=== PATIENT | female | born 1945 | race Caucasian/White ===

== ENCOUNTER → 2016-12-24 | Outpatient (CLI) | payer OTHER ==
[~2016-12-24] MED LIST: CALC600T9; CHOL100010 PO; DIPH25CA37; HYDR0.5T PO; IBUP-1050 PO; PRLSR20 PO; TAMO20TA5 PO
[2016-12-24 13:31] VITALS: BP 128/92; PULSE 83; TEMP 36.8; O2SAT 97
--- NOTE | 2016-12-24 15:46 | Radiation Oncology Follow-Up ---
Radiation Oncology Follow-Up Date of Visit Dec 24, 2016. Reason For Visit Annual follow-up Radiation Completion Date 05/23/13 Hypo Diagnosis (1) Ductal carcinoma in situ (DCIS) of right breast Status: Resolved Onset Date: 09/29/2012 Stage: 0 Permanent Comment: Abnormal right breast mammogram Status post right breast core needle biopsy 09/26/2012 revealing DCIS high-grade Status post lumpectomy and sentinel lymph node biopsy 10/10/2012 stage [id number] with positive margin reexcision 11/03/2012 no additional carcinoma Status post completion of radiation therapy 05/23/2013 utilizing hypo- fractionated received 5006 cGy Last Edited By: Loly Jenkins on Jan 02, 2015 16:46 (2) Malignant neoplasm of corpus uteri, except isthmus Status: Resolved Onset Date: 08/20/2012 Stage: 0 Permanent Comment: Postmenopausal vaginal bleeding Endometrial biopsy 08/03/2012 revealing 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 She noted no changes to her breast. She has noticed no masses or tenderness and no change of the axilla. She's had no swelling of her arm. She is up to date on mammography. She had a mammogram 09/28/2016. Right breast is status post lumpectomy. Benign, no evidence of malignancy. Normal interval follow-up is recommended in 12 months. The left breast is negative, no evidence of malignancy. Normal interval follow-up in 12 months. BI-RADS Category 2. She continues on tamoxifen and denies side effects. She continues regular follow-up with Dr. Wall as well as Dr. Dickinson in medical oncology. She had a recheck CT of the chest abdomen and pelvis 03/13/2016. There was no evidence of metastatic disease or recurrence. Allergies Coded Allergies: Codeine (Verified Allergy, Intermediate, Hives, 10/31/12) Acetaminophen (Unverified Allergy, RASH, 08/16/09) Tetracyclines (Unverified Allergy, TONGUE SWELLS, 08/16/09) Home Medications Scheduled Calcium Carbonate-Vitamin D (Calcium + D), 1,200 MG DAILY Cholecalciferol (Vitamin D), 1,000 INTER.UNIT PO DAILY Hydroxychloroquine Sulfate (Plaquenil), 200 MG PO DAILY Ibuprofen (Advil), 200 MG PO prn Omeprazole (Prilosec), 20 MG PO DAILY Tamoxifen Citrate (Nolvadex), 20 MG PO DAILY Review of Systems Gastrointestinal: Symptoms: WNL Oral: Symptoms: No Problems Respiratory: Symptoms: WNL, Moist Cough, SOB With Exertion Other Respiratory: Moist cough of thick clear sputum, FIORE Urinary: Symptoms: WNL Skin: Symptoms: No Problems Breast: Right Upper Arm Measurement: 29.0 Right Mid Arm Measurement: 23.9 Right Wrist Measurement: 15.8 Left Upper Arm Measurement: 30.0 Left Mid Arm Measurement: 23.1 Left Wrist Measurement: 15.9 Arm Dominence: Right Physical Exam Vital Signs Date Time Temp Pulse Resp B/P (MAP) Pulse Ox O2 Delivery O2 Flow Rate FiO2 12/24/16 13:31 36.8 83 16 128/92 97 Fatigue: None General Appearance: no apparent distress Eyes: normal inspection, EOMI ENT: normal ENT inspection, hearing grossly normal Neck: no adenopathy, thyroid normal Respiratory/Chest: lungs clear, no respiratory distress, no accessory muscle use Breast: Breast examination reveals well-healed incision of the right breast. There is a palpable deficit in the area of her lumpectomy. There is mild fibrous tissue in the lower edge of the previous surgical site. There are no distinct masses. There is no telangiectasia. There is no tenderness or axillary adenopathy. Using the Williamson score cosmesis she has a a fair outcome. The left breast showed no masses or tenderness and no axillary adenopathy. Cardiovascular: regular rate, rhythm, no gallop, no murmur Abdomen: non tender, soft Neurologic/Psychiatric: no motor/sensory deficits, alert, normal mood/affect Skin: warm/dry Lymphatic: no adenopathy Additional Studies Mammography and recheck CT scanning as above. Assessment & Plan Plan: Continue regular follow-up with medical oncology, gynecologic oncology, and her primary care physician. She continues on tamoxifen. Today we discussed smoke cessation. She is down to one half pack per day. She'll continue to try to wean off of cigarettes. We discussed taking away 1 cigarette every 2 weeks. She does not tolerate nicotinic patches. These caused vivid dreams. Continue with scheduled mammography. We asked her to return to our office in 1 year. She may call if she has any questions or concerns in the interim. Total Time In Follow-Up I spent 20 minutes speaking to the patient and performing examination. I spent 15 minutes reviewing information in completing this note. Copy To Andrews Wall M.D.; Romain Dickinson M.D.; Yuval Richards M.D.(LINDA
== END | disposition home or self-care (01) ==
LOC: C.ONC 13:00
PROVIDERS: ATTEND Physician Assistant Medical
DX: Z08 Encounter for follow-up examination after completed treatment for malignant neoplasm (principal); Z92.3 Personal history of irradiation; Z85.3 Personal history of malignant neoplasm of breast

== ENCOUNTER 2018-12-15 13:43 | Inpatient (IN) ==
--- OUTSIDE RECORDS SUMMARY | 2018-12-15 13:47 | External Medical Summary | Continuity of Care Document ---
:1945 Author Name Theodore Huntley, Provider Address Unavailable Unavailable , Care Team Providers Name Role Phone Yasemin Delgadillo [email or web address] Yasemin Allen [email or web address] Yuval Richards Unavailable Unavailable Unavailable Unavailable Unavailable Problems Rheumatoid arthritis (714.0) (M06.9) GERD (gastroesophageal reflux disease) (530.81) (K21.9) Ductal carcinoma in situ of breast (233.0) (D05.10) Sinusitis (473.9) (J32.9) Vasomotor rhinitis (477.9) (J30.0) Facial pressure (780.99) (R68.89) Nasal septal deviation (470) (J34.2) Hypertrophy of both inferior nasal turbinates (478.0) (J34.3 ) Preoperative testing (V72.84) (Z01.818) Peripheral edema (782.3) (R60.9) Chronic sinusitis (473.9) (J32.9) Current smoker (305.1) (F17.200) Apnea, sleep (780.57) (G47.30) Recurrent respiratory infection (519.8) (J98.8) Chronic obstructive pulmonary disease (496) (J44.9) Cough (786.2) (R05) Allergies and Adverse Reactions Acetaminophen TABS (Allergy) Codeine Derivatives (Allergy) Tetracyclines (Allergy) Medications Symbicort 160-4.5 MCG/ACT Inhalation Aer osol; INHALE 2 PUFFS TWICE DAILY. RINSE MOUTH AFTER USE. ELIZABETH Allen Start: 17-Dec-2017 Quantity: 1 10.2 GM Inhaler Refills: 6 Incruse Ellipta 62.5 MCG/INH Inhalation Aerosol Powder Breath Activated; USE 1 INHALATION ONCE DAILY. ELIZABETH Allen Start: 17-Dec-2017 Quantity: 1 30 Inhaler Pack Refills: 6 Ipratropium [place] 0.02 % Inhalation So lution; INHALE THE CONTENTS OF 1 VIAL VIA NEBULIZER MIXED WITH 1/2 DOSE OF ALBUTEROL EVERY 4 HOURS NEEDED FOR SHORTNESS OF BREATH ELIZABETH Allen Start: 17-Dec-2017 Quantity: 62.5 25 x 2.5 ML Plas Con t Refills: 3 Levalbuterol HCl - 1.25 MG/0.5ML Inhalat ion Nebulization Solution; TAKE 1 VIAL IN NEBULIZER mixed with ipratropium every 4 hours as needed ELIZABETH Allen Start: 12-Dec-2018 Quantity: 3 30 Milliliter Plas C ont Refills: 3 Ventolin HFA 108 (90 Base) MCG/ACT Inhal ation Aerosol Solution; INHALE 2 PUFFS BY MOUTH EVERY 4 HOURS NEEDED FOR WHEEZING. ELIZABETH Allen Start: 19-Sep-2018 Quantity: 1 18 GM Inhaler Refills: 5 Calcium + D + K 750-500-40 MG-UNT-MCG Or al Tablet; TAKE DIRECTED PER PACKAGE INSTRUCTIONS. Start: 17-Dec-2017 Refills: 0 Vitamin D3 1000 UNIT Oral Capsule; TAKE 1 CAPSULE Daily Start: 17-Dec-2017 Quantity: 90 Refills: 0 Plaquenil 200 MG Oral Tablet; Take 1 tablet daily Start: 17-Dec-2017 Quantity: 30 Refills: 5 Ibuprofen 200 MG Oral Tablet; TAKE 1 TABLET 3 TIMES DAILY NEEDED. Start: 17-Dec-2017 Refills: 0 Omeprazole 20 MG Oral Capsule Delayed Release; TAKE 1 CAPSUL E BY MOUTH DAILY Start: 17-Dec-2017 Quantity: 30 Refills: 5 PreserVision AREDS 2 Oral Capsule; TAKE DIRECTED. Start: 17-Dec-2017 Refills: 0 Oxygen Refills: 0 dilTIAZem HCl - 120 MG Oral Tablet; TAKE 1 PO DAILY IN [facility]. Start: 19-Apr-2018 Refills: 0 Singulair 10 MG Oral Tablet; TAKE 1 TABLET AT BEDTIME. Start: 19-Apr-2018 Refills: 0 Ipratropium [place] 0.02 % Inhalation So lution; INHALE 1 UNIT DOSE Every 4 hours as needed ELIZABETH Allen Start: 31-May-2018 Quantity: 1 25 x 2.5 ML Plas Con t Refills: 5 Compound Medication; [id number] CAPS Mix 1 CAP & Saline PKT w/6ozdistilled water in bottle Irrigate each nasal passage w/3oz, twice daily ELIZABETH Delgadillo Start: 17-Aug-2018 Quantity: 20 Refills: 3 predniSONE 10 MG Oral Tablet; Take 4 tab s daily x 4 days then 3 tabs daily x 3 days then 2 tabs daily x 2 days then 1 tab on last day then stop ELIZABETH Allen Start: 08-Dec-2018 Quantity: 30 Refills: 0 Azithromycin 250 MG Oral Tablet; TAKE 2 TABLETS ON DAY 1 THEN TAKE 1 TABLET A DAY FOR 4 DAYS. ELIZABETH Allen Start: 08-Dec-2018 Quantity: 1 6 Tablet Box Refills: 0 Procedures History of Tonsillectomy Status: Complet ed History of Breast Surgery Lumpectomy Sta tus: Completed History of Cataract Surgery Status: Comp leted History of rhinologic surgery Status: Co mpleted History of Septoplasty Status: Completed History of Sinus Surgery Status: Complet ed Immunizations Immunizations not documented Family History Father Family history of myocardial infarction (V17.3) (Z82.49) Sta tus: Active Family history of leukemia (V16.6) (Z80.6) Status: Active Sister Family history of malignant neoplasm of breast (V16.3) (Z80. 3) Status: Active Social History - Smoking Status Smoker. current status unknown Plan of Treatment Planned Encounters Appointment; Yasemin Allen PA-C Start: 25-Jan-2019 8:00 Re quest Planned Observations Planned Goals not documented Results No Known Results Results not documented Encounters Appointment; Yasemin Allen PA-C 26-Oct-2018 8:15 Encounter Diagnosis: Problem not documented Appointment; Fuad Lopez M.D. 25-Oct-2018 9:10 Encounter Diagnosis: Problem not documented Appointment; Yasemin Allen PA-C 13-Sep-2018 9:45 Encounter Diagnosis: Problem not documented Appointment; Yasemin Allen PA-C 06-Sep-2018 13:30 Encounter Diagnosis: Problem not documented Appointment; Fuad Lopez M.D. 17-Aug-2018 9:50 Encounter Diagnosis: Problem not documented Appointment; Yasemin Allen PA-C 01-Aug-2018 13:30 Encounter Diagnosis: Problem not documented Appointment; Fuad Lopez M.D. 29-Jul-2018 10:50 Encounter Diagnosis: Problem not documented Appointment; Fuad Lopez M.D. 13-Jul-2018 11:00 Encounter Diagnosis: Problem not documented Appointment; Fuad Lopez M.D. 29-Jun-2018 7:30 Encounter Diagnosis: Problem not documented Appointment; Yasemin Allen PA-C 31-May-2018 7:45 Encounter Diagnosis: Problem not documented Appointment; Fuad Lopez M.D. 18-May-2018 8:15 Encounter Diagnosis: Problem not documented Appointment; ENT, [facility] 13-May-2018 8:40 Encounter Diagnosis: Problem not documented Appointment; Pulmonary, Funct Testing 04-May-2018 11:30 Encounter Diagnosis: Problem not documented Appointment; Fuad Lopez M.D. 28-Apr-2018 8:10 Encounter Diagnosis: Problem not documented Appointment; Yasemin Delgadillo PA-C 22-Apr-2018 9:20 Encounter Diagnosis: Problem not documented Appointment; Yasemin Allen PA-C 19-Apr-2018 10:30 Encounter Diagnosis: Problem not documented Appointment; Desirae Ga CRNP 01-Apr-2018 11:00 Encounter Diagnosis: Problem not documented Appointment; Yasemin Allen PA-C 01-Feb-2018 7:45 Encounter Diagnosis: Problem not documented Appointment; Yasemin Allen PA-C 22-Dec-2017 7:30 Encounter Diagnosis: Problem not documented Appointment; Yasemin Allen PA-C 25-Jan-2019 8:00 Encounter Diagnosis: Problem not documented
[2018-12-15] MEDS ORDERED: methylPREDNISolone 125 MG/2 ML VIAL IV STA (13:52)
[2018-12-15] MEDS ORDERED: ALBUT/IPRATROP 3MG/0.5MG NEB 3 ML VIAL INH STA (13:52)
[2018-12-15 14:11] LABS: Basophils # (auto) 0.01 K/uL (0-0.2); Basophils % (auto) 0.1 %; Eosinophils # (auto) 0.43 K/uL (0-0.5); Eosinophils % (auto) 4.6 %; Hematocrit (blood only) 46.2 % (37-47); Hemoglobin 15.3 g/dL (12.0-16.0); Immature Granulocytes # (auto) 0.02 K/uL (0.00-0.02); Immature Granulocytes % (auto) 0.2 %; Lymphocytes # (auto) 1.01 K/uL (1.2-3.4); Lymphocytes % (auto) 10.8 %; Mean Corpuscular Hgb Conc 33.1 g/dL (32-36); Mean Corpuscular Volume 89.7 fL (80-100); Mean Platelet Volume 9.2 fL (7.4-10.4); Monocytes # (auto) 0.63 K/uL (0.11-0.59); Monocytes % (auto) 6.8 %; Neutrophils # (auto) 7.21 K/uL (1.4-6.5); Neutrophils % (auto) 77.5 %; Platelet Count 270 K/uL (130-400); RDW Coefficient of Variation 14.5 % (11.5-14.5); RDW Standard Deviation 47.3 fL (36.4-46.3); Red Blood Count 5.15 M/uL (4.2-5.4); White Blood Count 9.31 K/uL (4.8-10.8)
[2018-12-15] MEDS: MAGNESIUM SULFATE / D5W 1 GM/100 ML BAG IV SCH ×2 (14:14→15:21)
[2018-12-15 14:25] LABS: Partial Thromboplastin Ratio 0.9; Partial Thromboplastin Time 23.1 Seconds (21.0-31.0); Prothrombin Time 9.8 Seconds (9.0-12.0)
[2018-12-15 14:30] LABS: Alanine Aminotransferase 38 U/L (12-78); Albumin Level 4.1 gm/dl (3.4-5.0); Aspartate Aminotransferase 18 U/L (15-37); BUN Creatinine Ratio 12.7 (10-20); Blood Urea Nitrogen 10 mg/dl (7-18); Calcium 9.4 mg/dl (8.5-10.1); Carbon Dioxide 32 mmol/L (21-32); Chloride 105 mmol/L (98-107); Est GFR (African American) 86.6; Est GFR (Non-African American) 74.7; Glucose 103 mg/dl (70-99); Potassium 4.1 mmol/L (3.5-5.1); Sodium 139 mmol/L (136-145)
--- NOTE | 2018-12-15 14:32 | XRay Report ---
XR chest 1V portable CLINICAL HISTORY: Dyspnea. COMPARISON STUDY: Chest radiograph and chest CT August 31, 2018. FINDINGS: Lung volumes are normal. There is no pneumothorax or pleural effusion. There is no consolid ation or evidence for pulmonary edema. The appearance of the chest is unchanged. Cardiac size is norm al. Mediastinal contours are normal. IMPRESSION: No acute cardiopulmonary findings. Electronically signed by: Baldo Díaz M.D. 12/15/2018 2:30 PM
[2018-12-15 14:35] LABS: Albumin Globulin Ratio 1.1 (0.9-2); Alkaline Phosphatase 100 U/L (45-117); Bilirubin,Total 0.6 mg/dl (0.2-1); Globulin 3.9 gm/dl (2.5-4.0); Troponin I < 0.015 ng/ml (0-0.045)
[2018-12-15 15:17] LABS: Base Excess VBG -0.6 mEq/L; Oxygen Saturation VBG 84.6 %; pH VBG 7.29 (7.36-7.41)
--- NOTE | 2018-12-15 16:29 | History & Physical Report ---
Date of Service December 15, 2018 Assessment & Plan (1) COPD exacerbation: (2) Respiratory failure: Patient presented with increased shortness of breath past 2-3 days. 4 days prior had completed 5-day course of steroids and Zithromax for SOB In ER patient afebrile, peak: 110, RR: 32, BP 175/93, 95% on 2 L NC No leukocytosis, VBG: pH: 7.29, pCO2: 58, p O2: 54, HCO3: 27 CXR: no acute infiltrate Patient was placed on BiPAP with decreased tachypnea and 100% saturations on BiPAP. Was given our long albuterol neb, magnesium sulfate 1 g IV, Solu-Medrol and 25 mg IV -Pending blood cultures -Continue BiPAP -Duo nebs -Supplemental oxygen as needed -Solumedrol 40mg IV Q8H -Rocephin, Zithromax -Continue home inhalers, Singulair -Pulmonology consult (3) PAT (paroxysmal atrial tachycardia): Current sinus tachycardia rate 112 Patient did not have diltiazem today -Continue diltiazem (4) Rheumatoid arthritis: -Continue Plaquenil (5) GERD (gastroesophageal reflux disease): -Continue PPI (6) JOAN (obstructive sleep apnea): Uses CPAP and to L oxygen at bedtime -Currently on BiPAP (7) Tobacco use disorder: -Smoking cessation encouraged DVT Prophylaxis -Lovenox SQ Full Code as per discussion with pt Follows with Dr Richards for routine care Pt was seen with Dr Finnegan. See addendum History of Present Illness Chief Complaint: SOB Primary Care Provider: Yuval Richards MD Pt is 72 y/o F with PMH COPD, JOAN on CPAP, chronic oxygen use at night at 2L, tobacco use, RA, paroxysmal atrial tachycardia, R breast cancer s/p surgery & radiation, uterine CA s/p surgery presented to ER with c/o increased SOB x 2-3 days. Patient states she is having some nasal congestion and increased work of breath last week and was started on steroids and Zithromax x5 days which completed 4 days ago. Patient reports with increased shortness of breath for the past 2 to 3 days and increased wheezing. Reports chronic productive cough of yellow sputum in the mornings, denies increased cough or increased sputum production. Denies fevers or chills. Patient was using her albuterol inhaler 3 times a day without relief. Today was using oxygen continuously at 2 L (usually uses at bedtime ). Denies ill contacts or recent travel. Denies diaphoresis, N/V/D/C, TRINIDAD, dizziness, syncope, vision changes, neck pain, CP, orthopnea, palpitations, hemoptysis, sore throat, choking, otalgia, abdominal pain, paresthesias, weakness, extremity weakness, extremity edema, rashes, urinary symptoms. Allergies Allergy/AdvReac Type Severity Reaction Status Date / Time codeine Allergy Intermediate Hives Verified 12/15/18 14:22 acetaminophen Allergy Unknown RASH Verified 12/15/18 14:22 Tetracyclines Allergy Unknown TONGUE Verified 12/15/18 14:22 SWELLS Home Medications Home Medications Medication Instructions Recorded Confirmed Type Incruse Ellipta 1 inh INHALATION QAM 04/02/18 12/15/18 History PreserVision AREDS-2 1 tab PO BID 04/02/18 12/15/18 History albuterol sulfate 2 puff INHALATION Q4 PRN 04/02/18 12/15/18 History calcium carbonate-vit D3-min 1 tab PO DAILY 04/02/18 12/15/18 History cholecalciferol (vitamin D3) 1,000 unit PO QAM 04/02/18 12/15/18 History [Vitamin D3] hydroxychloroquine [Plaquenil] 200 mg PO QAM 04/02/18 12/15/18 History montelukast 10 mg PO PM 04/02/18 12/15/18 History omeprazole 20 mg PO QAM 04/02/18 12/15/18 History Symbicort 2 puff INHALATION BID 06/29/18 12/15/18 History diltiazem HCl 120 mg PO DAILY 08/31/18 12/15/18 History Past Med/Surg History Family History Other Breast cancer Cancer Coronary heart disease Social History Preferred Language: Persian Communication Ability: Effective Visual Impairment: No Limitations Beliefs That Will Affect Care: None marital status: Single Current Living Situation: Spouse Other Information That Helps Us Care for You: No Feels Safe at Home: Yes Safety Concerns: Feels Safe At This Time Smoking Status: Current every day smoker Tobacco Type: cigarettes Cigarettes Per Day: 3 Second Hand Exposure: No Hx Alcohol Use: No Hx Substance Use: No Review of Systems Review of Systems: All systems reviewed & are unremarkable except as noted in HPI & below Physical Exam Physical Exam: General: Current on bipap with non-labored respirations, WDWN Head: normocephalic, atraumatic Eyes: PERRL, EOM's intact, conjunctiva non-injected, anicteric ENT: normal inspection external ears, nose, mucous membranes mildly dry Neck: supple, trachea midline Lungs: On bipap with non-labored respirations, RR: 22, diminished breath sounds with scattered wheezing throughout CV: regular rhythm, rate 116, no murmur, no JVD, no pretibial edema Abd: normal BS, soft, non-tender Ext: no cyanosis, no calf tenderness Neuro: A&O x 3, no focal deficits noted, normal affect Skin: warm, dry; tip of nose with bandage (had skin biopsy today) Results & Data Vital Signs (Past 12 Hours) Vital Signs Temp Pulse Pulse Resp BP Pulse Ox 12/15/18 15:31 106 H 20 149/90 H 100 12/15/18 15:00 103 H 20 150/112 H 100 12/15/18 14:37 107 H 21 169/113 H 100 12/15/18 14:36 111 H 26 H 100 12/15/18 14:32 110 H 26 H 100 12/15/18 14:07 111 H 25 H 100 12/15/18 14:05 99 12/15/18 13:47 36.6 C 110 H 32 H 175/93 H 95 Laboratory Results Short CBC 12/15/18 Range/Units 13:55 WBC 9.31 (4.8-10.8) K/uL Hgb 15.3 (12.0-16.0) g/dL Hct 46.2 (37-47) % Plt Count 270 (130-400) K/uL BMP 12/15/18 13:55 Sodium 139 Potassium 4.1 Chloride 105 Carbon Dioxide 32 BUN 10 Creatinine 0.80 Glucose 103 H Calcium 9.4 Cardiac Enzymes 12/15/18 12/15/18 Range/Units 13:55 13:55 Troponin I Cancelled < 0.015 Liver Function 12/15/18 Range/Units 13:55 Total Bilirubin 0.6 (0.2-1) mg/dl AST 18 (15-37) U/L ALT 38 (12-78) U/L Alkaline Phosphatase 100 (45-117) U/L Albumin 4.1 (3.4-5.0) gm/dl Diagnostic Findings CXR: IMPRESSION: No acute cardiopulmonary findings. Supervising Physician Co-Signing Physician Notes Patient is a 72-year-old female with history of COPD, obstructive sleep apnea on CPAP, nocturnal hypoxia-chronic oxygen dependency, ongoing tobacco use and other problems presents with history of worsening shortness of breath since 2 to 3 days duration. She reports associated nasal congestion, chest congestion. She recently completed a course of Z-Silvestre, prednisone 4 days ago. Chest x-ray showed no acute findings. VBG showed elevated CO2 at 58. EKG shows sinus tachycardia with QTC 476. Patient was placed on BiPAP while in ED after receiving multiple breathing treatments. Currently feels much improved with BiPAP use. On exam patient is moderately built and nourished, On Bipap, no apparent distress, normocephalic atraumatic, lungs--decreased breath sounds, no obvious wheezing noted, S1, S2, +sinus Tachycardia, abdomen soft nontender, no focal neurological deficits, no pedal edema. Patient is admitted for management of acute on chronic COPD exacerbation. Acute on chronic hypoxic, hypercapnic respiratory failure. Continue BiPAP as needed. Plan to start on IV Solu- Medrol, bronchodilators, azithromycin. Pulmonology consulted. Repeat EKG in the morning to monitor QTC. Consider discontinuing azithromycin if QTC is prolonged. Advised to quit smoking. I personally reviewed the record. Patient is interviewed and examined at bedside. Patient's care is coordinated with Jerilyn Reeder PA-C. Please refer to the documentation above for details of patient's presentation and for discussion of other issues. (1) Respiratory failure Chronicity: unspecified Respiratory failure complication: unspecified whether with hypoxia or hypercapnia Qualified Code(s): J96.90 - Respiratory failure, unspecified, unspecified whether with hypoxia or hypercapnia
--- NOTE | 2018-12-15 17:50 | Emergency Department Note ---
Entered by Shelley Damon acting as a scribe for History of Present Illness General Chief complaint: Shortness of Breath/Dyspnea Stated complaint: SOB Time Seen by Provider: 12/15/18 13:52 Source: patient Mode of arrival: ambulatory Limitations: no limitations History of Present Illness Onset (ago): day(s) (last night) Location: chest Pain Consistency: + other (worsening) Maximum Pain Intensity: 0 Quality: + other (shortness of breath) Associated symptoms: + shortness of breath; no chest pain, no cough and no fever/chills (The patient denies fever. ) Treatments prior to arrival: other (She states that she used an inhaler at 0930. ) The patient is a 72 white female w/ PMHx COPD, pulmonary nodule, and hypoxia who presents to the ED w/ CC of worsening shortness of breath beginning 2 days ago. She states that she used an inhaler at 0930. The patient denies chest pain, cough, and fevers. She notes that she finished a regimen of Prednisone last Wednesday for difficulty breathing. She states that she wears 3 liters of oxygen at night. The patient reports that she is a current smoker. She denies a history of heart failure. The patient denies weight gain. Home Medications Home Medications Medication Instructions Recorded Confirmed Type Incruse Ellipta 1 inh INHALATION QAM 04/02/18 12/15/18 History PreserVision AREDS-2 1 tab PO BID 04/02/18 12/15/18 History albuterol sulfate 2 puff INHALATION Q4 PRN 04/02/18 12/15/18 History calcium carbonate-vit D3-min 1 tab PO DAILY 04/02/18 12/15/18 History cholecalciferol (vitamin D3) 1,000 unit PO QAM 04/02/18 12/15/18 History [Vitamin D3] hydroxychloroquine [Plaquenil] 200 mg PO QAM 04/02/18 12/15/18 History montelukast 10 mg PO PM 04/02/18 12/15/18 History omeprazole 20 mg PO QAM 04/02/18 12/15/18 History Symbicort 2 puff INHALATION BID 06/29/18 12/15/18 History diltiazem HCl 120 mg PO DAILY 08/31/18 12/15/18 History Allergies Allergy/AdvReac Type Severity Reaction Status Date / Time codeine Allergy Intermediate Hives Verified 12/15/18 14:22 acetaminophen Allergy Unknown RASH Verified 12/15/18 14:22 Tetracyclines Allergy Unknown TONGUE Verified 12/15/18 14:22 SWELLS Past Med/Surg History Medical History JOAN (obstructive sleep apnea) (Chronic) Basal cell carcinoma (BCC) (Chronic) Skin cancer of face (Chronic) Hiatal hernia (Chronic) History of uterine cancer (Chronic) S/P GREGORIO BSO + CHEMO History of breast cancer (Chronic) RT - S/P LUMPECTOMY + RADIATION THERAPY Nocturnal oxygen desaturation (Chronic) WEARS O2 AT 2 LPM AT NIGHT Tobacco use disorder (Chronic) Pulmonary nodule (Chronic) PAT (paroxysmal atrial tachycardia) (Chronic) FOLLOWS W/ DR. 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) "Abnormal right breast mammogram Status post right breast core needle biopsy 09/26/2012 revealing DCIS high- grade Status post lumpectomy and sentinel lymph node biopsy 10/10/2012 stage [id number] with positive margin reexcision 11/03/2012 no additional carcinoma Status post completion of radiation therapy 05/23/2013 utilizing hypo- fractionated received 5006 cGy " Rheumatoid arthritis (Chronic) GERD (gastroesophageal reflux disease) (Chronic) Surgical History History of colonoscopy (Chronic) History of total abdominal hysterectomy and bilateral salpingo-oophorectomy (Chronic) History of breast biopsy (Chronic) History of Moh's micrographic surgery for skin cancer (Chronic) History of tonsillectomy (Chronic) History of cataract surgery (Chronic) Status post right breast lumpectomy (Chronic) Family History Other Breast cancer Cancer Coronary heart disease Social History Preferred Language: Qatari Communication Ability: Effective Visual Impairment: No Limitations Beliefs That Will Affect Care: None marital status: Single Current Living Situation: Spouse Feels Safe at Home: Yes Smoking Status: Current every day smoker Tobacco Type: cigarettes Cigarettes Per Day: 3 Second Hand Exposure: No Hx Alcohol Use: No Hx Substance Use: No Review of Systems See HPI for pertinent positives & negatives. and A total of 10 systems reviewed and were otherwise negative Physical Exam Vital Signs Vital Signs - 24 hr 12/15/18 13:47 12/15/18 14:05 12/15/18 14:07 Temperature 36.6 C Temperature Source Oral Sepsis Recent Fever Within 48 Hours No Sepsis New/Unexplained Change in Mental Status No Sepsis Action Taken by Nursing No Action Required Pulse Rate 110 H 111 H Pulse Rate [Right Finger] Pulse Rate from SpO2 Sensor Pulse Rhythm Respiratory Rate 32 H 25 H Respiratory Effort / Characteristics Labored Retracting Short of Breath Tripoding Short of Breath Respiratory Depth Shallow Respiratory Pattern Rapid/Shallow Tachypnea Blood Pressure 175/93 H Blood Pressure Mean 120 Pulse Oximetry 95 99 100 Oxygen Delivery Method Nasal Cannula Nasal Cannula Oxygen Flow Rate 2 2 Fraction of Inspired Oxygen 35 SaO2/FiO2 Ratio 12/15/18 14:32 12/15/18 14:36 12/15/18 14:37 Temperature Temperature Source Sepsis Recent Fever Within 48 Hours Sepsis New/Unexplained Change in Mental Status Sepsis Action Taken by Nursing Pulse Rate 111 H 107 H Pulse Rate [Right Finger] 110 H Pulse Rate from SpO2 Sensor 107 H Pulse Rhythm Regular Respiratory Rate 26 H 26 H 21 Respiratory Effort / Characteristics Spontaneous Short of Breath Respiratory Depth Respiratory Pattern Blood Pressure 169/113 H Blood Pressure Mean 131 Pulse Oximetry 100 100 100 Oxygen Delivery Method BiPAP BiPAP BiPAP Oxygen Flow Rate 2 Fraction of Inspired Oxygen 35 35 SaO2/FiO2 Ratio 285 12/15/18 15:00 12/15/18 15:31 12/15/18 16:00 Temperature Temperature Source Sepsis Recent Fever Within 48 Hours Sepsis New/Unexplained Change in Mental Status Sepsis Action Taken by Nursing Pulse Rate 103 H 106 H 104 H Pulse Rate [Right Finger] Pulse Rate from SpO2 Sensor 101 H 105 H 110 H Pulse Rhythm Respiratory Rate 20 20 22 Respiratory Effort / Characteristics Respiratory Depth Respiratory Pattern Blood Pressure 150/112 H 149/90 H 125/84 Blood Pressure Mean 124 109 97 Pulse Oximetry 100 100 100 Oxygen Delivery Method BiPAP BiPAP BiPAP Oxygen Flow Rate Fraction of Inspired Oxygen 35 35 SaO2/FiO2 Ratio 12/15/18 16:16 12/15/18 16:31 12/15/18 17:00 Temperature Temperature Source Sepsis Recent Fever Within 48 Hours Sepsis New/Unexplained Change in Mental Status Sepsis Action Taken by Nursing Pulse Rate 110 H 115 H 119 H Pulse Rate [Right Finger] Pulse Rate from SpO2 Sensor 115 H 117 H Pulse Rhythm Respiratory Rate 24 21 23 Respiratory Effort / Characteristics Non-Labored Spontaneous Respiratory Depth Normal Respiratory Pattern Tachypnea Blood Pressure 151/89 H 143/99 H Blood Pressure Mean 109 113 Pulse Oximetry 100 97 99 Oxygen Delivery Method BiPAP BiPAP Oxygen Flow Rate 2 Fraction of Inspired Oxygen 35 35 SaO2/FiO2 Ratio 12/15/18 17:30 Temperature Temperature Source Sepsis Recent Fever Within 48 Hours Sepsis New/Unexplained Change in Mental Status Sepsis Action Taken by Nursing Pulse Rate 105 H Pulse Rate [Right Finger] Pulse Rate from SpO2 Sensor 114 H Pulse Rhythm Respiratory Rate 18 Respiratory Effort / Characteristics Respiratory Depth Respiratory Pattern Blood Pressure 125/87 Blood Pressure Mean 99 Pulse Oximetry 100 Oxygen Delivery Method BiPAP Oxygen Flow Rate Fraction of Inspired Oxygen SaO2/FiO2 Ratio GENERAL: In moderate distress, well nourished, NAD, non-toxic. Tachypneic, accessory muscle use noted. Diffuse wheezing throughout, shallow breaths, nasal cannula in place. EYE EXAM: Normal conjunctiva. PERRL, no anisocoria and EOM's grossly intact w/o pain. OROPHARYNX: Moist mucus membranes. Grossly normal dentition. NECK: Supple, no nuchal rigidity, no adenopathy, non-tender. no signs of meningismus. LUNGS: Tachypneic, accessory muscle use noted. Diffuse wheezing throughout, shallow breaths, nasal cannula in place. HEART: NSR, no MRG. ABDOMEN: Abdomen soft, non-tender, normo-active bowel sounds, no masses, no rebound or guarding. BACK: No CVA TTP. SKIN: No rashes and no bruising. UPPER EXTREMITIES: Upper extremities are grossly normal. LOWER EXTREMITIES: Trace pretibial edema. No calf pain. No asymmetric swelling. NEURO EXAM: A&O x3, cranial nerves II-XII grossly intact, normal speech, moves all 4 extremities on command w/o issue. Course 1355: Past medical records reviewed. The patient was evaluated in room B03B. A complete history and physical examination was performed. 1553: I reviewed the patient's case with Jerilyn Yu. She will evaluate the patient for further management. Consultations Consultation #1: [id number]: I reviewed the patient's case with Jerilyn Yu. She will evaluate the patient for further management. Time: 15:53 Administered Medications Discontinued Medications Albuterol (Duoneb) 12 ml INH ONE STA Stop: 12/15/18 13:53 Last Admin: 12/15/18 14:31 Dose: 12 ml Documented by: [id number] Magnesium Sulfate/Dextrose (Magnesium Sulfate / D5w) 1 gm in 100 mls @ 100 mls/hr IV Q1H ELVER Stop: 12/15/18 15:59 Last Infusion: 12/15/18 16:33 Dose: 0 mls/hr Documented by: [id number] Admin: 12/15/18 15:21 Dose: 100 mls/hr Documented by: [id number] Infusion: 12/15/18 15:19 Dose: 0 mls/hr Documented by: [id number] Admin: 12/15/18 14:14 Dose: 100 mls/hr Documented by: [id number] Methylprednisolone (Solumedrol) 125 mg IV NOW STA Stop: 12/15/18 13:53 Last Admin: 12/15/18 14:14 Dose: 125 mg Documented by: [id number] Azithromycin 500 mg PO x 1 Medical Decision Making Differential Diagnosis Differential diagnoses Pneumonia, bronchitis, COPD/Asthma exacerbation, pneumothorax, pulmonary embolism, congestive heart failure, acute coronary syndrome as well as other etiologies were entertained. Medical Records Attestation: I reviewed the patient's medical records. Home Medications Current Medication List: was personally reviewed by me Laboratory Data Attestation: I reviewed the patient's lab results. Result diagrams: 12/15/18 13:55 12/15/18 13:55 Lab Results 12/15/18 12/15/18 12/15/18 Range/Units 13:55 13:55 13:55 WBC 9.31 (4.8-10.8) K/uL RBC 5.15 (4.2-5.4) M/uL Hgb 15.3 (12.0-16.0) g/dL Hct 46.2 (37-47) % MCV 89.7 (80-100) fL MCH 29.7 (25-34) pg MCHC 33.1 (32-36) g/dL RDW Std Deviation 47.3 H (36.4-46.3) fL RDW Coeff of Arleen 14.5 (11.5-14.5) % Plt Count 270 (130-400) K/uL MPV 9.2 (7.4-10.4) fL Immature Gran % (Auto) 0.2 % Neut % (Auto) 77.5 % Lymph % (Auto) 10.8 % Colbert % (Auto) 6.8 % Eos % (Auto) 4.6 % Baso % (Auto) 0.1 % Immature Gran # (Auto) 0.02 (0.00-0.02) K/uL Neut # (Auto) 7.21 H (1.4-6.5) K/uL Lymph # (Auto) 1.01 L (1.2-3.4) K/uL Colbert # (Auto) 0.63 H (0.11-0.59) K/uL Eos # (Auto) 0.43 (0-0.5) K/uL Baso # (Auto) 0.01 (0-0.2) K/uL PT 9.8 (9.0-12.0) Seconds INR 1.0 (0.9-1.1) APTT 23.1 (21.0-31.0) Seconds PTT Ratio 0.9 VBG pH VBG pCO2 VBG pO2 VBG HCO3 VBG O2 Saturation VBG Base Excess Barometric Pressure Sodium (136-145) mmol/L Potassium (3.5-5.1) mmol/L Chloride (98-107) mmol/L Carbon Dioxide (21-32) mmol/L Anion Gap (3-11) BUN (7-18) mg/dl Creatinine (0.6-1.2) mg/dl Est Cr Clr Drug Dosing Est GFR ( Amer) Est GFR (Non-Af Amer) BUN/Creatinine Ratio (10-20) Glucose (70-99) mg/dl Calcium (8.5-10.1) mg/dl Total Bilirubin (0.2-1) mg/dl AST (15-37) U/L ALT (12-78) U/L Alkaline Phosphatase (45-117) U/L Troponin I Cancelled Total Protein (6.4-8.2) gm/dl Albumin (3.4-5.0) gm/dl Globulin (2.5-4.0) gm/dl Albumin/Globulin Ratio (0.9-2) 12/15/18 12/15/18 12/15/18 Range/Units 13:55 14:21 15:04 WBC (4.8-10.8) K/uL RBC (4.2-5.4) M/uL Hgb (12.0-16.0) g/dL Hct (37-47) % MCV (80-100) fL MCH (25-34) pg MCHC (32-36) g/dL RDW Std Deviation (36.4-46.3) fL RDW Coeff of Arleen (11.5-14.5) % Plt Count (130-400) K/uL MPV (7.4-10.4) fL Immature Gran % (Auto) % Neut % (Auto) % Lymph % (Auto) % Colbert % (Auto) % Eos % (Auto) % Baso % (Auto) % Immature Gran # (Auto) (0.00-0.02) K/uL Neut # (Auto) (1.4-6.5) K/uL Lymph # (Auto) (1.2-3.4) K/uL Colbert # (Auto) (0.11-0.59) K/uL Eos # (Auto) (0-0.5) K/uL Baso # (Auto) (0-0.2) K/uL PT (9.0-12.0) Seconds INR (0.9-1.1) APTT (21.0-31.0) Seconds PTT Ratio VBG pH Cancelled 7.29 L VBG pCO2 Cancelled 58 H VBG pO2 Cancelled 54 VBG HCO3 Cancelled 27 VBG O2 Saturation Cancelled 84.6 VBG Base Excess Cancelled -0.6 Barometric Pressure Cancelled 727.1 Sodium 139 (136-145) mmol/L Potassium 4.1 (3.5-5.1) mmol/L Chloride 105 (98-107) mmol/L Carbon Dioxide 32 (21-32) mmol/L Anion Gap 2.0 L (3-11) BUN 10 (7-18) mg/dl Creatinine 0.80 (0.6-1.2) mg/dl Est Cr Clr Drug Dosing Not Reportable Est GFR ( Amer) 86.6 Est GFR (Non-Af Amer) 74.7 BUN/Creatinine Ratio 12.7 (10-20) Glucose 103 H (70-99) mg/dl Calcium 9.4 (8.5-10.1) mg/dl Total Bilirubin 0.6 (0.2-1) mg/dl AST 18 (15-37) U/L ALT 38 (12-78) U/L Alkaline Phosphatase 100 (45-117) U/L Troponin I < 0.015 Total Protein 8.0 (6.4-8.2) gm/dl Albumin 4.1 (3.4-5.0) gm/dl Globulin 3.9 (2.5-4.0) gm/dl Albumin/Globulin Ratio 1.1 (0.9-2) Imaging Data Radiologist's Impression: Radiology results as stated below per my review and the radiologist's interpretation: XR chest 1V portable CLINICAL HISTORY: Dyspnea. COMPARISON STUDY: Chest radiograph and chest CT August 31, 2018. FINDINGS: Lung volumes are normal. There is no pneumothorax or pleural effusion. There is no consolidation or evidence for pulmonary edema. The appearance of the chest is unchanged. Cardiac size is normal. Mediastinal contours are normal. IMPRESSION: No acute cardiopulmonary findings. Electronically signed by: Baldo Díaz M.D. 12/15/2018 2:30 PM Dictated: 12/15/18 1429 Transcribed: 12/15/18 1429 ECG Data Attestation: I personally reviewed and interpreted this ECG as follows: Indication: SOB/dyspnea Rate (beats per minute): 111 Rhythm: sinus tachycardia Findings: + other (Normal intervals, left axis deviation, Q waves anteriorly. ) Comparison ECG Date: from (08/31/2018) Change: the following changes noted (ST depression anteriorly is no longer present ) Blood Pressure Blood Pressure Findings: Elevated blood pressure Blood Pressure Disposition: further management by hospitalist CARLYLE Narrative The patient is a 72 white female w/ PMHx COPD, pulmonary nodule, and hypoxia who presents to the ED w/ CC of worsening shortness of breath beginning 2 days ago. Patient was seen in about the bedside. Patient was relating some worsening shortness of breath beginning 2 days prior. The patient has dyspnea on exertion. Patient denies lower extremity swelling orthopnea. The patient does have some wheezing throughout his tachypneic has conversational dyspnea. The patient does use 2 L of oxygen at nighttime. The patient does continue to use cigarettes. The patient was placed on BiPAP did have blood work completed along with an hour-long DuoNeb Solu-Medrol mag and did have blood work and EKG. Patient's EKG sinus tach. The patient did receive IV fluids. Patient has a normal white count and H&H. The patient does have some hypercarbia which is likely acute. The patient is never been hypoxic but likely is having some shelia tilation issues. The patient's kidney function is unremarkable. The patient has an undetectable troponin. Patient denies any prior history of PE. I believe this most consistent with COPD. I did speak with the on-call hospitalist who agreed to further evaluate treat the patient. Patient was adm itted to medicine service. Impression & Plan Hypercapnic respiratory failure, COPD (chronic obstructive pulmonary disease), Encounter for smoking cessation counseling Critical Care Time I have personally spent 52 minutes of critical care time in the direct management of this patient. This includes bedside care, interpretation of diagnostic studies, and testing, discussion with consultants, patient, and family members, and other required patient management activities. This 52 minutes is in excess of all separately billable procedures. Critical Care Time: Yes (52) Total Critical Care Time: 52 Discharge Plan Visit Data Chief Complaint: Shortness of Breath/Dyspnea Stated Complaint: SOB ED Provider: Jagdeep Arredondo Discharge Problem: Hypercapnic respiratory failure, COPD (chronic obstructive pulmonary disease), Encounter for smoking cessation counseling Patient Disposition: Being Evaluated by Hospitalist Forms Stand Alone Forms: [facility] Prescriptions Prescriptions: No Action omeprazole 20 mg Capsule,Delayed Release(Dr/Ec) 20 mg PO QAM RF: 0 montelukast 10 mg Tablet 10 mg PO PM RF: 0 hydroxychloroquine [Plaquenil] 200 mg Tablet 200 mg PO QAM RF: 0 cholecalciferol (vitamin D3) [Vitamin D3] 1,000 unit Capsule 1,000 unit PO QAM RF: 0 PreserVision AREDS-2 [id number] Capsule 1 tab PO BID RF: 0 Incruse Ellipta 62.5 mcg/actuation Blister With Device 1 inh INHALATION QAM RF: 0 calcium carbonate-vit D3-min 600 mg calcium- 400 unit Tablet 1 tab PO DAILY RF: 0 albuterol sulfate 90 mcg/actuation HFA aerosol inhaler 2 puff Inhalation Q4 PRN (Reason: Shortness Of Breath Or Wheezing) RF: 0 Symbicort 160-4.5 mcg/actuation Hfa Aerosol Inhaler 2 puff INHALATION BID RF: 0 diltiazem HCl 120 mg Capsule,Extended Release 24 Hr 120 mg PO DAILY RF: 0 Referrals Referrals: Yuval Richards MD [Primary Care Provider] - Discharge Problem: Hypercapnic respiratory failure Qualifiers: Chronicity: acute on chronic Qualified Code(s): J96.22 - Acute and chronic respiratory failure with hypercapnia COPD (chronic obstructive pulmonary disease) Qualifiers: COPD type: unspecified COPD Qualified Code(s): J44.9 - Chronic obstructive pulmonary disease, unspecified The scribe's documentation has been prepared under my direction and personally reviewed by me in its entirety. I confirm that the note above accurately reflects all work, treatment, procedures, and medical decision making performed by me.
[2018-12-15] MEDS ORDERED: AZITHROMYCIN 250 MG TAB PO ONE (17:51)
[2018-12-15] MEDS ORDERED: SODIUM CHLORIDE 0.9% 1000ML 1,000 ML IV SCH (18:11)
[2018-12-15] MEDS: cefTRIAXone SODIUM 1,000 MG in DEXTROSE 5% 50 ML IV SCH (19:24)
[2018-12-15] MEDS: AZITHROMYCIN 500 MG in DEXTROSE 5% 250 ML IV SCH (19:24)
[2018-12-15] MEDS: dilTIAZem ER 120 MG CAPCR PO SCH (19:24)
[2018-12-15] MEDS: ALBUT/IPRATROP 3MG/0.5MG NEB 3 ML VIAL NEB SCH (20:18)
[2018-12-15] MEDS: MONTELUKAST SODIUM 10 MG TABLET PO SCH (20:25)
[2018-12-15] MEDS: ENOXAPARIN INJ 40 MG/0.4 ML SYR SQ SCH (20:30)
[2018-12-15] MEDS: BUDESONIDE/FORMOTEROL FUMARATE 160/4.5 60 PUFFS/INHALER INH SCH (20:31)
[2018-12-15] MEDS: methylPREDNISolone 40 MG in SYRINGE 0 ML IV SCH (21:32)
[2018-12-15] MEDS: CEROVITE ADV FORMULA TAB PO SCH (21:32)
[2018-12-15] MEDS: INCRUSE ELLIPTA: ORDER AWAITING ACTION SCH (23:48)
[2018-12-16] MEDS: methylPREDNISolone 40 MG in SYRINGE 0 ML IV SCH (05:57)
[2018-12-16] MEDS: ALBUT/IPRATROP 3MG/0.5MG NEB 3 ML VIAL NEB SCH ×4 (07:04→18:46)
[2018-12-16 07:06] LABS: Hematocrit (blood only) 40.6 % (37-47); Hemoglobin 13.4 g/dL (12.0-16.0); Mean Corpuscular Volume 89.4 fL (80-100); Mean Platelet Volume 9.9 fL (7.4-10.4); Platelet Count 260 K/uL (130-400); RDW Coefficient of Variation 14.4 % (11.5-14.5); RDW Standard Deviation 47.3 fL (36.4-46.3); Red Blood Count 4.54 M/uL (4.2-5.4); White Blood Count 13.81 K/uL (4.8-10.8)
[2018-12-16] MEDS: INCRUSE ELLIPTA: ORDER AWAITING ACTION SCH ×3 (07:31→23:25)
[2018-12-16] MEDS: CALCIUM 600MG + VIT D 400 IU TAB PO SCH (07:32)
[2018-12-16] MEDS: BUDESONIDE/FORMOTEROL FUMARATE 160/4.5 60 PUFFS/INHALER INH SCH ×2 (07:32→21:41)
[2018-12-16] MEDS: PANTOprazole 40 MG TAB PO SCH (07:32)
[2018-12-16] MEDS: CEROVITE ADV FORMULA TAB PO SCH ×2 (07:32→21:44)
[2018-12-16] MEDS: HYDROXYCHLOROQUINE SULFATE 200 MG TAB PO SCH (07:32)
[2018-12-16] MEDS: CHOLECALCIFEROL 1,000 UNITS TAB PO SCH (07:32)
[2018-12-16] MEDS: dilTIAZem ER 120 MG CAPCR PO SCH (07:32)
[2018-12-16 07:35] LABS: BUN Creatinine Ratio 15.9 (10-20); Creatinine Clr Calc Pharmacy 62.7 ml/min; Est GFR (African American) 75.1; Est GFR (Non-African American) 64.8; Potassium 4.5 mmol/L (3.5-5.1)
--- NOTE | 2018-12-16 09:43 | Consultation Report ---
DATE OF CONSULTATION: 12/16/2018 PULMONARY CONSULTATION TIME: 9:30 a.m. REPORT OF CONSULTATION: The patient was seen in room 278, bed 2. She is a 72-year-old female with a history of COPD. She did not have breathing problems until approximately 2 years ago. She has been diagnosed with COPD and indeed pulmonary function testing done in April 2018 shows a severe obstructive pattern. The actual FEV1 is only 40% of predicted. There was mild improvement following bronchodilators. Diffusion capacity was only 51%. These findings would be compatible with emphysema. The patient has now Had DICTATION ENDS HERE
--- NOTE | 2018-12-16 10:32 | Consultation Report ---
DATE OF CONSULTATION: 12/16/2018 TIME: 9:30 a.m. REPORT OF CONSULTATION: The patient was seen in room 278, bed 2. She is a 72-year-old female who developed breathing problems approximately 2 to 3 years ago. She carries a history of COPD. Indeed pulmonary function testing done in April 2018 showed a severe obstructive pattern. Her FEV1 was only 40% of predicted. There was mild improvement following bronchodilators. Diffusion was 51%. These findings would be compatible with emphysema. She is now on her fifth hospital stay in the past 13 months. These have all been for exacerbations. She recently had a course of prednisone and antibiotics because of worsening symptoms, which started approximately 12/06/2018 and she finished a rescue course on 12/11/2018. Yesterday, she was feeling short of breath once again. She had called the pulmonary office and left this message. She does see Yasemin Allen PA-C, in the pulmonary office. They told her to reinitiate another rescue. The patient got worse, and she ultimately came to the Emergency Room. She was complaining of severe shortness of breath. This would have been in the early afternoon. She has had no chest pains. She has had no chills, fevers or sweats. She has not had much cough. There has been no significant sputum. She is feeling much better. In the Emergency Room Department, she was treated with neb treatments, methylprednisolone 125 mg, and magnesium 1 gram. She had a good night overnight. In the ER, they did use BiPAP for her because she was quite short of breath. Her blood pressure was elevated in the ER to as high as 169/113. I did not see evidence of hypoxia, but she was always maintained on oxygen. The patient feels good this morning, but she has not been walking around to any substantial degree. Unfortunately, the patient still smokes. She has smoked for a total of about 45 years. She estimates her average smoking during those times was between 1/2 and 3/4 pack per day. She has cut back substantially, but still admits to smoking about 3 cigarettes per day. She feels she smokes somewhat for a stress reliever. She describes having a lot of stress going on from various factors. The patient does have obstructive sleep apnea diagnosed within the past 6 months. The sleep apnea was mild. She is on nasal CPAP at 7 cm, but with 3 liters of oxygen instilled. The patient states she does have portable oxygen at home, but she does not like carrying the tanks and she does not use it very much. Her usual breathing medicines at home include Symbicort 2 puffs b.i.d., Incruse Ellipta once daily, and she has a nebulizer with what is presumably albuterol that she uses p.r.n. She has a rescue inhaler, but she does not seem to use it that much. The patient has a history of a ground-glass nodule. This was located in the right apex. This appears to have been discovered on a CAT scan done in August of this year. The patient has no history of pulmonary embolism. She does not do much for exercise. She states to have an elliptical in their home, which she could only do for a very short time. She will walk from her home to her office, which is approximately 0.2 miles. PAST SURGICAL HISTORY: 1. Lumpectomy for breast cancer. 2. Hysterectomy for uterine cancer. 3. Tonsillectomy. 4. Cataract surgery. 5. Sinus surgery. PAST MEDICAL HISTORY: 1. COPD. 2. Lung nodule. 3. Obstructive sleep apnea. 4. Skin cancer. 5. PAT. 6. Rheumatoid arthritis. 7. Reflux. SOCIAL HISTORY: Tobacco 1/2-3/4 pack per day for 45 years, but currently only 3 cigarettes per day. ETOH - 1 or 2 alcoholic beverages per day. ALLERGIES: 1. TETRACYCLINE. 2. CODEINE. 3. POSSIBLE TYLENOL. FAMILY HISTORY: Mother age 74 of brain tumor Father age 64. Leukemia. Sister of breast cancer. 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 REVIEW OF SYSTEMS: She describes her energy level as good. She was having headaches, but these have improved dramatically with nasal CPAP. She has some degree of chronic nasal congestion and she sees Dr. Lopez. Denies heartburn recently. Denies nausea, vomiting, diarrhea or constipation. Denies palpitations. Denies urinary symptoms. Denies myalgias or arthralgias. She does wear her CPAP nightly with good success. Remainder of review of systems is negative. Ten systems reviewed. PHYSICAL EXAMINATION: VITAL SIGNS: The patient is a 72-year-old female who was cooperative, alert and oriented. She was in no distress. Weight is 78.4 kilograms. BMI 27. HEENT: Pupils were reactive. Nares mildly congested. Mouth unremarkable. No lymph nodes palpable. HEART: Cardiac rate is 105 per minute. Rhythm regular. Blood pressure 113/75. CHEST: Shows a mild kyphosis. Respiratory rate 18. Breath sounds, mildly diminished. No active wheezes, rales or rhonchi heard. Saturation 96% on 4 liters. Temperature is 36.7. She has had no fevers since admission. ABDOMEN: Soft. Multiple scars were noted from prior surgeries. Bowel sounds present. No tenderness to palpation, masses or organomegaly. EXTREMITIES: Showed no cyanosis, clubbing or edema. LABORATORY DATA: Chest x-ray done yesterday showed no active disease, COPD suggested. White count is 13.81. Hemoglobin 13.4. Platelets 260,000. Coags are normal. A venous blood gas done yesterday showed pH 7.29, pCO2 58, pO2 54. We do not know if she has arterial hypercarbia. She did have arterial blood gases done in November 2017, February 2018, and March 2018 and her pCO2 levels were normal at that time. Electrolytes show sodium 139, potassium 4.5, chloride 107, bicarbonate 26. BUN 14 with creatinine 0.9. Blood sugar this morning 142. Blood cultures were drawn and were negative thus far. It is too early; however. EKG done this morning shows normal sinus rhythm with mild sinus arrhythmia. Nonspecific ST and T-wave changes noted in V4, V5, and V6. IMPRESSION: 1. Chronic obstructive pulmonary disease with exacerbation. 2. Obstructive sleep apnea -- compliant with CPAP. 3. Lung nodule, right apex. 4. Personal history of nicotine addiction. COMMENTS AND RECOMMENDATIONS: The patient seems much improved. Her sugars are elevated. I would try to decrease the methylprednisolone down to 20 mg IV q. 8. She is on ceftriaxone and azithromycin. She is on DuoNeb q.i.d. She seems to be making quite rapid improvement. The major problem seems to be frequency of exacerbations. As noted, this is her fifth hospital stay in 13 months. As an outpatient, consideration could be given to a trial of Daliresp. Also, I believe the patient would benefit from pulmonary rehab. The patient discussed that she is trying to get a portable oxygen concentrator. I suggested that after discharge, she should see Yasemin Allen in 1 week and she may be able to help her get another provider who could get her the type of portable oxygen concentrator she is looking for. If she continues to improve, she may be able to be discharged in 24 hours. She has made very good success thus far. The patient did relate that many of her other exacerbations seemed to involve the environment. At one time she had been working with [employer]. Another time, she was working with [employer]. She obviously should avoid these types of scenarios. Obviously complete smoking cessation is strongly advised.
[2018-12-16] MEDS: methylPREDNISolone 20 MG in SYRINGE 0 ML IV SCH ×2 (13:24→21:45)
--- NOTE | 2018-12-16 17:23 | Hospitalist Progress Note ---
Date of Service December 16, 2018 Assessment & Plan (1) COPD exacerbation: (2) Respiratory failure: Present on admission with worsening SOB VBGon admission pH: 7.29, pCO2: 58, p O2: 54, HCO3: 27 CXR showed no acute cardiopulmonary findings. Improved on Bipap On IV solumedrol 40mg q8h Pulmonology on board recommended to decrease solumedrol to 20mg q8h Continue Neb treatment with Duoneb Continue Rocephin and zithromax Saturated well on RA Daliresp plan to start as an outpatient Consider pulm rehab on discharge Clinically improves (3) PAT (paroxysmal atrial tachycardia): Rate controlled Continue diltiazem Stable (4) Rheumatoid arthritis: Continue Plaquenil (5) GERD (gastroesophageal reflux disease): Continue PPI (6) JOAN (obstructive sleep apnea): On CPAP aand oxygen at bedtime Stable (7) Tobacco use disorder: Counseling on smoking cessation DVT Prophylaxis Lovenox SQ CODE STATUS FULL CODE Subjective Pt was seen and examined Lying in bed with no distress Pt said that her breathing feels much better Currently denies any chest pain, palpitation, dizziness and SOB Physical Exam Physical Exam: General- No acute distress Head- atraumatic Eyes- PERRL, EOMI, ENT- oropharynx clear Neck- supple, no JVD Lungs- No wheezing Heart- regular rhythm; no murmur Abdomen- normal bowel sounds, soft, nontender Extremities- no calf tenderness Neuro- alert, oriented x 3; PERRL, EOMI; no facial palsy; no dysarthria Skin- warm & dry Results & Data Vital Signs (Past 12 Hours) Vital Signs Temp Pulse Pulse Resp BP Pulse Ox 12/16/18 16:53 36.6 C 95 H 20 123/73 95 12/16/18 16:46 36.6 C 95 H 20 123/73 95 12/16/18 15:09 36.8 C 85 20 99/67 L 96 12/16/18 14:26 91 H 18 96 12/16/18 11:26 36.8 C 97 H 20 109/64 98 12/16/18 11:15 87 18 94 12/16/18 08:00 81 12/16/18 07:30 36.7 C 75 18 113/75 96 12/16/18 07:07 74 18 96 (1) Respiratory failure Chronicity: unspecified Respiratory failure complication: unspecified whether with hypoxia or hypercapnia Qualified Code(s): J96.90 - Respiratory failure, unspecified, unspecified whether with hypoxia or hypercapnia
[2018-12-16] MEDS: cefTRIAXone SODIUM 1,000 MG in DEXTROSE 5% 50 ML IV SCH (19:34)
[2018-12-16] MEDS: AZITHROMYCIN 500 MG in DEXTROSE 5% 250 ML IV SCH (20:06)
[2018-12-16] MEDS: MONTELUKAST SODIUM 10 MG TABLET PO SCH (21:44)
[2018-12-16] MEDS: ENOXAPARIN INJ 40 MG/0.4 ML SYR SQ SCH (21:48)
[2018-12-17] MEDS: methylPREDNISolone 20 MG in SYRINGE 0 ML IV SCH (05:48)
[2018-12-17] MEDS: PANTOprazole 40 MG TAB PO SCH (05:52)
[2018-12-17] MEDS: ALBUT/IPRATROP 3MG/0.5MG NEB 3 ML VIAL NEB SCH (07:23)
[2018-12-17] MEDS: INCRUSE ELLIPTA: ORDER AWAITING ACTION SCH ×3 (07:26→23:56)
[2018-12-17] MEDS: HYDROXYCHLOROQUINE SULFATE 200 MG TAB PO SCH (07:28)
[2018-12-17] MEDS: CEROVITE ADV FORMULA TAB PO SCH ×2 (07:28→21:32)
[2018-12-17] MEDS: dilTIAZem ER 120 MG CAPCR PO SCH (07:28)
[2018-12-17] MEDS: CHOLECALCIFEROL 1,000 UNITS TAB PO SCH (07:28)
[2018-12-17] MEDS: CALCIUM 600MG + VIT D 400 IU TAB PO SCH (07:28)
[2018-12-17] MEDS: BUDESONIDE/FORMOTEROL FUMARATE 160/4.5 60 PUFFS/INHALER INH SCH ×2 (07:28→21:27)
--- NOTE | 2018-12-17 10:28 | Progress Note ---
DATE: 12/17/2018 TIME: 9:50 a.m. SUBJECTIVE: The patient states she feels much better. She is significantly less short of breath. She is coughing and bringing up some yellow sputum. She has coughed up some phlegm 4 or 5 times today thus far. She has no chest pains. The patient can feel palpitations occasionally. OBJECTIVE: GENERAL: The patient appears comfortable and in no distress. VITAL SIGNS: Temperature is 36.9. There has been no fevers. ENT: Unremarkable. CARDIAC: Rate is 105 per minute. It was irregular. On the rhythm strip, the patient is having periods of bursts of tachycardia. I have seen heart rates up to 150. She does have frequent supraventricular premature contractions, but she will have some burst that appeared to be regular. She does have a history of arrhythmia in the past. She was not exerting herself as she was having these arrhythmias. LUNGS: Lung brennan revealed decreased breath sounds. No active wheeze or rales heard. Respiratory rate 18. Saturation 94% on room air. EXTREMITIES: Showed no cyanosis, clubbing or edema. No lab work was done on this date. IMPRESSION: 1. Chronic obstructive pulmonary disease exacerbation ? improved. 2. Obstructive sleep apnea ? stable on CPAP 7 cm. 3. Personal history of nicotine abuse. 4. Ground-glass lung nodule right apex. 5. Cardiac arrhythmia ? bursts of tachycardia ? supraventricular. COMMENTS AND RECOMMENDATIONS: The patient seems to be doing well from a pulmonary perspective. I believe the methylprednisolone can be changed to prednisone. Her neb treatments are DuoNebs with albuterol and ipratropium. Would advise changing to levalbuterol plus ipratropium because of the arrhythmia. In light of the arrhythmia, would not discharge today.
[2018-12-17] MEDS: IPRATROPIUM BROMIDE NEB SOLN 0.02% 2.5 ML VIAL INH SCH ×2 (13:39→21:07)
[2018-12-17] MEDS: LEVALBUTEROL 1.25MG/0.5ML NEB INH SCH ×2 (13:39→21:07)
[2018-12-17] MEDS ORDERED: XOPENEX/ATROVENT 1.25mg/0.5MG NEB COMBO NEB SCH (14:00)
--- NOTE | 2018-12-17 16:46 | Hospitalist Progress Note ---
Date of Service December 17, 2018 Assessment & Plan (1) COPD exacerbation: (2) Respiratory failure: Present on admission with worsening SOB VBG on admission pH: 7.29, pCO2: 58, p O2: 54, HCO3: 27 CXR showed no acute cardiopulmonary findings. Improved on Bipap Pulmonology on board Solumedrol was changed to prednisone 40mg daily Albuterol inhaler was changed to Levalbuterol due to tachycardia Continue Rocephin and zithromax Saturated well on RA Daliresp plan to start as an outpatient Consider pulm rehab on discharge Clinically improves Possible discharge tomorrow (3) PAT (paroxysmal atrial tachycardia): Heart rate increased this morning in the 130's Possible related to albuterol inhaler and steroid Albuterol inhaler changed to levalbuterol Continue diltiazem Monitor in tele (4) Rheumatoid arthritis: Continue Plaquenil (5) GERD (gastroesophageal reflux disease): Continue PPI (6) JOAN (obstructive sleep apnea): On CPAP aand oxygen at bedtime Stable (7) Tobacco use disorder: Counseling on smoking cessation DVT Prophylaxis Lovenox SQ CODE STATUS FULL CODE Disposition Possible discharge in am Subjective Pt was seen and examined Lying in bed with no distress Pt said that she feels much better today She said that she has been walking around heart rate was elevated on telemonitor this morning Pt said that she has been coughing and bringing up some yellowish sputum Albuterol was changed to levalbuterol Currently denies any chest pain, palpitation, dizziness and SOB Physical Exam Physical Exam: General- No acute distress Head- atraumatic Eyes- PERRL, EOMI, ENT- oropharynx clear Neck- supple, no JVD Lungs- No wheezing Heart- regular rhythm; no murmur Abdomen- normal bowel sounds, soft, nontender Extremities- no calf tenderness Neuro- alert, oriented x 3; PERRL, EOMI; no facial palsy; no dysarthria Skin- warm & dry Results & Data Vital Signs (Past 12 Hours) Vital Signs Temp Pulse Pulse Resp BP Pulse Ox 12/17/18 15:32 37.1 C 93 H 18 115/72 93 12/17/18 15:22 90 12/17/18 13:43 92 H 18 93 12/17/18 11:29 37.1 C 99 H 18 113/75 93 12/17/18 07:25 55 L 18 94 12/17/18 07:00 36.9 C 91 H 18 118/79 93 (1) Respiratory failure Chronicity: unspecified Respiratory failure complication: unspecified whether with hypoxia or hypercapnia Qualified Code(s): J96.90 - Respiratory failure, unspecified, unspecified whether with hypoxia or hypercapnia
[2018-12-17] MEDS: cefTRIAXone SODIUM 1,000 MG in DEXTROSE 5% 50 ML IV SCH (18:28)
[2018-12-17] MEDS: AZITHROMYCIN 500 MG in DEXTROSE 5% 250 ML IV SCH (19:10)
[2018-12-17] MEDS ORDERED: predniSONE 20 MG TAB PO SCH (20:00)
[2018-12-17] MEDS ORDERED: COUGH DROP (SUGAR FREE) LOZ 24 LOZ/1 BOX BUCCAL ONE (21:16)
[2018-12-17] MEDS: MONTELUKAST SODIUM 10 MG TABLET PO SCH (21:32)
[2018-12-17] MEDS: ENOXAPARIN INJ 40 MG/0.4 ML SYR SQ SCH (21:33)
--- NOTE | 2018-12-17 21:34 | Hospitalist Progress Note ---
Date of Service December 17, 2018 Subjective Patient inquiring about possibly transitioning IV to oral antibiotics. Continue IV Ceftriaxone for now until patient seen by AM provider. Okay to DC IV Azithromycin 500 mg after 3 doses. (sufficient tx duration for bronchitis as per pharmacy) Results & Data Vital Signs (Past 12 Hours) Vital Signs Temp Pulse Pulse Resp BP Pulse Ox 12/17/18 21:09 90 16 94 12/17/18 19:38 36.9 C 101 H 20 149/74 H 92 12/17/18 15:32 37.1 C 93 H 18 115/72 93 12/17/18 15:22 90 12/17/18 13:43 92 H 18 93 12/17/18 11:29 37.1 C 99 H 18 113/75 93
[2018-12-18] MEDS: LEVALBUTEROL 1.25MG/0.5ML NEB INH SCH ×2 (02:05→07:51)
[2018-12-18] MEDS: IPRATROPIUM BROMIDE NEB SOLN 0.02% 2.5 ML VIAL INH SCH ×3 (02:05→14:01)
[2018-12-18 02:17] LABS: Basophils # (auto) 0.01 K/uL (0-0.2); Basophils % (auto) 0.1 %; Eosinophils # (auto) 0.01 K/uL (0-0.5); Eosinophils % (auto) 0.1 %; Hematocrit (blood only) 37.8 % (37-47); Hemoglobin 12.2 g/dL (12.0-16.0); Immature Granulocytes # (auto) 0.04 K/uL (0.00-0.02); Immature Granulocytes % (auto) 0.3 %; Lymphocytes # (auto) 0.71 K/uL (1.2-3.4); Lymphocytes % (auto) 4.9 %; Mean Corpuscular Hgb Conc 32.3 g/dL (32-36); Mean Corpuscular Volume 89.6 fL (80-100); Mean Platelet Volume 9.2 fL (7.4-10.4); Monocytes % (auto) 2.1 %; Neutrophils # (auto) 13.43 K/uL (1.4-6.5); Neutrophils % (auto) 92.5 %; Platelet Count 222 K/uL (130-400); RDW Coefficient of Variation 14.8 % (11.5-14.5); RDW Standard Deviation 48.8 fL (36.4-46.3); Red Blood Count 4.22 M/uL (4.2-5.4)
[2018-12-18 02:29] LABS: Partial Thromboplastin Ratio 0.9; Partial Thromboplastin Time 23.3 Seconds (21.0-31.0)
[2018-12-18 02:38] LABS: Calcium 8.8 mg/dl (8.5-10.1); Est GFR (African American) 74.6; Est GFR (Non-African American) 64.3; Magnesium 2.3 mg/dl (1.8-2.4); Potassium 4.5 mmol/L (3.5-5.1)
[2018-12-18] MEDS: INCRUSE ELLIPTA: ORDER AWAITING ACTION SCH (07:33)
[2018-12-18] MEDS: BUDESONIDE/FORMOTEROL FUMARATE 160/4.5 60 PUFFS/INHALER INH SCH (07:35)
[2018-12-18] MEDS: PANTOprazole 40 MG TAB PO SCH (07:35)
[2018-12-18] MEDS: HYDROXYCHLOROQUINE SULFATE 200 MG TAB PO SCH (07:36)
[2018-12-18] MEDS: CALCIUM 600MG + VIT D 400 IU TAB PO SCH (07:36)
[2018-12-18] MEDS: CEROVITE ADV FORMULA TAB PO SCH (07:36)
[2018-12-18] MEDS: dilTIAZem ER 120 MG CAPCR PO SCH (07:36)
[2018-12-18] MEDS: CHOLECALCIFEROL 1,000 UNITS TAB PO SCH (07:36)
[2018-12-18] MEDS ORDERED: predniSONE 20 MG TAB PO SCH (09:00)
--- NOTE | 2018-12-18 10:41 | Hospitalist Progress Note ---
Date of Service December 18, 2018 Assessment & Plan (1) COPD exacerbation: (2) Respiratory failure: Present on admission with worsening SOB VBG on admission pH: 7.29, pCO2: 58, p O2: 54, HCO3: 27 CXR showed no acute cardiopulmonary findings. Improved on Bipap Pulmonology on board Solumedrol was changed to prednisone 40mg daily Albuterol inhaler was changed to Levalbuterol due to tachycardia Has been on Rocephin and zithromax Saturated well on RA Daliresp plan to start as an outpatient Consider pulm rehab on discharge Will changed abx to Augmentin Will d/c levalbuterol since pt continues to have atrial tachycardia/palpitation Will discharge with a short course of low dose prednisone taper Clinically improves (3) PAT (paroxysmal atrial tachycardia): Heart rate has been fluctuated in the 80's to 130's Possible related to albuterol inhaler and steroid Albuterol inhaler changed to levalbuterol, but continue to have palpitation Will d/c levalbuterol Continue diltiazem oral Follows with Dr. Zhou for paroxysmal atrial tachycardia Cardiology on board Ok from cardiology standpoint to discharge home Ds (4) Rheumatoid arthritis: Continue Plaquenil (5) GERD (gastroesophageal reflux disease): Continue PPI (6) JOAN (obstructive sleep apnea): On CPAP aand oxygen at bedtime Stable (7) Tobacco use disorder: Counseling on smoking cessation DVT Prophylaxis Lovenox SQ CODE STATUS FULL CODE Disposition Discharge home today Subjective Pt was seen and examined Lying in bed with no distress Pt said that her breathing slightly improves She said that she has been having recurrent palpitation She said that she can feel the palpitation when it occurred She said that she follows with Dr. Zhou Pt is very anxious to go home today Denies any chest pain, palpitation, dizziness and SOB Physical Exam Physical Exam: General- No acute distress Head- atraumatic Eyes- PERRL, EOMI, ENT- oropharynx clear Neck- supple, no JVD Lungs- No wheezing Heart- +tachycardia, no murmur Abdomen- normal bowel sounds, soft, nontender Extremities- no calf tenderness Neuro- alert, oriented x 3; PERRL, EOMI; no facial palsy; no dysarthria Skin- warm & dry Results & Data Vital Signs (Past 12 Hours) Vital Signs Temp Pulse Pulse Pulse Resp BP Pulse Ox 12/18/18 07:52 115 H 16 97 12/18/18 07:20 36.8 C 87 18 133/89 94 12/18/18 04:00 36.7 C 96 H 18 111/72 93 12/18/18 03:05 36.6 C 98 H 17 142/73 H 93 12/18/18 02:05 81 18 97 12/17/18 23:37 85 12/17/18 23:15 36.4 C L 58 L 17 141/65 H 93 (1) Respiratory failure Chronicity: unspecified Respiratory failure complication: unspecified whether with hypoxia or hypercapnia Qualified Code(s): J96.90 - Respiratory failure, unspecified, unspecified whether with hypoxia or hypercapnia
--- NOTE | 2018-12-18 11:46 | Cardiology Consultation ---
Date of Consultation December 18, 2018 Assessment & Plan (1) PAT (paroxysmal atrial tachycardia): Patient with ongoing findings of short a symptom medic burst of paroxysmal atrial tachycardia. Compared to her monitor that she had performed in March 2018, it looks like things have improved. She does not feel these episodes. I think it is reasonable to proceed with her same dose of diltiazem CD 120 mg daily. She is tolerating this well with well- controlled blood pressure, and no side effects of edema. Diltiazem has been chosen in attempt to avoid urinary related side effects with metoprolol. She likely has these episodes at baseline, and they are provoked by exacerbation of her lung disease, as well as corticosteroids and inhaled bronchodilators. The patient's echocardiogram revealed normal biventricular function in 2018, and I do not feel this needs to be repeated as she feels well from a cardiac perspective. She already has cardiology follow-up with our office in February 2019 and I believe she can just keep this appointment. Future considerations include up titrating her diltiazem to 180 mg daily. History of Present Illness Attending Physician: Bob Virk MD History of Present Illness Madelyn Connor is a 73 year old female seen in cardiology consultation per the request of Dr Virk for the evaluation of paroxysmal atrial tachycardia. The patient was admitted on 12/16/2018 with chief complaint of shortness of breath and has been treated for an acute exacerbation of COPD. She has a long-standing history of underlying COPD, ongoing cigarette smoking, and also rheumatoid arthritis. Her prior to hospital dose of Plaquenil was continued during his hospital stay, and she received therapy including antibiotics, corticosteroids, and inhaled bronchodilators. Currently, she is comfortable, and a friend is visiting her at the bedside. Patient states that her breathing has improved and she is eager for discharge. The patient's primary wrapping machine operator is Dr. Velazquez of our practice. She had most recently been seen by Dick James PA-C of our practice in August 2018. Per review of her history, she had been hospitalized for a COPD exacerbation in March 2018 at which time she was observed to have frequent episodes of asymptomatic paroxysmal atrial tachycardia on telemetry. An echocardiogram performed during her hospital stay dated 03/10/2018 revealed normal left ventricular myocardial thickness and systolic function with ejection fraction in the range of 60 to 65%. Grade 1 diastolic dysfunction as described in the report. The right ventricular chamber size and systolic function were normal and there is no significant valvular disease noted. As an outpatient she underwent an outpatient ZIO desk monitor of 2 weeks duration from 03/15/2018 until 03/29/2018. The predominant rhythm was sinus rhythm with average rate of 92 bpm. She was found to have numerous (118) episodes of asymptomatic paroxysmal supraventricular tachycardia. After the results of the monitor, the patient received treatment with short acting diltiazem and this was subsequently transitioned to diltiazem CD 120 mg daily which she has tolerated well for the last few months. During her hospital stay, she has been noted to have frequent brief episodes of atrial tachycardia in the range of 138 bpm, otherwise sinus rhythm in the range of 89 to the mid 90 bpm range as noted. Allergies Allergy/AdvReac Type Severity Reaction Status Date / Time codeine Allergy Intermediate Hives Verified 12/15/18 14:22 acetaminophen Allergy Unknown RASH Verified 12/15/18 14:22 Tetracyclines Allergy Unknown TONGUE Verified 12/15/18 14:22 SWELLS Home Medications Home Medications Medication Instructions Recorded Confirmed Type Incruse Ellipta 1 inh INHALATION QAM 04/02/18 12/15/18 History PreserVision AREDS-2 1 tab PO BID 04/02/18 12/15/18 History albuterol sulfate 2 puff INHALATION Q4 PRN 04/02/18 12/15/18 History calcium carbonate-vit D3-min 1 tab PO DAILY 04/02/18 12/15/18 History cholecalciferol (vitamin D3) 1,000 unit PO QAM 04/02/18 12/15/18 History [Vitamin D3] hydroxychloroquine [Plaquenil] 200 mg PO QAM 04/02/18 12/15/18 History montelukast 10 mg PO PM 04/02/18 12/15/18 History omeprazole 20 mg PO QAM 04/02/18 12/15/18 History Symbicort 2 puff INHALATION BID 06/29/18 12/15/18 History diltiazem HCl 120 mg PO DAILY 08/31/18 12/15/18 History Patient History Family History Other Breast cancer Cancer Coronary heart disease Social History Preferred Language: German Communication Ability: Effective Visual Impairment: No Limitations Beliefs That Will Affect Care: None marital status: Current Living Situation: Spouse Other Information That Helps Us Care for You: No Feels Safe at Home: Yes Safety Concerns: Feels Safe At This Time Smoking Status: Current every day smoker Tobacco Type: cigarettes Cigarettes Per Day: 3 Second Hand Exposure: No Hx Alcohol Use: No Hx Substance Use: No Review of Systems Review of Systems: All systems reviewed & are unremarkable except as noted in HPI & below She notes a chronic degree of stable exertional shortness of breath at baseline with activity such as gardening. No chest discomfort to suggest angina. Physical Exam Physical Exam: General: no acute distress and stated age Eyes: conjunctiva are pink and non-injected, sclera clear Neck: normal jugular venous pulse, no hepatojugular reflux Chest: normal shape and normal respiratory effort Lungs: clear to auscultation and percussion Cardiac Exam: - regular heart sounds, no murmurs, rubs, or gallops, no jugular venous distention Abdomen: abdomen soft, non-tender, no abnormal masses and no hepatosplenomegaly Extremities: no edema and no cyanosis Neuro:awake, coversant, follows commands, no focal motor deficits Psych: appropriate affect and insight. Results & Data Vital Signs (Past 12 Hours) Vital Signs Temp Pulse Pulse Pulse Resp BP Pulse Ox 12/18/18 07:52 115 H 16 97 12/18/18 07:20 36.8 C 87 18 133/89 94 12/18/18 04:00 36.7 C 96 H 18 111/72 93 12/18/18 03:05 36.6 C 98 H 17 142/73 H 93 12/18/18 02:05 81 18 97 12/17/18 23:37 85 Laboratory Results Coagulation 12/18/18 Range/Units 02:06 APTT 23.3 (21.0-31.0) Seconds CBC 12/18/18 Range/Units 02:06 WBC 14.50 H (4.8-10.8) K/uL RBC 4.22 (4.2-5.4) M/uL Hgb 12.2 (12.0-16.0) g/dL Hct 37.8 (37-47) % Plt Count 222 (130-400) K/uL Neut # (Auto) 13.43 H (1.4-6.5) K/uL Lymph # (Auto) 0.71 L (1.2-3.4) K/uL [place] # (Auto) 0.30 (0.11-0.59) K/uL Eos # (Auto) 0.01 (0-0.5) K/uL Baso # (Auto) 0.01 (0-0.2) K/uL Comprehensive Metabolic Panel 12/18/18 Range/Units 02:06 Sodium 139 (136-145) mmol/L Potassium 4.5 (3.5-5.1) mmol/L Chloride 106 (98-107) mmol/L Carbon Dioxide 27 (21-32) mmol/L BUN 25 H D (7-18) mg/dl Creatinine 0.90 (0.6-1.2) mg/dl Glucose 109 H (70-99) mg/dl Calcium 8.8 (8.5-10.1) mg/dl Intake and Output 12/17/18 12/18/18 12/18/18 22:59 06:59 14:59 Intake Total 585 / 1110 250 / 1110 Balance 585 / 1110 250 / 1110 Intake: IV 305 / 305 Zithromax 500 mg In D5w 250 ml 255 / 255 @ 125 mls/hr IV Q24H [facility] Rx#: [id number] Rocephin 1,000 mg In D5w 50 ml 50 / 50 @ 100 mls/hr IV Q24H [facility] Rx#: [id number] Oral 280 / 805 250 / 805 Other: Weight 80.5 kg Diagnostic Findings EKG performed 12/15/2018 at 1405 and reviewed independently: Sinus tachycardia 111 bpm, baseline artifact, incomplete right bundle branch block pattern. EKG performed 12/16/2018 at 7:16 AM revealed normal sinus rhythm at 70 bpm with sinus arrhythmia and incomplete right bundle branch block. Interpretation on the initial EKG raises concerns of lateral repolarization of normalities, but there is also a lot of artifact in the lateral leads limiting the tracing. Repeat EKG was performed today per my request on 12/18/2018 at 11:21 AM and reviewed independently revealing sinus tachycardia with offset to normal sinus rhythm at 101 to 70 bpm, the lateral repolarization changes noted on 12/16 have resolved. Telemetry, brief asymptomatic episodes of SVT up to 130 bpm with onset to sinus rhythm.
[2018-12-18] MEDS ORDERED: AMOXICILLIN/CLAVULANATE 875 MG TAB PO SCH (17:00)
--- NOTE | 2018-12-19 09:18 | Discharge Summary ---
Date of Service December 18, 2018 Admission HPI Per Admitting Provider Pt is 72 y/o F with PMH COPD, JOAN on CPAP, chronic oxygen use at night at 2L, tobacco use, RA, paroxysmal atrial tachycardia, R breast cancer s/p surgery & radiation, uterine CA s/p surgery presented to ER with c/o increased SOB x 2-3 days. Patient states she is having some nasal congestion and increased work of breath last week and was started on steroids and Zithromax x5 days which completed 4 days ago. Patient reports with increased shortness of breath for the past 2 to 3 days and increased wheezing. Reports chronic productive cough of yellow sputum in the mornings, denies increased cough or increased sputum production. Denies fevers or chills. Patient was using her albuterol inhaler 3 times a day without relief. Today was using oxygen continuously at 2 L (usually uses at bedtime ). Denies ill contacts or recent travel. Denies diaphoresis, N/V/D/C, [place], dizziness, syncope, vision changes, neck pain, CP, orthopnea, palpitations, hemoptysis, sore throat, choking, otalgia, abdominal pain, paresthesias, weakness, extremity weakness, extremity edema, rashes, urinary symptoms. Admission Exam Per Admitting Provider General: Current on bipap with non-labored respirations, WDWN Head: normocephalic, atraumatic Eyes: PERRL, EOM's intact, conjunctiva non-injected, anicteric ENT: normal inspection external ears, nose, mucous membranes mildly dry Neck: supple, trachea midline Lungs: On bipap with non-labored respirations, RR: 22, diminished breath sounds with scattered wheezing throughout CV: regular rhythm, rate 116, no murmur, no JVD, no pretibial edema Abd: normal BS, soft, non-tender Ext: no cyanosis, no calf tenderness Neuro: A&O x 3, no focal deficits noted, normal affect Skin: warm, dry; tip of nose with bandage (had skin biopsy today) Principal Diagnosis COPD exacerbation Respiratory failure Paroxysmal Atrial tachycardia JOAN (obstructive sleep apnea) GERD Tobacco abuse Discharge Exam General- No acute distress Head- atraumatic Eyes- PERRL, EOMI, ENT- oropharynx clear Neck- supple, no JVD Lungs- No wheezing Heart- +tachycardia, no murmur Abdomen- normal bowel sounds, soft, nontender Extremities- no calf tenderness Neuro- alert, oriented x 3; PERRL, EOMI; no facial palsy; no dysarthria Skin- warm & dry Discharge Data Allergies Allergy/AdvReac Type Severity Reaction Status Date / Time codeine Allergy Intermediate Hives Verified 12/15/18 14:22 acetaminophen Allergy Unknown RASH Verified 12/15/18 14:22 Tetracyclines Allergy Unknown TONGUE Verified 12/15/18 14:22 SWELLS Consultations 12/15/18 16:00 ED Decision to Admit Stat 12/15/18 18:11 Consult Pulmonology Routine 12/18/18 10:32 Consult Cardiology Routine Ordered Studies XR chest 1V portable CLINICAL HISTORY: Dyspnea. COMPARISON STUDY: Chest radiograph and chest CT August 31, 2018. FINDINGS: Lung volumes are normal. There is no pneumothorax or pleural effusion. There is no consolidation or evidence for pulmonary edema. The appearance of the chest is unchanged. Cardiac size is normal. Mediastinal contours are normal. IMPRESSION: No acute cardiopulmonary findings. Electronically signed by: Baldo Díaz M.D. 12/15/2018 2:30 PM Dictated: 12/15/18 1429 Transcribed: 12/15/18 1429 Hospital Course (1) COPD exacerbation: (2) Respiratory failure: Present on admission with worsening SOB VBG on admission pH: 7.29, pCO2: 58, p O2: 54, HCO3: 27 CXR showed no acute cardiopulmonary findings. Improved on Bipap Pulmonology on board Solumedrol was changed to prednisone 40mg daily Albuterol inhaler was changed to Levalbuterol due to tachycardia Has been on Rocephin and zithromax Saturated well on RA Daliresp plan to start as an outpatient Consider pulm rehab on discharge Will changed abx to Augmentin Will d/c levalbuterol since pt continues to have atrial tachycardia/palpitation Will discharge with a short course of low dose prednisone taper Clinically improves (3) PAT (paroxysmal atrial tachycardia): Heart rate has been fluctuated in the 80's to 130's Possible related to albuterol inhaler and steroid Albuterol inhaler changed to levalbuterol, but continue to have palpitation Will d/c levalbuterol Continue diltiazem oral Follows with Dr. Zhou for paroxysmal atrial tachycardia Cardiology on board Ok from cardiology standpoint to discharge home Ds (4) Rheumatoid arthritis: Continue Plaquenil (5) GERD (gastroesophageal reflux disease): Continue PPI (6) JOAN (obstructive sleep apnea): On CPAP aand oxygen at bedtime Stable (7) Tobacco use disorder: Counseling on smoking cessation DVT Prophylaxis Lovenox SQ CODE STATUS FULL CODE Disposition Discharge home today Total Time Total Time Spent Total Time Spent (In Minutes): 35 minutes Total Time Includes: Examination of the Patient, Discharge Planning, Medication Reconciliation, Communication With Other Providers and Other Discharge Plan Discharge Items Patient Disposition: Home - Self-Care Reason For Visit: COPD EXACERBATION Discharge Diagnosis: COPD exacerbation Respiratory failure Paroxysmal Atrial tachycardia JOAN (obstructive sleep apnea) GERD Tobacco abuse Discharge Goals: Decrease discomfort, Improve disease control, Improve function and Increase independence Activity: Resume your previous activity Non-emergency contact: Primary Care Provider Call non-emergency contact if: you have any medication questions Follow-up/Referrals: Yuval Richards MD [Primary Care Provider] - Diet: Heart Healthy Addtl Provider Instructions: Follow up with your primary care provider Dr. Richards on 12/26 @ 11:AM Follow up with pulmonology clinic with Yasemin in 1 week Continue with prednisone short taper course Complete course of antibiotic Prescriptions: New amoxicillin-pot clavulanate 875-125 mg Tablet 1 tab PO BIDM 3 Days Qty: 6 RF: 0 prednisone 10 mg tablet 10 mg PO UD Qty: 20 RF: 0 Continued omeprazole 20 mg Capsule,Delayed Release(Dr/Ec) 20 mg PO QAM RF: 0 montelukast 10 mg Tablet 10 mg PO PM RF: 0 hydroxychloroquine [Plaquenil] 200 mg Tablet 200 mg PO QAM RF: 0 cholecalciferol (vitamin D3) [Vitamin D3] 1,000 unit Capsule 1,000 unit PO QAM RF: 0 PreserVision AREDS-2 [id number]-mg Capsule 1 tab PO BID RF: 0 Incruse Ellipta 62.5 mcg/actuation Blister With Device 1 inh INHALATION QAM RF: 0 calcium carbonate-vit D3-min 600 mg calcium- 400 unit Tablet 1 tab PO DAILY RF: 0 albuterol sulfate 90 mcg/actuation HFA aerosol inhaler 2 puff Inhalation Q4 PRN (Reason: Shortness Of Breath Or Wheezing) RF: 0 Symbicort 160-4.5 mcg/actuation Hfa Aerosol Inhaler 2 puff INHALATION BID RF: 0 diltiazem HCl 120 mg Capsule,Extended Release 24 Hr 120 mg PO DAILY RF: 0 Stand-Alone Forms: [facility] Discharge Orders: Discharge Order (Routine); Ordered 12/18/18 Ordered By: Bob Virk Admission Data Admit Date/Time: 12/15/18 17:02 Attending Provider: Bob Virk Admit Provider: Camacho Finnegan Primary Care Provider: Yuval Richards Other Providers: Nelson Middleton ; Camacho Finnegan ; Abraham Negron Service: Telemetry Medical Other Interventions: Discharge Summary Assessment (RN) Last Done: 12/18/18 12:27 DC Date/Time DO NOT enter until pt leaves facility: 12/18/18 14:55
== END 2018-12-18 14:55 | disposition home or self-care (01) | DRG 189 ==
LOC: ED 13:43 → 2N 17:02

== ENCOUNTER 2019-12-05 17:06 | Inpatient (IN) ==
[2019-12-05] MEDS ORDERED: KETOROLAC TROMETHAMINE 15 MG/ML VIAL IV STA (17:35)
--- NOTE | 2019-12-05 17:41 | Emergency Department Note ---
Impression & Plan Right sided abdominal pain, Right-sided chest pain, Acute cholecystitis, Elevated liver enzymes ED Provider Note NAME: JORDAN RUDOLPH AGE: 73 SEX: F : 1945 ARRIVES VIA: Walk-In INFORMANT: [Patient] ED PROVIDER(S): [Jordan Henson MD] CHIEF COMPLAINT: Right chest and flank pain HISTORY OF PRESENT ILLNESS: The patient is a 73-year-old female who presents to the ER with around 9 hours of right chest and epigastric pain. The pain occasionally radiates to her back on the right. The pain is sharp and a 5 or 6 out of 10. The pain is constant. Taking a deep breath makes it worse. She does not feel short of breath. Patient states that she tried some Tums without any relief. Eating does not change her pain The patient admits that she was doing some work outside over the last 2 days but she cannot recall any injury. The pain started this morning after she returned from the grocery store. There have been no known coronavirus exposures. The patient has not had cough or fever. No vomiting or diarrhea, no urinary complaints. The patient states that she has never experienced pain like this before. REVIEW OF SYSTEMS: See HPI for pertinent positives and negatives. A total of ten systems were reviewed and were otherwise negative. PMHx/PSHx: See Below SOCIAL HISTORY: See Below. PHYSICAL EXAM: GENERAL: Patient is in no acute distress. HEENT: No acute trauma, normocephalic atraumatic, mucous membranes moist, no nasal congestion, no scleral icterus. NECK: No stridor, no adenopathy, no meningismus, trachea is midline. LUNGS: Clear to auscultation bilaterally but diminished bilaterally, no wheeze, no rhonchi, breath sounds equal. Taking a deep breath does cause her some pain to the right lateral chest. HEART: Without murmurs gallops or rubs, regular rate and rhythm. Chest: Tender to compress the right lateral chest wall, there is no rash. ABDOMEN: Soft, moderately tender in the epigastrium and right upper quadrant,, bowel sounds positive, no hernias, no peritonitis. EXTREMITIES: No cyanosis or edema, full range of motion of all the joints without pain or difficulty, no signs for acute trauma. NEUROLOGIC: Oriented x 3, no acute motor or sensory deficits, no focal weakness. SKIN: No rash, no jaundice, no diaphoresis. DIFFERENTIAL DIAGNOSIS: Cardiac ischemia, aortic dissection, pulmonary embolism, UTI, pneumothorax, pneumonia, pericarditis, myocarditis, esophageal rupture, GERD, cholecystitis, pancreatitis, musculoskeletal, as well as other pathologies. EMERGENCY DEPARTMENT COURSE/PROCEDURES: ECG: Indication was chest pain. The EKG shows a normal sinus rhythm with a rate of 79. The QTc is 463. There is an incomplete right bundle branch block. No ST elevation, no PVCs. Continuous Cardiac Monitoring: An order was placed for continuous cardiac monitoring. The monitor shows a rate of 83 with normal sinus rhythm. MEDICAL DECISION MAKING: There is no leukocytosis or concerning anemia. No coagulopathy. D-dimer was somewhat elevated. Electrolyte panel showed a somewhat low potassium at 3. No kidney failure. There were liver enzyme elevations. Lipase was mildly elevated. EKG shows a sinus rhythm, no acute ischemia. Cardiac enzyme testing x1 is not consistent with acute cardiac injury. Urinalysis shows some contamination, no obvious infection. Chest film did not show pneumonia or free air. There was no mediastinal widening. Right upper quadrant ultrasound showed evidence for acute cholecystitis. Gallstones were seen. The patient received IV saline for hydration. She received IV Toradol for pain. She received IV cefepime as antibiotic coverage. She was given a DuoNeb. The patient seems more comfortable. I do think her discomfort is from the acute cholecystitis. I spoke to the patient, I talked with case management. The hospitalist was consulted. Hospitalization is certainly warranted. Patient is likely going to require a GI and surgical consult. Past Med/Surg History Medical History Asthma-COPD overlap syndrome Basal cell carcinoma (BCC) (Chronic) Diastolic heart failure Ductal carcinoma in situ (DCIS) of right breast (Resolved 09/29/12) "Abnormal right breast mammogram Status post right breast core needle biopsy 09/26/2012 revealing DCIS high- grade Status post lumpectomy and sentinel lymph node biopsy 10/10/2012 stage [id number] with positive margin reexcision 11/03/2012 no additional carcinoma Status post completion of radiation therapy 05/23/2013 utilizing hypo- fractionated received 5006 cGy " GERD (gastroesophageal reflux disease) (Chronic) Hiatal hernia (Chronic) History of breast cancer (Chronic) RT - S/P LUMPECTOMY + RADIATION THERAPY History of uterine cancer (Chronic) S/P GREGORIO BSO + CHEMO Lung nodule Malignant neoplasm of corpus uteri, except isthmus (Resolved 08/20/12) "Postmenopausal vaginal bleeding Endometrial biopsy 08/03/2012 revealing 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 RANDHAWA - REPORTS PAT NOTED DURING RECENT HOSPITALIZATION AT [facility] Pulmonary nodule (Chronic) Rheumatoid arthritis (Chronic) Skin cancer of face (Chronic) Tobacco abuse Tobacco use disorder (Chronic) Surgical History History of breast biopsy (Chronic) History of cataract surgery (Chronic) History of colonoscopy (Chronic) History of Moh's micrographic surgery for skin cancer (Chronic) nose History of sinus surgery 06/29/18-with turbinates-Dr. 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 Other Information That Helps Us Care for You: No Feels Safe at Home: Yes Safety Concerns: Feels Safe At This Time Smoking Status: Current every day smoker Tobacco Type: cigarettes ; Cigarettes Per Day: 3 ; Do You Dip or Chew Tobacco: No ; Second Hand Exposure: No ; Tobacco Cessation Education Requested by Patient: No Hx Alcohol Use: Yes Alcohol type: beer Alcohol Intake Frequency: Daily Alcohol Intake Frequency Comment: 1 beer/day Hx Substance Use: No Allergies Allergies Allergy/AdvReac Type Severity Reaction Status Date / Time codeine Allergy Intermediate Hives Verified 12/05/19 19:21 amoxicillin Allergy Mild Unknown Verified 12/05/19 19:21 acetaminophen Allergy Unknown RASH Verified 12/05/19 19:21 Tetracyclines Allergy Unknown TONGUE Verified 12/05/19 19:21 SWELLS Home Meds Home Medications Medication Instructions Recorded Confirmed calcium carbonate-vit D3-min 1 tab PO BID 04/02/18 12/05/19 cholecalciferol (vitamin D3) 1,000 unit PO QAM 04/02/18 12/05/19 [Vitamin D3] hydroxychloroquine [Plaquenil] 200 mg PO QAM 04/02/18 12/05/19 omeprazole 20 mg PO QAM 04/02/18 12/05/19 diltiazem HCl 120 mg PO QAM 08/31/18 12/05/19 Oxygen Home ea 05/01/19 11/22/19 nivolumab 240 mg/24 mL intravenous 480 mg IV MONTHLY ml 05/01/19 12/05/19 solution alendronate 70 mg PO WK 09/12/19 12/05/19 ipratropium-albuterol 3 ml INHALATION Q4 PRN 09/12/19 12/05/19 levalbuterol HCl 2.5 mg INH Q4 PRN 09/12/19 12/05/19 prednisone 5 - 20 mg PO DAILY PRN MDD .. 09/12/19 12/05/19 roflumilast [Daliresp] 500 mcg PO QAM 09/12/19 12/05/19 Previous Rx's Medication Instructions Recorded umeclidinium 62.5 mcg/actuation 1 inh INHALATION QAM #30 ea 04/05/19 blister powder for inhalation azelastine 137 mcg (0.1 %) nasal 2 spray INTNAS DAILY #30 ml 07/31/19 spray aerosol miscellaneous medical supply #1 ea 08/11/19 budesonide-formoterol HFA 160 2 puff INHALATION BID #10.2 gm 08/14/19 mcg-4.5 mcg/actuation aerosol inhaler albuterol sulfate 90 mcg/actuation 2 puff INHALATION Q4 PRN #18 gm 10/27/19 aerosol inhaler Results & Data (ED) Vital Signs Vital Signs - 24 hr 12/05/19 17:08 12/05/19 18:01 12/05/19 19:00 Temperature 37 C Temperature Source Oral Pulse Rate 85 85 Pulse Rate [Apical] Pulse Rate from SpO2 Sensor 85 Respiratory Rate 20 30 H Respiratory Effort / Characteristics Non-Labored Spontaneous Respiratory Depth Normal Blood Pressure 154/81 H 147/82 H Blood Pressure [Left Arm] Blood Pressure Mean 105 103 Blood Pressure Mean [Left Arm] Blood Pressure Position Sitting Blood Pressure Position [Left Arm] Pulse Oximetry 96 97 97 Oxygen Delivery Method Room Air Room Air Sepsis Recent Fever Within 48 Hours No Sepsis Action Taken by Nursing No Action Required 12/05/19 19:04 12/05/19 19:38 12/05/19 20:28 Temperature Temperature Source Pulse Rate Pulse Rate [Apical] 79 83 112 H Pulse Rate from SpO2 Sensor Respiratory Rate 19 20 20 Respiratory Effort / Characteristics Non-Labored Spontaneous Respiratory Depth Blood Pressure Blood Pressure [Left Arm] 147/82 H 140/90 Blood Pressure Mean Blood Pressure Mean [Left Arm] 103 106 Blood Pressure Position Blood Pressure Position [Left Arm] Sitting Sitting Pulse Oximetry 97 96 97 Oxygen Delivery Method Room Air Room Air Room Air Sepsis Recent Fever Within 48 Hours Sepsis Action Taken by Nursing 12/05/19 20:29 Temperature Temperature Source Pulse Rate Pulse Rate [Apical] Pulse Rate from SpO2 Sensor 79 Respiratory Rate Respiratory Effort / Characteristics Respiratory Depth Blood Pressure 140/90 Blood Pressure [Left Arm] Blood Pressure Mean 107 Blood Pressure Mean [Left Arm] Blood Pressure Position Blood Pressure Position [Left Arm] Pulse Oximetry 97 Oxygen Delivery Method Sepsis Recent Fever Within 48 Hours Sepsis Action Taken by [facility] Medications Current Medication List: was personally reviewed by me Laboratory Data Attestation: I reviewed the patient's lab results. Result diagrams: 12/05/19 17:55 12/05/19 17:55 Lab Results 12/05/19 12/05/19 12/05/19 Range/Units 17:55 17:55 17:55 WBC 9.26 (4.8-10.8) K/uL RBC 4.36 (4.2-5.4) M/uL Hgb 13.0 (12.0-16.0) g/dL Hct 39.2 (37-47) % MCV 89.9 (80-100) fL MCH 29.8 (25-34) pg MCHC 33.2 (32-36) g/dL RDW Std Deviation 47.2 H (36.4-46.3) fL RDW Coeff of Arleen 14.2 (11.5-14.5) % Plt Count 242 (130-400) K/uL MPV 9.4 (7.4-10.4) fL Immature Gran % (Auto) 0.3 % Neut % (Auto) 78.9 % Lymph % (Auto) 10.3 % Fergus % (Auto) 8.5 % Eos % (Auto) 1.9 % Baso % (Auto) 0.1 % Immature Gran # (Auto) 0.03 H (0.00-0.02) K/uL Neut # (Auto) 7.30 H (1.4-6.5) K/uL Lymph # (Auto) 0.95 L (1.2-3.4) K/uL Fergus # (Auto) 0.79 H (0.11-0.59) K/uL Eos # (Auto) 0.18 (0-0.5) K/uL Baso # (Auto) 0.01 (0-0.2) K/uL PT 10.3 (9.0-12.0) Seconds INR 1.0 (0.9-1.1) APTT 22.8 (21.0-31.0) Seconds PTT Ratio 0.8 D-Dimer 990 H* (0-500) ug/L FEU Sodium 137 (136-145) mmol/L Potassium 3.0 L (3.5-5.1) mmol/L Chloride 105 (98-107) mmol/L Carbon Dioxide 25 (21-32) mmol/L Anion Gap 7.0 (3-11) BUN 10 (7-18) mg/dl Creatinine 0.87 (0.6-1.2) mg/dl Est Cr Clr Drug Dosing 64.0 ml/min Est GFR ( Amer) 77.7 Est GFR (Non-Af Amer) 67.0 BUN/Creatinine Ratio 11.0 (10-20) Glucose 113 H (70-99) mg/dl Calcium 8.8 (8.5-10.1) mg/dl Magnesium (1.8-2.4) mg/dl Total Bilirubin 2.0 H (0.2-1) mg/dl AST 270 H (15-37) U/L ALT 209 H (12-78) U/L Alkaline Phosphatase 128 H (45-117) U/L Troponin I < 0.015 (0-0.045) ng/ml Total Protein 6.7 (6.4-8.2) gm/dl Albumin 3.4 (3.4-5.0) gm/dl Globulin 3.3 (2.5-4.0) gm/dl Albumin/Globulin Ratio 1.0 (0.9-2) Lipase 477 H (73-393) U/L Urine Color Urine Appearance (Clear) Urine pH (4.5-7.5) Ur Specific [place] (1.000-1.030) Urine Protein (Negative) Urine Glucose (UA) (Negative) Urine Ketones (Negative) Urine Blood (Negative) Urine Nitrite (Negative) Urine Bilirubin (Negative) Urine Urobilinogen (Negative) Ur Leukocyte Esterase (Negative) Urine WBC (Auto) (0-5) /hpf Urine RBC (Auto) (0-4) /hpf U Hyaline Cast (Auto) (0-5) /lpf U Epithel Cells (Auto) (0-5) /lpf Urine Bacteria (Auto) (Negative) 12/05/19 12/05/19 Range/Units 17:55 19:00 WBC (4.8-10.8) K/uL RBC (4.2-5.4) M/uL Hgb (12.0-16.0) g/dL Hct (37-47) % MCV (80-100) fL MCH (25-34) pg MCHC (32-36) g/dL RDW Std Deviation (36.4-46.3) fL RDW Coeff of Arleen (11.5-14.5) % Plt Count (130-400) K/uL MPV (7.4-10.4) fL Immature Gran % (Auto) % Neut % (Auto) % Lymph % (Auto) % Fergus % (Auto) % Eos % (Auto) % Baso % (Auto) % Immature Gran # (Auto) (0.00-0.02) K/uL Neut # (Auto) (1.4-6.5) K/uL Lymph # (Auto) (1.2-3.4) K/uL Fergus # (Auto) (0.11-0.59) K/uL Eos # (Auto) (0-0.5) K/uL Baso # (Auto) (0-0.2) K/uL PT (9.0-12.0) Seconds INR (0.9-1.1) APTT (21.0-31.0) Seconds PTT Ratio D-Dimer (0-500) ug/L FEU Sodium (136-145) mmol/L Potassium (3.5-5.1) mmol/L Chloride (98-107) mmol/L Carbon Dioxide (21-32) mmol/L Anion Gap (3-11) BUN (7-18) mg/dl Creatinine (0.6-1.2) mg/dl Est Cr Clr Drug Dosing ml/min Est GFR ( Amer) Est GFR (Non-Af Amer) BUN/Creatinine Ratio (10-20) Glucose (70-99) mg/dl Calcium (8.5-10.1) mg/dl Magnesium 2.0 (1.8-2.4) mg/dl Total Bilirubin (0.2-1) mg/dl AST (15-37) U/L ALT (12-78) U/L Alkaline Phosphatase (45-117) U/L Troponin I (0-0.045) ng/ml Total Protein (6.4-8.2) gm/dl Albumin (3.4-5.0) gm/dl Globulin (2.5-4.0) gm/dl Albumin/Globulin Ratio (0.9-2) Lipase (73-393) U/L Urine Color Dark Yellow Urine Appearance Cloudy A (Clear) Urine pH 5.0 (4.5-7.5) Ur Specific [place] 1.016 (1.000-1.030) Urine Protein Negative (Negative) Urine Glucose (UA) Negative (Negative) Urine Ketones Negative (Negative) Urine Blood Negative (Negative) Urine Nitrite Negative (Negative) Urine Bilirubin 1+ H (Negative) Urine Urobilinogen Negative (Negative) Ur Leukocyte Esterase 2+ H (Negative) Urine WBC (Auto) 10-30 H (0-5) /hpf Urine RBC (Auto) 0-4 (0-4) /hpf U Hyaline Cast (Auto) 5-10 H (0-5) /lpf U Epithel Cells (Auto) >30 H (0-5) /lpf Urine Bacteria (Auto) Negative (Negative) Administered Medications Lactated Ringer's (Lr) 1,000 mls @ 200 mls/hr IV .Q5H ONE Stop: 12/06/19 01:44 Last Admin: 12/05/19 22:25 Dose: 200 mls/hr Documented by: [id number] Miscellaneous (Order Awaiting Action) 1 ea N/A QS [facility] Stop: 01/05/20 00:00 Last Admin: 12/05/19 23:10 Dose: Not Given Documented by: [id number] Discontinued Medications Albuterol (Duoneb) 3 ml NEB NOW STA Stop: 12/05/19 19:25 Last Admin: 12/05/19 19:36 Dose: 3 ml Documented by: [id number] Sodium Chloride (Nss) 500 mls @ 999 mls/hr IV .Q31M [facility] Stop: 12/05/19 18:15 Last Infusion: 12/05/19 18:34 Dose: 0 mls/hr Documented by: [id number] Admin: 12/05/19 18:02 Dose: 999 mls/hr Documented by: [id number] Cefepime HCl (Maxipime) 2,000 mg in 20 mls @ 5 mls/min IV NOW STA; Protocol Stop: 12/05/19 19:16 Last Admin: 12/05/19 20:21 Dose: 5 mls/min Documented by: [id number] Ketorolac Tromethamine (Toradol) 15 mg IV NOW STA Stop: 12/05/19 17:36 Last Admin: 12/05/19 18:02 Dose: 15 mg Documented by: [id number] Potassium Chloride (Klor-Con M10) 50 meq PO NOW STA Stop: 12/05/19 19:56 Last Admin: 12/05/19 20:16 Dose: 50 meq Documented by: [id number] Imaging Data Radiologist's Impression: ABDOMINAL ULTRASOUND, RIGHT UPPER QUADRANT HISTORY: Right upper quadrant pain.. COMPARISON: Outside hospital PET/CT 09/06/2019. FINDINGS: Pancreas: The pancreatic tail is obscured by overlying bowel gas. The remaining portions of the pancreas are within normal limits. Pancreatic duct is slightly distended at 4 mm. Liver: The liver is echogenic consistent with fatty change. Gallbladder: Distended gallbladder. No gallbladder wall thickening. A few small stones and sludge within the gallbladder. Negative sonographic Stratton sign. There may be trace pericholecystic fluid adjacent hepatic surface. CBD: Dilated measuring 1.2 cm in diameter. Right kidney: No hydronephrosis. IMPRESSION: 1. Distended gallbladder containing small stones and sludge. No gallbladder wall thickening. There may be trace pericholecystic fluid adjacent to the hepatic surface. 2. There is also dilated common bile duct and main pancreatic duct. This raises the possibility of a distal obstructing stone/lesion. 3. Hepatic steatosis. XR chest 1V portable HISTORY: Atypical Chest Pain COMPARISON: Chest 09/12/2019. FINDINGS: Left upper Port-A-Cath terminates at the distal SVC. This remains unchanged. The heart is normal in size. Stable linear density at the left lung base suggestive of subsegmental atelectasis are scarring. The lungs are otherwise clear. No pleural effusions. No pneumothorax. IMPRESSION: No significant change compared to the prior study. No acute process. Blood Pressure Blood Pressure Findings: Elevated blood pressure Blood Pressure Disposition: further management by hospitalist Discharge Plan Visit Data *Final* Discharge Date/Time: 12/05/19 21:23 Chief Complaint: Chest Pain Stated Complaint: PAIN IN CHEST AND ON RIGHT SIDE ED Provider: Jordan Henson Discharge Problem: Right sided abdominal pain, Right-sided chest pain, Acute cholecystitis, Elevated liver enzymes Patient Disposition: Admitted As Inpatient Condition: Fair Discharge Instructions Interventions: ED Discharge Assessment Last Done: 12/05/19 21:23
[2019-12-05] MEDS ORDERED: SODIUM CHLORIDE 0.9% 500 ML IV SCH (17:45)
[2019-12-05 18:07] LABS: Basophils # (auto) 0.01 K/uL (0-0.2); Basophils % (auto) 0.1 %; Eosinophils # (auto) 0.18 K/uL (0-0.5); Eosinophils % (auto) 1.9 %; Hematocrit (blood only) 39.2 % (37-47); Immature Granulocytes # (auto) 0.03 K/uL (0.00-0.02); Immature Granulocytes % (auto) 0.3 %; Lymphocytes # (auto) 0.95 K/uL (1.2-3.4); Lymphocytes % (auto) 10.3 %; Mean Corpuscular Hemoglobin 29.8 pg (25-34); Mean Corpuscular Hgb Conc 33.2 g/dL (32-36); Mean Corpuscular Volume 89.9 fL (80-100); Mean Platelet Volume 9.4 fL (7.4-10.4); Monocytes # (auto) 0.79 K/uL (0.11-0.59); Monocytes % (auto) 8.5 %; Neutrophils % (auto) 78.9 %; Platelet Count 242 K/uL (130-400); RDW Coefficient of Variation 14.2 % (11.5-14.5); RDW Standard Deviation 47.2 fL (36.4-46.3); Red Blood Count 4.36 M/uL (4.2-5.4); White Blood Count 9.26 K/uL (4.8-10.8)
[2019-12-05 18:17] LABS: Partial Thromboplastin Ratio 0.8; Partial Thromboplastin Time 22.8 Seconds (21.0-31.0); Prothrombin Time 10.3 Seconds (9.0-12.0)
[2019-12-05 18:22] LABS: D Dimer 990 ug/L FEU (0-500)
[2019-12-05 18:26] LABS: Alanine Aminotransferase 209 U/L (12-78); Albumin Level 3.4 gm/dl (3.4-5.0); Aspartate Aminotransferase 270 U/L (15-37); Blood Urea Nitrogen 10 mg/dl (7-18); Calcium 8.8 mg/dl (8.5-10.1); Carbon Dioxide 25 mmol/L (21-32); Chloride 105 mmol/L (98-107); Est GFR (African American) 77.7; Glucose 113 mg/dl (70-99); Lipase 477 U/L (73-393); Sodium 137 mmol/L (136-145)
[2019-12-05 18:31] LABS: Alkaline Phosphatase 128 U/L (45-117); Globulin 3.3 gm/dl (2.5-4.0); Total Protein 6.7 gm/dl (6.4-8.2); Troponin I < 0.015 ng/ml (0-0.045)
--- NOTE | 2019-12-05 19:01 | Ultrasound Report ---
ABDOMINAL ULTRASOUND, RIGHT UPPER QUADRANT HISTORY: Right upper quadrant pain.. COMPARISON: Outside hospital PET/CT 09/06/2019. FINDINGS: Pancreas: The pancreatic tail is obscured by overlying bowel gas. The remaining portions of the pancr eas are within normal limits. Pancreatic duct is slightly distended at 4 mm. Liver: The liver is echogenic consistent with fatty change. Gallbladder: Distended gallbladder. No gallbladder wall thickening. A few small stones and sludge wit hin the gallbladder. Negative sonographic Stratton sign. There may be trace pericholecystic fluid adjac ent hepatic surface. CBD: Dilated measuring 1.2 cm in diameter. Right kidney: No hydronephrosis. IMPRESSION: 1. Distended gallbladder containing small stones and sludge. No gallbladder wall thickening. There ma y be trace pericholecystic fluid adjacent to the hepatic surface. 2. There is also dilated common bile duct and main pancreatic duct. This raises the possibility of a distal obstructing stone/lesion. 3. Hepatic steatosis. ACT 112: Negative or not required by law. Electronically signed by: Dom Garcia M.D. 12/05/2019 6:59 PM
--- NOTE | 2019-12-05 19:02 | XRay Report ---
XR chest 1V portable HISTORY: Atypical Chest Pain COMPARISON: Chest 09/12/2019. FINDINGS: Left upper Port-A-Cath terminates at the distal SVC. This remains unchanged. The heart is n ormal in size. Stable linear density at the left lung base suggestive of subsegmental atelectasis are scarring. The lungs are otherwise clear. No pleural effusions. No pneumothorax. IMPRESSION: No significant change compared to the prior study. No acute process. ACT 112: Negative or not required by law. Electronically signed by: Dom Garcia M.D. 12/05/2019 7:01 PM
[2019-12-05] MEDS ORDERED: CEFEPIME 2,000 MG/20 ML VIAL IV STA (19:13)
[2019-12-05 19:14] LABS: Appearance Urine Cloudy (Clear); Bacteria Urine Automated Negative (Negative); Blood Urine Negative (Negative); Color Urine Dark Yellow; Epithelial Cell Urine Auto >30 /lpf (0-5); Glucose Urine UA Negative (Negative); Ketones Urine Negative (Negative); Leukocyte Esterase Urine 2+ (Negative); Nitrite Urine Negative (Negative); Protein Urine Negative (Negative); RBC Urine Automated 0-4 /hpf (0-4); Specific Gravity Urine 1.016 (1.000-1.030); Urobilinogen Urine Negative (Negative)
[2019-12-05 19:22] LABS: Bilirubin Urine 1+ (Negative); Ictotest Urine Positive (Negative)
[2019-12-05] MEDS ORDERED: ALBUT/IPRATROP 3MG/0.5MG NEB 3 ML VIAL NEB STA (19:24)
[2019-12-05] MEDS ORDERED: POTASSIUM CHLORIDE 10 MEQ TABCR PO STA (19:55)
--- NOTE | 2019-12-05 20:40 | History & Physical Report ---
Date of Service December 05, 2019 Assessment & Plan Admission and Anticipated Discharge Date Admission Date: Pancreatitis Biliary etiology, possible choledocholithiasis, no sepsis for now Situational hypertension COPD, JOAN on CPAP, lung status at baseline rheumatoid arthritis, at baseline breast cancer status post surgery uterine cancer status post surgery Hyperglycemia, possible prediabetes, hemoglobin A1c of 5.18 August 2018 ongoing tobacco abuse Medical telemetry given hypertension, tachycardia Hold off on antibiotics for now Bowel rest MRCP GI consult RE abdominal pain, abnormal LFTs Surgery consult RE abdominal pain, abnormal ultrasound Nicotine patch PRN DVT prophylaxis. SCDs RE possible procedure (Recommend pharmacologic anticoagulation once bleeding risk is deemed to be minimal and negligible pending Surgery evaluation.) History of Present Illness Chief Complaint: Abdominal pain Primary Care Provider: Yuval Richards MD History obtained from patient and records. Medical history significant for COPD, JOAN on CPAP, PSVT as per records, rheumatoid arthritis, breast cancer status post surgery radiation, uterine cancer status post surgery, skin cancer as per records, ongoing tobacco abuse. Last confinement February 2018 for COPD exacerbation. Patient noted achy right upper quadrant pain going to the epigastrium today after a breakfast of bagel. No nausea, no emesis, no fever, no chills. Usual loose stools from some home medication. No prior episodes. Persistent discomfort throughout the day. No chest pain, no S OB. Gallbladder ultrasound results done at the ER as follows: 1. Distended gallbladder containing small stones and sludge. No gallbladder wall thickening. There may be trace pericholecystic fluid adjacent to the hepatic surface. 2. There is also dilated common bile duct and main pancreatic duct. This raises the possibility of a distal obstructing stone/lesion. 3. Hepatic steatosis. Patient received Cefepime at the ER. 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 Allergies Allergy/AdvReac Type Severity Reaction Status Date / Time codeine Allergy Intermediate Hives Verified 12/05/19 19:21 amoxicillin Allergy Mild Unknown Verified 12/05/19 19:21 acetaminophen Allergy Unknown RASH Verified 12/05/19 19:21 Tetracyclines Allergy Unknown TONGUE Verified 12/05/19 19:21 SWELLS Home Medications Home Medications Medication Instructions Recorded Confirmed Type calcium carbonate-vit D3-min 1 tab PO BID 04/02/18 12/05/19 History cholecalciferol (vitamin D3) 1,000 unit PO QAM 04/02/18 12/05/19 History [Vitamin D3] hydroxychloroquine [Plaquenil] 200 mg PO QAM 04/02/18 12/05/19 History omeprazole 20 mg PO QAM 04/02/18 12/05/19 History diltiazem HCl 120 mg PO QAM 08/31/18 12/05/19 History umeclidinium 62.5 mcg/actuation 1 inh INHALATION QAM #30 ea 04/05/19 12/05/19 Rx blister powder for inhalation Oxygen Home ea 05/01/19 11/22/19 History nivolumab 240 mg/24 mL intravenous 480 mg IV MONTHLY ml 05/01/19 12/05/19 History solution azelastine 137 mcg (0.1 %) nasal 2 spray INTNAS DAILY #30 ml 07/31/19 12/05/19 Rx spray aerosol miscellaneous medical supply #1 ea 08/11/19 11/22/19 Rx budesonide-formoterol HFA 160 2 puff INHALATION BID #10.2 gm 08/14/19 12/05/19 Rx mcg-4.5 mcg/actuation aerosol inhaler alendronate 70 mg PO WK 09/12/19 12/05/19 History ipratropium-albuterol 3 ml INHALATION Q4 PRN 09/12/19 12/05/19 History levalbuterol HCl 2.5 mg INH Q4 PRN 09/12/19 12/05/19 History prednisone 5 - 20 mg PO DAILY PRN MDD .. 09/12/19 12/05/19 History roflumilast [Daliresp] 500 mcg PO QAM 09/12/19 12/05/19 History albuterol sulfate 90 mcg/actuation 2 puff INHALATION Q4 PRN #18 gm 10/27/19 12/05/19 Rx aerosol inhaler Past Med/Surg History Medical History Asthma-COPD overlap syndrome Basal cell carcinoma (BCC) (Chronic) Diastolic heart failure Ductal carcinoma in situ (DCIS) of right breast (Resolved 09/29/12) "Abnormal right breast mammogram Status post right breast core needle biopsy 09/26/2012 revealing DCIS high- grade Status post lumpectomy and sentinel lymph node biopsy 10/10/2012 stage [id number] with positive margin reexcision 11/03/2012 no additional carcinoma Status post completion of radiation therapy 05/23/2013 utilizing hypo- fractionated received 5006 cGy " GERD (gastroesophageal reflux disease) (Chronic) Hiatal hernia (Chronic) History of breast cancer (Chronic) RT - S/P LUMPECTOMY + RADIATION THERAPY History of uterine cancer (Chronic) S/P GREGORIO BSO + CHEMO Lung nodule Malignant neoplasm of corpus uteri, except isthmus (Resolved 08/20/12) "Postmenopausal vaginal bleeding Endometrial biopsy 08/03/2012 revealing 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 RANDHAWA - REPORTS PAT NOTED DURING RECENT HOSPITALIZATION AT [facility] [place] Pulmonary nodule (Chronic) Rheumatoid arthritis (Chronic) Skin cancer of face (Chronic) Tobacco abuse Tobacco use disorder (Chronic) Surgical History History of breast biopsy (Chronic) History of cataract surgery (Chronic) History of colonoscopy (Chronic) History of Moh's micrographic surgery for skin cancer (Chronic) nose History of sinus surgery 06/29/18-with turbinates-Dr. 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 Other Information That Helps Us Care for You: No Feels Safe at Home: Yes Safety Concerns: Feels Safe At This Time Smoking Status: Current every day smoker Tobacco Type: cigarettes ; Cigarettes Per Day: 3 ; Do You Dip or Chew Tobacco: No ; Second Hand Exposure: No ; Tobacco Cessation Education Requested by Patient: No Hx Alcohol Use: Yes Alcohol type: beer Alcohol Intake Frequency: Daily Alcohol Intake Frequency Comment: 1 beer/day Hx Substance Use: No Review of Systems Review of Systems: As per HPI, all 10 systems reviewed, all other ROS negative Physical Exam Physical Exam: GENERAL: Comfortable, pleasant, no respiratory distress SKIN: Normal color, warm HEENT: Bespectacled, [place] palpebral conjunctivae, no ptosis, dry buccal mucosa NECK : Supple, no tenderness CHEST : Decreased breath sounds, no tenderness HEART : RRR, no obvious murmurs ABDOMEN: Some distention, right upper quadrant tenderness EXTREMITIES : No LE swelling/tenderness, no other conspicuous deformities noted NEUROLOGIC : Coherent, no facial asymmetry, no other gross focality except for tremors post neb treatment at the ER Results & Data [facility] Vital Signs (Past 12 Hours) Vital Signs Temp Pulse Pulse Resp BP BP Pulse Ox 12/05/19 20:28 112 H 20 140/90 97 12/05/19 19:38 83 20 96 12/05/19 19:04 79 19 147/82 H 97 12/05/19 18:01 97 12/05/19 17:08 37 C 85 20 154/81 H 96 Laboratory Results Laboratory Results WBC 9.26 K/uL (4.8-10.8) 12/05/19 17:55 RBC 4.36 M/uL (4.2-5.4) 12/05/19 17:55 Hgb 13.0 g/dL (12.0-16.0) 12/05/19 17:55 Hct 39.2 % (37-47) 12/05/19 17:55 MCV 89.9 fL (80-100) 12/05/19 17:55 MCH 29.8 pg (25-34) 12/05/19 17:55 MCHC 33.2 g/dL (32-36) 12/05/19 17:55 RDW Std Deviation 47.2 fL (36.4-46.3) H 12/05/19 17:55 RDW Coeff of Arleen 14.2 % (11.5-14.5) 12/05/19 17:55 Plt Count 242 K/uL (130-400) 12/05/19 17:55 MPV 9.4 fL (7.4-10.4) 12/05/19 17:55 Immature Gran % (Auto) 0.3 % 12/05/19 17:55 Neut % (Auto) 78.9 % 12/05/19 17:55 Lymph % (Auto) 10.3 % 12/05/19 17:55 [place] % (Auto) 8.5 % 12/05/19 17:55 Eos % (Auto) 1.9 % 12/05/19 17:55 Baso % (Auto) 0.1 % 12/05/19 17:55 Immature Gran # (Auto) 0.03 K/uL (0.00-0.02) H 12/05/19 17:55 Neut # (Auto) 7.30 K/uL (1.4-6.5) H 12/05/19 17:55 Lymph # (Auto) 0.95 K/uL (1.2-3.4) L 12/05/19 17:55 [place] # (Auto) 0.79 K/uL (0.11-0.59) H 12/05/19 17:55 Eos # (Auto) 0.18 K/uL (0-0.5) 12/05/19 17:55 Baso # (Auto) 0.01 K/uL (0-0.2) 12/05/19 17:55 PT 10.3 Seconds (9.0-12.0) 12/05/19 17:55 INR 1.0 (0.9-1.1) 12/05/19 17:55 APTT 22.8 Seconds (21.0-31.0) 12/05/19 17:55 PTT Ratio 0.8 12/05/19 17:55 D-Dimer 990 ug/L FEU (0-500) H* 12/05/19 17:55 Sodium 137 mmol/L (136-145) 12/05/19 17:55 Potassium 3.0 mmol/L (3.5-5.1) L 12/05/19 17:55 Chloride 105 mmol/L (98-107) 12/05/19 17:55 Carbon Dioxide 25 mmol/L (21-32) 12/05/19 17:55 Anion Gap 7.0 (3-11) 12/05/19 17:55 BUN 10 mg/dl (7-18) 12/05/19 17:55 Creatinine 0.87 mg/dl (0.6-1.2) 12/05/19 17:55 Est Cr Clr Drug Dosing 64.0 ml/min 12/05/19 17:55 Est GFR ( Amer) 77.7 12/05/19 17:55 Est GFR (Non-Af Amer) 67.0 12/05/19 17:55 BUN/Creatinine Ratio 11.0 (10-20) 12/05/19 17:55 Glucose 113 mg/dl (70-99) H 12/05/19 17:55 Calcium 8.8 mg/dl (8.5-10.1) 12/05/19 17:55 Magnesium 2.0 mg/dl (1.8-2.4) 12/05/19 17:55 Total Bilirubin 2.0 mg/dl (0.2-1) H 12/05/19 17:55 AST 270 U/L (15-37) H 12/05/19 17:55 ALT 209 U/L (12-78) H 12/05/19 17:55 Alkaline Phosphatase 128 U/L (45-117) H 12/05/19 17:55 Troponin I < 0.015 ng/ml (0-0.045) 12/05/19 17:55 Total Protein 6.7 gm/dl (6.4-8.2) 12/05/19 17:55 Albumin 3.4 gm/dl (3.4-5.0) 12/05/19 17:55 Globulin 3.3 gm/dl (2.5-4.0) 12/05/19 17:55 Albumin/Globulin Ratio 1.0 (0.9-2) 12/05/19 17:55 Lipase 477 U/L (73-393) H 12/05/19 17:55 Urine Color Dark Yellow 12/05/19 19:00 Urine Appearance Cloudy (Clear) A 12/05/19 19:00 Urine pH 5.0 (4.5-7.5) 12/05/19 19:00 Ur Specific [place] 1.016 (1.000-1.030) 12/05/19 19:00 Urine Protein Negative (Negative) 12/05/19 19:00 Urine Glucose (UA) Negative (Negative) 12/05/19 19:00 Urine Ketones Negative (Negative) 12/05/19 19: Urine Blood Negative (Negative) 12/05/19 19: Urine Nitrite Negative (Negative) 12/05/19:00 Urine Bilirubin 1+ (Negative) H 12/05/19 19: Urine Urobilinogen Negative (Negative) 12/05/19 19:00 Ur Leukocyte Esterase 2+ (Negative) H 12/05/19 19:00 Urine WBC (Auto) 10-30 /hpf (0-5) H 12/05/19 19:00 Urine RBC (Auto) 0-4 /hpf (0-4) 12/05/19 19:00 U Hyaline Cast (Auto) 5-10 /lpf (0-5) H 12/05/19 19:00 U Epithel Cells (Auto) >30 /lpf (0-5) H 12/05/19 19:00 Urine Bacteria (Auto) Negative (Negative) 12/05/19 19:00 Diagnostic Findings Gallbladder ultrasound: 1. Distended gallbladder containing small stones and sludge. No gallbladder wall thickening. There may be trace pericholecystic fluid adjacent to the hepatic surface. 2. There is also dilated common bile duct and main pancreatic duct. This raises the possibility of a distal obstructing stone/lesion. 3. Hepatic steatosis. Chest x-ray : No significant change compared to the prior study. No acute process. EKG as per my interpretation : Rate 80, NSR, LAD, LAFB, incomplete RBBB, no ischemia
[2019-12-05] MEDS ORDERED: LACTATED RINGER'S 1,000 ML IV ONE (20:45)
[2019-12-05] MEDS ORDERED: ACETAMINOPHEN 325 MG TAB PO PRN (21:42)
[2019-12-05] MEDS ORDERED: KETOROLAC TROMETHAMINE 15 MG/ML VIAL IV PRN (21:42)
[2019-12-05] MEDS ORDERED: XOPENEX/ATROVENT 1.25mg/0.5MG NEB COMBO NEB PRN (21:42)
[2019-12-05] MEDS ORDERED: PROMETHAZINE HCL 12.5 MG in SODIUM CHLORIDE 0.9% 50 ML IV PRN (21:42)
[2019-12-05] MEDS: AZELASTINE~ORDER AWAITING ACTION SCH (23:10)
[2019-12-06] MEDS: IPRATROPIUM BROMIDE NEB SOLN 0.02% 2.5 ML VIAL INH PRN ×4 (01:44→19:25)
[2019-12-06] MEDS: LEVALBUTEROL 1.25MG/0.5ML NEB INH PRN ×4 (01:44→19:25)
[2019-12-06] MEDS: LACTATED RINGER'S 1,000 ML IV SCH ×3 (03:27→23:27)
--- NOTE | 2019-12-06 07:15 | Magnetic Resonance Report ---
Study: MRCP HISTORY: Pain. Nausea. FINDINGS: The liver spleen and pancreas appear uniform. Gallstones are present within the gallbladder lumen. There is mild pericholecystic edematous change. Moderate prominence of the biliary ductal sys tem. Moderate motion artifact creates internal signal heterogeneity of the common bile duct. Choledoc holithiasis is felt to be less likely although cannot be completely excluded. Kidneys negative for hydronephrosis. Several small sub-5 mm renal cortical cysts bilaterally. Nonobst ructive bowel pattern. No significant upper abdominal adenopathy. IMPRESSION: 1. Bands of acute cholecystitis. 2. Gallstones within the gallbladder lumen are present as well as moderate pericholecystic edematous change.. 3. Mild biliary ductal prominence although well-defined component of choledocholithiasis is not appre ciated. 4. Motion artifact creates internal artifact within the biliary ductal system making exclusion of min imal choledocholithiasis difficult. Electronically signed by: Dick Archibald M.D. 12/06/2019 7:13 AM
[2019-12-06] MEDS: AZELASTINE~ORDER AWAITING ACTION SCH ×3 (07:46→23:23)
[2019-12-06] MEDS: UMECLIDINIUM BROMIDE 62.5MCG/BLISTER 7 PUFFS/INHALER INH SCH (07:51)
[2019-12-06] MEDS: FLUTICASONE/VILANTEROL 200/25MCG 14 PUFFS/INHALER INH SCH (07:51)
[2019-12-06] MEDS: ROFLUMILAST 500 MCG TAB PO SCH (07:52)
[2019-12-06] MEDS: PANTOprazole 40 MG TAB PO SCH (07:52)
[2019-12-06] MEDS: dilTIAZem ER 120 MG CAPCR PO SCH (07:52)
[2019-12-06 08:17] LABS: Basophils # (auto) 0.02 K/uL (0-0.2); Basophils % (auto) 0.3 %; Eosinophils # (auto) 0.35 K/uL (0-0.5); Eosinophils % (auto) 4.9 %; Hematocrit (blood only) 41.8 % (37-47); Hemoglobin 13.6 g/dL (12.0-16.0); Immature Granulocytes # (auto) 0.03 K/uL (0.00-0.02); Immature Granulocytes % (auto) 0.4 %; Lymphocytes # (auto) 0.95 K/uL (1.2-3.4); Lymphocytes % (auto) 13.3 %; Mean Corpuscular Hemoglobin 29.3 pg (25-34); Mean Corpuscular Hgb Conc 32.5 g/dL (32-36); Mean Corpuscular Volume 90.1 fL (80-100); Mean Platelet Volume 9.9 fL (7.4-10.4); Monocytes # (auto) 0.76 K/uL (0.11-0.59); Monocytes % (auto) 10.6 %; Neutrophils # (auto) 5.03 K/uL (1.4-6.5); Neutrophils % (auto) 70.5 %; Platelet Count 269 K/uL (130-400); RDW Coefficient of Variation 14.4 % (11.5-14.5); RDW Standard Deviation 47.4 fL (36.4-46.3); Red Blood Count 4.64 M/uL (4.2-5.4); White Blood Count 7.14 K/uL (4.8-10.8)
[2019-12-06] MEDS: HYDROXYCHLOROQUINE SULFATE 200 MG TAB PO SCH (08:48)
[2019-12-06] MEDS ORDERED: INDOMETHACIN 50 MG SUPP PR ONE ×2 (09:03→15:46)
[2019-12-06 09:05] LABS: Albumin Globulin Ratio 0.9 (0.9-2); Albumin Level 3.2 gm/dl (3.4-5.0); BUN Creatinine Ratio 9.7 (10-20); Bilirubin,Total 1.3 mg/dl (0.2-1); Calcium 9.6 mg/dl (8.5-10.1); Creatinine Clr Calc Pharmacy 76.8 ml/min; Est GFR (African American) 97.7; Est GFR (Non-African American) 84.3; Globulin 3.4 gm/dl (2.5-4.0); Potassium 3.7 mmol/L (3.5-5.1); Total Protein 6.6 gm/dl (6.4-8.2)
--- NOTE | 2019-12-06 10:39 | XRay Report ---
XR chest 2V PA/lateral HISTORY: shortness of breath COMPARISON: Chest 12/05/2019. FINDINGS: Left jugular Port-A-Cath terminates at the distal SVC. This remains unchanged. The heart is normal in size. No pleural effusions. No pneumothorax. The lungs are clear. No evidence for pulmonar y edema. IMPRESSION: No acute process. ACT 112: Negative or not required by law. Electronically signed by: Dom Garcia M.D. 12/06/2019 10:38 AM
--- NOTE | 2019-12-06 11:04 | Gastrointestinal Consultation ---
Date of Consultation December 06, 2019 Assessment & Plan (1) Elevated liver enzymes: (2) Cholelithiasis: (3) Dilation of biliary tract: Pt is a 73 y/o female w RUQ/epigastric abd pain, on eval noted to have elevated LFTs, lipase. Imaging studies (U/S gallbladder, MRCP) showed signs of gallstones/sludge, w CBD dilation, choledocholithiasis cannot be entirely excluded but MRCP quality reduced due to motion artifact. - Keep NPO - Plan for ERCP in OR w Dr. Gonzalez today - IVF w LR - Trend LFTs - Surgery already consulted - Continue O2 support, nebulizer breathing treatment prn SOB. Supervising Physician Co-Signing Physician Notes I performed a history and physical examination of the patient today, including specifically on physical exam - soft abdomen. I have discussed the patient's management with the advanced practitioner. Please refer to the nurse practitioner's note for the documented findings and plan of care. 73 yrs old female patient with abn LFTs and biliary pain, dilated CBD. High probability for choledocholithiasis ERCP today. History of Present Illness Reason for Consultation: Abnormal LFTs Requesting Physician: Dr. Artem Murrell Attending Physician: Dr. Ameya Gonzalez History of Present Illness Pt is a 73 y/o female w PMHx of COPD, asthma, JOAN on CPAP, PSVT, rheumatoid arthritis, breast cancer status post surgery radiation, uterine cancer status post surgery, skin cancer, ongoing tobacco abuse who presented yesterday w achy RUQ abd pain radiating to epigastric level after eating bagels. Was able to tolerate banana for lunch. She denies associated fever, chills, CP. Today does c/o increased SOB which she attributed to strong perfume scent worn by staff. On her admission evaluation, it's noted that she had elevated LFTs: Tbili 2, AST/ALT in 200s each, Alk phos 150. Lipase 400s. Gallbladder u/s and MRCP showed signs of distended gallbladder w gallstones, sludge, and CBD dilation w/o clearly defined choledocholithiasis though study quality may be reduced due to motion artifact. Allergies Allergy/AdvReac Type Severity Reaction Status Date / Time codeine Allergy Intermediate Hives Verified 12/05/19 19:21 amoxicillin Allergy Mild Unknown Verified 12/05/19 19:21 acetaminophen Allergy Unknown RASH Verified 12/05/19 19:21 Tetracyclines Allergy Unknown TONGUE Verified 12/05/19 19:21 SWELLS Home Medications Home Medications Medication Instructions Recorded Confirmed Type calcium carbonate-vit D3-min 1 tab PO BID 04/02/18 12/05/19 History cholecalciferol (vitamin D3) 1,000 unit PO QAM 04/02/18 12/05/19 History [Vitamin D3] hydroxychloroquine [Plaquenil] 200 mg PO QAM 04/02/18 12/05/19 History omeprazole 20 mg PO QAM 04/02/18 12/05/19 History diltiazem HCl 120 mg PO QAM 08/31/18 12/05/19 History umeclidinium 62.5 mcg/actuation 1 inh INHALATION QAM #30 ea 04/05/19 12/05/19 Rx blister powder for inhalation Oxygen Home ea 05/01/19 11/22/19 History nivolumab 240 mg/24 mL intravenous 480 mg IV MONTHLY ml 05/01/19 12/05/19 History solution azelastine 137 mcg (0.1 %) nasal 2 spray INTNAS DAILY #30 ml 07/31/19 12/05/19 Rx spray aerosol miscellaneous medical supply #1 ea 08/11/19 11/22/19 Rx budesonide-formoterol HFA 160 2 puff INHALATION BID #10.2 gm 08/14/19 12/05/19 Rx mcg-4.5 mcg/actuation aerosol inhaler alendronate 70 mg PO WK 09/12/19 12/05/19 History ipratropium-albuterol 3 ml INHALATION Q4 PRN 09/12/19 12/05/19 History levalbuterol HCl 2.5 mg INH Q4 PRN 09/12/19 12/05/19 History prednisone 5 - 20 mg PO DAILY PRN MDD .. 09/12/19 12/05/19 History albuterol sulfate 90 mcg/actuation 2 puff INHALATION Q4 PRN #18 gm 10/27/19 12/05/19 Rx aerosol inhaler roflumilast 500 mcg tablet 500 mcg PO QAM #90 tab 12/06/19 Rx Patient History Medical History (Updated 12/06/19 @ 12:39 by Cory Esparza MD) Anxiety Asthma-COPD overlap syndrome Basal cell carcinoma (BCC) (Chronic) Diastolic heart failure Ductal carcinoma in situ (DCIS) of right breast (Resolved 09/29/12) "Abnormal right breast mammogram Status post right breast core needle biopsy 09/26/2012 revealing DCIS high- grade Status post lumpectomy and sentinel lymph node biopsy 10/10/2012 stage [id number] with positive margin reexcision 11/03/2012 no additional carcinoma Status post completion of radiation therapy 05/23/2013 utilizing hypo- fractionated received 5006 cGy " GERD (gastroesophageal reflux disease) (Chronic) Hiatal hernia (Chronic) History of breast cancer (Chronic) RT - S/P LUMPECTOMY + RADIATION THERAPY History of uterine cancer (Chronic) S/P GREGORIO BSO + CHEMO Lung nodule Malignant neoplasm of corpus uteri, except isthmus (Resolved 08/20/12) "Postmenopausal vaginal bleeding Endometrial biopsy 08/03/2012 revealing 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 RANDHAWA - REPORTS PAT NOTED DURING RECENT HOSPITALIZATION AT [facility] ([place]) Pulmonary nodule (Chronic) Rheumatoid arthritis (Chronic) Skin cancer of face (Chronic) Tobacco abuse Tobacco use disorder (Chronic) Surgical History History of breast biopsy (Chronic) History of cataract surgery (Chronic) History of colonoscopy (Chronic) History of Moh's micrographic surgery for skin cancer (Chronic) nose History of sinus surgery 06/29/18-with turbinates-Dr. Lopez History of tonsillectomy (Chronic) History of total abdominal hysterectomy and bilateral salpingo-oophorectomy (Chronic) Status post right breast lumpectomy (Chronic) Family History Father Leukemia Myocardial infarction Sister Breast cancer Other Cancer Coronary heart disease No family history of bleeding disorder Social History Preferred Language: Central African Communication Ability: Effective Visual Impairment: No Limitations Window Covering Sales Consultant Required: No Beliefs That Will Affect Care: None marital status: Current Living Situation: Spouse current occupational status: employed 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 Other Information That Helps Us Care for You: No Feels Safe at Home: Yes Safety Concerns: Feels Safe At This Time Smoking Status: Current every day smoker Tobacco Type: cigarettes ; Cigarettes Per Day: 3 ; Do You Dip or Chew Tobacco: No ; Second Hand Exposure: No ; Tobacco Cessation Education Requested by Patient: No Hx Alcohol Use: Yes Alcohol type: beer Alcohol Intake Frequency: Daily Alcohol Intake Frequency Comment: 1 beer/day Hx Substance Use: No Review of Systems Review of Systems: All systems reviewed & are unremarkable except as noted in HPI & below Physical Exam Constitutional: WD/WN, vitals as above well groomed, cooperative and comfortable Eyes: + scleral abnormality (icteric), PERRL and EOM intact bilaterally ENMT: external ear and nose normal, oropharynx normal Respiratory: + uses accessory muscles Auscultation: + diminished lung sounds Cardiovascular: RRR, no murmur, no edema Gastrointestinal (Abdomen): normal bowel sounds, soft, nontender, no hepatosplenomegaly Skin: no rashes, warm and dry no jaundice Psychiatric: A+Ox3, euthymic affect Lymphatic: no lymphedema Results & Data ([facility]) Vital Signs (Past 12 Hours) Vital Signs Temp Pulse Pulse Resp BP BP Pulse Ox 12/06/19 09:55 81 16 96 12/06/19 07:40 36.8 C 92 H 22 149/72 H 94 12/06/19 05:21 36.9 C 79 20 120/82 94 12/06/19 03:37 88 20 96 12/06/19 01:48 79 16 94 12/05/19 23:46 36.7 C 82 20 126/75 93 12/05/19 23:37 82 12/05/19 23:25 83 24 96 12/05/19 23:05 83
--- NOTE | 2019-12-06 11:44 | Hospitalist Progress Note ---
Date of Service December 06, 2019 Assessment & Plan (1) Dilation of biliary tract: (2) Cholelithiasis: (3) Right sided abdominal pain: (4) Right-sided chest pain: (5) Acute cholecystitis: (6) Elevated liver enzymes: (7) Lung nodule: (8) Obstructive sleep apnea: (9) Obesity (BMI 30.0-34.9): (10) Diastolic heart failure: (11) Tobacco abuse: (12) Asthma-COPD overlap syndrome: (13) JOAN (obstructive sleep apnea): (14) Basal cell carcinoma (BCC): (15) Skin cancer of face: (16) Hiatal hernia: (17) History of uterine cancer: (18) History of breast cancer: (19) Nocturnal oxygen desaturation: (20) COPD (chronic obstructive pulmonary disease): (21) Chronic sinusitis: (22) GERD (gastroesophageal reflux disease): (23) Rheumatoid arthritis: (24) Ductal carcinoma in situ (DCIS) of right breast: (25) Malignant neoplasm of corpus uteri, except isthmus: GI and Surgery on case, Requesting pulm to see her, Bowel Rest MRCP Labs checked ROS-No Headache, No Visual Changes, No Nausea, No Vomiting, No Fever, No Chills, No Neck Pain or Stiffness, No Chest Pain, No Palpitations, + SOB, No FIORE, No Cough, No Sputum, No Wheezing, + Abdominal Pain, No Diarrhea, No Hematemesis, No Hemoptysis, No Unexpected Weight Loss, No Flank pain, No Melena, No Hematoche sharla, No Frequency, No Urgency, No Burning, No Hematuria, No Rashes, No Diaphoresis. Appetite is Normal Physical Exam Gen-AAO x 3, NAD, Afebrile, Obese, Upset Head-NCAT, EOMI, PERRLA, Anicteric Sclera, No Posterior Pharyngeal Erythema Neck-Supple, No JVD, No Thyromegaly, No Masses, No LAD, No Bruits Lungs-Clear to Auscultation Bilaterally, No Rales, No Rhonchi, No Wheezing, No Crepitus Chest-No S4, +S1, +S2, No S3, No Murmurs, No Rubs, No Gallops, No Ectopy Abdomen-Soft, Bowel Sounds Present, Tender, Non Distended, No Hepatomegaly, No Splenomegaly, No Palpable Masses, No Rebound, No Rigidity, No Guarding Musculoskeletal-Full Range of Motion Bilaterally, No CVAT Extremities-No Cyanosis, No Clubbing, No Edema Nuero-Cranial Nerves II-XII grossly intact, Motor WNL, DTRs WNL, Strength WNL, Non Focal Psych-Normal Mood Admission and Anticipated Discharge Date Admission Date: December 05, 2019 Anticipated date of discharge: 12/09/19 Results & Data Results & Data ([facility]) Vital Signs (Past 12 Hours) Vital Signs Temp Pulse Pulse Resp BP BP Pulse Ox 12/06/19 09:55 81 16 96 12/06/19 07:40 36.8 C 92 H 22 149/72 H 94 12/06/19 05:21 36.9 C 79 20 120/82 94 12/06/19 03:37 88 20 96 12/06/19 01:48 79 16 94 12/05/19 23:46 36.7 C 82 20 126/75 93 12/05/19 23:37 82 (1) COPD (chronic obstructive pulmonary disease) COPD type: unspecified COPD Qualified Code(s): J44.9 - Chronic obstructive pulmonary disease, unspecified
--- NOTE | 2019-12-06 12:14 | Pulmonary Consultation ---
Date of Consultation December 06, 2019 Assessment & Plan (1) Asthma-COPD overlap syndrome: Patient appears stable from a respiratory standpoint. I do not think that she is in a asthma or COPD exacerbation. I would not change her medications aside for adding montelukast upon discharge for possible allergic rhinitis. I reiterated to her that the albuterol and nebulizer treatments are to be used as a form of rescue when she is short of breath, wheezing or having a significant cough. I think that anxiety plays a significant role in her symptoms. I do think that she would benefit greatly from weight loss as well. With regards to her upcoming surgical procedures, would recommend minimizing sedation as much as possible and extubating her to CPAP to prevent respiratory failure. She is at a mild to moderate risk for respiratory complications related to her underlying asthma and COPD. Pulmonary will sign off of the case. Please call us with questions. Thank you for the consult. I did adolescent counselor the patient regarding her diagnosis and treatment plan and she expressed understanding. Greater than 50% of the time was spent [id number] with the patient counseling them on their diagnosis and treatment plan. This note was dictated using voice recognition software and may include grammatical errors, extra words, word substitutions and other inaccuracies due to errors in the voice recognition software and differences in speech patterns. (2) JOAN (obstructive sleep apnea): (3) Anxiety: (4) Acute cholecystitis: History of Present Illness Reason for Consultation: COPD Requesting Physician: Artem Murrell DO Attending Physician: Artem Murrell DO History of Present Illness 73-year-old female with a known past medical history of endometrial cancer in 2012, DCIS in 2013, melanoma currently on Opdivo, obstructive sleep apnea on CPAP and nocturnal oxygen, and asthma-COPD overlap syndrome who presented for abdominal pain for the last 2 days. She was found to have choledocholithiasis on MRCP and right upper quadrant ultrasound imaging. Pulmonary is consulted due to shortness of breath. She is well-known to me on an outpatient basis and she has a history of asthma and COPD overlap. She takes low-dose prednisone intermittently. She notes she last took prednisone about 5 days ago at a dose of 5 mg. She is on Symbicort and a Anoro Ellipta at home. She also uses Roflumilast at home. She notes lately she has been using her nebulizer and rescue albuterol inhaler up to 3 times a day. She describes that since being hospitalized she has been short of breath on several occasions when nurses have been coming into the room with perfumes. She also is upset staff refused to give her a nebulizer treatment when she requested it. She was told that her vital signs are stable and that she did not need the inhaler regimen. I did speak with the bedside nurse who indicated that he did give her nebulizer treatment when requested I did did not seem to me that there were any strong scents in the room. I reiterated to her that generally this is a scent free hospital and that she seems very stable from a respiratory standpoint. Her chest x-ray on admission was clear, vital signs are stable and she has no wheezing on exam. She denies any significant cough presently. She continues to smoke 1 to 2 cigarettes daily. She notes that she has no significant craving to smoke while she has been in the hospital. She has not been requesting a nicotine patch. She denies any significant chest pain. No fevers or chills. The plan is for her to undergo an ERCP today and she is a bit anxious about this. Allergies Allergy/AdvReac Type Severity Reaction Status Date / Time codeine Allergy Intermediate Hives Verified 12/05/19 19:21 amoxicillin Allergy Mild Unknown Verified 12/05/19 19:21 acetaminophen Allergy Unknown RASH Verified 12/05/19 19:21 Tetracyclines Allergy Unknown TONGUE Verified 12/05/19 19:21 SWELLS Home Medications Home Medications Medication Instructions Recorded Confirmed Type calcium carbonate-vit D3-min 1 tab PO BID 04/02/18 12/05/19 History cholecalciferol (vitamin D3) 1,000 unit PO QAM 04/02/18 12/05/19 History [Vitamin D3] hydroxychloroquine [Plaquenil] 200 mg PO QAM 04/02/18 12/05/19 History omeprazole 20 mg PO QAM 04/02/18 12/05/19 History diltiazem HCl 120 mg PO QAM 08/31/18 12/05/19 History umeclidinium 62.5 mcg/actuation 1 inh INHALATION QAM #30 ea 04/05/19 12/05/19 Rx blister powder for inhalation Oxygen Home ea 05/01/19 11/22/19 History nivolumab 240 mg/24 mL intravenous 480 mg IV MONTHLY ml 05/01/19 12/05/19 History solution azelastine 137 mcg (0.1 %) nasal 2 spray INTNAS DAILY #30 ml 07/31/19 12/05/19 Rx spray aerosol miscellaneous medical supply #1 ea 08/11/19 11/22/19 Rx budesonide-formoterol HFA 160 2 puff INHALATION BID #10.2 gm 08/14/19 12/05/19 Rx mcg-4.5 mcg/actuation aerosol inhaler alendronate 70 mg PO WK 09/12/19 12/05/19 History ipratropium-albuterol 3 ml INHALATION Q4 PRN 09/12/19 12/05/19 History levalbuterol HCl 2.5 mg INH Q4 PRN 09/12/19 12/05/19 History prednisone 5 - 20 mg PO DAILY PRN MDD .. 09/12/19 12/05/19 History roflumilast [Daliresp] 500 mcg PO QAM 09/12/19 12/05/19 History albuterol sulfate 90 mcg/actuation 2 puff INHALATION Q4 PRN #18 gm 10/27/19 12/05/19 Rx aerosol inhaler Patient History Medical History Asthma-COPD overlap syndrome Basal cell carcinoma (BCC) (Chronic) Diastolic heart failure Ductal carcinoma in situ (DCIS) of right breast (Resolved 09/29/12) "Abnormal right breast mammogram Status post right breast core needle biopsy 09/26/2012 revealing DCIS high- grade Status post lumpectomy and sentinel lymph node biopsy 10/10/2012 stage [id number] with positive margin reexcision 11/03/2012 no additional carcinoma Status post completion of radiation therapy 05/23/2013 utilizing hypo- fractionated received 5006 cGy " GERD (gastroesophageal reflux disease) (Chronic) Hiatal hernia (Chronic) History of breast cancer (Chronic) RT - S/P LUMPECTOMY + RADIATION THERAPY History of uterine cancer (Chronic) S/P GREGORIO BSO + CHEMO Lung nodule Malignant neoplasm of corpus uteri, except isthmus (Resolved 08/20/12) "Postmenopausal vaginal bleeding Endometrial biopsy 08/03/2012 revealing 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 RANDHAWA - REPORTS PAT NOTED DURING RECENT HOSPITALIZATION AT [facility] Pulmonary nodule (Chronic) Rheumatoid arthritis (Chronic) Skin cancer of face (Chronic) Tobacco abuse Tobacco use disorder (Chronic) Surgical History History of breast biopsy (Chronic) History of cataract surgery (Chronic) History of colonoscopy (Chronic) History of Moh's micrographic surgery for skin cancer (Chronic) nose History of sinus surgery 06/29/18-with turbinates-Dr. 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 Intern Required: No Beliefs That Will Affect Care: None marital status: Current Living Situation: Spouse current occupational status: employed 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 Other Information That Helps Us Care for You: No Feels Safe at Home: Yes Safety Concerns: Feels Safe At This Time Smoking Status: Current every day smoker Tobacco Type: cigarettes ; Cigarettes Per Day: 3 ; Do You Dip or Chew Tobacco: No ; Second Hand Exposure: No ; Tobacco Cessation Education Requested by Patient: No Hx Alcohol Use: Yes Alcohol type: beer Alcohol Intake Frequency: Daily Alcohol Intake Frequency Comment: 1 beer/day Hx Substance Use: No Review of Systems Review of Systems: All systems reviewed & are unremarkable except as noted in HPI & below Physical Exam Constitutional: WD/WN, vitals as above Obese appearing. Nasal cannula in place. No apparent distress. Eyes: PERRL, conjunctivae normal, anicteric sclerae ENMT: Mallampati Class: II Skin graft noted on her nose. Neck: normal visual inspection Respiratory: normal respiratory effort, lungs clear to auscultation Cardiovascular: RRR, no murmur, no edema Gastrointestinal (Abdomen): Tenderness to palpation in the right upper quadrant. Normal bowel sounds. Musculoskeletal: no cyanosis or clubbing, extremities motor strength 5/5 Skin: no rashes, warm and dry Neurologic: PERRL, EOMI, accommodation nl, no face palsy, no dysarthria Psychiatric: A+Ox3, euthymic affect Results & Data Results & Data ([facility]) Vital Signs (Past 12 Hours) Vital Signs Temp Pulse Pulse Resp BP BP Pulse Ox 12/06/19 09:55 81 16 96 12/06/19 07:40 98.2 F 92 H 22 149/72 H 94 12/06/19 05:21 98.4 F 79 20 120/82 94 12/06/19 03:37 88 20 96 12/06/19 01:48 79 16 94 I personally reviewed her previous chest imaging, laboratory work and notes PG Care Time/CCT Total # of Minutes Spent Total Time Spent with Patient: Total time spent is greater than 50% in coordination of care (as documented) at patient's floor/unit and/or counseling patient: Coding Level of Care Code 05647 Initial Inpt Care Lvl 3 Diagnoses Asthma-COPD overlap syndrome J44.9 JOAN (obstructive sleep apnea) G47.33 Anxiety F41.9 Acute cholecystitis K81.0
--- NOTE | 2019-12-06 13:19 | Electrocardiogram Report ---
Test Reason : Blood Pressure : / mmHG Vent. Rate : 079 BPM Atrial Rate : 079 BPM P-R Int : 136 ms QRS Dur : 100 ms QT Int : 404 ms P-R-T Axes : 071 -30 059 degrees QTc Int : 463 ms Normal sinus rhythm Left axis deviation Incomplete right bundle branch block Abnormal ECG When compared with ECG of 12-SEP-2019 08:29, No significant change was found Confirmed by Emerson Richardson ([id number]) on 12/06/2019 1:18:47 PM Referred By: REFERRED SELF Confirmed By:Emerson Richardson
--- NOTE | 2019-12-06 14:18 | Surgery Consultation ---
Date of Consultation December 06, 2019 Assessment & Plan (1) Dilation of biliary tract: 73 year old female who presented to ED last evening with RUQ abdominal pain after eating bagel with butter for breakfast. US showing gallstones with dilated CBD. MRCP showing bands of acute cholecystitis with gallstones and pericholecystic edematous change with no true signs of choledocholithiasis however motion artifact present and unable to completely rule out. Labs upon admission showed elevated t. bili and lfts along with mild elevation in lipase. Plan: GI planning for ERCP later today, keep npo continue pain management and IV fluids Start IV Cipro for presumed acute cholecystitis Pulmonary consulted given COPD/Asthma Given patients COPD/asthma and concern of her respiratory status prior to procedures, would recommend work-up with ERCP first by GI. Would not want to prolong general anesthesia with ERCP and cholecystectomy at same time. Will await results of ERCP and determine timing of cholecystectomy. IF ERCP able to be done today, plan for laparoscopic cholecystectomy tomorrow. NPO after midnight tonight if diet advanced after ERCP continue medical management (2) Cholelithiasis: (3) Acute cholecystitis: (4) Elevated liver enzymes: Dr. Cuevas has discussed his recommendations (as above) with patient and was present during my examination of patient. History of Present Illness Reason for Consultation: abnormal abdominal US Requesting Physician: Nelson Rose MD Attending Physician: Artem Murrell DO History of Present Illness Madelyn is a 73 year-old female with medical history of COPD, JOAN on 2L of Oxygen via nasal cannula at night, obesity, anxiety, Uterine cancer s/p total abdominal hysterectomy and bilateral salpingoophorectomy, breast cancer, skin cancer, rheumatoid arthritis who presented to emergency department last evening with complaint of epigastric abdominal pain that began yesterday around 9 am after eating breakfast of bagel and butter. States she was able to eat a banana for lunch but that was it. Denies of any fever, chills, nausea, vomiting, chest pain, diarrhea, blood in stools, black/tarry stools, acholic stools, difficulty urinating. She has chronic breathing issues where she takes steroid tapers and albuterol inhalers. Us in the ED showed distended gallbladder containing small stones and sludge. No gallbladder wall thickening. dilated common bile duct and main pancreatic duct. This raises the possibility of a distal obstructing stone/lesion. Labs showed no leukocytosis. T. bili elevated at 2.0. LFTS elevated with AST 270, ALT , 209, ALK PHOS 128, and lipase elevated at 477. MRCP showed bands of acute cholecystitis, Gallstones within the gallbladder lumen, Mild biliary ductal prominence although well-defined component of choledocholithiasis is not appreciated and motion artifact creates internal artifact within the biliary ductal system making exclusion of minimal choledocholithiasis difficult. Madelyn states that she is supposed to go for ERCP procedure today if they get her breathing better controlled. States she is unsure of when that is supposed to happen. Currently feeling comfortable, abdominal pain is mild currently. Allergies Allergy/AdvReac Type Severity Reaction Status Date / Time codeine Allergy Intermediate Hives Verified 12/05/19 19:21 amoxicillin Allergy Mild Unknown Verified 12/05/19 19:21 acetaminophen Allergy Unknown RASH Verified 12/05/19 19:21 Tetracyclines Allergy Unknown TONGUE Verified 12/05/19 19:21 SWELLS Home Medications Home Medications Medication Instructions Recorded Confirmed Type calcium carbonate-vit D3-min 1 tab PO BID 04/02/18 12/05/19 History cholecalciferol (vitamin D3) 1,000 unit PO QAM 04/02/18 12/05/19 History [Vitamin D3] hydroxychloroquine [Plaquenil] 200 mg PO QAM 04/02/18 12/05/19 History omeprazole 20 mg PO QAM 04/02/18 12/05/19 History diltiazem HCl 120 mg PO QAM 08/31/18 12/05/19 History umeclidinium 62.5 mcg/actuation 1 inh INHALATION QAM #30 ea 04/05/19 12/05/19 Rx blister powder for inhalation Oxygen Home ea 05/01/19 11/22/19 History nivolumab 240 mg/24 mL intravenous 480 mg IV MONTHLY ml 05/01/19 12/05/19 History solution azelastine 137 mcg (0.1 %) nasal 2 spray INTNAS DAILY #30 ml 07/31/19 12/05/19 Rx spray aerosol miscellaneous medical supply #1 ea 08/11/19 11/22/19 Rx budesonide-formoterol HFA 160 2 puff INHALATION BID #10.2 gm 08/14/19 12/05/19 Rx mcg-4.5 mcg/actuation aerosol inhaler alendronate 70 mg PO WK 09/12/19 12/05/19 History ipratropium-albuterol 3 ml INHALATION Q4 PRN 09/12/19 12/05/19 History levalbuterol HCl 2.5 mg INH Q4 PRN 09/12/19 12/05/19 History prednisone 5 - 20 mg PO DAILY PRN MDD .. 09/12/19 12/05/19 History albuterol sulfate 90 mcg/actuation 2 puff INHALATION Q4 PRN #18 gm 10/27/19 12/05/19 Rx aerosol inhaler roflumilast 500 mcg tablet 500 mcg PO QAM #90 tab 12/06/19 Rx Patient History Medical History (Updated 12/06/19 @ 12:39 by Cory Esparza MD) Anxiety Asthma-COPD overlap syndrome Basal cell carcinoma (BCC) (Chronic) Diastolic heart failure Ductal carcinoma in situ (DCIS) of right breast (Resolved 09/29/12) "Abnormal right breast mammogram Status post right breast core needle biopsy 09/26/2012 revealing DCIS high- grade Status post lumpectomy and sentinel lymph node biopsy 10/10/2012 stage [id number] with positive margin reexcision 11/03/2012 no additional carcinoma Status post completion of radiation therapy 05/23/2013 utilizing hypo- fractionated received 5006 cGy " GERD (gastroesophageal reflux disease) (Chronic) Hiatal hernia (Chronic) History of breast cancer (Chronic) RT - S/P LUMPECTOMY + RADIATION THERAPY History of uterine cancer (Chronic) S/P GREGORIO BSO + CHEMO Lung nodule Malignant neoplasm of corpus uteri, except isthmus (Resolved 08/20/12) "Postmenopausal vaginal bleeding Endometrial biopsy 08/03/2012 revealing 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 RANDHAWA - REPORTS PAT NOTED DURING RECENT HOSPITALIZATION AT [facility] Pulmonary nodule (Chronic) Rheumatoid arthritis (Chronic) Skin cancer of face (Chronic) Tobacco abuse Tobacco use disorder (Chronic) Surgical History History of breast biopsy (Chronic) History of cataract surgery (Chronic) History of colonoscopy (Chronic) History of Moh's micrographic surgery for skin cancer (Chronic) nose History of sinus surgery 06/29/18-with turbinates-Dr. 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 Other Information That Helps Us Care for You: No Feels Safe at Home: Yes Safety Concerns: Feels Safe At This Time Smoking Status: Current every day smoker Tobacco Type: cigarettes ; Cigarettes Per Day: 3 ; Do You Dip or Chew Tobacco: No ; Second Hand Exposure: No ; Tobacco Cessation Education Requested by Patient: No Hx Alcohol Use: Yes Alcohol type: beer Alcohol Intake Frequency: Daily Alcohol Intake Frequency Comment: 1 beer/day Hx Substance Use: No Physical Exam Constitutional: WD/WN, vitals as above no acute distress Respiratory: normal respiratory effort, lungs clear to auscultation Cardiovascular: RRR, no murmur, no edema Gastrointestinal (Abdomen): Inspection/Auscultation: abdomen normal to inspection and + abdominal surgical scar (robotic incisions present); abdomen not distended Percussion/Palpation: + abdomen tender (RUQ on deep palpation) and abdomen soft; no guarding and abdomen not rigid Skin: no rashes, warm and dry no jaundice Psychiatric: Orientation: alert and oriented x 3 Mood: + irritable mood Results & Data Vital Signs (Past 12 Hours) Vital Signs Temp Pulse Pulse Resp BP BP Pulse Ox 12/06/19 13:26 93 12/06/19 09:55 81 16 96 12/06/19 07:40 36.8 C 92 H 22 149/72 H 94 12/06/19 05:21 36.9 C 79 20 120/82 94 12/06/19 03:37 88 20 96 Laboratory Results 12/06/19 12/06/19 12/05/19 Range/Units 07:37 07:37 19:00 WBC 7.14 (4.8-10.8) K/uL RBC 4.64 (4.2-5.4) M/uL Hgb 13.6 (12.0-16.0) g/dL Hct 41.8 (37-47) % MCV 90.1 (80-100) fL MCH 29.3 (25-34) pg MCHC 32.5 (32-36) g/dL RDW Std Deviation 47.4 H (36.4-46.3) fL RDW Coeff of Arleen 14.4 (11.5-14.5) % Plt Count 269 (130-400) K/uL MPV 9.9 (7.4-10.4) fL Immature Gran % (Auto) 0.4 % Neut % (Auto) 70.5 % Lymph % (Auto) 13.3 % [place] % (Auto) 10.6 % Eos % (Auto) 4.9 % Baso % (Auto) 0.3 % Immature Gran # (Auto) 0.03 H (0.00-0.02) K/uL Neut # (Auto) 5.03 (1.4-6.5) K/uL Lymph # (Auto) 0.95 L (1.2-3.4) K/uL [place] # (Auto) 0.76 H (0.11-0.59) K/uL Eos # (Auto) 0.35 (0-0.5) K/uL Baso # (Auto) 0.02 (0-0.2) K/uL PT (9.0-12.0) Seconds INR (0.9-1.1) APTT (21.0-31.0) Seconds PTT Ratio D-Dimer (0-500) ug/L FEU Sodium 143 (136-145) mmol/L Potassium 3.7 D (3.5-5.1) mmol/L Chloride 111 H (98-107) mmol/L Carbon Dioxide 24 (21-32) mmol/L Anion Gap 7.0 (3-11) BUN 7 (7-18) mg/dl Creatinine 0.72 (0.6-1.2) mg/dl Est Cr Clr Drug Dosing 76.8 ml/min Est GFR ( Amer) 97.7 Est GFR (Non-Af Amer) 84.3 BUN/Creatinine Ratio 9.7 L (10-20) Glucose 83 (70-99) mg/dl Calcium 9.6 (8.5-10.1) mg/dl Magnesium (1.8-2.4) mg/dl Total Bilirubin 1.3 H (0.2-1) mg/dl AST 237 H (15-37) U/L ALT 357 H (12-78) U/L Alkaline Phosphatase 169 H (45-117) U/L Troponin I (0-0.045) ng/ml Total Protein 6.6 (6.4-8.2) gm/dl Albumin 3.2 L (3.4-5.0) gm/dl Globulin 3.4 (2.5-4.0) gm/dl Albumin/Globulin Ratio 0.9 (0.9-2) Lipase (73-393) U/L Urine Color Dark Yellow Urine Appearance Cloudy A (Clear) Urine pH 5.0 (4.5-7.5) Ur Specific [place] 1.016 (1.000-1.030) Urine Protein Negative (Negative) Urine Glucose (UA) Negative (Negative) Urine Ketones Negative (Negative) Urine Blood Negative (Negative) Urine Nitrite Negative (Negative) Urine Bilirubin 1+ H (Negative) Urine Urobilinogen Negative (Negative) Ur Leukocyte Esterase 2+ H (Negative) Urine WBC (Auto) 10-30 H (0-5) /hpf Urine RBC (Auto) 0-4 (0-4) /hpf U Hyaline Cast (Auto) 5-10 H (0-5) /lpf U Epithel Cells (Auto) >30 H (0-5) /lpf Urine Bacteria (Auto) Negative (Negative) 12/05/19 12/05/19 12/05/19 Range/Units 17:55 17:55 17:55 WBC (4.8-10.8) K/uL RBC (4.2-5.4) M/uL Hgb (12.0-16.0) g/dL Hct (37-47) % MCV (80-100) fL MCH (25-34) pg MCHC (32-36) g/dL RDW Std Deviation (36.4-46.3) fL RDW Coeff of Arleen (11.5-14.5) % Plt Count (130-400) K/uL MPV (7.4-10.4) fL Immature Gran % (Auto) % Neut % (Auto) % Lymph % (Auto) % [place] % (Auto) % Eos % (Auto) % Baso % (Auto) % Immature Gran # (Auto) (0.00-0.02) K/uL Neut # (Auto) (1.4-6.5) K/uL Lymph # (Auto) (1.2-3.4) K/uL [place] # (Auto) (0.11-0.59) K/uL Eos # (Auto) (0-0.5) K/uL Baso # (Auto) (0-0.2) K/uL PT 10.3 (9.0-12.0) Seconds INR 1.0 (0.9-1.1) APTT 22.8 (21.0-31.0) Seconds PTT Ratio 0.8 D-Dimer 990 H* (0-500) ug/L FEU Sodium 137 (136-145) mmol/L Potassium 3.0 L (3.5-5.1) mmol/L Chloride 105 (98-107) mmol/L Carbon Dioxide 25 (21-32) mmol/L Anion Gap 7.0 (3-11) BUN 10 (7-18) mg/dl Creatinine 0.87 (0.6-1.2) mg/dl Est Cr Clr Drug Dosing 64.0 ml/min Est GFR ( Amer) 77.7 Est GFR (Non-Af Amer) 67.0 BUN/Creatinine Ratio 11.0 (10-20) Glucose 113 H (70-99) mg/dl Calcium 8.8 (8.5-10.1) mg/dl Magnesium 2.0 (1.8-2.4) mg/dl Total Bilirubin 2.0 H (0.2-1) mg/dl AST 270 H (15-37) U/L ALT 209 H (12-78) U/L Alkaline Phosphatase 128 H (45-117) U/L Troponin I < 0.015 (0-0.045) ng/ml Total Protein 6.7 (6.4-8.2) gm/dl Albumin 3.4 (3.4-5.0) gm/dl Globulin 3.3 (2.5-4.0) gm/dl Albumin/Globulin Ratio 1.0 (0.9-2) Lipase 477 H (73-393) U/L Urine Color Urine Appearance (Clear) Urine pH (4.5-7.5) Ur Specific [place] (1.000-1.030) Urine Protein (Negative) Urine Glucose (UA) (Negative) Urine Ketones (Negative) Urine Blood (Negative) Urine Nitrite (Negative) Urine Bilirubin (Negative) Urine Urobilinogen (Negative) Ur Leukocyte Esterase (Negative) Urine WBC (Auto) (0-5) /hpf Urine RBC (Auto) (0-4) /hpf U Hyaline Cast (Auto) (0-5) /lpf U Epithel Cells (Auto) (0-5) /lpf Urine Bacteria (Auto) (Negative) 12/05/19 Range/Units 17:55 WBC 9.26 (4.8-10.8) K/uL RBC 4.36 (4.2-5.4) M/uL Hgb 13.0 (12.0-16.0) g/dL Hct 39.2 (37-47) % MCV 89.9 (80-100) fL MCH 29.8 (25-34) pg MCHC 33.2 (32-36) g/dL RDW Std Deviation 47.2 H (36.4-46.3) fL RDW Coeff of Arleen 14.2 (11.5-14.5) % Plt Count 242 (130-400) K/uL MPV 9.4 (7.4-10.4) fL Immature Gran % (Auto) 0.3 % Neut % (Auto) 78.9 % Lymph % (Auto) 10.3 % [place] % (Auto) 8.5 % Eos % (Auto) 1.9 % Baso % (Auto) 0.1 % Immature Gran # (Auto) 0.03 H (0.00-0.02) K/uL Neut # (Auto) 7.30 H (1.4-6.5) K/uL Lymph # (Auto) 0.95 L (1.2-3.4) K/uL [place] # (Auto) 0.79 H (0.11-0.59) K/uL Eos # (Auto) 0.18 (0-0.5) K/uL Baso # (Auto) 0.01 (0-0.2) K/uL PT (9.0-12.0) Seconds INR (0.9-1.1) APTT (21.0-31.0) Seconds PTT Ratio D-Dimer (0-500) ug/L FEU Sodium (136-145) mmol/L Potassium (3.5-5.1) mmol/L Chloride (98-107) mmol/L Carbon Dioxide (21-32) mmol/L Anion Gap (3-11) BUN (7-18) mg/dl Creatinine (0.6-1.2) mg/dl Est Cr Clr Drug Dosing ml/min Est GFR ( Amer) Est GFR (Non-Af Amer) BUN/Creatinine Ratio (10-20) Glucose (70-99) mg/dl Calcium (8.5-10.1) mg/dl Magnesium (1.8-2.4) mg/dl Total Bilirubin (0.2-1) mg/dl AST (15-37) U/L ALT (12-78) U/L Alkaline Phosphatase (45-117) U/L Troponin I (0-0.045) ng/ml Total Protein (6.4-8.2) gm/dl Albumin (3.4-5.0) gm/dl Globulin (2.5-4.0) gm/dl Albumin/Globulin Ratio (0.9-2) Lipase (73-393) U/L Urine Color Urine Appearance (Clear) Urine pH (4.5-7.5) Ur Specific [place] (1.000-1.030) Urine Protein (Negative) Urine Glucose (UA) (Negative) Urine Ketones (Negative) Urine Blood (Negative) Urine Nitrite (Negative) Urine Bilirubin (Negative) Urine Urobilinogen (Negative) Ur Leukocyte Esterase (Negative) Urine WBC (Auto) (0-5) /hpf Urine RBC (Auto) (0-4) /hpf U Hyaline Cast (Auto) (0-5) /lpf U Epithel Cells (Auto) (0-5) /lpf Urine Bacteria (Auto) (Negative) Diagnostic Findings ABDOMINAL ULTRASOUND, RIGHT UPPER QUADRANT HISTORY: Right upper quadrant pain.. COMPARISON: Outside hospital PET/CT 09/06/2019. FINDINGS: Pancreas: The pancreatic tail is obscured by overlying bowel gas. The remaining portions of the pancreas are within normal limits. Pancreatic duct is slightly distended at 4 mm. Liver: The liver is echogenic consistent with fatty change. Gallbladder: Distended gallbladder. No gallbladder wall thickening. A few small stones and sludge within the gallbladder. Negative sonographic Stratton sign. There may be trace pericholecystic fluid adjacent hepatic surface. CBD: Dilated measuring 1.2 cm in diameter. Right kidney: No hydronephrosis. IMPRESSION: 1. Distended gallbladder containing small stones and sludge. No gallbladder wall thickening. There may be trace pericholecystic fluid adjacent to the hepatic surface. 2. There is also dilated common bile duct and main pancreatic duct. This raises the possibility of a distal obstructing stone/lesion. 3. Hepatic steatosis. Study: MRCP HISTORY: Pain. Nausea. FINDINGS: The liver spleen and pancreas appear uniform. Gallstones are present within the gallbladder lumen. There is mild pericholecystic edematous change. Moderate prominence of the biliary ductal system. Moderate motion artifact creates internal signal heterogeneity of the common bile duct. Choledocholithiasis is felt to be less likely although cannot be completely ex cluded. Kidneys negative for hydronephrosis. Several small sub-5 mm renal cortical cysts bilaterally. Nonobstructive bowel pattern. No significant upper abdominal adenopathy. IMPRESSION: 1. Bands of acute cholecystitis. 2. Gallstones within the gallbladder lumen are present as well as moderate pericholecystic edematous change.. 3. Mild biliary ductal prominence although well-defined component of choledocholithiasis is not appreciated. 4. Motion artifact creates internal artifact within the biliary ductal system making exclusion of minimal choledocholithiasis difficult.
--- NOTE | 2019-12-06 15:21 | History & Physical Bridge Note ---
Date of Service December 06, 2019 History & Physical Bridge Note I have examined the patient, reviewed the History & Physical and in the interval since the performance of the History & Physical I have noted the following changes of clinical significance: no changes noted
[2019-12-06] MEDS ORDERED: PROPOFOL IV EMULSION 10 MG/ML 20 ML VIAL IV ONE (15:32)
[2019-12-06] MEDS ORDERED: LIDOCAINE HCL 2% 2 ML VIAL/AMP(20MG/ML) INFIL ONE (15:32)
[2019-12-06] MEDS ORDERED: fentaNYL citrate 100 MCG/2 ML VIAL ONE (15:32)
[2019-12-06] MEDS ORDERED: MIDAZOLAM HCL 1 MG/ML 2ML VIAL ONE (15:32)
--- NOTE | 2019-12-06 15:47 | Anesthesiology Consultation ---
Date of Service December 06, 2019 Assessment & Plan Chart Review Chart Review: Acceptable Risk for Surgery Consults Requested none History Surgery Operation Date: 12/06/19 08:40 Proposed Procedures p Endoscopic Retrograde Cholangiopancreatogram - Ameya Gonzalez MD Operation Date: 12/07/19 11:30 Proposed Procedures p Laparoscopic Cholecystectomy - Patricia Cuevas MD Height/Weight Height: 5 ft 7 in Weight: 77.3 kg Allergies Allergy/AdvReac Type Severity Reaction Status Date / Time codeine Allergy Intermediate Hives Verified 12/05/19 19:21 amoxicillin Allergy Mild Unknown Verified 12/05/19 19:21 acetaminophen Allergy Unknown RASH Verified 12/05/19 19:21 Tetracyclines Allergy Unknown TONGUE Verified 12/05/19 19:21 SWELLS Medications Home Medications Medication Instructions Recorded Confirmed Last Taken calcium carbonate-vit D3-min 1 tab PO BID 04/02/18 12/05/19 09/12/19 cholecalciferol (vitamin D3) 1,000 unit PO QAM 04/02/18 12/05/19 09/12/19 [Vitamin D3] hydroxychloroquine [Plaquenil] 200 mg PO QAM 04/02/18 12/05/19 09/12/19 omeprazole 20 mg PO QAM 04/02/18 12/05/19 09/12/19 diltiazem HCl 120 mg PO QAM 08/31/18 12/05/19 09/12/19 umeclidinium 62.5 mcg/actuation 1 inh INHALATION QAM #30 ea 04/05/19 12/05/19 09/12/19 blister powder for inhalation Oxygen Home ea 05/01/19 11/22/19 Unknown nivolumab 240 mg/24 mL intravenous 480 mg IV MONTHLY ml 05/01/19 12/05/19 Unknown solution azelastine 137 mcg (0.1 %) nasal 2 spray INTNAS DAILY #30 ml 07/31/19 12/05/19 09/12/19 spray aerosol miscellaneous medical supply #1 ea 08/11/19 11/22/19 Unknown budesonide-formoterol HFA 160 2 puff INHALATION BID #10.2 gm 08/14/19 12/05/19 09/12/19 mcg-4.5 mcg/actuation aerosol inhaler alendronate 70 mg PO WK 09/12/19 12/05/19 09/10/19 ipratropium-albuterol 3 ml INHALATION Q4 PRN 09/12/19 12/05/19 09/12/19 levalbuterol HCl 2.5 mg INH Q4 PRN 09/12/19 12/05/19 09/12/19 prednisone 5 - 20 mg PO DAILY PRN MDD .. 09/12/19 12/05/19 Unknown albuterol sulfate 90 mcg/actuation 2 puff INHALATION Q4 PRN #18 gm 10/27/19 12/05/19 Unknown aerosol inhaler roflumilast 500 mcg tablet 500 mcg PO QAM #90 tab 12/06/19 Unknown Active Medications Generic Name Dose Route Start Last Admin Trade Name Freq PRN Reason Stop Dose Admin Diltiazem HCl 120 mg 12/06/19 09:00 12/06/19 07:52 Tiazac PO 01/05/20 08:59 120 mg QAM ELVER Administration Fluticasone/Vilanterol 1 puffs 12/06/19 09:00 12/06/19 07:51 Breo Ellipta 200/25 Mcg Inh INH 01/05/20 08:59 1 puffs DAILY ELVER Administration Hydroxychloroquine Sulfate 200 mg 12/06/19 09:00 12/06/19 08:48 Plaquenil PO 01/05/20 08:59 200 mg QAM ELVER Administration Lactated Ringer's 1,000 mls @ 100 mls/hr 12/06/19 04:00 12/06/19 13:27 Lr IV 01/05/20 03:59 Infused .Q10H ELVER Infusion Ipratropium [place] 0.5 mg 12/05/19 21:42 12/06/19 14:50 Atrovent 0.02% 0.5mg/2.5ml INH 01/04/20 21:41 0.5 mg Q4H PRN Administration Shortness Of Breath Or Wheezing Levalbuterol HCl 1.25 mg 12/05/19 21:42 12/06/19 14:51 Xopenex 1.25mg/0.5ml Neb INH 01/04/20 21:41 1.25 mg Q4H PRN Administration Shortness Of Breath Or Wheezing Miscellaneous 1 ea 12/06/19 00:00 12/06/19 07:46 Order Awaiting Action N/A 01/05/20 00:00 Not Given QS ELVER Pantoprazole Sodium 40 mg 12/06/19 09:00 12/06/19 07:52 Protonix PO 01/05/20 08:59 40 mg QAM ELVER Administration Roflumilast 500 mcg 12/06/19 09:00 12/06/19 07:52 Daliresp PO 01/05/20 08:59 500 mcg QAM ELVER Administration Umeclidinium [place] 1 puffs 12/06/19 09:00 12/06/19 07:51 Incruse Ellipta INH 01/05/20 08:59 1 puffs QAM ELVER Administration NPO Date Last Intake of Fluids: 12/05/19 Time Last Intake of Fluids: 17:30 Date Last Intake of Solids: 12/05/19 Time Last Intake of Solids: 12:00 Past Medical History Medical History Anxiety Asthma-COPD overlap syndrome Basal cell carcinoma (BCC) (Chronic) Diastolic heart failure Ductal carcinoma in situ (DCIS) of right breast (Resolved 09/29/12) "Abnormal right breast mammogram Status post right breast core needle biopsy 09/26/2012 revealing DCIS high- grade Status post lumpectomy and sentinel lymph node biopsy 10/10/2012 stage [id number] with positive margin reexcision 11/03/2012 no additional carcinoma Status post completion of radiation therapy 05/23/2013 utilizing hypo- fractionated received 5006 cGy " GERD (gastroesophageal reflux disease) (Chronic) Hiatal hernia (Chronic) History of breast cancer (Chronic) RT - S/P LUMPECTOMY + RADIATION THERAPY History of uterine cancer (Chronic) S/P GREGORIO BSO + CHEMO Lung nodule Malignant neoplasm of corpus uteri, except isthmus (Resolved 08/20/12) "Postmenopausal vaginal bleeding Endometrial biopsy 08/03/2012 revealing 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 RANDHAWA - REPORTS PAT NOTED DURING RECENT HOSPITALIZATION AT [facility] [place] Pulmonary nodule (Chronic) Rheumatoid arthritis (Chronic) Skin cancer of face (Chronic) Tobacco abuse Tobacco use disorder (Chronic) Past Family History Family History Father Leukemia Myocardial infarction Sister Breast cancer Other Cancer Coronary heart disease No family history of bleeding disorder Past Surgical History Surgical History History of breast biopsy (Chronic) History of cataract surgery (Chronic) History of colonoscopy (Chronic) History of Moh's micrographic surgery for skin cancer (Chronic) nose History of sinus surgery 06/29/18-with turbinates-Dr. Lopez History of tonsillectomy (Chronic) History of total abdominal hysterectomy and bilateral salpingo-oophorectomy (Chronic) Status post right breast lumpectomy (Chronic) Social History Smoking Status: Current every day smoker tobacco type: cigarettes Smoking cigarettes per day: 3 Do You Dip or Chew Tobacco: No Hx Alcohol Use: Yes Alcohol type: beer alcohol intake frequency: 0-2 drinks per day Hx Substance Use: No substance use type: does not use Physical Exam Vital Signs Last Vital Signs Temp 37.1 C 12/06/19 15:00 Pulse 98 H 12/06/19 15:00 Resp 24 12/06/19 15:00 BP 124/91 12/06/19 15:00 Pulse Ox 96 12/06/19 15:00 Testing Laboratory Results 12/06/19 07:37 12/06/19 07:37 PT 10.3 Seconds (9.0-12.0) 12/05/19 17:55 INR 1.0 (0.9-1.1) 12/05/19 17:55 APTT 22.8 Seconds (21.0-31.0) 12/05/19 17:55 Urine Color Dark Yellow 12/05/19 19:00 Urine Appearance Cloudy (Clear) A 12/05/19 19:00 Urine pH 5.0 (4.5-7.5) 12/05/19 19:00 Ur Specific [place] 1.016 (1.000-1.030) 12/05/19 19:00 Urine Protein Negative (Negative) 12/05/19 19:00 Urine Glucose (UA) Negative (Negative) 12/05/19 19:00 Urine Ketones Negative (Negative) 12/05/19 19:00 Urine Nitrite Negative (Negative) 12/05/19 19:00 Ur Leukocyte Esterase 2+ (Negative) H 12/05/19 19:00 Urine WBC (Auto) 10-30 /hpf (0-5) H 12/05/19 19:00 Urine RBC (Auto) 0-4 /hpf (0-4) 12/05/19 19:00 U Hyaline Cast (Auto) 5-10 /lpf (0-5) H 12/05/19 19:00 U Epithel Cells (Auto) >30 /lpf (0-5) H 12/05/19 19:00 Urine Bacteria (Auto) Negative (Negative) 12/05/19 19:00 12/05/19 19:00 Urine Culture - Preliminary Urine,Clean Catch Group B Beta Strep
[2019-12-06] MEDS ORDERED: fentaNYL citrate 100 MCG/2 ML VIAL IV PRN (15:53)
[2019-12-06] MEDS ORDERED: ATROPINE SULFATE 0.1 MG/ML 10ML SYR IV PRN (15:53)
[2019-12-06] MEDS ORDERED: ePHEDrine sulfate 50 MG/ML AMP IV PRN (15:53)
[2019-12-06] MEDS ORDERED: PHENYLEPHRINE 100MCG/ML 5ML SYR ONE (16:21)
[2019-12-06] MEDS ORDERED: ESMOLOL HCL INJ 10 MG/ML 10ML VIAL IV ONE (16:21)
[2019-12-06] MEDS ORDERED: SUCCINYLCHOLINE CHLORIDE 20 MG/ML 10 ML VIAL IV ONE (16:21)
--- NOTE | 2019-12-06 16:41 | Anesthesiology Consultation ---
Date of Service December 06, 2019 Assessment & Plan (1) Encounter for pre-operative examination: Chart Review Chart Review: Acceptable Risk for Surgery and Patient NOT seen in Pre Admission Testing Consults Requested none History Surgery Operation Date: 12/06/19 08:40 Proposed Procedures p Endoscopic Retrograde Cholangiopancreatogram - Ameya Gonzalez MD Operation Date: 12/07/19 11:30 Proposed Procedures p Laparoscopic Cholecystectomy - Patricia Cuevas MD Height/Weight Height: 5 ft 7 in Weight: 77.3 kg Allergies Allergy/AdvReac Type Severity Reaction Status Date / Time codeine Allergy Intermediate Hives Verified 12/05/19 19:21 amoxicillin Allergy Mild Unknown Verified 12/05/19 19:21 acetaminophen Allergy Unknown RASH Verified 12/05/19 19:21 Tetracyclines Allergy Unknown TONGUE Verified 12/05/19 19:21 SWELLS Medications Home Medications Medication Instructions Recorded Confirmed Last Taken calcium carbonate-vit D3-min 1 tab PO BID 04/02/18 12/05/19 09/12/19 cholecalciferol (vitamin D3) 1,000 unit PO QAM 04/02/18 12/05/19 09/12/19 [Vitamin D3] hydroxychloroquine [Plaquenil] 200 mg PO QAM 04/02/18 12/05/19 09/12/19 omeprazole 20 mg PO QAM 04/02/18 12/05/19 09/12/19 diltiazem HCl 120 mg PO QAM 08/31/18 12/05/19 09/12/19 umeclidinium 62.5 mcg/actuation 1 inh INHALATION QAM #30 ea 04/05/19 12/05/19 09/12/19 blister powder for inhalation Oxygen Home ea 05/01/19 11/22/19 Unknown nivolumab 240 mg/24 mL intravenous 480 mg IV MONTHLY ml 05/01/19 12/05/19 Unknown solution azelastine 137 mcg (0.1 %) nasal 2 spray INTNAS DAILY #30 ml 07/31/19 12/05/19 09/12/19 spray aerosol miscellaneous medical supply #1 ea 08/11/19 11/22/19 Unknown budesonide-formoterol HFA 160 2 puff INHALATION BID #10.2 gm 08/14/19 12/05/19 09/12/19 mcg-4.5 mcg/actuation aerosol inhaler alendronate 70 mg PO WK 09/12/19 12/05/19 09/10/19 ipratropium-albuterol 3 ml INHALATION Q4 PRN 09/12/19 12/05/19 09/12/19 levalbuterol HCl 2.5 mg INH Q4 PRN 09/12/19 12/05/19 09/12/19 prednisone 5 - 20 mg PO DAILY PRN MDD .. 09/12/19 12/05/19 Unknown albuterol sulfate 90 mcg/actuation 2 puff INHALATION Q4 PRN #18 gm 10/27/19 12/05/19 Unknown aerosol inhaler roflumilast 500 mcg tablet 500 mcg PO QAM #90 tab 12/06/19 Unknown Active Medications Generic Name Dose Route Start Last Admin Trade Name Freq PRN Reason Stop Dose Admin Diltiazem HCl 120 mg 12/06/19 09:00 12/06/19 07:52 Tiazac PO 01/05/20 08:59 120 mg QAM ELVER Administration Fluticasone/Vilanterol 1 puffs 12/06/19 09:00 12/06/19 07:51 Breo Ellipta 200/25 Mcg Inh INH 01/05/20 08:59 1 puffs DAILY ELVER Administration Hydroxychloroquine Sulfate 200 mg 12/06/19 09:00 12/06/19 08:48 Plaquenil PO 01/05/20 08:59 200 mg QAM ELVER Administration Lactated Ringer's 1,000 mls @ 100 mls/hr 12/06/19 04:00 12/06/19 13:27 Lr IV 01/05/20 03:59 Infused .Q10H ELVER Infusion Ipratropium [place] 0.5 mg 12/05/19 21:42 12/06/19 14:50 Atrovent 0.02% 0.5mg/2.5ml INH 01/04/20 21:41 0.5 mg Q4H PRN Administration Shortness Of Breath Or Wheezing Levalbuterol HCl 1.25 mg 12/05/19 21:42 12/06/19 14:51 Xopenex 1.25mg/0.5ml Neb INH 01/04/20 21:41 1.25 mg Q4H PRN Administration Shortness Of Breath Or Wheezing Miscellaneous 1 ea 12/06/19 00:00 12/06/19 07:46 Order Awaiting Action N/A 01/05/20 00:00 Not Given QS ELVER Pantoprazole Sodium 40 mg 12/06/19 09:00 12/06/19 07:52 Protonix PO 01/05/20 08:59 40 mg QAM ELVER Administration Roflumilast 500 mcg 12/06/19 09:00 12/06/19 07:52 Daliresp PO 01/05/20 08:59 500 mcg QAM ELVER Administration Umeclidinium [place] 1 puffs 12/06/19 09:00 12/06/19 07:51 Incruse Ellipta INH 01/05/20 08:59 1 puffs QAM ELVER Administration NPO Date Last Intake of Fluids: 12/05/19 Time Last Intake of Fluids: 17:30 Date Last Intake of Solids: 12/05/19 Time Last Intake of Solids: 12:00 Past Medical History Medical History (Updated 12/06/19 @ 16:47 by Merrick Coppola MD) Anxiety Asthma-COPD overlap syndrome Basal cell carcinoma (BCC) (Chronic) Diastolic heart failure Ductal carcinoma in situ (DCIS) of right breast (Resolved 09/29/12) "Abnormal right breast mammogram Status post right breast core needle biopsy 09/26/2012 revealing DCIS high- grade Status post lumpectomy and sentinel lymph node biopsy 10/10/2012 stage [id number] with positive margin reexcision 11/03/2012 no additional carcinoma Status post completion of radiation therapy 05/23/2013 utilizing hypo- fractionated received 5006 cGy " GERD (gastroesophageal reflux disease) (Chronic) Hiatal hernia (Chronic) History of breast cancer (Chronic) RT - S/P LUMPECTOMY + RADIATION THERAPY History of uterine cancer (Chronic) S/P GREGORIO BSO + CHEMO Lung nodule Malignant neoplasm of corpus uteri, except isthmus (Resolved 08/20/12) "Postmenopausal vaginal bleeding Endometrial biopsy 08/03/2012 revealing 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 RANDHAWA - REPORTS PAT NOTED DURING RECENT HOSPITALIZATION AT [facility] [place] Pulmonary nodule (Chronic) Rheumatoid arthritis (Chronic) Skin cancer of face (Chronic) Tobacco abuse Tobacco use disorder (Chronic) Past Family History Family History Father Leukemia Myocardial infarction Sister Breast cancer Other Cancer Coronary heart disease No family history of bleeding disorder Past Surgical History Surgical History (Updated 12/06/19 @ 16:41 by Merrick Coppola MD) History of breast biopsy (Chronic) History of cataract surgery (Chronic) History of colonoscopy (Chronic) History of Moh's micrographic surgery for skin cancer (Chronic) nose History of sinus surgery 06/29/18-with turbinates-Dr. Lopez. MAC 3. 7.5 ETT. grade 2 view no issues. History of tonsillectomy (Chronic) History of total abdominal hysterectomy and bilateral salpingo-oophorectomy (Chronic) Status post right breast lumpectomy (Chronic) Social History Smoking Status: Current every day smoker tobacco type: cigarettes Smoking cigarettes per day: 3 Do You Dip or Chew Tobacco: No Hx Alcohol Use: Yes Alcohol type: beer alcohol intake frequency: 0-2 drinks per day Hx Substance Use: No substance use type: does not use Physical Exam Vital Signs Last Vital Signs Temp 37.1 C 12/06/19 15:00 Pulse 98 H 12/06/19 15:00 Resp 24 12/06/19 15:00 BP 124/91 12/06/19 15:00 Pulse Ox 96 12/06/19 15:00 Testing Laboratory Results 12/06/19 07:37 12/06/19 07:37 PT 10.3 Seconds (9.0-12.0) 12/05/19 17:55 INR 1.0 (0.9-1.1) 12/05/19 17:55 APTT 22.8 Seconds (21.0-31.0) 12/05/19 17:55 Urine Color Dark Yellow 12/05/19 19:00 Urine Appearance Cloudy (Clear) A 12/05/19 19:00 Urine pH 5.0 (4.5-7.5) 12/05/19 19:00 Ur Specific [place] 1.016 (1.000-1.030) 12/05/19 19:00 Urine Protein Negative (Negative) 12/05/19 19:00 Urine Glucose (UA) Negative (Negative) 12/05/19 19:00 Urine Ketones Negative (Negative) 12/05/19 19:00 Urine Nitrite Negative (Negative) 12/05/19 19:00 Ur Leukocyte Esterase 2+ (Negative) H 12/05/19 19:00 Urine WBC (Auto) 10-30 /hpf (0-5) H 12/05/19 19:00 Urine RBC (Auto) 0-4 /hpf (0-4) 12/05/19 19:00 U Hyaline Cast (Auto) 5-10 /lpf (0-5) H 12/05/19 19:00 U Epithel Cells (Auto) >30 /lpf (0-5) H 12/05/19 19:00 Urine Bacteria (Auto) Negative (Negative) 12/05/19 19:00 12/05/19 19:00 Urine Culture - Preliminary Urine,Clean Catch Group B Beta Strep Electrocardiogram Date: 12/05/19 Findings: + NSR @ (79) Normal sinus rhythm Left axis deviation Incomplete right bundle branch block Abnormal ECG When compared with ECG of 12-SEP-2019 08:29, No significant change was found Confirmed by Emerson Richardson ([id number]) on 12/06/2019 1:18:47 PM Chest X-Ray Date: 12/05/19 XR chest 2V PA/lateral HISTORY: shortness of breath COMPARISON: Chest 12/05/2019. FINDINGS: Left jugular Port-A-Cath terminates at the distal SVC. This remains unchanged. The heart is normal in size. No pleural effusions. No pneumothorax. The lungs are clear. No evidence for pulmonary edema. IMPRESSION: No acute process. Echocardiogram EF: 60-65% LV Function: normal 02/2018: Grade 1 DD. No valvular disease.
--- NOTE | 2019-12-06 16:51 | Operative Report ---
Post Operative Report Pre & Post Diagnosis Operation Date: 12/06/19 08:40 Pre-Op Diagnosis: Choledocholithiasis. Post-Op Diagnosis: Choledocholithiasis. Operation Date: 12/07/19 11:30 <No data on this case meets the specified criteria> I identified the patient and participated in the time-out.: Yes Procedure Operation Date: 12/06/19 08:40 Actual Procedures p Endoscopic Retrograde Cholangiopancreatogram - Ameya Gonzalez MD Operation Date: 12/07/19 11:30 <No data on this case meets the specified criteria> Surgeon Ameya Gonzalez MD Call Center Specialist None Estimated Blood Loss 0 Findings See Below (CBD stone removed, CBD stent placed) Specimens None Description of Procedure ERCP I attest to the content of the Intraoperative Record and any orders documented therein. Any exceptions are noted below.
--- NOTE | 2019-12-06 16:59 | GI REPORT ---
Patient Name: Madelyn Connor Procedure Date: 12/06/2019 3:50 PM Date of : 1945 Admit Type: Inpatient Age: 73 Gender: Female Attending MD: Ameya Gonzalez MD Procedure: ERCP Providers: Ameya Gonzalez MD Referring MD: Artem Murrell Do, Marilee Galdamez DO Indications: Abdominal pain of suspected biliary origin, Abnormal MRCP, Evaluation and possible treatment of bile duct stone(s), Elevated liver enzymes Medicines: General Anesthesia Complications: No immediate complications. Estimated Blood Loss: Estimated blood loss: none. Procedure: Pre-Anesthesia Assessment: - Prior to the procedure, a History and Physical was performed, and patient medications, allergies and sensitivities were reviewed. The patient's tolerance of previous anesthesia was reviewed. - The risks and benefits of the procedure and the sedation options and risks were discussed with the patient. All questions were answered and informed consent was obtained. - Patient identification and proposed procedure were verified prior to the procedure by the physician and the nurse. The procedure was verified in the procedure room. - Pre-procedure physical examination revealed no contraindications to sedation. After obtaining informed consent, the scope was passed under direct vision. Throughout the procedure, the patient's blood pressure, pulse, and oxygen saturations were monitored continuously.The ERCP was accomplished without difficulty. The patient tolerated the procedure well. The Scope was introduced through the mouth, and advanced to the duodenum and used to inject contrast into the bile duct. Findings: The project manager interior design film was normal. The esophagus was successfully intubated under direct vision. The scope was advanced to a normal major papilla in the descending duodenum without detailed examination of the pharynx, larynx and associated structures, and upper GI tract. The upper GI tract was grossly normal. The ventral pancreatic duct was inadvertently cannulated with a guidewire which was kept in place to assist in biliary cannulation using double wire technique. A 0.035 inch angled standard wire was passed into the biliary tree. The Fusion sphincterotome was passed over the guidewire and the bile duct was then deeply cannulated. Contrast was injected. I personally interpreted the bile duct images. Ductal flow of contrast was adequate. Image quality was adequate. Contrast extended to the main bile duct. The main bile duct was dilated. The largest diameter was 10 mm. The biliary orifice was stenotic. This appeared benign. There was opacification of the gallbladder which contained multiple stones. Biliary sphincterotomy was made with a monofilament traction (standard) sphincterotome using ERBE electrocautery. There was no post-sphincterotomy bleeding. The biliary tree was swept with an 11.5 mm balloon and 15 mm balloon starting at the bifurcation. Sludge was swept from the duct. One stone was removed. No stones remained. One 5 Fr by 9 cm plastic biliary stent with a single external pigtail and no internal flaps was placed into the ventral pancreatic duct. Clear fluid flowed through the stent. The stent was in good position. One 10 Fr by 7 cm plastic biliary stent with a single external flap and a single internal flap was placed into the common bile duct. Bile flowed through the stent. The stent was in good position. Indomethacin 100 mg was given via suppository to decrease the risk of post-ERCP pancreatitis (PEP). Impression: - Benign biliary papillary stenosis. - Choledocholithiasis was found. Complete removal was accomplished by biliary sphincterotomy and balloon extraction. - One plastic biliary stent was placed into the ventral pancreatic duct and Indomethacin given to decrease risk of post-ERCP pancreatitis. - One plastic biliary stent was placed into the common bile duct due to excessive sludge in the duct. Recommendation: - Return patient to hospital [facility]ender for ongoing care. - Avoid aspirin and nonsteroidal anti-inflammatory medicines for 5 days. - Repeat ERCP in 6 weeks to remove stent. - Proceed with Lap rupali tomorrow. Ameya Gonzalez MD 12/06/2019 4:59:06 PM This report has been signed electronically. Note Initiated On: 12/06/2019 3:50 PM Number of Addenda: 0 I attest to the content of the Intraoperative Record and orders documented therein, exceptions below {[id number]}
--- NOTE | 2019-12-06 17:11 | Fluoroscopy Report ---
[place] ERCP biliary ductal HISTORY: 73 years-old Female for ercp COMPARISON: MRCP 12/06/2019 TECHNIQUE: 13 spot fluoroscopic images of the abdomen were obtained utilizing 106.7 seconds fluorosco py time FINDINGS: Endoscope is noted within the duodenum. Cannulation of the common bile duct which is dilated. Contras t injection into the biliary tree. The cystic duct is opacified. There is delayed filling of the ston e filled and distended gallbladder. Filling defects within the left hepatic lobe biliary tree may ref lect air bubbles. Balloon sweep of the common bile duct. No definite choledocholithiasis. Contrast fl ows into the duodenum excluding obstruction. The last image shows placement of a common bile duct michael nt. IMPRESSION: Fluoroscopic assistance as above. Please see procedural report for further details. ACT 112: Negative or not required by law. The above report was generated using voice recognition software. It may contain grammatical, syntax o r spelling errors. Electronically signed by: Chas Durham M.D. 12/06/2019 5:10 PM
[2019-12-06] MEDS ORDERED: KETOROLAC 30 MG/ML VIAL ONE (17:33)
--- NOTE | 2019-12-06 17:53 | Anesthesiology Progress Note ---
Date of Service December 06, 2019 Anesthesia Post Procedure Vital Signs Vital Signs: Temp Pulse Pulse Pulse Pulse Resp BP 12/06/19 17:40 36.2 C L 85 24 12/06/19 17:30 81 24 12/06/19 17:20 89 21 12/06/19 17:10 96 H 22 12/06/19 17:02 36.6 C 105 H 26 H 12/06/19 15:00 37.1 C 98 H 24 12/06/19 14:51 93 H 14 12/06/19 14:20 111 H 12/06/19 13:26 12/06/19 09:55 81 16 12/06/19 07:40 36.8 C 92 H 22 12/06/19 05:21 36.9 C 79 20 12/06/19 03:37 88 20 12/06/19 01:48 79 16 12/05/19 23:46 36.7 C 82 20 12/05/19 23:37 82 12/05/19 23:25 83 24 12/05/19 23:05 83 12/05/19 21:47 36.8 C 85 17 12/05/19 21:29 89 18 12/05/19 20:29 140/90 12/05/19 20:28 112 H 20 12/05/19 19:38 83 20 12/05/19 19:04 79 19 12/05/19 19:00 85 30 H 147/82 H 12/05/19 18:01 BP BP Pulse Ox 12/06/19 17:40 134/84 94 12/06/19 17:30 141/91 H 96 12/06/19 17:20 144/100 H 96 12/06/19 17:10 145/92 H 100 12/06/19 17:02 140/88 100 12/06/19 15:00 124/91 96 12/06/19 14:51 98 12/06/19 14:20 12/06/19 13:26 93 12/06/19 09:55 96 12/06/19 07:40 149/72 H 94 12/06/19 05:21 120/82 94 12/06/19 03:37 96 12/06/19 01:48 94 12/05/19 23:46 126/75 93 12/05/19 23:37 05/26/20 23:25 96 12/05/19 23:05 12/05/19 21:47 142/82 H 96 12/05/19 21:29 109/70 97 12/05/19 20:29 97 12/05/19 20:28 140/90 97 12/05/19 19:38 96 12/05/19 19:04 147/82 H 97 12/05/19 19:00 97 12/05/19 18:01 97 Pain Intensity Chest: Pain Intensity: 7 Abdomen: Pain Intensity: 4 Transfer of Care Handoff Completed per policy Notes Mental Status: alert / awake / arousable and participated in evaluation Patient Amnestic to Procedure: Yes Nausea / Vomiting: adequately controlled Pain: adequately controlled Airway Patency, RR, SpO2: stable & adequate BP & HR: stable & adequate Hydration State: stable & adequate Anesthetic Complications: no major complications apparent
[2019-12-06] MEDS: CIPROFLOXACIN / D5W 400 MG/200 ML BAG IV SCH (18:23)
[2019-12-06] MEDS: KETOROLAC TROMETHAMINE 15 MG/ML VIAL IV ONE ×2 (18:27→22:56)
[2019-12-06] MEDS: TRAMADOL HCL 50 MG TABLET PO PRN (21:41)
[2019-12-06] MEDS: MoRPHine SULFATE 4 MG/ML 1 ML CARP\\VIAL IV PRN (23:50)
[2019-12-07] MEDS: CIPROFLOXACIN / D5W 400 MG/200 ML BAG IV SCH ×2 (03:21→15:47)
[2019-12-07] MEDS: MoRPHine SULFATE 4 MG/ML 1 ML CARP\\VIAL IV PRN ×2 (05:01→18:25)
[2019-12-07 05:04] LABS: Hematocrit (blood only) 40.6 % (37-47); Hemoglobin 12.9 g/dL (12.0-16.0); Mean Corpuscular Hemoglobin 29.4 pg (25-34); Mean Corpuscular Hgb Conc 31.8 g/dL (32-36); Mean Corpuscular Volume 92.5 fL (80-100); Mean Platelet Volume 9.5 fL (7.4-10.4); Platelet Count 220 K/uL (130-400); RDW Coefficient of Variation 14.5 % (11.5-14.5); RDW Standard Deviation 49.3 fL (36.4-46.3); Red Blood Count 4.39 M/uL (4.2-5.4)
[2019-12-07 05:26] LABS: Albumin Level 2.8 gm/dl (3.4-5.0); BUN Creatinine Ratio 8.9 (10-20); Bilirubin Direct 0.2 mg/dl (0-0.2); Calcium 8.2 mg/dl (8.5-10.1); Creatinine Clr Calc Pharmacy 72.8 ml/min; Est GFR (African American) 91.5; Est GFR (Non-African American) 78.9; Potassium 3.9 mmol/L (3.5-5.1)
[2019-12-07 05:29] LABS: Bilirubin,Total 0.9 mg/dl (0.2-1); Total Protein 5.9 gm/dl (6.4-8.2)
[2019-12-07] MEDS: LEVALBUTEROL 1.25MG/0.5ML NEB INH PRN ×3 (07:14→19:31)
[2019-12-07] MEDS: IPRATROPIUM BROMIDE NEB SOLN 0.02% 2.5 ML VIAL INH PRN ×3 (07:14→19:31)
[2019-12-07] MEDS: AZELASTINE~ORDER AWAITING ACTION SCH ×3 (07:39→23:23)
[2019-12-07] MEDS: HYDROXYCHLOROQUINE SULFATE 200 MG TAB PO SCH (08:07)
[2019-12-07] MEDS: PANTOprazole 40 MG TAB PO SCH ×2 (08:07→10:28)
[2019-12-07] MEDS: ROFLUMILAST 500 MCG TAB PO SCH (08:07)
[2019-12-07] MEDS: dilTIAZem ER 120 MG CAPCR PO SCH (08:07)
[2019-12-07] MEDS: UMECLIDINIUM BROMIDE 62.5MCG/BLISTER 7 PUFFS/INHALER INH SCH (08:15)
[2019-12-07] MEDS: FLUTICASONE/VILANTEROL 200/25MCG 14 PUFFS/INHALER INH SCH (08:15)
--- NOTE | 2019-12-07 08:54 | Gastroenterology Progress Note ---
Date of Service December 07, 2019 Assessment & Plan (1) Elevated liver enzymes: (2) Cholelithiasis: (3) Dilation of biliary tract: Pt is a 73 y/o female w RUQ/epigastric abd pain, on eval noted to have elevated LFTs, lipase. Imaging studies (U/S gallbladder, MRCP) showed signs of gallstones/sludge, w CBD dilation, choledocholithiasis cannot be entirely excluded but MRCP quality reduced due to motion artifact. She underwent ERCP on 12/05: choledocholithiasis found, removed; biliary sphincte rectomy and placements of biliary, pancreatic duct stents performed. LFTs trending down today - Continue IVF and IV antibx support - Avoid ASA, NSAIDs 5 days after sphincterectomy - Repeat ERCP in 6 weeks to remove stents - Surgery plan for lap cholecystectomy today - Trend LFTs - GI will sign off; pls recall prn Admission and Anticipated Discharge Date Admission Date: December 05, 2019 Anticipated date of discharge: 12/09/19 Supervising Physician Co-Signing Physician Notes I performed a history and physical examination of the patient today, including specifically on physical exam - soft abdomen. I have discussed the patient's management with the advanced practitioner. Please refer to the nurse practitioner's note for the documented findings and plan of care. 73 yrs old female patient with abn LFTs and biliary pain, dilated CBD. ERCP with extraction. lap rupali today. Will need repeat ERCP in 6-8 weeks for stent removal. Our office will arrange this. Please call with questions. Subjective Pt reports having some epigastric discomfort, nausea but no vomiting. Feels breathing is improved today, still on O2 2L per NC, O2 sat 97% She is currently NPO. She is scheduled for lap cholecystectomy by Dr. Cuevas this morning LFTs are trending down. Review of Systems Review of Systems: All systems reviewed & are unremarkable except as noted in HPI & below Physical Exam Constitutional: WD/WN, vitals as above well groomed, cooperative and comfortable Eyes: PERRL, conjunctivae normal, anicteric sclerae ENMT: external ear and nose normal, oropharynx normal Respiratory: normal respiratory effort, lungs clear to auscultation no respiratory distress and does not use accessory muscles Cardiovascular: RRR, no murmur, no edema Gastrointestinal (Abdomen): Inspection/Auscultation: + abdomen distended (mild) and + hypoactive bowel sounds Percussion/Palpation: + abdomen tender (epigastric) Skin: no rashes, warm and dry no jaundice Psychiatric: A+Ox3, euthymic affect Lymphatic: no lymphedema Results & Data ([facility]) Vital Signs (Past 12 Hours) Vital Signs Temp Pulse Pulse Resp BP Pulse Ox 12/07/19 07:38 36.8 C 96 H 20 106/70 97 12/07/19 07:29 92 H 12/07/19 07:15 93 H 16 98 12/07/19 04:02 36.9 C 97 H 19 114/74 96 12/06/19 23:11 37.5 C 96 H 20 109/65 95 12/06/19 23:00 93 H 12/06/19 21:41 101 H 20 93
--- NOTE | 2019-12-07 10:12 | Surgery Progress Note ---
Date of Service December 07, 2019 Assessment & Plan (1) Dilation of biliary tract: 73 year old female who presented to ED with RUQ abdominal pain after eating bagel with butter for breakfast. US showing gallstones with dilated CBD. MRCP showing bands of acute cholecystitis with gallstones and pericholecystic edematous change with no true signs of choledocholithiasis however motion artifact present and unable to completely rule out. Labs upon admission showed elevated t. bili and lfts along with mild elevation in lipase. 12/06/19- ERCP showed biliary stenosis and + choledocholithiasis. + pancreatic and biliary stents placed. 12/07/19- T. bili wnl LFTS improving Increase in epigastric/ruq pain with radiation to mid back s/p ERCP , ? post ERCP pancreatitis, lipase not ordered in am labs. Plan: Will hold off on cholecystectomy today given increased pain Continue IV Cipro, pain management may have clears NPO at midnight repeat am labs including cbc, cmp, lipase Continue medical management (2) Cholelithiasis: (3) Acute cholecystitis: (4) Elevated liver enzymes: Dr. Cuevas has seen and examined patient, developed assessment and plan. Subjective having epigastric/ ruq pain this morning with radiation to her mid back no nausea or vomiting breathing better today Physical Exam Constitutional: WD/WN, vitals as above no acute distress Gastrointestinal (Abdomen): Inspection/Auscultation: abdomen normal to inspection; abdomen not distended Percussion/Palpation: + abdomen tender (epigastrium and RUQ) and abdomen soft; no guarding and abdomen not rigid Skin: no rashes, warm and dry Psychiatric: Orientation: alert and oriented x 3 Results & Data Vital Signs (Past 12 Hours) Vital Signs Temp Pulse Pulse Resp BP Pulse Ox 12/07/19 07:38 36.8 C 96 H 20 106/70 97 12/07/19 07:29 92 H 12/07/19 07:15 93 H 16 98 12/07/19 04:02 36.9 C 97 H 19 114/74 96 12/06/19 23:11 37.5 C 96 H 20 109/65 95 12/06/19 23:00 93 H Laboratory Results 12/07/19 12/07/19 Range/Units 04:58 04:58 WBC 12.90 H (4.8-10.8) K/uL RBC 4.39 (4.2-5.4) M/uL Hgb 12.9 (12.0-16.0) g/dL Hct 40.6 (37-47) % MCV 92.5 (80-100) fL MCH 29.4 (25-34) pg MCHC 31.8 L (32-36) g/dL RDW Std Deviation 49.3 H (36.4-46.3) fL RDW Coeff of Arleen 14.5 (11.5-14.5) % Plt Count 220 (130-400) K/uL MPV 9.5 (7.4-10.4) fL Sodium 140 (136-145) mmol/L Potassium 3.9 (3.5-5.1) mmol/L Chloride 108 H (98-107) mmol/L Carbon Dioxide 27 (21-32) mmol/L Anion Gap 5.0 (3-11) BUN 7 (7-18) mg/dl Creatinine 0.76 (0.6-1.2) mg/dl Est Cr Clr Drug Dosing 72.8 ml/min Est GFR ( Amer) 91.5 Est GFR (Non-Af Amer) 78.9 BUN/Creatinine Ratio 8.9 L (10-20) Glucose 99 (70-99) mg/dl Calcium 8.2 L (8.5-10.1) mg/dl Total Bilirubin 0.9 (0.2-1) mg/dl Direct Bilirubin 0.2 (0-0.2) mg/dl AST 67 H (15-37) U/L ALT 223 H (12-78) U/L Alkaline Phosphatase 135 H (45-117) U/L Total Protein 5.9 L (6.4-8.2) gm/dl Albumin 2.8 L (3.4-5.0) gm/dl
[2019-12-07] MEDS: TRAMADOL HCL 50 MG TABLET PO PRN ×2 (10:28→16:11)
[2019-12-07] MEDS: LACTATED RINGER'S 1,000 ML IV SCH ×2 (10:28→20:03)
--- NOTE | 2019-12-07 10:50 | Hospitalist Progress Note ---
Date of Service December 07, 2019 Assessment & Plan (1) Dilation of biliary tract: (2) Cholelithiasis: (3) Right sided abdominal pain: (4) Right-sided chest pain: (5) Acute cholecystitis: (6) Elevated liver enzymes: (7) Lung nodule: (8) Obstructive sleep apnea: (9) Obesity (BMI 30.0-34.9): (10) Diastolic heart failure: (11) Tobacco abuse: (12) Asthma-COPD overlap syndrome: (13) Basal cell carcinoma (BCC): (14) Skin cancer of face: (15) Hiatal hernia: (16) History of uterine cancer: (17) History of breast cancer: (18) Nocturnal oxygen desaturation: (19) COPD (chronic obstructive pulmonary disease): (20) Chronic sinusitis: (21) GERD (gastroesophageal reflux disease): (22) Rheumatoid arthritis: (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: (24) Malignant neoplasm of corpus uteri, except isthmus: GI and Surgery on case, s/p ERCP c CBD stone extraction and Stent, Pulm saw her, Possible Lap Justine soon, LFTs are trending down, WBCs are up, on Cipro Labs checked ROS-No Headache, No Visual Changes, No Nausea, No Vomiting, No Fever, No Chills, No Neck Pain or Stiffness, No Chest Pain, No Palpitations, + SOB, No FIORE, No Cough, No Sputum, No Wheezing, + Abdominal Pain, No Diarrhea, No Hematemesis, No Hemoptysis, No Unexpected Weight Loss, No Flank pain, No Melena, No Hematochezia, No Frequency, No Urgency, No Burning, No Hematuria, No Rashes, No Diaphoresis. Appetite is Normal Physical Exam Gen-AAO x 3, NAD, Afebrile, Obese Head-NCAT, EOMI, PERRLA, Anicteric Sclera, No Posterior Pharyngeal Erythema Neck-Supple, No JVD, No Thyromegaly, No Masses, No LAD, No Bruits Lungs-Clear to Auscultation Bilaterally, No Rales, No Rhonchi, No Wheezing, No Crepitus Chest-No S4, +S1, +S2, No S3, No Murmurs, No Rubs, No Gallops, No Ectopy Abdomen-Soft, Bowel Sounds Present, Tender, Non Distended, No Hepatomegaly, No Splenomegaly, No Palpable Masses, No Rebound, No Rigidity, No Guarding Musculoskeletal-Full Range of Motion Bilaterally, No CVAT Extremities-No Cyanosis, No Clubbing, No Edema Nuero-Cranial Nerves II-XII grossly intact, Motor WNL, DTRs WNL, Strength WNL, Non Focal Psych-Normal Mood Admission and Anticipated Discharge Date Admission Date: December 05, 2019 Anticipated date of discharge: 12/09/19 Results & Data Results & Data ([facility]) Vital Signs (Past 12 Hours) Vital Signs Temp Pulse Pulse Resp BP Pulse Ox 12/07/19 07:38 36.8 C 96 H 20 106/70 97 12/07/19 07:29 92 H 12/07/19 07:15 93 H 16 98 12/07/19 04:02 36.9 C 97 H 19 114/74 96 12/06/19 23:11 37.5 C 96 H 20 109/65 95 12/06/19 23:00 93 H (1) COPD (chronic obstructive pulmonary disease) COPD type: unspecified COPD Qualified Code(s): J44.9 - Chronic obstructive pulmonary disease, unspecified
[2019-12-07] MEDS: metroNIDAZOLE 500 MG/100 ML BAG IV SCH ×2 (14:04→21:08)
[2019-12-08] MEDS: MoRPHine SULFATE 4 MG/ML 1 ML CARP\\VIAL IV PRN ×3 (00:38→15:01)
[2019-12-08] MEDS: CIPROFLOXACIN / D5W 400 MG/200 ML BAG IV SCH ×2 (05:03→17:35)
[2019-12-08] MEDS: LEVALBUTEROL 1.25MG/0.5ML NEB INH PRN ×3 (05:21→18:57)
[2019-12-08] MEDS: IPRATROPIUM BROMIDE NEB SOLN 0.02% 2.5 ML VIAL INH PRN ×3 (05:21→18:57)
[2019-12-08] MEDS: metroNIDAZOLE 500 MG/100 ML BAG IV SCH ×3 (05:39→21:51)
[2019-12-08] MEDS: LACTATED RINGER'S 1,000 ML IV SCH ×2 (05:39→16:06)
[2019-12-08 06:07] LABS: Basophils # (auto) 0.01 K/uL (0-0.2); Basophils % (auto) 0.1 %; Eosinophils # (auto) 0.48 K/uL (0-0.5); Eosinophils % (auto) 5.7 %; Hematocrit (blood only) 38.3 % (37-47); Hemoglobin 12.3 g/dL (12.0-16.0); Immature Granulocytes # (auto) 0.04 K/uL (0.00-0.02); Immature Granulocytes % (auto) 0.5 %; Lymphocytes # (auto) 0.99 K/uL (1.2-3.4); Lymphocytes % (auto) 11.8 %; Mean Corpuscular Hemoglobin 29.6 pg (25-34); Mean Corpuscular Hgb Conc 32.1 g/dL (32-36); Mean Corpuscular Volume 92.1 fL (80-100); Mean Platelet Volume 9.4 fL (7.4-10.4); Monocytes # (auto) 0.79 K/uL (0.11-0.59); Monocytes % (auto) 9.4 %; Neutrophils # (auto) 6.07 K/uL (1.4-6.5); Neutrophils % (auto) 72.5 %; Platelet Count 197 K/uL (130-400); RDW Coefficient of Variation 14.5 % (11.5-14.5); RDW Standard Deviation 49.2 fL (36.4-46.3); Red Blood Count 4.16 M/uL (4.2-5.4); White Blood Count 8.38 K/uL (4.8-10.8)
[2019-12-08 06:39] LABS: Albumin Level 2.7 gm/dl (3.4-5.0); BUN Creatinine Ratio 6.6 (10-20); Creatinine Clr Calc Pharmacy 74.3 ml/min; Est GFR (African American) 92.9; Est GFR (Non-African American) 80.2; Potassium 3.5 mmol/L (3.5-5.1)
[2019-12-08 06:42] LABS: Albumin Globulin Ratio 0.8 (0.9-2); Bilirubin,Total 0.7 mg/dl (0.2-1); Globulin 3.2 gm/dl (2.5-4.0); Total Protein 5.9 gm/dl (6.4-8.2)
--- NOTE | 2019-12-08 07:23 | Hospitalist Progress Note ---
Date of Service December 08, 2019 Assessment & Plan (1) Dilation of biliary tract: (2) Cholelithiasis: (3) Right sided abdominal pain: (4) Right-sided chest pain: (5) Acute cholecystitis: (6) Elevated liver enzymes: (7) Lung nodule: (8) Obstructive sleep apnea: (9) Obesity (BMI 30.0-34.9): (10) Diastolic heart failure: (11) Tobacco abuse: (12) Asthma-COPD overlap syndrome: (13) Basal cell carcinoma (BCC): (14) Skin cancer of face: (15) Hiatal hernia: (16) History of uterine cancer: (17) History of breast cancer: (18) Nocturnal oxygen desaturation: (19) COPD (chronic obstructive pulmonary disease): (20) Chronic sinusitis: (21) GERD (gastroesophageal reflux disease): (22) Rheumatoid arthritis: (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: (24) Malignant neoplasm of corpus uteri, except isthmus: GI and Surgery on case, s/p ERCP c CBD stone extraction and Stent, Pulm saw her, Possible Lap Justine soon, LFTs are still trending down, WBCs are now normal, on Cipro and Flagyl, lipase normal today Labs checked ROS-No Headache, No Visual Changes, No Nausea, No Vomiting, No Fever, No Chills, No Neck Pain or Stiffness, No Chest Pain, No Palpitations, + SOB, No FIORE, No Cough, No Sputum, No Wheezing, + Abdominal Pain rad to back, No Diarrhea, No Hematemesis, No Hemoptysis, No Unexpected Weight Loss, No Flank pain, No Melena, No Hematochezia, No Frequency, No Urgency, No Burning, No Hematuria, No Rashes, No Diaphoresis. Appetite is Normal Physical Exam Gen-AAO x 3, NAD, Afebrile, Obese Head-NCAT, EOMI, PERRLA, Anicteric Sclera, No Posterior Pharyngeal Erythema Neck-Supple, No JVD, No Thyromegaly, No Masses, No LAD, No Bruits Lungs-Clear to Auscultation Bilaterally, No Rales, No Rhonchi, No Wheezing, No Crepitus Chest-No S4, +S1, +S2, No S3, No Murmurs, No Rubs, No Gallops, No Ectopy Abdomen-Soft, Bowel Sounds Present, Tender, Non Distended, No Hepatomegaly, No Splenomegaly, No Palpable Masses, No Rebound, No Rigidity, No Guarding Musculoskeletal-Full Range of Motion Bilaterally, No CVAT Extremities-No Cyanosis, No Clubbing, No Edema Nuero-Cranial Nerves II-XII grossly intact, Motor WNL, DTRs WNL, Strength WNL, Non Focal Psych-Normal Mood Admission and Anticipated Discharge Date Admission Date: December 05, 2019 Anticipated date of discharge: 12/09/19 Results & Data Results & Data ([facility]) Vital Signs (Past 12 Hours) Vital Signs Temp Pulse Pulse Resp BP Pulse Ox 12/08/19 07:10 36.9 C 134 H 20 122/83 90 12/08/19 05:27 103 H 20 91 12/08/19 04:15 36.6 C 104 H 18 122/74 93 12/08/19 03:09 128 H 18 93 12/08/19 01:00 127 H 12/07/19 23:11 36.5 C 116 H 18 119/79 92 12/07/19 21:44 93 H 18 93 12/07/19 19:33 126 H 18 96 (1) COPD (chronic obstructive pulmonary disease) COPD type: unspecified COPD Qualified Code(s): J44.9 - Chronic obstructive pulmonary disease, unspecified
[2019-12-08] MEDS: AZELASTINE~ORDER AWAITING ACTION SCH ×3 (07:33→22:54)
[2019-12-08] MEDS: UMECLIDINIUM BROMIDE 62.5MCG/BLISTER 7 PUFFS/INHALER INH SCH (07:33)
[2019-12-08] MEDS: FLUTICASONE/VILANTEROL 200/25MCG 14 PUFFS/INHALER INH SCH (07:33)
--- NOTE | 2019-12-08 11:32 | Ultrasound Report ---
ABDOMINAL ULTRASOUND, RIGHT UPPER QUADRANT HISTORY: RUQ pain, eval gallbladder, s/p ERCP with stent. COMPARISON: MRCP 12/06/2019. FINDINGS: Pancreas: The pancreatic tail is obscured by overlying bowel gas. The remaining portions of the pancr eas are within normal limits. The pancreatic duct is normal in caliber measuring 2 mm. Liver: The liver is echogenic consistent with fatty change. Gallbladder: The gallbladder is now contracted. Multiple gallstones are present. Mild gallbladder wal l thickening at 4 mm. Trace pericholecystic fluid is noted. CBD: 5 mm. Right kidney: No hydronephrosis. IMPRESSION: 1. Interval decompression of the common bile duct and main pancreatic duct which are now normal in ca liber. 2. Cholelithiasis. Mild gallbladder wall thickening may be due to the contracted state. There is also trace pericholecystic fluid, unchanged. Clinical correlation recommended to assess for the possibili ty of acute cholecystitis. ACT 112: Negative or not required by law. Electronically signed by: Dom Garcia M.D. 12/08/2019 11:31 AM
--- NOTE | 2019-12-08 14:21 | Surgery Progress Note ---
Date of Service pt is doing better, no significant abdominal pain, no nausea, no vomiting, pt had one time T 37.6 yesterday, now pt has normal T, December 08, 2019 Assessment & Plan (1) Dilation of biliary tract: 73 year old female who presented to ED with RUQ abdominal pain after eating bagel with butter for breakfast. US showing gallstones with dilated CBD. MRCP showing bands of acute cholecystitis with gallstones and pericholecystic edematous change with no true signs of choledocholithiasis however motion artifact present and unable to completely rule out. Labs upon admission showed elevated t. bili and lfts along with mild elevation in lipase. 12/06/19- ERCP showed biliary stenosis and + choledocholithiasis. + pancreatic and biliary stents placed. 12/07/19- T. bili wnl LFTS improving Increase in epigastric/ruq pain with radiation to mid back s/p ERCP , ? post ERCP pancreatitis, lipase not ordered in am labs. Plan: Will hold off on cholecystectomy today given increased pain Continue IV Cipro, pain management may have clears NPO at midnight repeat am labs including cbc, cmp, lipase Continue medical management 12/08/2019 2:23PM. pt had U/S study today, IMPRESSION: 1. Interval decompression of the common bile duct and main pancreatic duct which are now normal in caliber. 2. Cholelithiasis. Mild gallbladder wall thickening may be due to the contracted state. There is also trace pericholecystic fluid, unchanged. Clinical correlation recommended to assess for the possibility of acute cholecystitis. I inform pt about U/S report, I recommend - regular diet today, discharge home tomorrow, I will do laparoscopic cholecystectomy on next Wednesday, D/W benefits, risks and alternatives of the surgery, pt understood, she agrees with the plan, I answered all questions, (2) Cholelithiasis: (3) Acute cholecystitis: (4) Elevated liver enzymes: Dr. Cuevas has seen and examined patient, developed assessment and plan. Supervising Physician Co-Signing Physician Notes I performed a history and physical examination of the patient today, including specifically on physical exam - soft abdomen. I have discussed the patient's management with the advanced practitioner. Please refer to the nurse practitioner's note for the documented findings and plan of care. 73 yrs old female patient with abn LFTs and biliary pain, dilated CBD. ERCP with extraction. lap rupali today. Will need repeat ERCP in 6-8 weeks for stent removal. Our office will arrange this. Please call with questions. Subjective Pt reports having some epigastric discomfort, nausea but no vomiting. Feels breathing is improved today, still on O2 2L per NC, O2 sat 97% She is currently NPO. She is scheduled for lap cholecystectomy by Dr. Cuevas this morning LFTs are trending down. Physical Exam Constitutional: WD/WN, vitals as above well developed and well nourished Eyes: PERRL, conjunctivae normal, anicteric sclerae ENMT: external ear and nose normal, oropharynx normal Neck: trachea midline, no thyromegaly Gastrointestinal (Abdomen): Percussion/Palpation: abdomen soft NT, ND, BS + Neurologic: awake Psychiatric: Orientation: alert and oriented x 3 Results & Data Vital Signs (Past 12 Hours) Vital Signs Temp Pulse Pulse Resp BP Pulse Ox 12/08/19 13:05 126 H 18 96 12/08/19 07:10 36.9 C 134 H 20 122/83 90 12/08/19 05:27 103 H 20 91 12/08/19 04:15 36.6 C 104 H 18 122/74 93 12/08/19 03:09 128 H 18 93
--- NOTE | 2019-12-08 14:24 | Surgery Progress Note ---
Date of Service December 08, 2019 Assessment & Plan (1) Dilation of biliary tract: 73 year old female who presented to ED with RUQ abdominal pain after eating bagel with butter for breakfast. US showing gallstones with dilated CBD. MRCP showing bands of acute cholecystitis with gallstones and pericholecystic edematous change with no true signs of choledocholithiasis however motion artifact present and unable to completely rule out. Labs upon admission showed elevated t. bili and lfts along with mild elevation in lipase. 12/06/19- ERCP showed biliary stenosis and + choledocholithiasis. + pancreatic and biliary stents placed. 12/07/19- T. bili wnl LFTS improving Increase in epigastric/ruq pain with radiation to mid back s/p ERCP , ? post ERCP pancreatitis, lipase not ordered in am labs. 12/08/2019- t. bili and lfts normalized, leukocytosis resolved epigastric pain resolved no n/v Plan: Will repeat abdominal US to evaluate gallbladder once again. Dr. Cuevas discussed with patient option of cholecystectomy today, tomorrow or early next week. If US showing sheryl cholecystitis will need to consider cholecystectomy. If US not showing true signs of cholecystitis may be able to be discharged home tomorrow with outpatient cholecystectomy early next week with oral abx for 5 days. Keep npo until Ultrasound Will follow-up after ultrasound report continue medical management (2) Cholelithiasis: (3) Acute cholecystitis: (4) Elevated liver enzymes: Dr. Cuevas has seen and examined patient, developed the assessment and plan above. Subjective patient seen at [address] Martinez prior to Ultrasound feeling better today, the mid upper abdominal pain is resolved having some pain on sides and back when changing positions or moving no n/v Physical Exam Constitutional: WD/WN, vitals as above no acute distress Respiratory: normal respiratory effort Gastrointestinal (Abdomen): Inspection/Auscultation: abdomen normal to inspection; abdomen not distended Percussion/Palpation: abdomen soft; abdomen nontender, no guarding and abdomen not rigid Skin: no rashes, warm and dry Psychiatric: Orientation: alert and oriented x 3 Results & Data Vital Signs (Past 12 Hours) Vital Signs Temp Pulse Pulse Resp BP Pulse Ox 12/08/19 13:05 126 H 18 96 12/08/19 07:10 36.9 C 134 H 20 122/83 90 12/08/19 05:27 103 H 20 91 12/08/19 04:15 36.6 C 104 H 18 122/74 93 12/08/19 03:09 128 H 18 93 Laboratory Results 12/08/19 12/08/19 Range/Units 06:00 06:00 WBC 8.38 (4.8-10.8) K/uL RBC 4.16 L (4.2-5.4) M/uL Hgb 12.3 (12.0-16.0) g/dL Hct 38.3 (37-47) % MCV 92.1 (80-100) fL MCH 29.6 (25-34) pg MCHC 32.1 (32-36) g/dL RDW Std Deviation 49.2 H (36.4-46.3) fL RDW Coeff of Arleen 14.5 (11.5-14.5) % Plt Count 197 (130-400) K/uL MPV 9.4 (7.4-10.4) fL Immature Gran % (Auto) 0.5 % Neut % (Auto) 72.5 % Lymph % (Auto) 11.8 % [place] % (Auto) 9.4 % Eos % (Auto) 5.7 % Baso % (Auto) 0.1 % Immature Gran # (Auto) 0.04 H (0.00-0.02) K/uL Neut # (Auto) 6.07 (1.4-6.5) K/uL Lymph # (Auto) 0.99 L (1.2-3.4) K/uL [place] # (Auto) 0.79 H (0.11-0.59) K/uL Eos # (Auto) 0.48 (0-0.5) K/uL Baso # (Auto) 0.01 (0-0.2) K/uL Sodium 138 (136-145) mmol/L Potassium 3.5 (3.5-5.1) mmol/L Chloride 105 (98-107) mmol/L Carbon Dioxide 28 (21-32) mmol/L Anion Gap 5.0 (3-11) BUN 5 L (7-18) mg/dl Creatinine 0.75 (0.6-1.2) mg/dl Est Cr Clr Drug Dosing 74.3 ml/min Est GFR ( Amer) 92.9 Est GFR (Non-Af Amer) 80.2 BUN/Creatinine Ratio 6.6 L (10-20) Glucose 108 H (70-99) mg/dl Calcium 8.0 L (8.5-10.1) mg/dl Total Bilirubin 0.7 (0.2-1) mg/dl AST 29 (15-37) U/L ALT 141 H (12-78) U/L Alkaline Phosphatase 117 (45-117) U/L Total Protein 5.9 L (6.4-8.2) gm/dl Albumin 2.7 L (3.4-5.0) gm/dl Globulin 3.2 (2.5-4.0) gm/dl Albumin/Globulin Ratio 0.8 L (0.9-2) Lipase 194 (73-393) U/L
[2019-12-08] MEDS: dilTIAZem ER 120 MG CAPCR PO SCH (14:37)
[2019-12-08] MEDS: ROFLUMILAST 500 MCG TAB PO SCH (14:37)
[2019-12-08] MEDS: PANTOprazole 40 MG TAB PO SCH (14:38)
[2019-12-08] MEDS: HYDROXYCHLOROQUINE SULFATE 200 MG TAB PO SCH (14:53)
[2019-12-09] MEDS: LEVALBUTEROL 1.25MG/0.5ML NEB INH PRN ×4 (00:08→17:13)
[2019-12-09] MEDS: IPRATROPIUM BROMIDE NEB SOLN 0.02% 2.5 ML VIAL INH PRN ×4 (00:08→17:13)
[2019-12-09] MEDS: MoRPHine SULFATE 4 MG/ML 1 ML CARP\\VIAL IV PRN (01:40)
[2019-12-09] MEDS: CIPROFLOXACIN / D5W 400 MG/200 ML BAG IV SCH ×2 (03:42→16:15)
[2019-12-09] MEDS: LACTATED RINGER'S 1,000 ML IV SCH ×2 (03:42→13:38)
[2019-12-09] MEDS: metroNIDAZOLE 500 MG/100 ML BAG IV SCH ×3 (05:35→21:17)
[2019-12-09] MEDS: AZELASTINE~ORDER AWAITING ACTION SCH ×2 (06:51→17:37)
--- NOTE | 2019-12-09 06:51 | Hospitalist Progress Note ---
Date of Service December 09, 2019 Assessment & Plan (1) Dilation of biliary tract: (2) Cholelithiasis: (3) Right sided abdominal pain: (4) Right-sided chest pain: (5) Acute cholecystitis: (6) Elevated liver enzymes: (7) Lung nodule: (8) Obstructive sleep apnea: (9) Obesity (BMI 30.0-34.9): (10) Diastolic heart failure: (11) Tobacco abuse: (12) Asthma-COPD overlap syndrome: (13) Basal cell carcinoma (BCC): (14) Skin cancer of face: (15) Hiatal hernia: (16) History of uterine cancer: (17) History of breast cancer: (18) Nocturnal oxygen desaturation: (19) COPD (chronic obstructive pulmonary disease): (20) Chronic sinusitis: (21) GERD (gastroesophageal reflux disease): (22) Rheumatoid arthritis: (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: (24) Malignant neoplasm of corpus uteri, except isthmus: GI and Surgery on case, She ate yesterday and after 2 bite of chicken sandwich she got abd pain, s/p ERCP c CBD stone extraction and Stent, Pulm saw her, Lap Justine soon, LFTs are still trending down, WBCs are now normal, on Cipro and Fl agyl, lipase normal Labs checked ROS-No Headache, No Visual Changes, No Nausea, No Vomiting, No Fever, No Chills, No Neck Pain or Stiffness, No Chest Pain, No Palpitations, + SOB, No FIORE, No Cough, No Sputum, No Wheezing, + Abdominal Pain rad to back, No Diarrhea, No Hematemesis, No Hemoptysis, No Unexpected Weight Loss, No Flank pain, No Melena, No Hematochezia, No Frequency, No Urgency, No Burning, No Hematuria, No Rashes, No Diaphoresis. Appetite is Normal Physical Exam Gen-AAO x 3, NAD, Afebrile, Obese Head-NCAT, EOMI, PERRLA, Anicteric Sclera, No Posterior Pharyngeal Erythema Neck-Supple, No JVD, No Thyromegaly, No Masses, No LAD, No Bruits Lungs-Clear to Auscultation Bilaterally, No Rales, No Rhonchi, No Wheezing, No Crepitus Chest-No S4, +S1, +S2, No S3, No Murmurs, No Rubs, No Gallops, No Ectopy Abdomen-Soft, Bowel Sounds Present, Tender, Non Distended, No Hepatomegaly, No Splenomegaly, No Palpable Masses, No Rebound, No Rigidity, No Guarding Musculoskeletal-Full Range of Motion Bilaterally, No CVAT Extremities-No Cyanosis, No Clubbing, No Edema Nuero-Cranial Nerves II-XII grossly intact, Motor WNL, DTRs WNL, Strength WNL, Non Focal Psych-Normal Mood Admission and Anticipated Discharge Date Admission Date: December 05, 2019 Anticipated date of discharge: 12/09/19 Results & Data Results & Data ([facility]) Vital Signs (Past 12 Hours) Vital Signs Temp Pulse Pulse Resp BP Pulse Ox 12/09/19 05:52 86 18 96 12/09/19 03:15 88 16 94 12/09/19 03:12 36.7 C 93 H 21 108/72 94 12/09/19 00:10 78 16 93 12/08/19 23:43 36.7 C 103 H 21 105/69 92 12/08/19 21:52 92 H 18 94 12/08/19 19:23 36.8 C 77 18 96/64 L 96 12/08/19 19:00 95 H 20 93 (1) COPD (chronic obstructive pulmonary disease) COPD type: unspecified COPD Qualified Code(s): J44.9 - Chronic obstructive pulmonary disease, unspecified
[2019-12-09] MEDS: FLUTICASONE/VILANTEROL 200/25MCG 14 PUFFS/INHALER INH SCH (09:19)
[2019-12-09] MEDS: UMECLIDINIUM BROMIDE 62.5MCG/BLISTER 7 PUFFS/INHALER INH SCH (09:19)
[2019-12-09 09:33] LABS: Hematocrit (blood only) 36.7 % (37-47); Hemoglobin 11.7 g/dL (12.0-16.0); Mean Corpuscular Hemoglobin 29.3 pg (25-34); Mean Corpuscular Hgb Conc 31.9 g/dL (32-36); Mean Corpuscular Volume 91.8 fL (80-100); Mean Platelet Volume 9.7 fL (7.4-10.4); Platelet Count 215 K/uL (130-400); RDW Coefficient of Variation 14.5 % (11.5-14.5); White Blood Count 7.64 K/uL (4.8-10.8)
[2019-12-09 10:02] LABS: Albumin Level 2.7 gm/dl (3.4-5.0); BUN Creatinine Ratio 5.7 (10-20); Calcium 8.8 mg/dl (8.5-10.1); Creatinine Clr Calc Pharmacy 79.2 ml/min; Est GFR (African American) 99.3; Est GFR (Non-African American) 85.7; Potassium 3.4 mmol/L (3.5-5.1)
[2019-12-09 10:05] LABS: Albumin Globulin Ratio 0.8 (0.9-2); Bilirubin,Total 0.6 mg/dl (0.2-1); Globulin 3.2 gm/dl (2.5-4.0); Total Protein 5.9 gm/dl (6.4-8.2)
--- NOTE | 2019-12-09 14:36 | Ultrasound Report ---
US venous doppler UE LT CLINICAL HISTORY: Left arm swelling COMPARISON STUDY: No previous studies for comparison. FINDINGS: There is nonocclusive thrombus identified within the proximal cephalic vein in the upper ar m extending to the mid forearm. No thrombus is visualized in the left internal jugular, subclavian, a xillary, brachial, basilic, radial, or ulnar veins. IMPRESSION: Nonocclusive left cephalic vein thrombus. ACT 112: Negative or not required by law. Electronically signed by: Casa Nugent M.D. 12/09/2019 2:34 PM
--- NOTE | 2019-12-09 15:34 | Surgery Progress Note ---
Date of Service December 09, 2019 Assessment & Plan (1) Cholelithiasis: plan was for pt to be discharged with plan for out-pt lap rupali next week. unable to be discharged yesterday because of pain after eating. pancreatic enzymes now normal. I gave her the option of lap rupali tomorrow. she would like to try dinner again tonight, if tolerates she could be discharged with out- pt lap rupali next week as originally planned. if she's symptomatic again we will plan on lap rupali tomorrow. will d/w Dr. Murrell Subjective pt seen. no pain currently. had pain last night after eating chicken salad. Physical Exam Physical Exam: alert. nad abd: soft. mild epigastric ttp. no g/r/r Results & Data Vital Signs (Past 12 Hours) Vital Signs Temp Pulse Resp BP Pulse Ox 12/09/19 13:14 76 16 97 12/09/19 11:52 36.9 C 98 H 20 121/71 94 12/09/19 07:57 36.8 C 69 20 112/75 92 12/09/19 05:52 86 18 96 PG Care Time/CCT Total # of Minutes Spent Total Time Spent with Patient: Total time spent is greater than 50% in coordination of care (as documented) at patient's floor/unit and/or counseling patient: Coding Level of Care Code 51304 Subseq Hosp Care Lvl 3 Diagnoses Cholelithiasis K80.20
[2019-12-09] MEDS: PANTOprazole 40 MG TAB PO SCH (15:50)
[2019-12-09] MEDS ORDERED: HEPARIN SOD 5,000 UNIT/0.5 ML VIAL SQ ONE (16:00)
[2019-12-09] MEDS: ROFLUMILAST 500 MCG TAB PO SCH (17:39)
[2019-12-09] MEDS: dilTIAZem ER 120 MG CAPCR PO SCH (17:39)
[2019-12-09] MEDS: HYDROXYCHLOROQUINE SULFATE 200 MG TAB PO SCH (17:44)
[2019-12-09] MEDS: HEPARIN SOD 5,000 UNIT/0.5 ML VIAL SQ SCH (22:26)
[2019-12-10] MEDS: LACTATED RINGER'S 1,000 ML IV SCH ×3 (00:20→11:02)
[2019-12-10] MEDS: AZELASTINE~ORDER AWAITING ACTION SCH ×3 (00:21→16:08)
[2019-12-10] MEDS ORDERED: HEPARIN 100 UNIT/ML 5ML FLUSH FLUSH PRN (01:10)
[2019-12-10] MEDS: LEVALBUTEROL 1.25MG/0.5ML NEB INH PRN ×3 (02:28→21:51)
[2019-12-10] MEDS: IPRATROPIUM BROMIDE NEB SOLN 0.02% 2.5 ML VIAL INH PRN ×3 (02:29→21:51)
[2019-12-10] MEDS: CIPROFLOXACIN / D5W 400 MG/200 ML BAG IV SCH ×2 (03:22→16:08)
[2019-12-10] MEDS: metroNIDAZOLE 500 MG/100 ML BAG IV SCH ×3 (05:21→21:23)
[2019-12-10] MEDS: MoRPHine SULFATE 4 MG/ML 1 ML CARP\\VIAL IV PRN (05:48)
--- NOTE | 2019-12-10 06:40 | Hospitalist Progress Note ---
Date of Service December 10, 2019 Assessment & Plan (1) Dilation of biliary tract: (2) Cholelithiasis: (3) Right sided abdominal pain: (4) Right-sided chest pain: (5) Acute cholecystitis: (6) Elevated liver enzymes: (7) Lung nodule: (8) Obstructive sleep apnea: (9) Obesity (BMI 30.0-34.9): (10) Diastolic heart failure: (11) Tobacco abuse: (12) Asthma-COPD overlap syndrome: (13) Basal cell carcinoma (BCC): (14) Skin cancer of face: (15) Hiatal hernia: (16) History of uterine cancer: (17) History of breast cancer: (18) Nocturnal oxygen desaturation: (19) COPD (chronic obstructive pulmonary disease): (20) Chronic sinusitis: (21) GERD (gastroesophageal reflux disease): (22) Rheumatoid arthritis: (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: (24) Malignant neoplasm of corpus uteri, except isthmus: GI and Surgery on case, Didn't tolerate food last PM, Had abd and back pain while eating, Also affecting her breathing and can't cough that well, s/p ERCP c CBD stone extraction and Stent, Pulm saw her, Lap Justine soon, LFTs are still tr ending down, WBCs are now normal, on Cipro and Flagyl, lipase normal, +Superficial Non-Occlusive DVT LUE-May use port, DW Dr Dickinson, Warm Compresses, 2 Doses of SC Heparin yesterday, Held for possible surgery Labs checked ROS-No Headache, No Visual Changes, No Nausea, No Vomiting, No Fever, No Chills, No Neck Pain or Stiffness, No Chest Pain, No Palpitations, + SOB, No FIORE, No Cough, No Sputum, No Wheezing, + Abdominal Pain rad to back, No Diarrhea, No Hematemesis, No Hemoptysis, No Unexpected Weight Loss, No Flank pain, No Melena, No Hematochezia, No Frequency, No Urgency, No Burning, No Hematuria, No Rashes, No Diaphoresis. Appetite is Normal Physical Exam Gen-AAO x 3, NAD, Afebrile, Obese, Pleasant Head-NCAT, EOMI, PERRLA, Anicteric Sclera, No Posterior Pharyngeal Erythema Neck-Supple, No JVD, No Thyromegaly, No Masses, No LAD, No Bruits Lungs-Clear to Auscultation Bilaterally, No Rales, No Rhonchi, No Wheezing, No Crepitus Chest-No S4, +S1, +S2, No S3, No Murmurs, No Rubs, No Gallops, No Ectopy Abdomen-Soft, Bowel Sounds Present, Tender, Non Distended, No Hepatomegaly, No Splenomegaly, No Palpable Masses, No Rebound, No Rigidity, No Guarding Musculoskeletal-Full Range of Motion Bilaterally, No CVAT Extremities-No Cyanosis, No Clubbing, No Edema Nuero-Cranial Nerves II-XII grossly intact, Motor WNL, DTRs WNL, Strength WNL, Non Focal Psych-Normal Mood Admission and Anticipated Discharge Date Admission Date: December 05, 2019 Anticipated date of discharge: 12/09/19 Results & Data Results & Data ([facility]) Vital Signs (Past 12 Hours) Vital Signs Temp Pulse Pulse Resp BP BP Pulse Ox 12/10/19 04:17 36.5 C 69 18 142/66 H 93 12/10/19 03:16 93 H 18 93 12/10/19 02:31 86 22 95 12/09/19 23:14 36.6 C 72 16 144/69 H 93 12/09/19 23:00 88 12/09/19 21:54 95 H 18 93 12/09/19 21:20 37.1 C 100 H 22 152/76 H 92 (1) COPD (chronic obstructive pulmonary disease) COPD type: unspecified COPD Qualified Code(s): J44.9 - Chronic obstructive pulmonary disease, unspecified
[2019-12-10] MEDS ORDERED: LIDOCAINE HCL 2% 2 ML VIAL/AMP(20MG/ML) INFIL ONE (07:04)
[2019-12-10] MEDS ORDERED: DEXAMETHASONE SOD INJ 4 MG/ML VIAL ONE (07:04)
[2019-12-10] MEDS ORDERED: ROCURONIUM BROMIDE 10 MG/ML 5 ML VIAL ONE (07:04)
[2019-12-10] MEDS ORDERED: ONDANSETRON INJ 2 MG/ML 2 ML VIAL ONE (07:04)
[2019-12-10] MEDS ORDERED: SUCCINYLCHOLINE CHLORIDE 20 MG/ML 10 ML VIAL IV ONE (07:04)
[2019-12-10] MEDS ORDERED: fentaNYL citrate 100 MCG/2 ML VIAL ONE ×2 (07:04)
[2019-12-10] MEDS ORDERED: PROPOFOL IV EMULSION 10 MG/ML 20 ML VIAL IV ONE (07:04)
[2019-12-10] MEDS ORDERED: fentaNYL citrate 100 MCG/2 ML VIAL IV PRN (07:08)
[2019-12-10] MEDS ORDERED: ePHEDrine sulfate 50 MG/ML AMP IV PRN (07:08)
[2019-12-10] MEDS ORDERED: ATROPINE SULFATE 0.1 MG/ML 10ML SYR IV PRN (07:08)
[2019-12-10] MEDS ORDERED: ONDANSETRON INJ 2 MG/ML 2 ML VIAL IV PRN (07:08)
--- NOTE | 2019-12-10 07:11 | Anesthesiology Consultation ---
Date of Service December 10, 2019 Assessment & Plan (1) Encounter for pre-operative examination: Chart Review Chart Review: Acceptable Risk for Surgery Consults Requested none ASA ASA3 Proposed Anesthesia Anesthesia Type: General Risk / Benefits Reviewed With: PT / POA / Parent / Guardian, Accepts Plan and Informed Consent Obtained History Surgery Operation Date: 12/06/19 08:40 Proposed Procedures p Endoscopic Retrograde Cholangiopancreatogram - Ameya Gonzalez MD Operation Date: 12/07/19 11:30 Proposed Procedures p Laparoscopic Cholecystectomy - Patricia Cuevas MD Operation Date: 12/10/19 07:30 Proposed Procedures p Laparoscopic Cholecystectomy - Kian Carrero DO Height/Weight Height: 5 ft 7 in Weight: 79.3 kg Allergies Allergy/AdvReac Type Severity Reaction Status Date / Time codeine Allergy Intermediate Hives Verified 12/05/19 19:21 amoxicillin Allergy Mild Unknown Verified 12/05/19 19:21 acetaminophen Allergy Unknown RASH Verified 12/05/19 19:21 Tetracyclines Allergy Unknown TONGUE Verified 12/05/19 19:21 SWELLS Medications Home Medications Medication Instructions Recorded Confirmed Last Taken calcium carbonate-vit D3-min 1 tab PO BID 04/02/18 12/05/19 09/12/19 cholecalciferol (vitamin D3) 1,000 unit PO QAM 04/02/18 12/05/19 09/12/19 [Vitamin D3] hydroxychloroquine [Plaquenil] 200 mg PO QAM 04/02/18 12/05/19 09/12/19 omeprazole 20 mg PO QAM 04/02/18 12/05/19 09/12/19 diltiazem HCl 120 mg PO QAM 08/31/18 12/05/19 09/12/19 umeclidinium 62.5 mcg/actuation 1 inh INHALATION QAM #30 ea 04/05/19 12/05/19 09/12/19 blister powder for inhalation Oxygen Home ea 05/01/19 11/22/19 Unknown nivolumab 240 mg/24 mL intravenous 480 mg IV MONTHLY ml 05/01/19 12/05/19 Unknown solution azelastine 137 mcg (0.1 %) nasal 2 spray INTNAS DAILY #30 ml 07/31/19 12/05/19 09/12/19 spray aerosol miscellaneous medical supply #1 ea 08/11/19 11/22/19 Unknown budesonide-formoterol HFA 160 2 puff INHALATION BID #10.2 gm 08/14/19 12/05/19 09/12/19 mcg-4.5 mcg/actuation aerosol inhaler alendronate 70 mg PO WK 09/12/19 12/05/19 09/10/19 ipratropium-albuterol 3 ml INHALATION Q4 PRN 09/12/19 12/05/19 09/12/19 levalbuterol HCl 2.5 mg INH Q4 PRN 09/12/19 12/05/19 09/12/19 prednisone 5 - 20 mg PO DAILY PRN MDD .. 09/12/19 12/05/19 Unknown albuterol sulfate 90 mcg/actuation 2 puff INHALATION Q4 PRN #18 gm 10/27/19 12/05/19 Unknown aerosol inhaler roflumilast 500 mcg tablet 500 mcg PO QAM #90 tab 12/06/19 Unknown ciprofloxacin HCl [Cipro] 500 mg PO BID #10 tab 12/08/19 Unknown metronidazole [Flagyl] 500 mg PO TID #15 tab 12/08/19 Unknown Active Medications Generic Name Dose Route Start Last Admin Trade Name Freq PRN Reason Stop Dose Admin Diltiazem HCl 120 mg 12/06/19 09:00 12/09/19 17:39 Tiazac PO 01/05/20 08:59 120 mg QAM ELVER Administration Fluticasone/Vilanterol 1 puffs 12/06/19 09:00 12/09/19 09:19 Breo Ellipta 200/25 Mcg Inh INH 01/05/20 08:59 1 puffs DAILY ELVER Administration Heparin Sodium (Porcine) 5,000 units 12/09/19 22:00 12/09/19 22:26 Heparin Sodium (Porcine) SQ 01/08/20 21:59 5,000 units Q8 ELVER Administration Hydroxychloroquine Sulfate 200 mg 12/06/19 09:00 12/09/19 17:44 Plaquenil PO 01/05/20 08:59 200 mg QAM ELVER Administration Promethazine HCl 12.5 mg/ 50.5 mls @ 202 mls/hr 12/05/19 21:42 12/06/19 23:55 Sodium Chloride IV 01/04/20 21:41 Infused Q6H PRN Infusion Nausea And Vomiting Lactated Ringer's 1,000 mls @ 100 mls/hr 12/06/19 04:00 12/10/19 00:20 Lr IV 01/05/20 03:59 100 mls/hr .Q10H ELVER Administration Ciprofloxacin 400 mg in 200 mls @ 100 mls/hr 12/06/19 15:15 12/10/19 05:28 Cipro IV 12/16/19 15:14 Infused BID@0400,1600 ELVER Infusion Protocol Metronidazole 500 mg in 100 mls @ 100 mls/hr 12/07/19 14:00 12/10/19 06:21 Flagyl IV 12/17/19 13:29 Infused Q8H ELVER Infusion Ipratropium [place]is 0.5 mg 12/05/19 21:42 12/10/19 06:39 Atrovent 0.02% 0.5mg/2.5ml INH 01/04/20 21:41 0.5 mg Q4H PRN Administration Shortness Of Breath Or Wheezing Levalbuterol HCl 1.25 mg 12/05/19 21:42 12/10/19 06:39 Xopenex 1.25mg/0.5ml Neb INH 01/04/20 21:41 1.25 mg Q4H PRN Administration Shortness Of Breath Or Wheezing Miscellaneous 1 ea 12/06/19 00:00 12/10/19 00:21 Order Awaiting Action N/A 01/05/20 00:00 Not Given QS ELVER Morphine Sulfate 3 mg 12/06/19 23:22 12/10/19 05:48 Morphine Sulfate IV 12/20/19 23:21 3 mg Q4H PRN Administration Pain Pantoprazole Sodium 40 mg 12/06/19 09:00 12/09/19 15:50 Protonix PO 01/05/20 08:59 40 mg QAM ELVER Administration Roflumilast 500 mcg 12/06/19 09:00 12/09/19 17:39 Daliresp PO 01/05/20 08:59 500 mcg QAM ELVER Administration Tramadol HCl 25 - 50 mg 12/05/19 21:42 12/07/19 16:11 Ultram PO 01/04/20 21:41 50 mg Q4H PRN Administration Pain Umeclidinium [place] 1 puffs 12/06/19 09:00 12/09/19 09:19 Incruse Ellipta INH 01/05/20 08:59 1 puffs QAM ELVER Administration NPO Date Last Intake of Fluids: 12/07/19 Time Last Intake of Fluids: 23:59 Date Last Intake of Solids: 12/07/19 Time Last Intake of Solids: 23:59 Past Medical History Medical History Anxiety Asthma-COPD overlap syndrome Basal cell carcinoma (BCC) (Chronic) Diastolic heart failure Ductal carcinoma in situ (DCIS) of right breast (Resolved 09/29/12) "Abnormal right breast mammogram Status post right breast core needle biopsy 09/26/2012 revealing DCIS high- grade Status post lumpectomy and sentinel lymph node biopsy 10/10/2012 stage [id number] with positive margin reexcision 11/03/2012 no additional carcinoma Status post completion of radiation therapy 05/23/2013 utilizing hypo-fractionated received 5006 cGy " GERD (gastroesophageal reflux disease) (Chronic) Hiatal hernia (Chronic) History of breast cancer (Chronic) RT - S/P LUMPECTOMY + RADIATION THERAPY History of uterine cancer (Chronic) S/P GREGORIO BSO + CHEMO Lung nodule Malignant neoplasm of corpus uteri, except isthmus (Resolved 08/20/12) "Postmenopausal vaginal bleeding Endometrial biopsy 08/03/2012 revealing 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 RANDHAWA - REPORTS PAT NOTED DURING RECENT HOSPITALIZATION AT [facility] ([place]) Pulmonary nodule (Chronic) Rheumatoid arthritis (Chronic) Skin cancer of face (Chronic) Tobacco abuse Tobacco use disorder (Chronic) Exercise / Class Metabolic Activity III < 4 Walking/Shop/Light housework Past Family History Family History Father Leukemia Myocardial infarction Sister Breast cancer Other Cancer Coronary heart disease No family history of bleeding disorder Past Surgical History Surgical History History of breast biopsy (Chronic) History of cataract surgery (Chronic) History of colonoscopy (Chronic) History of Moh's micrographic surgery for skin cancer (Chronic) nose History of sinus surgery 06/29/18-with turbinates-Dr. Lopez. MAC 3. 7.5 ETT. grade 2 view no issues. History of tonsillectomy (Chronic) History of total abdominal hysterectomy and bilateral salpingo-oophorectomy (Chronic) Status post right breast lumpectomy (Chronic) Past Anesthesia History No Hx of Anesthesia Complications and No Family Hx of Anesthesia Complications History of PONV No Hx of PONV and No Hx of Motion Sickness Social History Smoking Status: Current every day smoker tobacco type: cigarettes Smoking cigarettes per day: 3 Do You Dip or Chew Tobacco: No Hx Alcohol Use: Yes Alcohol type: beer alcohol intake frequency: 0-2 drinks per day Hx Substance Use: No substance use type: does not use Physical Exam Vital Signs Last Vital Signs Temp 97.7 F 12/10/19 04:17 Pulse 88 12/10/19 06:39 Resp 18 12/10/19 06:39 BP 142/66 H 12/10/19 04:17 Pulse Ox 95 12/10/19 06:39 ENMT Mouth: no dentition abnormality Thyromental Distance: > or= 3.5 Finger Breadths Mallampati Class: II Neck normal visual inspection Respiratory normal respiratory effort Auscultation: lungs clear to auscultation bilaterally Cardiovascular Rate/Rhythm: regular rate and regular rhythm Testing Laboratory Results 12/09/19 09:12 12/09/19 09:12 PT 10.3 Seconds (9.0-12.0) 12/05/19 17:55 INR 1.0 (0.9-1.1) 12/05/19 17:55 APTT 22.8 Seconds (21.0-31.0) 12/05/19 17:55 Urine Color Dark Yellow 12/05/19 19:00 Urine Appearance Cloudy (Clear) A 12/05/19 19:00 Urine pH 5.0 (4.5-7.5) 12/05/19 19:00 Ur Specific [place] 1.016 (1.000-1.030) 12/05/19 19:00 Urine Protein Negative (Negative) 12/05/19 19:00 Urine Glucose (UA) Negative (Negative) 12/05/19 19:00 Urine Ketones Negative (Negative) 12/05/19 19:00 Urine Nitrite Negative (Negative) 12/05/19 19:00 Ur Leukocyte Esterase 2+ (Negative) H 12/05/19 19:00 Urine WBC (Auto) 10-30 /hpf (0-5) H 12/05/19 19:00 Urine RBC (Auto) 0-4 /hpf (0-4) 12/05/19 19:00 U Hyaline Cast (Auto) 5-10 /lpf (0-5) H 12/05/19 19:00 U Epithel Cells (Auto) >30 /lpf (0-5) H 12/05/19 19:00 Urine Bacteria (Auto) Negative (Negative) 12/05/19 19:00 12/05/19 19:00 Urine Culture - Final Urine,Clean Catch Group B Beta Strep Electrocardiogram Date: 12/05/19 Findings: + NSR @ (79) Normal sinus rhythm Left axis deviation Incomplete right bundle branch block Abnormal ECG When compared with ECG of 12-SEP-2019 08:29, No significant change was found Confirmed by Emerson Richardson ([id number]) on 12/06/2019 1:18:47 PM Chest X-Ray Date: 12/05/19 XR chest 2V PA/lateral HISTORY: shortness of breath COMPARISON: Chest 12/05/2019. FINDINGS: Left jugular Port-A-Cath terminates at the distal SVC. This remains unchanged. The heart is normal in size. No pleural effusions. No pneumothorax. The lungs are clear. No evidence for pulmonary edema. IMPRESSION: No acute process. Echocardiogram EF: 60-65% LV Function: normal 02/2018: Grade 1 DD. No valvular disease.
[2019-12-10] MEDS ORDERED: EPINEPHrine INJ 1 MG/ML AMP ONE (07:45)
[2019-12-10] MEDS ORDERED: BUPIVACAINE 0.5 % 5 MG/1 ML MPF 30ML VIAL ONE (07:45)
--- NOTE | 2019-12-10 08:39 | History & Physical Bridge Note ---
Date of Service December 10, 2019 History & Physical Bridge Note I have examined the patient, reviewed the History & Physical and in the interval since the performance of the History & Physical I have noted the following changes of clinical significance: no changes noted pt failed diet last night. some discomfort/nausea after eating. discussed options. will proceed with lap rupali today. discussed risks including bleeding/infection/injury to another organ, bile leaks, dvt/pe/mi/cva etc... questions answered. pt agreeable.
--- NOTE | 2019-12-10 08:40 | Operative Report ---
PG Post Operative Report Pre & Post Diagnosis Operation Date: 12/06/19 08:40 Pre-Op Diagnosis: Choledocholithiasis. Post-Op Diagnosis: Choledocholithiasis. Operation Date: 12/07/19 11:30 <No data on this case meets the specified criteria> Operation Date: 12/10/19 07:30 Pre-Op Diagnosis: Cholelithiasis Post-Op Diagnosis: Cholelithiasis I identified the patient and participated in the time-out.: Yes Procedure Operation Date: 12/06/19 08:40 Actual Procedures p Endoscopic Retrograde Cholangiopancreatogram - Ameya Gonzalez MD Operation Date: 12/07/19 11:30 <No data on this case meets the specified criteria> Operation Date: 12/10/19 07:30 Actual Procedures p Laparoscopic Cholecystectomy(Not Applicable) - Kian Carrero DO Surgeon Kian Carrero DO Wound Specialist None Estimated Blood Loss 5 Findings Consistent with Post-Op Diagnosis Specimens gallbladder Description of Procedure After informed consent was obtained the patient was taken to the operating room and placed in the supine position. After successful intubation the abdomen was sterilely prepped and draped in usual fashion. A periumbilical incision was made with an 11 blade scalpel and carried down through the soft tissue using electrocautery. The anterior rectus fascia was opened using electrocautery and 2 #0 Vicryl stay sutures were placed. The peritoneum was elevated with hemost ats and incised under direct vision using Metzenbaum scissors. A finger sweep was performed and a 12 mm Mota trocar was placed. The abdomen was insufflated to 18 mmHg. The laparoscope was inserted and the abdomen was examined in 360. No gross abnormalities were identified. A subxiphoid 5 mm port and 2 right upper quadrant 5 mm ports were placed under direct vision. The patient was placed in a reverse Trendelenburg position and slightly airplaned to the left. The gallbladder was grasped and elevated superiorly and laterally. A [place] dissector was used to take down adhesions around the neck of the gallbladder. The cystic duct was identified and skeletonized. It was clipped twice proximally and once distally and transected using a laparoscopic scissor. In similar fashion the cystic artery was identified and skeletonized clipped and divided. The gallbladder was removed from the gallbladder fossa with electrocautery. It was placed into an Endo Catch bag. Thorough irrigation was performed. At the end of the procedure there was adequate hemostasis and no evidence of any bile leaks. A final look around the abdomen showed no other abnormalities. The gallbladder and trochars were all removed and the abdomen was desufflated. The fascia of the camera port was closed using 0 Vicryl in a [id number] fashion. All the wounds were irrigated and closed using 4-0 Monocryl. Marcaine was injected around them for postoperative analgesia and skin glue used as a dressing. The patient was awaken extubated and transferred to recovery in stable condition. My physician's assistant professor of criminal justice was present throughout the entire case... helped with prepping the patient. With exposure for trocar placement, as well as retracted the gallbladder throughout the case and also assisted with wound closure and dressing placement. I attest to the content of the Intraoperative Record and any orders documented therein. Any exceptions are noted below.
[2019-12-10] MEDS ORDERED: NEOSTIGMINE METHYLSULFATE 5 MG/5 ML SYR ONE (08:58)
[2019-12-10] MEDS ORDERED: GLYCOPYRROLATE 0.2 MG/ML VIAL ONE (08:58)
--- NOTE | 2019-12-10 09:25 | Anesthesiology Progress Note ---
Date of Service December 10, 2019 Anesthesia Post Procedure Vital Signs Vital Signs: Temp Pulse Pulse Pulse Resp BP BP 12/10/19 09:15 86 16 137/69 12/10/19 09:08 98.2 F 90 16 147/62 H 12/10/19 07:28 83 12/10/19 06:39 88 18 12/10/19 04:17 97.7 F 69 18 12/10/19 03:16 93 H 18 12/10/19 02:31 86 22 12/09/19 23:14 97.9 F 72 16 12/09/19 23:00 88 12/09/19 21:54 95 H 18 12/09/19 21:20 98.8 F 100 H 22 152/76 H 12/09/19 17:14 68 18 12/09/19 15:40 98.6 F 95 H 20 12/09/19 13:14 76 16 12/09/19 11:52 98.4 F 98 H 20 121/71 BP Pulse Ox 12/10/19 09:15 100 12/10/19 09:08 99 12/10/19 07:28 12/10/19 06:39 95 12/10/19 04:17 142/66 H 93 12/10/19 03:16 93 12/10/19 02:31 95 12/09/19 23:14 144/69 H 93 12/09/19 23:00 12/09/19 21:54 93 12/09/19 21:20 92 12/09/19 17:14 96 12/09/19 15:40 162/84 H 94 12/09/19 13:14 97 12/09/19 11:52 94 Pain Intensity Chest: Pain Intensity: 7 Abdomen: Pain Intensity: 3 Back: Pain Intensity: 5 Transfer of Care Handoff Completed per policy Notes Mental Status: alert / awake / arousable and participated in evaluation Patient Amnestic to Procedure: Yes Nausea / Vomiting: adequately controlled Pain: adequately controlled Airway Patency, RR, SpO2: stable & adequate BP & HR: stable & adequate Hydration State: stable & adequate Anesthetic Complications: no major complications apparent and Pt Satisfied with anesthetic care
[2019-12-10] MEDS ORDERED: TRAMADOL HCL 50 MG TABLET PO PRN ×2 (10:46→11:29)
[2019-12-10] MEDS ORDERED: TRAMADOL HCL 50 MG TABLET PO SCH (10:46)
[2019-12-10] MEDS ORDERED: MoRPHine SULFATE 2 MG/ML CARP IV PRN (10:46)
[2019-12-10] MEDS ORDERED: MoRPHine SULFATE 4 MG/ML 1 ML CARP\\VIAL IV PRN (10:46)
[2019-12-10 11:05] LABS: Hematocrit (blood only) 35.2 % (37-47); Hemoglobin 11.5 g/dL (12.0-16.0); Mean Corpuscular Hemoglobin 29.5 pg (25-34); Mean Corpuscular Hgb Conc 32.7 g/dL (32-36); Mean Corpuscular Volume 90.3 fL (80-100); Mean Platelet Volume 9.3 fL (7.4-10.4); Platelet Count 209 K/uL (130-400); RDW Coefficient of Variation 14.3 % (11.5-14.5); RDW Standard Deviation 47.3 fL (36.4-46.3); White Blood Count 9.59 K/uL (4.8-10.8)
[2019-12-10] MEDS: FLUTICASONE/VILANTEROL 200/25MCG 14 PUFFS/INHALER INH SCH (11:10)
[2019-12-10] MEDS: UMECLIDINIUM BROMIDE 62.5MCG/BLISTER 7 PUFFS/INHALER INH SCH (11:10)
[2019-12-10 11:30] LABS: Albumin Level 2.6 gm/dl (3.4-5.0); Calcium 8.1 mg/dl (8.5-10.1); Creatinine Clr Calc Pharmacy 99.9 ml/min; Est GFR (African American) 108.7; Est GFR (Non-African American) 93.8; Potassium 3.6 mmol/L (3.5-5.1)
[2019-12-10 11:33] LABS: Albumin Globulin Ratio 0.8 (0.9-2); Bilirubin,Total 0.5 mg/dl (0.2-1); Globulin 3.2 gm/dl (2.5-4.0); Total Protein 5.8 gm/dl (6.4-8.2)
[2019-12-10] MEDS: PANTOprazole 40 MG TAB PO SCH (11:58)
[2019-12-10] MEDS: ROFLUMILAST 500 MCG TAB PO SCH (12:19)
[2019-12-10] MEDS: dilTIAZem ER 120 MG CAPCR PO SCH (12:19)
[2019-12-10] MEDS: HYDROXYCHLOROQUINE SULFATE 200 MG TAB PO SCH (12:19)
[2019-12-10] MEDS: HEPARIN SOD 5,000 UNIT/0.5 ML VIAL SQ SCH (13:39)
[2019-12-11] MEDS: AZELASTINE~ORDER AWAITING ACTION SCH ×2 (00:19→07:18)
[2019-12-11] MEDS: LACTATED RINGER'S 1,000 ML IV SCH (01:52)
[2019-12-11] MEDS: IPRATROPIUM BROMIDE NEB SOLN 0.02% 2.5 ML VIAL INH PRN ×2 (03:05→07:29)
[2019-12-11] MEDS: LEVALBUTEROL 1.25MG/0.5ML NEB INH PRN ×2 (03:06→07:29)
[2019-12-11] MEDS: CIPROFLOXACIN / D5W 400 MG/200 ML BAG IV SCH (04:46)
[2019-12-11] MEDS: metroNIDAZOLE 500 MG/100 ML BAG IV SCH (05:57)
--- NOTE | 2019-12-11 07:03 | Discharge Summary ---
Date of Service December 11, 2019 Admission HPI Per Admitting Provider History obtained from patient and records. Medical history significant for COPD, JOAN on CPAP, PSVT as per records, rheumatoid arthritis, breast cancer status post surgery radiation, uterine cancer status post surgery, skin cancer as per records, ongoing tobacco abuse. Last confinement February 2018 for COPD exacerbation. Patient noted achy right upper quadrant pain going to the epigastrium today after a breakfast of bagel. No nausea, no emesis, no fever, no chills. Usual loose stools from some home medication. No prior episodes. Persistent discomfort throughout the day. No chest pain, no S OB. Gallbladder ultrasound results done at the ER as follows: 1. Distended gallbladder containing small stones and sludge. No gallbladder wall thickening. There may be trace pericholecystic fluid adjacent to the hepatic surface. 2. There is also dilated common bile duct and main pancreatic duct. This raises the possibility of a distal obstructing stone/lesion. 3. Hepatic steatosis. Patient received Cefepime at the ER. 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 Admission Exam Per Admitting Provider GENERAL: Comfortable, pleasant, no respiratory distress SKIN: Normal color, warm HEENT: Bespectacled, [place] palpebral conjunctivae, no ptosis, dry buccal mucosa NECK : Supple, no tenderness CHEST : Decreased breath sounds, no tenderness HEART : RRR, no obvious murmurs ABDOMEN: Some distention, right upper quadrant tenderness EXTREMITIES : No LE swelling/tenderness, no other conspicuous deformities noted NEUROLOGIC : Coherent, no facial asymmetry, no other gross focality except for tremors post neb treatment at the ER Principal Diagnosis (1) Dilation of biliary tract: (2) Cholelithiasis:Chledocholithiasis (3) Right sided abdominal pain: (4) Right-sided chest pain: (5) Acute cholecystitis: (6) Elevated liver enzymes: (7) Lung nodule: (8) Obstructive sleep apnea: (9) Obesity (BMI 30.0-34.9): (10) Diastolic heart failure: (11) Tobacco abuse: (12) Asthma-COPD overlap syndrome: (13) Basal cell carcinoma (BCC): (14) Skin cancer of face: (15) Hiatal hernia: (16) History of uterine cancer: (17) History of breast cancer: (18) Nocturnal oxygen desaturation: (19) COPD (chronic obstructive pulmonary disease): (20) Chronic sinusitis: (21) GERD (gastroesophageal reflux disease): (22) Rheumatoid arthritis: (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: (24) Malignant neoplasm of corpus uteri, except isthmus: Discharge Exam ROS-No Headache, No Visual Changes, No Nausea, No Vomiting, No Fever, No Chills, No Neck Pain or Stiffness, No Chest Pain, No Palpitations, No SOB, No FIORE, No Cough, No Sputum, No Wheezing, No Abdominal Pain, No Diarrhea, No Hematemesis, No Hemoptysis, No Unexpected Weight Loss, No Flank pain, No Melena, No Hematochezia, No Frequency, No Urgency, No Burning, No Hematuria, No Rashes, No Diaphoresis. Appetite is Normal, Feels a lot better today, Valery Diet Physical Exam Gen-AAO x 3, NAD, Afebrile Head-NCAT, EOMI, PERRLA, Anicteric Sclera, No Posterior Pharyngeal Erythema Neck-Supple, No JVD, No Thyromegaly, No Masses, No LAD, No Bruits Lungs-Clear to Auscultation Bilaterally, No Rales, No Rhonchi, No Wheezing, No Crepitus Chest-No S4, +S1, +S2, No S3, No Murmurs, No Rubs, No Gallops, No Ectopy Abdomen-Soft, Bowel Sounds Present, Non Tender, Non Distended, No Hepatomegaly, No Splenomegaly, No Palpable Masses, No Rebound, No Rigidity, No Guarding Musculoskeletal-Full Range of Motion Bilaterally, No CVAT Extremities-No Cyanosis, No Clubbing, LUE Edema Nuero-Cranial Nerves II-XII grossly intact, Motor WNL, DTRs WNL, Strength WNL, Non Focal Psych-Normal Mood Discharge Data Allergies Allergy/AdvReac Type Severity Reaction Status Date / Time codeine Allergy Intermediate Hives Verified 12/05/19 19:21 amoxicillin Allergy Mild Unknown Verified 12/05/19 19:21 acetaminophen Allergy Unknown RASH Verified 12/05/19 19:21 Tetracyclines Allergy Unknown TONGUE Verified 12/05/19 19:21 SWELLS Consultations 12/05/19 20:03 ED Decision to Admit Stat 12/05/19 21:42 Consult Gastroenterology Routine Consult General Surgery Routine 12/06/19 11:38 Consult Pulmonology Routine Procedures Performed Operation Date: 12/06/19 08:40 Actual Procedures p Endoscopic Retrograde Cholangiopancreatogram - Ameya Gonzalez MD Operation Date: 12/07/19 11:30 <No data on this case meets the specified criteria> Operation Date: 12/10/19 07:30 Actual Procedures p Laparoscopic Cholecystectomy(Not Applicable) - Kian Carrero DO Ordered Studies 12/05/19 17:35 US gallbladder Stat 12/06/19 03:03 MR MRCP Routine 12/06/19 09:02 FL ERCP biliary ductal Routine 12/08/19 09:28 US abdomen limited Routine 12/09/19 12:23 US venous doppler UE LT Stat Current Diagnoses Unspecified malignant neoplasm of skin of unspecified part of face (12/05/19) Basal cell carcinoma of skin, unspecified (12/05/19) Malignant neoplasm of corpus uteri, unspecified (12/05/19) Intraductal carcinoma in situ of right breast (12/05/19) Obesity, unspecified (12/05/19) Anxiety disorder, unspecified (12/05/19) Obstructive sleep apnea (adult) (pediatric) (12/05/19) Idiopathic sleep related nonobstructive alveolar hypoventilation (12/05/19) Unspecified diastolic (congestive) heart failure (12/05/19) Chronic sinusitis, unspecified (12/05/19) Chronic obstructive pulmonary disease, unspecified (12/05/19) Gastro-esophageal reflux disease without esophagitis (12/05/19) Diaphragmatic hernia without obstruction or gangrene (12/05/19) Calculus of gallbladder without cholecystitis without obstruction (12/05/19) Acute cholecystitis (12/05/19) Other specified diseases of biliary tract (12/05/19) Rheumatoid arthritis, unspecified (12/05/19) Chest pain, unspecified (12/05/19) Unspecified abdominal pain (12/05/19) Abnormal levels of other serum enzymes (12/05/19) Solitary pulmonary nodule (12/05/19) Encounter for other preprocedural examination (12/05/19) Tobacco use (12/05/19) Personal history of malignant neoplasm of breast (12/05/19) Personal history of malignant neoplasm of other parts of uterus (12/05/19) Allergies codeine Allergy (Intermediate, Verified 12/05/19 19:21) Hives amoxicillin Allergy (Mild, Verified 12/05/19 19:21) Unknown acetaminophen Allergy (Unknown, Verified 12/05/19 19:21) RASH Tetracyclines Allergy (Unknown, Verified 12/05/19 19:21) TONGUE SWELLS Height/Weight/Isolation Height 5 ft 7 in Weight 79.5 kg Chemistry 12/09/19 12/10/19 09:12 10:59 Sodium 139 141 Potassium 3.4 L 3.6 Chloride 106 109 H Carbon Dioxide 29 26 Anion Gap 4.0 6.0 BUN 4 L 4 L Creatinine 0.71 0.56 L Glucose 105 H 134 H Hospital Course (1) Dilation of biliary tract: (2) Cholelithiasis: (3) Right sided abdominal pain: (4) Right-sided chest pain: (5) Acute cholecystitis: (6) Elevated liver enzymes: (7) Lung nodule: (8) Obstructive sleep apnea: (9) Obesity (BMI 30.0-34.9): (10) Diastolic heart failure: (11) Tobacco abuse: (12) Asthma-COPD overlap syndrome: (13) Basal cell carcinoma (BCC): (14) Skin cancer of face: (15) Hiatal hernia: (16) History of uterine cancer: (17) History of breast cancer: (18) Nocturnal oxygen desaturation: (19) COPD (chronic obstructive pulmonary disease): (20) Chronic sinusitis: (21) GERD (gastroesophageal reflux disease): (22) Rheumatoid arthritis: (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 DC home today and f/u Alok Newman, and PCP Total Time Total Time Spent Total Time Spent (In Minutes): 45 mins Total Time Includes: Examination of the Patient, Discharge Planning, Medication Reconciliation and Communication With Other Providers Discharge Plan Discharge Items Patient Disposition: Home - Self-Care Reason For Visit: PANCREATITIS, TACHY Discharge Diagnosis: (1) Dilation of biliary tract: (2) Cholelithiasis:Chledocholithiasis (3) Right sided abdominal pain: (4) Right-sided chest pain: (5) Acute cholecystitis: (6) Elevated liver enzymes: (7) Lung nodule: (8) Obstructive sleep apnea: (9) Obesity (BMI 30.0-34.9): (10) Diastolic heart failure: (11) Tobacco abuse: (12) Asthma-COPD overlap syndrome: (13) Basal cell carcinoma (BCC): (14) Skin cancer of face: (15) Hiatal hernia: (16) History of uterine cancer: (17) History of breast cancer: (18) Nocturnal oxygen desaturation: (19) COPD (chronic obstructive pulmonary disease): (20) Chronic sinusitis: (21) GERD (gastroesophageal reflux disease): (22) Rheumatoid arthritis: (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: (24) Malignant neoplasm of corpus uteri, except isthmus: Condition on Discharge: Fair Activity: As commented below Activity Comment: Activity as tolerated and Per Surgery Lifting: No more than 25 pounds Lifting Comment: Per surgery Bathing: Keep incision dry and May shower/bathe in 3 days Exercise/Sports: None Driving/Machine Use: No limitations Weightbearing: Full weightbearing Non-emergency contact: Primary Care Provider, Surgeon and Oncologist Call non-emergency contact if: you have any medication questions Follow-up/Referrals: Yuval Richards MD [Primary Care Provider] - Kian Carrero, [Surgeon] - (As directed) Cory Esparza MD [Physician] - (2-3 weeks) Diet: Regular Diet Comment: See below Addtl Attending Provider Instructions: None Pending Studies at Discharge: No Stand-Alone Forms: My [facility] [employer], Smoking Cessation Medications and DC Order Prescriptions: New ciprofloxacin HCl [Cipro] 500 mg tablet 500 mg PO BID Qty: 10 RF: 0 metronidazole [Flagyl] 500 mg tablet 500 mg PO TID Qty: 15 RF: 0 Continued Symbicort 160-4.5 mcg/actuation HFA aerosol inhaler 2 puff INHALATION BID Qty: 10.2 RF: 1 albuterol sulfate 90 mcg/actuation HFA aerosol inhaler 2 puff Inhalation Q4 PRN (Reason: Shortness Of Breath Or Wheezing) Qty: 18 RF: 1 Daliresp 500 mcg tablet 500 mcg PO QAM Qty: 90 RF: 1 Incruse Ellipta 62.5 mcg/actuation blister with device 1 inh INHALATION QAM Qty: 30 RF: 1 Opdivo 240 mg/24 mL solution 480 mg IV MONTHLY RF: 0 azelastine 137 mcg (0.1 %) aerosol,spray 2 spray INTNAS DAILY Qty: 30 RF: 11 (DME) CPAP Supplies Misc See Rx Instructions .ROUTE .MEDSUPPLY Qty: 1 RF: 0 (DME) Oxygen Home Liters Per Minute See Dose Instructions .ROUTE .MEDSUPPLY RF: 0 omeprazole 20 mg Capsule,Delayed Release(Dr/Ec) 20 mg PO QAM RF: 0 hydroxychloroquine [Plaquenil] 200 mg Tablet 200 mg PO QAM RF: 0 cholecalciferol (vitamin D3) [Vitamin D3] 1,000 unit Capsule 1,000 unit PO QAM RF: 0 calcium carbonate-vit D3-min 600 mg calcium- 400 unit Tablet 1 tab PO BID RF: 0 diltiazem HCl 120 mg Capsule,Extended Release 24 Hr 120 mg PO QAM RF: 0 ipratropium-albuterol 0.5 mg-3 mg(2.5 mg base)/3 mL Solution For Nebulization 3 ml INHALATION Q4 PRN (Reason: Shortness Of Breath Or Wheezing) RF: 0 alendronate 70 mg tablet 70 mg PO WK RF: 0 prednisone 5 mg tablet 5 - 20 mg PO DAILY MDD .. PRN (Reason: PRN) RF: 0 levalbuterol HCl 1.25 mg/0.5 mL solution for nebulization 2.5 mg INH Q4 PRN (Reason: Shortness Of Breath Or Wheezing) RF: 0 Discharge Orders: Discharge Order (Routine); Ordered 12/11/19 Ordered By: Artem Kraft/Other Patient Handouts: Cooking Tips Low Fat, Flavor Add Low Fat Meals Admission Data Admit Date/Time: 12/05/19 20:45 Attending Provider: Artem Murrell Admit Provider: Nleson Pires Primary Care Provider: Yuval Richards Other Providers: Nelson Pires ; Daniel Valdovinos ; Yasemin Howard ; Brennon Garcia ; Nancie Bernal ; Ruel Hutchinson ; Grady Mclaughlin ; Balwinder Lynn ; Estela Watts ; Emerson Portillo ; Aristeo Dupree ; Shyanne Angulo ; Marilee Galdamez ; Monica Alexander ; Veda De Dios ; Ameya Gonzalez ; Patricia Cuevas ; Cory Esparza
[2019-12-11] MEDS: HEPARIN SOD 5,000 UNIT/0.5 ML VIAL SQ SCH (07:06)
[2019-12-11] MEDS: FLUTICASONE/VILANTEROL 200/25MCG 14 PUFFS/INHALER INH SCH (07:26)
[2019-12-11] MEDS: PANTOprazole 40 MG TAB PO SCH (07:26)
[2019-12-11] MEDS: ROFLUMILAST 500 MCG TAB PO SCH (07:26)
[2019-12-11] MEDS: UMECLIDINIUM BROMIDE 62.5MCG/BLISTER 7 PUFFS/INHALER INH SCH (07:26)
[2019-12-11] MEDS: HYDROXYCHLOROQUINE SULFATE 200 MG TAB PO SCH (07:26)
[2019-12-11] MEDS: dilTIAZem ER 120 MG CAPCR PO SCH (07:26)
--- NOTE | 2019-12-11 10:11 | Surgery Progress Note ---
Date of Service December 11, 2019 Assessment & Plan (1) Cholelithiasis: doing well pod 1 ok from my standpoint for d/c instructions given Subjective pt seen. feeling much better. pain resolved. tolerating diet. Physical Exam Physical Exam: alert. nad abd: soft. wounds look good. Results & Data Vital Signs (Past 12 Hours) Vital Signs Temp Pulse Pulse Pulse Pulse Resp BP 12/11/19 08:00 36.7 C 82 18 127/79 12/11/19 07:30 82 18 12/11/19 03:56 36.5 C 76 18 149/82 H 12/11/19 03:09 114 H 91 H 20 12/11/19 01:11 84 12/10/19 23:30 37.1 C 91 H 16 124/73 Pulse Ox 12/11/19 08:00 97 12/11/19 07:30 95 12/11/19 03:56 95 12/11/19 03:09 91 12/11/19 01:11 12/10/19 23:30 95 PG Care Time/CCT Total # of Minutes Spent Total Time Spent with Patient: Total time spent is greater than 50% in coordination of care (as documented) at patient's floor/unit and/or counseling patient: Coding Level of Care Code None Diagnoses Cholelithiasis K80.20
== END 2019-12-11 11:00 | disposition home or self-care (01) | DRG 417 ==
LOC: ED 17:06 → 2N 20:45

== ENCOUNTER 2020-12-26 03:40 | Inpatient (IN) ==
[2020-12-26] MEDS ORDERED: dexAMETHasone**PF** 10 MG/ML VIAL IV ONE (03:58)
[2020-12-26] MEDS ORDERED: ALBUT/IPRATROP 3MG/0.5MG NEB 3 ML VIAL NEB ONE (03:58)
--- NOTE | 2020-12-26 04:01 | Emergency Department Note ---
ED Visit Note Physician Evaluation Note: I have personally evaluated and examined this patient. I agree with assessment and plan of Liam Maravilla PA-C. 2-3 days worsening shortness of breath. Acute respiratory distress on arrival with significant dyspnea and minimal air movement. She has history COPD and recently was decreasing chronic prednisone use. Evaluated on arrival at bedside with PA-C and Bipap started. John Lincoln MD
--- NOTE | 2020-12-26 04:03 | Emergency Department Note ---
History of Present Illness General Chief complaint: Respiratory Problems Stated complaint: RESP ISSUES Time Seen by Provider: 12/26/20 03:50 History of Present Illness This is a 75-year-old female that presents to the emergency department via private vehicle accompanied by male with complaints of "shortness of breath". The patient notes a history of asthma/COPD. She states that yesterday and today she notes worsening shortness of breath. She took 30 mg of prednisone at midnight. When she went to bed she felt short of breath and then awoke feeling much more short of breath or prompting arrival here today. She denies any chest pain. She follows with Dr. Esparza is not in any pulmonology. No fevers, chills. Patient states she has felt similar in the past and has been hospitalized for such. She is vaccinated against COVID-19. Home Medications Medication Instructions Recorded Confirmed Type calcium carbonate-vit D3-min 1 tab PO DAILY 04/02/18 12/26/20 History cholecalciferol (vitamin D3) 1,000 unit PO DAILY 04/02/18 12/26/20 History [Vitamin D3] hydroxychloroquine [Plaquenil] 200 mg PO QAM 04/02/18 12/26/20 History omeprazole 20 mg PO QAM 04/02/18 12/26/20 History Oxygen Home ea 05/01/19 12/03/20 History miscellaneous medical supply #1 ea 08/11/19 12/03/20 Rx alendronate 70 mg PO WK 09/12/19 12/26/20 History albuterol sulfate 90 mcg/actuation 2 puff INHALATION Q4 PRN #18 gm 10/27/19 12/26/20 Rx aerosol inhaler umeclidinium 62.5 mcg/actuation 1 inh INHALATION QAM #1 inhaler 07/15/20 0 12/26/20 Rx blister powder for inhalation budesonide-formoterol HFA 160 2 puff INHALATION BID #10.2 gm 08/19/20 12/26/20 Rx mcg-4.5 mcg/actuation aerosol inhaler ipratropium bromide 0.02 % 2.5 ml INHALATION Q6H PRN #90 ml 08/19/20 12/26/20 Rx solution for inhalation levalbuterol HCl 1.25 mg/0.5 mL 2.5 mg INH Q4 PRN #30 ea 09/05/20 12/26/20 Rx solution for nebulization fluticasone propionate 50 See Rx Instructions .ROUTE 10/31/20 12/26/20 Rx mcg/actuation nasal .COMPLEX #48 ml spray,suspension prednisone 1 mg tablet See Rx Instructions PO DAILY 30 11/22/20 12/26/20 Rx Days #90 tab roflumilast 500 mcg tablet 500 mcg PO QAM #90 tab 11/22/20 12/26/20 Rx levalbuterol HCl 1.25 mg/0.5 mL 1.25 mg INHALATION Q20M PRN #30 ea 12/25/20 12/26/20 Rx solution for nebulization azelastine 2 spray INTRANASAL DAILY 12/26/20 12/26/20 History diltiazem HCl 180 mg PO DAILY 12/26/20 12/26/20 History ipratropium-albuterol [DuoNeb] 3 ml INHALATION QID PRN 12/26/20 12/26/20 History montelukast 10 mg PO DAILY 12/26/20 12/26/20 History triamcinolone acetonide 1 applic TOPICAL BID PRN 12/26/20 12/26/20 History Allergies Allergy/AdvReac Type Severity Reaction Status Date / Time Tetracyclines Allergy Severe TONGUE Verified 11/22/20 11:12 SWELLS codeine Allergy Intermediate Hives Verified 11/22/20 11:12 nickel Allergy Intermediate "lip would Verified 11/22/20 11:12 swell with nickel mouthpiece with flute" acetaminophen Allergy Mild RASH Verified 11/22/20 11:12 amoxicillin Allergy Mild diarrhea Verified 11/22/20 11:12 and vomiting clavulanic acid Allergy Nausea/Vomi Unverified 12/26/20 07:26 [From Augmentin] ting bacitracin AdvReac Itching Unverified 12/26/20 07:26 Past Med/Surg History Medical History Active asthma Anxiety Asthma-COPD overlap syndrome Asthma-COPD overlap syndrome Diastolic heart failure Dry mouth GERD (gastroesophageal reflux disease) Hiatal hernia History of breast cancer 2012- RT - S/P LUMPECTOMY + RADIATION THERAPY History of uterine cancer 2012- S/P GREGORIO BSO + CHEMO Insomnia Lung nodule Melanoma S/p excision Multiple pulmonary nodules determined by computed tomography of lung Nocturnal oxygen desaturation WEARS O2 AT 2 LPM AT NIGHT Obstructive sleep apnea uses oxygen and cpap JOAN (obstructive sleep apnea) PAT (paroxysmal atrial tachycardia) FOLLOWS W/ DR. RANDHAWA Rheumatoid arthritis Tobacco abuse Surgical History History of breast biopsy History of cataract surgery History of colonoscopy History of ERCP 02/02/2020 @ [facility] History of melanoma excision 2018 [place] History of Moh's micrographic surgery for skin cancer nose x2 History of sinus surgery 06/29/18-with turbinates-Dr. Lopez. MAC 3. 7.5 ETT. grade 2 view no issues. History of tonsillectomy History of total abdominal hysterectomy and bilateral salpingo-oophorectomy Hx laparoscopic cholecystectomy Status post right breast lumpectomy Family History Father Leukemia Myocardial infarction Sister Breast cancer Mother Cancer brain Other Coronary heart disease No family history of adverse response to anesthesia No family history of bleeding disorder Social History Smoking Status: Current every day smoker Tobacco Type: Cigarettes Years Smoked: 40; Cigarettes Per Day: 6 cigarretes daily; Second Hand Exposure: No; Do You Dip or Chew Tobacco: No; Tobacco Cessation Education Requested by Patient: No Hx Alcohol Use: Yes (1 beer per day) Alcohol type: beer Alcohol Intake Frequency Comment: 1 beer/day Hx Substance Use: No Preferred Language: Serbian Communication Ability: Effective Visual Impairment: No Limitations Recreational Aide Required: No Beliefs That Will Affect Care: None marital status: Current Living Situation: Spouse current occupational status: employed 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 Other Information That Helps Us Care for You: No Feels Safe at Home: Yes Safety Concerns: Feels Safe At This Time Assistive Devices: Glasses and Oxygen - Continuous Assistive Devices Comment: cell phone, purse, watch and rings (3) Review of Systems A total of 10 systems reviewed and were otherwise negative Physical Exam Vital Signs Vital Signs - 24 hr 12/26/20 03:45 12/26/20 04:00 12/26/20 04:15 Temperature 35.9 C L Temperature Source Oral Pulse Rate 92 H 86 Pulse Rate [Apical] 88 Pulse Rate from SpO2 Sensor Respiratory Rate 26 H 20 Respiratory Effort / Characteristics Spontaneous Spontaneous Labored Retracting Short of Breath SOB on Exertion Respiratory Depth Normal Blood Pressure 155/87 H Blood Pressure Mean 109 Blood Pressure Position Sitting Pulse Oximetry 93 97 100 Oxygen Delivery Method Nasal Cannula Oxymask Oxygen Flow Rate 2 7 Fraction of Inspired Oxygen 40 Sepsis Recent Fever Within 48 Hours No Sepsis New/Unexplained Change in Mental Status No Sepsis Action Taken by Nursing No Action Required 12/26/20 04:18 12/26/20 04:30 12/26/20 05:00 Temperature Temperature Source Pulse Rate 86 88 96 H Pulse Rate [Apical] Pulse Rate from SpO2 Sensor 86 87 97 H Respiratory Rate 22 21 18 Respiratory Effort / Characteristics Respiratory Depth Blood Pressure 166/114 H 139/104 H 141/80 H Blood Pressure Mean 131 115 100 Blood Pressure Position Pulse Oximetry 100 100 100 Oxygen Delivery Method BiPAP BiPAP BiPAP Oxygen Flow Rate Fraction of Inspired Oxygen Sepsis Recent Fever Within 48 Hours Sepsis New/Unexplained Change in Mental Status Sepsis Action Taken by Nursing 12/26/20 05:30 Temperature Temperature Source Pulse Rate 106 H Pulse Rate [Apical] Pulse Rate from SpO2 Sensor 97 H Respiratory Rate 22 Respiratory Effort / Characteristics Respiratory Depth Blood Pressure 127/80 Blood Pressure Mean 95 Blood Pressure Position Pulse Oximetry 100 Oxygen Delivery Method Oxygen Flow Rate Fraction of Inspired Oxygen Sepsis Recent Fever Within 48 Hours Sepsis New/Unexplained Change in Mental Status Sepsis Action Taken by Nursing VITAL SIGNS - Vital signs and nursing notes were reviewed. Stable and afebrile. GENERAL - 75-year-old female appearing her stated age but is sitting at the edge of the bed displaying increased work of breathing. Patient communicates in ab breviated sentences secondary to shortness of breath. Communicates well with provider and answers questions appropriately. SKIN - Without rashes. No meningeal or petechial rash. HEAD - NC/AT. EYES - Sclera anicteric. EARS - No deformities of external structures noted on gross examination bilater ally. NOSE - Midline and without cyanosis. No epistaxis or purulent drainage noted. MOUTH/OROPHARYNX - Without perioral cyanosis. Buccal mucosa pink and moist and without leukoplakia. Tongue midline with equal elevation of palate bilaterally. No tonsillar hypertrophy, erythema, or exudates noted. Good dentition noted. No drooling, stridor, trismus. NECK - Neck with FROM. No nuchal rigidity. LUNGS -decreased breath sounds noted bilaterally. No crackles or wheezing. No stridor. CARDIAC - RRR with S1/S2. No murmur, rubs, or gallops appreciated. EXTREMITIES - No clubbing or peripheral cyanosis. +5/5 strength noted in UE/LE bilaterally. NEUROLOGIC - Cranial nerves II through XII grossly intact. Sensory intact to light touch throughout. PSYCH - A&O, and cooperates fully with examiner. Pt is very pleasant and interacts well with examiner. Course Administered Medications Diltiazem HCl (Diltiazem Er 120 Mg Capcr) 120 mg PO QAM [facility] Stop: 01/25/21 08:59 Last Admin: 12/26/20 08:52 Dose: 120 mg Documented by: [id number] Enoxaparin Sodium (Enoxaparin Inj 40 Mg/0.4 Ml Syr) 40 mg SQ QAM [facility] Stop: 01/25/21 08:59 Last Admin: 12/26/20 09:57 Dose: 40 mg Documented by: [id number] Fluticasone Propionate (Fluticasone Propionate Na Spr 16 Gm Btl) 2 sprays CAPRICE DAILY [facility] Stop: 01/25/21 08:05 Last Admin: 12/26/20 09:56 Dose: 2 sprays Documented by: [id number] Guaifenesin (Guaifenesin 600 Mg Tabcr) 600 mg PO Q12 [facility] Stop: 01/25/21 08:59 Last Admin: 12/26/20 08:53 Dose: 600 mg Documented by: [id number] Lactated Ringer's (Lr) 1,000 mls @ 200 mls/hr IV .Q5H ONE Stop: 12/26/20 10:55 Last Admin: 12/26/20 06:24 Dose: 200 mls/hr Documented by: [id number] Ipratropium [place] (Ipratropium [place] Neb Soln 0.02% 2.5 Ml Vial) 0.5 mg INH Q6R [facility] Stop: 01/25/21 08:05 Last Admin: 12/26/20 09:42 Dose: 0.5 mg Documented by: [id number] Levalbuterol HCl (Levalbuterol 1.25mg/0.5ml Neb) 1.25 mg INH Q6R [facility] Stop: 01/25/21 08:05 Last Admin: 12/26/20 09:42 Dose: 1.25 mg Documented by: [id number] Miscellaneous (Remove Nicoderm Patch) 1 ea N/A DAILY@[id number] [facility] Stop: 01/25/21 08:58 Last Admin: 12/26/20 08:55 Dose: Not Given Documented by: [id number] Nicotine (Nicotine 7 Mg/24 Hr Tdsy) 7 mg TD [facility] Stop: 01/25/21 08:59 Last Admin: 12/26/20 08:53 Dose: Not Given Documented by: [id number] Pantoprazole Sodium (Pantoprazole 40 Mg Tab) 40 mg PO [facility] Stop: 01/25/21 08:59 Last Admin: 12/26/20 09:56 Dose: 40 mg Documented by: [id number] Roflumilast (Roflumilast 500 Mcg Tab) 500 mcg PO [facility] Stop: 01/25/21 08:59 Last Admin: 12/26/20 08:53 Dose: 500 mcg Documented by: [id number] Discontinued Medications Albuterol (Albut/Ipratrop 3mg/0.5mg Neb 3 Ml Vial) 12 ml NEB ONE ONE Stop: 12/26/20 03:59 Last Admin: 12/26/20 04:15 Dose: 12 ml Documented by: [id number] Dexamethasone Sodium Phosphate (DexamethasonePf 10 Mg/Ml Vial) 10 mg IV NOW ONE Stop: 12/26/20 03:59 Last Admin: 12/26/20 04:06 Dose: 10 mg Documented by: [id number] Azithromycin 500 mg/ Dextrose 255 mls @ 127.5 mls/hr IV NOW STA Stop: 12/26/20 07:50 Last Admin: 12/26/20 08:12 Dose: 127.5 mls/hr Documented by: [id number] Ioversol (Optiray 320 125ml) 120 ml IV ONCE ONE Stop: 12/26/20 06:17 Last Admin: 12/26/20 06:16 Dose: 120 ml Documented by: [id number] Critical Care Time Critical Care Time: Yes I have personally spent about 35 minutes of critical care time in the direct management of this patient. This includes bedside care, interpretation of diagnostic studies, and testing, discussion with consultants, patient, and family members, and other required patient management activities. This 37 rebecca piyush is in excess of all separately billable procedures. Medical Decision Making Laboratory Data Result diagrams: 12/26/20 04:08 12/26/20 04:08 Lab Results 12/26/20 12/26/20 12/26/20 Range/Units 04:05 04:05 04:08 WBC (4.8-10.8) K/uL RBC (4.2-5.4) M/uL Hgb (12.0-16.0) g/dL Hct (37-47) % MCV (80-100) fL MCH (25-34) pg MCHC (32-36) g/dL RDW Std Deviation (36.4-46.3) fL RDW Coeff of Arleen (11.5-14.5) % Plt Count (130-400) K/uL MPV (7.4-10.4) fL Immature Gran % (Auto) % Neut % (Auto) % Lymph % (Auto) % [place] % (Auto) % Eos % (Auto) % Baso % (Auto) % Neut # (Auto) (1.4-6.5) K/uL Lymph # (Auto) (1.2-3.4) K/uL [place] # (Auto) (0.11-0.59) K/uL Eos # (Auto) (0-0.5) K/uL Baso # (Auto) (0-0.2) K/uL Immature Gran # (Auto) (0.00-0.02) K/uL PT (9.0-12.0) Seconds INR (0.9-1.1) VBG pH (7.36-7.41) VBG pCO2 (38-50) mmHg VBG pO2 mmHg VBG HCO3 mmol/L VBG O2 Saturation % VBG Base Excess mEq/L Barometric Pressure mm/Hg Sodium (136-145) mmol/L Potassium (3.5-5.1) mmol/L Chloride (98-107) mmol/L Carbon Dioxide (21-32) mmol/L Anion Gap (3-11) BUN (7-18) mg/dl Creatinine (0.6-1.2) mg/dl Est Cr Clr Drug Dosing Est GFR ( Amer) ml/min Est GFR (Non-Af Amer) ml/min BUN/Creatinine Ratio (10-20) Glucose (70-99) mg/dl Lactate 1.6 (0.4-2.0) mmol/L Calcium (8.5-10.1) mg/dl Magnesium (1.8-2.4) mg/dl Total Bilirubin (0.2-1) mg/dl Direct Bilirubin (0-0.2) mg/dl AST (15-37) U/L ALT (12-78) U/L Alkaline Phosphatase (45-117) U/L Troponin I (0-0.045) ng/ml Total Protein (6.4-8.2) gm/dl Albumin (3.4-5.0) gm/dl Lipase (73-393) U/L Procalcitonin (0-0.5) ng/ml COVID-19 Eval Order Covid19 at [facility] SARS-CoV-2 (PCR) NEGATIVE (Negative) 12/26/20 12/26/20 12/26/20 Range/Units 04:08 04:08 04:08 WBC 12.66 H (4.8-10.8) K/uL RBC 5.30 (4.2-5.4) M/uL Hgb 15.6 (12.0-16.0) g/dL Hct 46.8 (37-47) % MCV 88.3 (80-100) fL MCH 29.4 (25-34) pg MCHC 33.3 (32-36) g/dL RDW Std Deviation 46.2 (36.4-46.3) fL RDW Coeff of Arleen 14.3 (11.5-14.5) % Plt Count 263 (130-400) K/uL MPV 9.2 (7.4-10.4) fL Immature Gran % (Auto) 0.3 % Neut % (Auto) 91.7 % Lymph % (Auto) 4.5 % [place] % (Auto) 3.2 % Eos % (Auto) 0.2 % Baso % (Auto) 0.1 % Neut # (Auto) 11.61 H (1.4-6.5) K/uL Lymph # (Auto) 0.57 L (1.2-3.4) K/uL [place] # (Auto) 0.40 (0.11-0.59) K/uL Eos # (Auto) 0.03 (0-0.5) K/uL Baso # (Auto) 0.01 (0-0.2) K/uL Immature Gran # (Auto) 0.04 H (0.00-0.02) K/uL PT 9.7 (9.0-12.0) Seconds INR 1.0 (0.9-1.1) VBG pH (7.36-7.41) VBG pCO2 (38-50) mmHg VBG pO2 mmHg VBG HCO3 mmol/L VBG O2 Saturation % VBG Base Excess mEq/L Barometric Pressure mm/Hg Sodium 141 (136-145) mmol/L Potassium 4.0 (3.5-5.1) mmol/L Chloride 109 H (98-107) mmol/L Carbon Dioxide 24 (21-32) mmol/L Anion Gap 8.0 (3-11) BUN 15 (7-18) mg/dl Creatinine 0.79 (0.6-1.2) mg/dl Est Cr Clr Drug Dosing Not Reportable Est GFR ( Amer) 86.1 ml/min Est GFR (Non-Af Amer) 74.3 ml/min BUN/Creatinine Ratio 18.8 (10-20) Glucose 110 H (70-99) mg/dl Lactate (0.4-2.0) mmol/L Calcium 9.6 (8.5-10.1) mg/dl Magnesium 2.1 (1.8-2.4) mg/dl Total Bilirubin 0.5 (0.2-1) mg/dl Direct Bilirubin 0.1 (0-0.2) mg/dl AST 17 (15-37) U/L ALT 32 (12-78) U/L Alkaline Phosphatase 87 (45-117) U/L Troponin I < 0.015 (0-0.045) ng/ml Total Protein 8.0 (6.4-8.2) gm/dl Albumin 4.0 (3.4-5.0) gm/dl Lipase 3722 H (73-393) U/L Procalcitonin (0-0.5) ng/ml COVID-19 Eval Order SARS-CoV-2 (PCR) (Negative) 12/26/20 12/26/20 Range/Units 04:08 04:08 WBC (4.8-10.8) K/uL RBC (4.2-5.4) M/uL Hgb (12.0-16.0) g/dL Hct (37-47) % MCV (80-100) fL MCH (25-34) pg MCHC (32-36) g/dL RDW Std Deviation (36.4-46.3) fL RDW Coeff of Arleen (11.5-14.5) % Plt Count (130-400) K/uL MPV (7.4-10.4) fL Immature Gran % (Auto) % Neut % (Auto) % Lymph % (Auto) % [place] % (Auto) % Eos % (Auto) % Baso % (Auto) % Neut # (Auto) (1.4-6.5) K/uL Lymph # (Auto) (1.2-3.4) K/uL [place] # (Auto) (0.11-0.59) K/uL Eos # (Auto) (0-0.5) K/uL Baso # (Auto) (0-0.2) K/uL Immature Gran # (Auto) (0.00-0.02) K/uL PT (9.0-12.0) Seconds INR (0.9-1.1) VBG pH 7.33 L (7.36-7.41) VBG pCO2 50 (38-50) mmHg VBG pO2 33 mmHg VBG HCO3 26 mmol/L VBG O2 Saturation 63.3 % VBG Base Excess -0.6 mEq/L Barometric Pressure 732.8 mm/Hg Sodium (136-145) mmol/L Potassium (3.5-5.1) mmol/L Chloride (98-107) mmol/L Carbon Dioxide (21-32) mmol/L Anion Gap (3-11) BUN (7-18) mg/dl Creatinine (0.6-1.2) mg/dl Est Cr Clr Drug Dosing Est GFR ( Amer) ml/min Est GFR (Non-Af Amer) ml/min BUN/Creatinine Ratio (10-20) Glucose (70-99) mg/dl Lactate (0.4-2.0) mmol/L Calcium (8.5-10.1) mg/dl Magnesium (1.8-2.4) mg/dl Total Bilirubin (0.2-1) mg/dl Direct Bilirubin (0-0.2) mg/dl AST (15-37) U/L ALT (12-78) U/L Alkaline Phosphatase (45-117) U/L Troponin I (0-0.045) ng/ml Total Protein (6.4-8.2) gm/dl Albumin (3.4-5.0) gm/dl Lipase (73-393) U/L Procalcitonin < 0.05 (0-0.5) ng/ml COVID-19 Eval Order SARS-CoV-2 (PCR) (Negative) Imaging Data Radiologist's Impression: Chest X-Ray 12/26/20 03:59 XR chest 1V portable HISTORY: Shortness of breath. COMPARISON: Chest 12/06/2019. FINDINGS: The patient's chin obscures the left lung apex. No definite pneumothorax. A left Port-A-Cath terminates in the superior cavoatrial junction. The heart is normal in size. No pleural fusions. Emphysema. No focal lung consolidations to suggest pneumonia. No evidence for pulmonary edema. IMPRESSION: No acute process. ACT 112: Negative or not required by law. Electronically signed by: Dom Garcia M.D. 12/26/2020 8:11 AM Abdomen/Pelvis CT 12/26/20 05:52 CT OF THE ABDOMEN AND PELVIS WITH CONTRAST CLINICAL HISTORY: Lipase elevation. COMPARISON STUDY: MRCP December 06, 2019. Right upper quadrant ultrasound December 05, 2019. PET/CT August 28, 2020. CT of the abdomen and pelvis August 15, 2012. TECHNIQUE: Following IV administration of 120 mL of Optiray, axial images of the abdomen and pelvis were obtained from the lung bases to the proximal femurs. Images were reviewed in the axial, sagittal, and coronal planes. IV contrast was administered without complication. Automated exposure control was utilized for the study. A dose lowering technique was utilized adhering to the principles of ALARA. CT DOSE: 764.90 mGy.cm FINDINGS: Please note that the chest CT will be reported separately. There is suspected hepatic steatosis. No hepatic lesions are identified. Slight dilatation of the common bile duct is likely related to cholecystectomy. No hepatic lesions are present. There is no peripancreatic infiltration or fluid. A 8 mm cystic lesion within the pancreatic head is similar to prior MRCP. This favors a side branch IPMN. There is no evidence for a bowel obstruction. The caliber and wall thickness of small and large bowel are normal. Sigmoid diverticulosis is noted without evidence for acute diverticulitis. No abdominal or pelvic lymphadenopathy is present. IMPRESSION: 1. No acute process within the abdomen or pelvis. 2. Unremarkable CT appearance of the pancreas. 3. No bowel obstruction. No bowel wall thickening. ACT 112: Negative or not required by law. Electronically signed by: Baldo Díaz M.D. 12/26/2020 9:21 AM Chest CTA 12/26/20 05:52 CHEST CTA for PULMONARY ARTERIES CT DOSE: HISTORY: Shortness of breath. TECHNIQUE: Multiaxial CT images of the chest were performed following the intravenous administration of contrast to evaluate the pulmonary arteries. Maximal intensity projection images were also obtained. A dose lowering technique was utilized adhering to the principles of ALARA. COMPARISON STUDY: Chest CTA 08/31/2018. FINDINGS: Mild anterior wedging within the mid thoracic spine vertebral bodies, likely chronic. No acute fractures within the visualized osseous structures. Stable 7 mm groundglass nodule within the right lung apex on image 263. Small amount of secretions within the left lower lobe segmental bronchi. The remaining central airways are patent. No pneumothorax. No pleural effusions. There is respiratory motion artifact noted. Emphysema. No focal lung consolidations to suggest pneumonia. Limited views of the upper abdomen demonstrate a normal liver, spleen, and adrenal glands. Normal caliber esophagus. Subcentimeter right thyroid nodule. No mediastinal or hilar lymphadenopathy. The heart is normal in size. No pericardial effusion. Normal caliber thoracic aorta with no evidence for dissection. The majority of the segmental and subsegmental pulmonary arteries of the bilateral lower lobes are essentially nondiagnostic due to the respiratory motion artifact. Questional filling defects at these locations is likely due to the motion artifact. The remaining pulmonary arteries show no filling defects to suggest pulmonary embolus. A left Port-A-Cath terminates in the SVC. IMPRESSION: 1. No evidence for pulmonary embolus with limitations as described above. 2. Emphysema. 3. No change in the 7 mm groundglass nodule within the right lung apex. Please refer to the chart below for recommended follow-up. Please refer to below summary of Fleischner criteria recommendations for follow- up of incidental CT nodules (Althea Durant, Guidelines for management of small pulmonary nodules detected on CT scans: A statement from the Fleischner Society, Radiology 237: [phone].) SOLID NODULES Solitary nodule size: <6 mm * Low risk patients: no follow-up needed * high risk patients: optional CT at 12 months Solitary nodule size: 6-8 mm * Low risk patients: follow-up at 6-12 months, then consider further follow-up at 18-24 months * high risk patients: initial follow-up CT at 6-12 months and then at 18-24 months if no change Solitary nodule size: >8 mm * either low or high risk patients - consider follow-up CT at 3 months, and/or CT-PET, and/or biopsy Multiple nodules size: <6 mm * Low risk patients: no routine follow-up * high risk patients: optional CT at 12 months Multiple nodules size: 6-8 mm * Low risk patients: follow-up at 3-6 months, then consider further follow-up at 18-24 months * high risk patients: follow-up at 3-6 months, then at 18-24 months if no change Multiple nodules size: >8 mm * Low risk patients: follow-up at 3-6 months, then consider further follow-up at 18-24 months * high risk patients: follow-up at 3-6 months, then at 18-24 months if no change Note: newly detected indeterminate nodule in persons 35 years of age or older. * Low risk patients: minimal or absent history of smoking and/or other known risk factors * high risk patients: history of smoking or of other known risk factors (e.g. first degree relative with lung cancer, or exposure to asbestos, radon, uranium) * if a nodule up to 8 mm is partly solid or is ground glass further follow-up is required after 24 months to exclude possible slow growing adenocarcinoma (NIMCO) SUBSOLID NODULES Solitary pure ground-glass nodule * nodule size <6 mm - no CT follow-up required * nodule size >=6 mm - follow-up CT at 6-12 months, then every 2 years until 5 years Solitary part-solid nodule * nodule size <6 mm - no CT follow-up required * nodule size >=6 mm - follow-up CT at 3-6 months. If unchanged, and solid component remains <6 mm, then annual follow-up for 5 years Multiple subsolid nodules * nodule size <6 mm - follow-up CT at 3-6 months, consider further follow-up at 2 and 4 years if stable * nodule size >=6 mm - follow-up CT at 3-6 months, subsequent management based on the most suspicious nodule(s) ACT 112: Positive. There are findings on this exam that require communication between the performing entity and the patient following Patient Test Result Information Act ([place] Act 112) guidelines. Electronically signed by: Dom Garcia M.D. 12/26/2020 9:15 AM MDM Narrative Patient was seen and evaluated as above in room C09. Review was performed of nursing notes and vital signs. I did review pertinent previous visits and patient history. After obtaining a thorough history and physical examination the above work up was performed. Patient presents to us today with worsening dys pnea. On arrival the patient is sitting at the edge of the bed and is speaking in abbreviated sentences secondary to her shortness of breath. Options of care were discussed with the patient. IV access established. Labs were drawn. Patient was placed on BiPAP. She was given IV steroids as well as DuoNeb. Patient was reevaluated with some improvement. Given the patient's dyspnea and comorbidities do believe that further evaluation and management inpatient setting is warranted. Case discussed with the hospitalist. Please refer to further documentation regarding her stay. Laboratory studies reveal mild leukocytosis 12.66 without concerning anemia. No emergent metabolic disturbance. Troponin normal. Pro-Dinesh normal. Lipase elevated. Covid testing negative. Case was discussed with the attending physician that also personally evaluated the patient. EKG was reviewed by myself and found to be Normal Sinus Rhythm at a rate of 89 beats per minute and per my interpretation reveals QRS of 90, QTc 464. No ST elevation. This was compared EKG of December 05, 2019. No definitive ST elevation. An order was placed for continuous cardiac monitoring. The monitor shows a rate of 86 with sinus rhythm. I attest that I have personally reviewed the patient medication list. GCS: 15 In the evaluation and treatment of this patient the following differential diagnoses were entertained: IN, PE, pericarditis, costochondritis, COVID-19, COPD exacerbation, pneumothorax, among others. Impression & Plan Respiratory failure, Dyspnea Discharge Plan Visit Data Chief Complaint: Respiratory Problems Stated Complaint: RESP ISSUES ED Provider: John Lincoln ED Midlevel Provider: Liam Maravilla Discharge Problem: Respiratory failure, Dyspnea Patient Disposition: Admitted As Inpatient Condition: Good Discharge Instructions Interventions: ED Discharge Assessment Last Done: 12/26/20 06:32
[2020-12-26 04:19] LABS: Basophils # (auto) 0.01 K/uL (0-0.2); Basophils % (auto) 0.1 %; Eosinophils # (auto) 0.03 K/uL (0-0.5); Eosinophils % (auto) 0.2 %; Hematocrit (blood only) 46.8 % (37-47); Hemoglobin 15.6 g/dL (12.0-16.0); Immature Granulocytes # (auto) 0.04 K/uL (0.00-0.02); Immature Granulocytes % (auto) 0.3 %; Lymphocytes # (auto) 0.57 K/uL (1.2-3.4); Lymphocytes % (auto) 4.5 %; Mean Corpuscular Hemoglobin 29.4 pg (25-34); Mean Corpuscular Hgb Conc 33.3 g/dL (32-36); Mean Corpuscular Volume 88.3 fL (80-100); Mean Platelet Volume 9.2 fL (7.4-10.4); Monocytes % (auto) 3.2 %; Neutrophils # (auto) 11.61 K/uL (1.4-6.5); Neutrophils % (auto) 91.7 %; Platelet Count 263 K/uL (130-400); RDW Coefficient of Variation 14.3 % (11.5-14.5); RDW Standard Deviation 46.2 fL (36.4-46.3); White Blood Count 12.66 K/uL (4.8-10.8)
[2020-12-26 04:23] LABS: Base Excess VBG -0.6 mEq/L; Oxygen Saturation VBG 63.3 %; pH VBG 7.33 (7.36-7.41)
[2020-12-26 04:29] LABS: Prothrombin Time 9.7 Seconds (9.0-12.0)
[2020-12-26 04:36] LABS: Alanine Aminotransferase 32 U/L (12-78); Aspartate Aminotransferase 17 U/L (15-37); BUN Creatinine Ratio 18.8 (10-20); Bilirubin Direct 0.1 mg/dl (0-0.2); Blood Urea Nitrogen 15 mg/dl (7-18); Calcium 9.6 mg/dl (8.5-10.1); Carbon Dioxide 24 mmol/L (21-32); Chloride 109 mmol/L (98-107); Est GFR (African American) 86.1 ml/min; Est GFR (Non-African American) 74.3 ml/min; Glucose 110 mg/dl (70-99); Magnesium 2.1 mg/dl (1.8-2.4); Sodium 141 mmol/L (136-145)
[2020-12-26 04:41] LABS: Alkaline Phosphatase 87 U/L (45-117); Bilirubin,Total 0.5 mg/dl (0.2-1); Lipase 3722 U/L (73-393); Troponin I < 0.015 ng/ml (0-0.045)
[2020-12-26] MEDS ORDERED: AZITHROMYCIN 500 MG in DEXTROSE 5% 250 ML IV STA (05:51)
--- NOTE | 2020-12-26 05:54 | History & Physical Report ---
Date of Service December 26, 2020 Assessment & Plan (1) Respiratory failure with hypoxia and hypercapnia: Acute on chronic Secondary to asthma/COPD exacerbation/complicated bronchitis Currently on daily prednisone at home hx JOAN on CPAP Possible sepsis Rule out PE Asymptomatic hyperlipasemia Possible recurrent pancreatitis hx choledocholithiasis status post stent placement sp cholecystectomy Patient denies abdominal symptoms. hx PSVT as per records rheumatoid arthritis, at baseline breast cancer status post surgery uterine cancer status post surgery possible prediabetes, hemoglobin A1c of 5.18 August 2018 ongoing tobacco abuse Medical telemetry Continue BiPAP CS, Azithromycin Steroids, nebs RTC CT chest PE study given history superficial LUE DVT as per records Pulmonary consult Re: Respiratory failure CT abdomen pelvis RE asymptomatic hyperlipasemia, rule out recurrent pancrea titis IVF, Bowel rest until CT abdomen pelvis results known May need GI consult pending CT abdomen pelvis results Update hemoglobin A1c May need insulin coverage for anticipated hyperglycemia following steroid Rx Nicotine patch daily DVT prophylaxis. Lovenox subcu Full code Total critical care time was 40 minutes. Text document was generated using [employer] voice recognition software. It may contain grammatical or spelling errors. Kindly contact undersigned for clarification of any documentation item in question. History of Present Illness Chief Complaint: Worsening shortness of breath Primary Care Provider: Navin Saravia MD History obtained from patient and records. Medical history significant for chronic respiratory failure secondary to COPD on home O2 currently on daily prednisone Rx, JOAN on CPAP, PSVT as per records, rheumatoid arthritis, breast cancer status post surgery radiation, uterine cancer status post surgery, skin cancer as per records, history biliary pancreatitis/choledocholithiasis status post stent placement/history cholecystectomy, hx superficial nonocclusive LUE DVT as per records, ongoing tobacco abuse. Last confinement December 2019 for choledocholithiasis status post ERCP with CBD stone extraction and stent placement. Subsequent cholecystectomy done during confinement. 3 days history of junky cough symptoms later noted to be dry last night. Worsening shortness of breath without chest pain. No known COVID-19 contacts. Patient denies aspiration. Denies abdominal pain, nausea, vomiting. Patient brought to the ER for evaluation. Decadron and neb treatment given for COPD exacerbation. BiPAP initiated at the ER. Patient feeling much better. 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 Allergies Allergy/AdvReac Type Severity Reaction Status Date / Time Tetracyclines Allergy Severe TONGUE Verified 11/22/20 11:12 SWELLS codeine Allergy Intermediate Hives Verified 11/22/20 11:12 nickel Allergy Intermediate "lip would Verified 11/22/20 11:12 swell with nickel mouthpiece with flute" acetaminophen Allergy Mild RASH Verified 11/22/20 11:12 amoxicillin Allergy Mild diarrhea Verified 11/22/20 11:12 and vomiting clavulanic acid Allergy Nausea/Vomi Unverified 12/26/20 07:26 [From Augmentin] ting bacitracin AdvReac Itching Unverified 12/26/20 07:26 Home Medications Medication Instructions Recorded Confirmed Type calcium carbonate-vit D3-min 1 tab PO DAILY 04/02/18 12/26/20 History cholecalciferol (vitamin D3) 1,000 unit PO DAILY 04/02/18 12/26/20 History [Vitamin D3] hydroxychloroquine [Plaquenil] 200 mg PO QAM 04/02/18 12/26/20 History omeprazole 20 mg PO QAM 04/02/18 12/26/20 History Oxygen Home ea 05/01/19 12/03/20 History miscellaneous medical supply #1 ea 08/11/19 12/03/20 Rx alendronate 70 mg PO WK 09/12/19 12/26/20 History albuterol sulfate 90 mcg/actuation 2 puff INHALATION Q4 PRN #18 gm 10/27/19 12/26/20 Rx aerosol inhaler umeclidinium 62.5 mcg/actuation 1 inh INHALATION QAM #1 inhaler 07/15/20 0 12/26/20 Rx blister powder for inhalation budesonide-formoterol HFA 160 2 puff INHALATION BID #10.2 gm 08/19/20 12/26/20 Rx mcg-4.5 mcg/actuation aerosol inhaler ipratropium bromide 0.02 % 2.5 ml INHALATION Q6H PRN #90 ml 08/19/20 12/26/20 Rx solution for inhalation levalbuterol HCl 1.25 mg/0.5 mL 2.5 mg INH Q4 PRN #30 ea 09/05/20 12/26/20 Rx solution for nebulization fluticasone propionate 50 See Rx Instructions .ROUTE 10/31/20 12/26/20 Rx mcg/actuation nasal .COMPLEX #48 ml spray,suspension prednisone 1 mg tablet See Rx Instructions PO DAILY 30 11/22/20 12/26/20 Rx Days #90 tab roflumilast 500 mcg tablet 500 mcg PO QAM #90 tab 11/22/20 12/26/20 Rx levalbuterol HCl 1.25 mg/0.5 mL 1.25 mg INHALATION Q20M PRN #30 ea 12/25/20 12/26/20 Rx solution for nebulization azelastine 2 spray INTRANASAL DAILY 12/26/20 12/26/20 History diltiazem HCl 180 mg PO DAILY 12/26/20 12/26/20 History ipratropium-albuterol [DuoNeb] 3 ml INHALATION QID PRN 12/26/20 12/26/20 History montelukast 10 mg PO DAILY 12/26/20 12/26/20 History triamcinolone acetonide 1 applic TOPICAL BID PRN 12/26/20 12/26/20 History Past Med/Surg History Medical History Active asthma Anxiety Asthma-COPD overlap syndrome Asthma-COPD overlap syndrome Diastolic heart failure Dry mouth GERD (gastroesophageal reflux disease) Hiatal hernia History of breast cancer 2012- RT - S/P LUMPECTOMY + RADIATION THERAPY History of uterine cancer 2013- S/P GREGORIO BSO + CHEMO Insomnia Lung nodule Melanoma S/p excision Multiple pulmonary nodules determined by computed tomography of lung Nocturnal oxygen desaturation WEARS O2 AT 2 LPM AT NIGHT Obstructive sleep apnea uses oxygen and cpap JOAN (obstructive sleep apnea) PAT (paroxysmal atrial tachycardia) FOLLOWS W/ DR. RANDHAWA Rheumatoid arthritis Tobacco abuse Surgical History History of breast biopsy History of cataract surgery History of colonoscopy History of ERCP 02/02/2020 @ [facility] History of melanoma excision [address] [place] [id number] History of Moh's micrographic surgery for skin cancer nose x2 History of sinus surgery 06/29/18-with turbinates-Dr. Lopez. MAC 3. 7.5 ETT. grade 2 view no issues. History of tonsillectomy History of total abdominal hysterectomy and bilateral salpingo-oophorectomy Hx laparoscopic cholecystectomy Status post right breast lumpectomy Family History Father Leukemia Myocardial infarction Sister Breast cancer Mother Cancer brain Other Coronary heart disease No family history of adverse response to anesthesia No family history of bleeding disorder Social History Smoking Status: Current every day smoker Tobacco Type: Cigarettes Years Smoked: 40; Cigarettes Per Day: 6 cigarretes daily; Second Hand Exposure: No; Do You Dip or Chew Tobacco: No; Tobacco Cessation Education Requested by Patient: No Hx Alcohol Use: Yes (1 beer per day) Alcohol type: beer Alcohol Intake Frequency Comment: 1 beer/day Hx Substance Use: No Preferred Language: Amharic Communication Ability: Effective Visual Impairment: No Limitations Nurse Rn Bsn Required: No Beliefs That Will Affect Care: None marital status: Current Living Situation: Spouse current occupational status: employed 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 Other Information That Helps Us Care for You: No Feels Safe at Home: Yes Safety Concerns: Feels Safe At This Time Assistive Devices: Glasses and Oxygen - Continuous Assistive Devices Comment: cell phone, purse, watch and rings (3) Review of Systems Review of Systems: As per HPI, all 10 systems reviewed, all other ROS negative Physical Exam Physical Exam: GENERAL: Slightly uncomfortable, no respiratory distress SKIN: Normal color, warm HEENT: [place] palpebral conjunctivae, no ptosis, dry buccal mucosa, BiPAP in place NECK : Supple, no tenderness CHEST : Decreased breath sounds, expiratory wheezes, no tenderness HEART : Tachycardic, no obvious murmurs ABDOMEN: Some distention, nontender EXTREMITIES : No LE swelling/tenderness, no other conspicuous deformities noted NEUROLOGIC : Coherent, no facial asymmetry, no other gross focality Results & Data Results & Data ([facility]) Vital Signs (Past 12 Hours) Vital Signs Temp Pulse Pulse Resp BP Pulse Ox 12/26/20 05:30 106 H 22 127/80 100 12/26/20 05:00 96 H 18 141/80 H 100 06/17/21 04:30 88 21 139/104 H 100 12/26/20 04:18 86 22 166/114 H 100 12/26/20 04:15 86 88 20 100 12/26/20 04:00 97 12/26/20 03:45 35.9 C L 92 H 26 H 155/87 H 93 Laboratory Results Laboratory Results WBC 12.66 K/uL (4.8-10.8) H 12/26/20 04:08 RBC 5.30 M/uL (4.2-5.4) 12/26/20 04:08 Hgb 15.6 g/dL (12.0-16.0) 12/26/20 04:08 Hct 46.8 % (37-47) 12/26/20 04:08 MCV 88.3 fL (80-100) 12/26/20 04:08 MCH 29.4 pg (25-34) 12/26/20 04:08 MCHC 33.3 g/dL (32-36) 12/26/20 04:08 RDW Std Deviation 46.2 fL (36.4-46.3) 12/26/20 04:08 RDW Coeff of Arleen 14.3 % (11.5-14.5) 12/26/20 04:08 Plt Count 263 K/uL (130-400) 12/26/20 04:08 MPV 9.2 fL (7.4-10.4) 12/26/20 04:08 Immature Gran % (Auto) 0.3 % 12/26/20 04:08 Neut % (Auto) 91.7 % 12/26/20 04:08 Lymph % (Auto) 4.5 % 12/26/20 04:08 [place] % (Auto) 3.2 % 12/26/20 04:08 Eos % (Auto) 0.2 % 12/26/20 04:08 Baso % (Auto) 0.1 % 12/26/20 04:08 Neut # (Auto) 11.61 K/uL (1.4-6.5) H 12/26/20 04:08 Lymph # (Auto) 0.57 K/uL (1.2-3.4) L 12/26/20 04:08 [place] # (Auto) 0.40 K/uL (0.11-0.59) 12/26/20 04:08 Eos # (Auto) 0.03 K/uL (0-0.5) 12/26/20 04:08 Baso # (Auto) 0.01 K/uL (0-0.2) 12/26/20 04:08 Immature Gran # (Auto) 0.04 K/uL (0.00-0.02) H 12/26/20 04:08 PT 9.7 Seconds (9.0-12.0) 12/26/20 04:08 INR 1.0 (0.9-1.1) 12/26/20 04:08 VBG pH 7.33 (7.36-7.41) L 12/26/20 04:08 VBG pCO2 50 mmHg (38-50) 12/26/20 04:08 VBG pO2 33 mmHg 12/26/20 04:08 VBG HCO3 26 mmol/L 12/26/20 04:08 VBG O2 Saturation 63.3 % 12/26/20 04:08 VBG Base Excess -0.6 mEq/L 12/26/20 04:08 Barometric Pressure 732.8 mm/Hg 12/26/20 04:08 Sodium 141 mmol/L (136-145) 12/26/20 04:08 Potassium 4.0 mmol/L (3.5-5.1) 12/26/20 04:08 Chloride 109 mmol/L (98-107) H 12/26/20 04:08 Carbon Dioxide 24 mmol/L (21-32) 12/26/20 04:08 Anion Gap 8.0 (3-11) 12/26/20 04:08 BUN 15 mg/dl (7-18) 12/26/20 04:08 Creatinine 0.79 mg/dl (0.6-1.2) 12/26/20 04:08 Est Cr Clr Drug Dosing Not Reportable 12/26/20 04:08 Est GFR ( Amer) 86.1 ml/min 12/26/20 04:08 Est GFR (Non-Af Amer) 74.3 ml/min 12/26/20 04:08 BUN/Creatinine Ratio 18.8 (10-20) 12/26/20 04:08 Glucose 110 mg/dl (70-99) H 12/26/20 04:08 Lactate 1.6 mmol/L (0.4-2.0) 12/26/20 04:08 Calcium 9.6 mg/dl (8.5-10.1) 12/26/20 04:08 Magnesium 2.1 mg/dl (1.8-2.4) 12/26/20 04:08 Total Bilirubin 0.5 mg/dl (0.2-1) 12/26/20 04:08 Direct Bilirubin 0.1 mg/dl (0-0.2) 12/26/20 04:08 AST 17 U/L (15-37) 12/26/20 04:08 ALT 32 U/L (12-78) 12/26/20 04:08 Alkaline Phosphatase 87 U/L (45-117) 12/26/20 04:08 Troponin I < 0.015 ng/ml (0-0.045) 12/26/20 04:08 Total Protein 8.0 gm/dl (6.4-8.2) 12/26/20 04:08 Albumin 4.0 gm/dl (3.4-5.0) 12/26/20 04:08 Lipase 3722 U/L (73-393) H 12/26/20 04:08 Procalcitonin < 0.05 ng/ml (0-0.5) 12/26/20 04:08 COVID-19 Eval Order Covid19 at [facility] 12/26/20 04:05 SARS-CoV-2 (PCR) NEGATIVE (Negative) 12/26/20 04:05 Diagnostic Findings Chest x-ray as per my interpretation COPD, no infiltrate EKG as per my interpretation : Rate 90, NSR, LAD, LAFB, RBBB, low voltage
[2020-12-26] MEDS ORDERED: LACTATED RINGER'S 1,000 ML IV ONE (05:56)
[2020-12-26] MEDS ORDERED: OPTIRAY 320 125ml IV ONE (06:16)
[2020-12-26] MEDS ORDERED: XOPENEX/ATROVENT 1.25mg/0.5MG NEB COMBO NEB SCH (08:06)
[2020-12-26] MEDS ORDERED: oxyCODONE HCL IR 5 MG TAB (IMMEDIATE RELEASE) PO PRN (08:06)
[2020-12-26] MEDS ORDERED: PROMETHAZINE HCL 12.5 MG in SODIUM CHLORIDE 0.9% 50 ML IV PRN (08:06)
--- NOTE | 2020-12-26 08:12 | XRay Report ---
XR chest 1V portable HISTORY: Shortness of breath. COMPARISON: Chest 12/06/2019. FINDINGS: The patient's chin obscures the left lung apex. No definite pneumothorax. A left Port-A-Cat h terminates in the superior cavoatrial junction. The heart is normal in size. No pleural fusions. Em physema. No focal lung consolidations to suggest pneumonia. No evidence for pulmonary edema. IMPRESSION: No acute process. ACT 112: Negative or not required by law. Electronically signed by: Dom Garcia M.D. 12/26/2020 8:11 AM
[2020-12-26] MEDS ORDERED: HEPARIN 100 UNIT/ML 5ML FLUSH FLUSH PRN (08:50)
[2020-12-26] MEDS: NICOTINE 7 MG/24 HR TDSY TD SCH (08:53)
[2020-12-26] MEDS: ROFLUMILAST 500 MCG TAB PO SCH (08:53)
[2020-12-26] MEDS: guaiFENesin 600 MG TABCR PO SCH ×2 (08:53→20:18)
[2020-12-26] MEDS ORDERED: dilTIAZem ER 120 MG CAPCR PO SCH (09:00)
[2020-12-26] MEDS ORDERED: HYDROXYCHLOROQUINE SULFATE 200 MG TAB PO SCH (09:00)
--- NOTE | 2020-12-26 09:16 | CT Scan Report ---
CHEST CTA for PULMONARY ARTERIES CT DOSE: HISTORY: Shortness of breath. TECHNIQUE: Multiaxial CT images of the chest were performed following the intravenous administration of contrast to evaluate the pulmonary arteries. Maximal intensity projection images were also obtaine d. A dose lowering technique was utilized adhering to the principles of ALARA. COMPARISON STUDY: Chest CTA 08/31/2018. FINDINGS: Mild anterior wedging within the mid thoracic spine vertebral bodies, likely chronic. No ac ameena fractures within the visualized osseous structures. Stable 7 mm groundglass nodule within the rig ht lung apex on image 263. Small amount of secretions within the left lower lobe segmental bronchi. T he remaining central airways are patent. No pneumothorax. No pleural effusions. There is respiratory motion artifact noted. Emphysema. No focal lung consolidations to suggest pneumonia. Limited views of the upper abdomen demonstrate a normal liver, spleen, and adrenal glands. Normal caliber esophagus. Subcentimeter right thyroid nodule. No mediastinal or hilar lymphadenopathy. The heart is normal in s ize. No pericardial effusion. Normal caliber thoracic aorta with no evidence for dissection. The jovani rity of the segmental and subsegmental pulmonary arteries of the bilateral lower lobes are essentiall y nondiagnostic due to the respiratory motion artifact. Questional filling defects at these locations is likely due to the motion artifact. The remaining pulmonary arteries show no filling defects to reyes ggest pulmonary embolus. A left Port-A-Cath terminates in the SVC. IMPRESSION: 1. No evidence for pulmonary embolus with limitations as described above. 2. Emphysema. 3. No change in the 7 mm groundglass nodule within the right lung apex. Please refer to the chart bel ow for recommended follow-up. Please refer to below summary of Fleischner criteria recommendations for follow-up of incidental CT n odules (Althea Durant, Guidelines for management of small pulmonary nodules detected on CT scans: A ronnell ocasio from the Fleischner Society, Radiology 237: [phone].) SOLID NODULES Solitary nodule size: <6 mm * Low risk patients: no follow-up needed * high risk patients: optional CT at 12 months Solitary nodule size: 6-8 mm * Low risk patients: follow-up at 6-12 months, then consider further follow-up at 18-24 months * high risk patients: initial follow-up CT at 6-12 months and then at 18-24 months if no change Solitary nodule size: >8 mm * either low or high risk patients - consider follow-up CT at 3 months, and/or CT-PET, and/or biopsy Multiple nodules size: <6 mm * Low risk patients: no routine follow-up * high risk patients: optional CT at 12 months Multiple nodules size: 6-8 mm * Low risk patients: follow-up at 3-6 months, then consider further follow-up at 18-24 months * high risk patients: follow-up at 3-6 months, then at 18-24 months if no change Multiple nodules size: >8 mm * Low risk patients: follow-up at 3-6 months, then consider further follow-up at 18-24 months * high risk patients: follow-up at 3-6 months, then at 18-24 months if no change Note: newly detected indeterminate nodule in persons 35 years of age or older. * Low risk patients: minimal or absent history of smoking and/or other known risk factors * high risk patients: history of smoking or of other known risk factors (e.g. first degree relative with lung cancer, or exposure to asbestos, radon, uranium) * if a nodule up to 8 mm is partly solid or is ground glass further follow-up is required after 24 m onths to exclude possible slow growing adenocarcinoma (NIMCO) SUBSOLID NODULES Solitary pure ground-glass nodule * nodule size <6 mm - no CT follow-up required * nodule size >=6 mm - follow-up CT at 6-12 months, then every 2 years until 5 years Solitary part-solid nodule * nodule size <6 mm - no CT follow-up required * nodule size >=6 mm - follow-up CT at 3-6 months. If unchanged, and solid component remains <6 mm, then annual follow-up for 5 years Multiple subsolid nodules * nodule size <6 mm - follow-up CT at 3-6 months, consider further follow-up at 2 and 4 years if sta ble * nodule size >=6 mm - follow-up CT at 3-6 months, subsequent management based on the most suspiciou s nodule(s) ACT 112: Positive. There are findings on this exam that require communication between the performing entity and the patient following Patient Test Result Information Act ([place] Act 112) guidelines. Electronically signed by: Dom Garcia M.D. 12/26/2020 9:15 AM
--- NOTE | 2020-12-26 09:22 | CT Scan Report ---
CT OF THE ABDOMEN AND PELVIS WITH CONTRAST CLINICAL HISTORY: Lipase elevation. COMPARISON STUDY: MRCP December 06, 2019. Right upper quadrant ultrasound December 05, 2019. PET/CT August 122020. CT of the abdomen and pelvis August 15, 2012. TECHNIQUE: Following IV administration of 120 mL of Optiray, axial images of the abdomen and pelvis w ere obtained from the lung bases to the proximal femurs. Images were reviewed in the axial, sagittal, and coronal planes. IV contrast was administered without complication. Automated exposure control w as utilized for the study. A dose lowering technique was utilized adhering to the principles of ALAR A. CT DOSE: 764.90 mGy.cm FINDINGS: Please note that the chest CT will be reported separately. There is suspected hepatic steat osis. No hepatic lesions are identified. Slight dilatation of the common bile duct is likely related to cholecystectomy. No hepatic lesions are present. There is no peripancreatic infiltration or fluid. A 8 mm cystic lesion within the pancreatic head is similar to prior MRCP. This favors a side branch IPMN. There is no evidence for a bowel obstruction. The caliber and wall thickness of small and large bowel are normal. Sigmoid diverticulosis is noted without evidence for acute diverticulitis. No abdo antionette or pelvic lymphadenopathy is present. IMPRESSION: 1. No acute process within the abdomen or pelvis. 2. Unremarkable CT appearance of the pancreas. 3. No bowel obstruction. No bowel wall thickening. ACT 112: Negative or not required by law. Electronically signed by: Baldo Díaz M.D. 12/26/2020 9:21 AM
[2020-12-26] MEDS: IPRATROPIUM BROMIDE NEB SOLN 0.02% 2.5 ML VIAL INH SCH ×3 (09:42→19:43)
[2020-12-26] MEDS: LEVALBUTEROL 1.25MG/0.5ML NEB INH SCH ×3 (09:42→19:44)
[2020-12-26] MEDS: FLUTICASONE PROPIONATE NA SPR 16 GM BTL NAE SCH (09:56)
[2020-12-26] MEDS: PANTOprazole 40 MG TAB PO SCH (09:56)
[2020-12-26] MEDS: ENOXAPARIN INJ 40 MG/0.4 ML SYR SQ SCH (09:57)
[2020-12-26] MEDS ORDERED: LACTATED RINGER'S 1,000 ML IV SCH (11:00)
[2020-12-26] MEDS ORDERED: ALBUT/IPRATROP 3MG/0.5MG NEB 3 ML VIAL NEB PRN (13:57)
[2020-12-26] MEDS ORDERED: ALBUT/IPRATROP 3MG/0.5MG NEB 3 ML VIAL NEB SCH (15:00)
--- NOTE | 2020-12-26 15:10 | Electrocardiogram Report ---
Test Reason : Blood Pressure : / mmHG Vent. Rate : 089 BPM Atrial Rate : 089 BPM P-R Int : 156 ms QRS Dur : 090 ms QT Int : 382 ms P-R-T Axes : 092 -53 063 degrees QTc Int : 464 ms Poor data quality, interpretation may be adversely affected Normal sinus rhythm Left axis deviation Low voltage QRS Incomplete right bundle branch block Nonspecific ST abnormality Abnormal ECG When compared with ECG of 05-DEC-2019 17:14, No significant change was found Confirmed by Jarrett Barros ([id number]) on 12/26/2020 3:10:05 PM Referred By: REFERRED SELF Confirmed By:Aaron Barros
--- NOTE | 2020-12-26 17:17 | Pulmonary Consultation ---
Date of Consultation December 26, 2020 Assessment & Plan (1) Dyspnea: 75-year-old female known to me from the pulmonary clinic with a history of asthma and COPD presenting to the hospital due to shortness of breath. Asthma and COPD overlap: Continues to smoke roughly 5 cigarettes a day. She was around numerous possible exacerbating factors. She also notes that decreasing her dose of prednisone has seemed to cause her symptoms to flare. Agree with Solu-Medrol at this time. Can likely transition to oral prednisone in the next day or so. We will taper her by 10 mg every 2 days. We will discuss further management of her prednisone on an outpatient basis. Dr. Feldman is evaluating her for possible Fasenra treatment in the outpatient setting. She normally takes Symbicort and Incruse Ellipta. This will be substituted to Breo and Incruse while in the hospital as we do not carry Symbicort. Continue nebs as needed. Strongly encourage smoking cessation. Continue supplemental oxygen to maintain saturations 90 to 92%. Obstructive sleep apnea: Continue CPAP therapy. Elevated lipase: Unclear etiology. Defer to hospitalist for management. She denies any symptoms at present aside from occasional diarrhea. I think a diet can be restarted. Thank you for the consultation. We will follow along with you. (2) Asthma-COPD overlap syndrome: (3) JOAN (obstructive sleep apnea): History of Present Illness Reason for Consultation: Hypoxia Attending Physician: Holden Echevarria MD History of Present Illness [id number] female with a past medical history of asthma and COPD overlap known to me from the pulmonary clinic. She was last seen by me on 11/22/2020 in the pulmonary clinic. We were weaning her off of prednisone at that time. She is chronically on Symbicort and Incruse Ellipta. She is also on Daliresp. She was seen by allergy and immunology as well and they were considering the initiation of Fasenra. Her most recent PFTs suggest an FEV1 of 34% predicted with a 44% increase postbronchodilator with albuterol. Her DLCO was reduced to 56%. Chest CTA was completed today which did not demonstrate any evidence of pulmonary embolism. No infiltrates were noted. She was started on 40 mg IV Solu-Medrol daily by the hospitalist. She was also given azithromycin. She notes that her lawn was known couple days ago and she was around a person with perfume which may have triggered her symptoms. She also notes that her breathing has become worse with the prednisone being tapered to 1 mg daily. She took a dose of 30 mg last night to try to prevent herself from going to the ER, but still had persistent symptoms. She is feeling better today. She is curren tly n.p.o. due to an elevated lipase noted on labs. Her is present with her today. 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 She says she understands her limitations. She does complain of having trouble sleeping and notes significant dry mouth when using her CPAP. She often uses Biotene mouthwash. She denies any chest pain. She denies any fevers or chills. Allergies Allergy/AdvReac Type Severity Reaction Status Date / Time Tetracyclines Allergy Severe TONGUE Verified 11/22/20 11:12 SWELLS codeine Allergy Intermediate Hives Verified 11/22/20 11:12 nickel Allergy Intermediate "lip would Verified 11/22/20 11:12 swell with nickel mouthpiece with flute" acetaminophen Allergy Mild RASH Verified 11/22/20 11:12 amoxicillin Allergy Mild diarrhea Verified 11/22/20 11:12 and vomiting clavulanic acid Allergy Nausea/Vomi Unverified 12/26/20 07:26 [From Augmentin] ting bacitracin AdvReac Itching Unverified 12/26/20 07:26 Home Medications Medication Instructions Recorded Confirmed Type calcium carbonate-vit D3-min 1 tab PO DAILY 04/02/18 12/26/20 History cholecalciferol (vitamin D3) 1,000 unit PO DAILY 04/02/18 12/26/20 History [Vitamin D3] hydroxychloroquine [Plaquenil] 200 mg PO QAM 04/02/18 12/26/20 History omeprazole 20 mg PO QAM 04/02/18 12/26/20 History Oxygen Home ea 05/01/19 12/03/20 History miscellaneous medical supply #1 ea 08/11/19 12/03/20 Rx alendronate 70 mg PO WK 09/12/19 12/26/20 History albuterol sulfate 90 mcg/actuation 2 puff INHALATION Q4 PRN #18 gm 10/27/19 12/26/20 Rx aerosol inhaler umeclidinium 62.5 mcg/actuation 1 inh INHALATION QAM #1 inhaler 07/15/20 12/26/20 Rx blister powder for inhalation budesonide-formoterol HFA 160 2 puff INHALATION BID #10.2 gm 08/19/20 12/26/20 Rx mcg-4.5 mcg/actuation aerosol inhaler ipratropium bromide 0.02 % 2.5 ml INHALATION Q6H PRN #90 ml 08/19/20 12/26/20 Rx solution for inhalation levalbuterol HCl 1.25 mg/0.5 mL 2.5 mg INH Q4 PRN #30 ea 09/05/20 12/26/20 Rx solution for nebulization fluticasone propionate 50 See Rx Instructions .ROUTE 10/31/20 12/26/20 Rx mcg/actuation nasal .COMPLEX #48 ml spray,suspension prednisone 1 mg tablet See Rx Instructions PO DAILY 30 11/22/20 12/26/20 Rx Days #90 tab roflumilast 500 mcg tablet 500 mcg PO QAM #90 tab 11/22/20 12/26/20 Rx levalbuterol HCl 1.25 mg/0.5 mL 1.25 mg INHALATION Q20M PRN #30 ea 12/25/20 12/26/20 Rx solution for nebulization azelastine 2 spray INTRANASAL DAILY 12/26/20 12/26/20 History diltiazem HCl 180 mg PO DAILY 12/26/20 12/26/20 History ipratropium-albuterol [DuoNeb] 3 ml INHALATION QID PRN 12/26/20 12/26/20 History montelukast 10 mg PO DAILY 12/26/20 12/26/20 History triamcinolone acetonide 1 applic TOPICAL BID PRN 12/26/20 12/26/20 History Patient History Medical History Active asthma Anxiety Asthma-COPD overlap syndrome Asthma-COPD overlap syndrome Diastolic heart failure Dry mouth GERD (gastroesophageal reflux disease) Hiatal hernia History of breast cancer 2012- RT - S/P LUMPECTOMY + RADIATION THERAPY History of uterine cancer 2012- S/P GREGORIO BSO + CHEMO Insomnia Lung nodule Melanoma S/p excision Multiple pulmonary nodules determined by computed tomography of lung Nocturnal oxygen desaturation WEARS O2 AT 2 LPM AT NIGHT Obstructive sleep apnea uses oxygen and cpap JOAN (obstructive sleep apnea) PAT (paroxysmal atrial tachycardia) FOLLOWS W/ DR. RANDHAWA Rheumatoid arthritis Tobacco abuse Surgical History History of breast biopsy History of cataract surgery History of colonoscopy History of ERCP 02/02/2020 @ [facility] History of melanoma excision 2018 [place] History of Moh's micrographic surgery for skin cancer nose x2 History of sinus surgery 06/29/18-with turbinates-Dr. Lopez. MAC 3. 7.5 ETT. grade 2 view no issues. History of tonsillectomy History of total abdominal hysterectomy and bilateral salpingo-oophorectomy Hx laparoscopic cholecystectomy Status post right breast lumpectomy Family History Father Leukemia Myocardial infarction Sister Breast cancer Mother Cancer brain Other Coronary heart disease No family history of adverse response to anesthesia No family history of bleeding disorder Social History Smoking Status: Current every day smoker Tobacco Type: Cigarettes Years Smoked: 40; Cigarettes Per Day: 6 cigarretes daily; Second Hand Exposure: No; Do You Dip or Chew Tobacco: No; Tobacco Cessation Education Requested by Patient: No Hx Alcohol Use: Yes (1 beer per day) Alcohol type: beer Alcohol Intake Frequency Comment: 1 beer/day Hx Substance Use: No Preferred Language: Swedish Communication Ability: Effective Visual Impairment: No Limitations Owner Operator Required: No Beliefs That Will Affect Care: None marital status: Current Living Situation: Spouse current occupational status: employed 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 Other Information That Helps Us Care for You: No Feels Safe at Home: Yes Safety Concerns: Feels Safe At This Time Assistive Devices: Glasses and Oxygen - Continuous Assistive Devices Comment: cell phone, purse, watch and rings (3) Review of Systems Review of Systems: All systems reviewed & are unremarkable except as noted in HPI & below Physical Exam Constitutional: WD/WN, vitals as above Neck: trachea midline, no thyromegaly Respiratory: normal respiratory effort, lungs clear to auscultation Cardiovascular: RRR, no murmur, no edema Gastrointestinal (Abdomen): normal bowel sounds, soft, nontender, no hepatosplenomegaly Musculoskeletal: no cyanosis or clubbing, extremities motor strength 5/5 Skin: no rashes, warm and dry Neurologic: PERRL, EOMI, accommodation nl, no face palsy, no dysarthria Psychiatric: A+Ox3, euthymic affect Results & Data Results & Data ([facility]) Vital Signs (Past 12 Hours) Vital Signs Temp Pulse Pulse Resp BP BP Pulse Ox 12/26/20 15:21 98.1 F 97 H 20 122/74 91 12/26/20 14:52 96 H 12/26/20 13:19 91 H 18 92 12/26/20 11:22 97.7 F 104 H 20 114/71 94 12/26/20 09:45 111 H 22 96 12/26/20 08:19 104 H 12/26/20 08:07 97.9 F 104 H 24 119/80 92 12/26/20 07:36 24 91 12/26/20 06:14 100 H 20 126/91 97 12/26/20 05:30 106 H 22 127/80 100 vital signs, labs and imaging reviewed PG Care Time/CCT Total # of Minutes Spent Total Time Spent with Patient: Total time spent is greater than 50% in coordination of care (as documented) at patient's floor/unit and/or counseling patient: Coding Level of Care Code 16332 Initial Inpt Care Lvl 3 Diagnoses Dyspnea R06.00 Asthma-COPD overlap syndrome J44.9 JOAN (obstructive sleep apnea) G47.33
[2020-12-26] MEDS ORDERED: BUDESONIDE/FORMOTEROL FUMARATE 80/4.5 60 PUFFS/INHALER INH SCH (21:00)
[2020-12-26] MEDS: SYMBICORT INH SCH (23:49)
[2020-12-27] MEDS: IPRATROPIUM BROMIDE NEB SOLN 0.02% 2.5 ML VIAL INH SCH ×3 (01:14→13:00)
[2020-12-27] MEDS: LEVALBUTEROL 1.25MG/0.5ML NEB INH SCH ×3 (01:14→13:00)
[2020-12-27] MEDS ORDERED: dilTIAZem ER 120 MG CAPCR PO SCH (04:40)
[2020-12-27] MEDS ORDERED: MAGNESIUM SULFATE / D5W 1 GM/100 ML BAG IV ONE (04:41)
[2020-12-27 06:50] LABS: Albumin Level 3.1 gm/dl (3.4-5.0); BUN Creatinine Ratio 18.4 (10-20); Calcium 8.7 mg/dl (8.5-10.1); Creatinine Clr Calc Pharmacy 66.1 ml/min; Est GFR (African American) 97.9 ml/min; Est GFR (Non-African American) 84.5 ml/min; Hematocrit (blood only) 38.7 % (37-47); Hemoglobin 12.7 g/dL (12.0-16.0); Immature Granulocytes # (auto) 0.03 K/uL (0.00-0.02); Immature Granulocytes % (auto) 0.2 %; Lymphocytes # (auto) 0.79 K/uL (1.2-3.4); Lymphocytes % (auto) 5.9 %; Mean Corpuscular Hemoglobin 28.7 pg (25-34); Mean Corpuscular Hgb Conc 32.8 g/dL (32-36); Mean Corpuscular Volume 87.6 fL (80-100); Mean Platelet Volume 10.3 fL (7.4-10.4); Monocytes # (auto) 0.67 K/uL (0.11-0.59); Neutrophils # (auto) 11.98 K/uL (1.4-6.5); Neutrophils % (auto) 88.9 %; Platelet Count 293 K/uL (130-400); Potassium 3.5 mmol/L (3.5-5.1); RDW Coefficient of Variation 14.3 % (11.5-14.5); RDW Standard Deviation 46.5 fL (36.4-46.3); Red Blood Count 4.42 M/uL (4.2-5.4); White Blood Count 13.47 K/uL (4.8-10.8)
[2020-12-27 06:56] LABS: Bilirubin,Total 0.3 mg/dl (0.2-1); Total Protein 6.1 gm/dl (6.4-8.2)
[2020-12-27] MEDS: FLUTICASONE PROPIONATE NA SPR 16 GM BTL NAE SCH (08:46)
[2020-12-27] MEDS: PANTOprazole 40 MG TAB PO SCH (08:47)
[2020-12-27] MEDS: ENOXAPARIN INJ 40 MG/0.4 ML SYR SQ SCH (08:47)
[2020-12-27] MEDS: ROFLUMILAST 500 MCG TAB PO SCH (08:47)
[2020-12-27] MEDS: guaiFENesin 600 MG TABCR PO SCH ×2 (08:47→20:53)
[2020-12-27] MEDS: AZITHROMYCIN 250 MG TAB PO SCH (08:47)
[2020-12-27] MEDS: dilTIAZem ER 120 MG CAPCR PO SCH (08:48)
[2020-12-27] MEDS: NICOTINE 7 MG/24 HR TDSY TD SCH (08:48)
[2020-12-27] MEDS: INCRUSE ELLIPTA INH SCH (08:55)
[2020-12-27] MEDS: SYMBICORT INH SCH ×2 (08:55→20:53)
[2020-12-27] MEDS ORDERED: FLUTICASONE/VILANTEROL 100/25MCG 14 PUFFS/INHALER INH SCH (09:00)
[2020-12-27] MEDS ORDERED: methylPREDNISolone 40 MG in SYRINGE 0 ML IV SCH (09:00)
[2020-12-27 09:20] LABS: Appearance Urine Clear (Clear); Bacteria Urine Automated Negative (Negative); Bilirubin Urine Negative (Negative); Blood Urine Negative (Negative); Cast Urine Automated 0 /lpf (0-5); Color Urine Yellow; Glucose Urine UA Negative (Negative); Ketones Urine Negative (Negative); Leukocyte Esterase Urine Trace (Negative); Nitrite Urine Negative (Negative); Protein Urine Negative (Negative); RBC Urine Automated 0-4 /hpf (0-4); Specific Gravity Urine 1.012 (1.000-1.030); Urobilinogen Urine Negative (Negative); WBC Urine Automated 0 /hpf (0-5); pH Urine 6.5 (4.5-7.5)
--- NOTE | 2020-12-27 11:19 | Orthopedic Consultation ---
Date of Consultation December 27, 2020 Assessment & Plan (1) Foreign body in left lower extremity: Unsure of the origins of this foreign body/calcium deposit. She has no history of injury of this area. Only the history of a cellulitic process that was treated with antibiotics and went away quickly. Weightbearing does not seem to aggravate this area and she states that it will hurt off and on at different times. It does not appear infectious at this time. She was wanting to see if it can be removed possibly during this stay. We will plan on getting an x-ray of the left lower extremity today. I have also asked hospitalist service to see if we can get a copy of her ultrasound that she had of this area sometime ago. Await x-rays and ultrasound report. I will have Dr. Rdz see the patient later this afternoon for planning for any further treatment. History of Present Illness Reason for Consultation: Question foreign body left distal third of lower extremity Attending Physician: Holden Echevarria MD History of Present Illness Patient is a 75-year-old white female with past medical history that is sig nificant for chronic respiratory failure secondary to COPD on home O2 currently on daily prednisone Rx, JOAN on CPAP, PSVT as per records, rheumatoid arthritis, breast cancer status post surgery radiation, uterine cancer status post surgery, skin cancer as per records, history biliary pancreatitis/choledocholithiasis status post stent placement/history cholecystectomy, hx superficial nonocclusive LUE DVT as per records, ongoing tobacco abuse. Patient was admitted for acute respiratory failure secondary to asthma and COPD exacerbation. She was noted to have shortness of breath and a productive cough over the last several days. She came to the emergency room and was admitted for her shortness of breath. She states that while she was here, she wanted to have somebody look at her left lower extremity. She states approximately year ago she had a piece of plastic from a weed Imer go into her leg. Over time she noticed a small blue piece of something sticking out of her leg and had it removed at an urgent care center. This was however more on the posterior aspect of her leg. She states at 1 point she had developed a small reddened area at the distal third of her medial tibia which was painful and turned into a cellulitis that went down into her foot and caused swelling. She was seen by her family practitioner and was put on antibiotics of which took care of her problem. Since that time she has noticed that she has some discomfort in that area and noticed a bump that was mobile in that area where the cellulitis was or started. She was wondering if it should be removed or something that could be just left alone. Allergies Allergy/AdvReac Type Severity Reaction Status Date / Time Tetracyclines Allergy Severe TONGUE Verified 11/22/20 11:12 SWELLS codeine Allergy Intermediate Hives Verified 11/22/20 11:12 nickel Allergy Intermediate "lip would Verified 11/22/20 11:12 swell with nickel mouthpiece with flute" acetaminophen Allergy Mild RASH Verified 11/22/20 11:12 amoxicillin Allergy Mild diarrhea Verified 11/22/20 11:12 and vomiting clavulanic acid Allergy Nausea/Vomi Unverified 12/26/20 07:26 [From Augmentin] ting bacitracin AdvReac Itching Unverified 12/26/20 07:26 Home Medications Medication Instructions Recorded Confirmed Type calcium carbonate-vit D3-min 1 tab PO DAILY 04/02/18 12/26/20 History cholecalciferol (vitamin D3) 1,000 unit PO DAILY 04/02/18 12/26/20 History [Vitamin D3] hydroxychloroquine [Plaquenil] 200 mg PO QAM 04/02/18 12/26/20 History omeprazole 20 mg PO QAM 04/02/18 12/26/20 History Oxygen Home ea 05/01/19 12/03/20 History miscellaneous medical supply #1 ea 08/11/19 12/03/20 Rx alendronate 70 mg PO WK 09/12/19 12/26/20 History albuterol sulfate 90 mcg/actuation 2 puff INHALATION Q4 PRN #18 gm 10/27/19 12/26/20 Rx aerosol inhaler umeclidinium 62.5 mcg/actuation 1 inh INHALATION QAM #1 inhaler 07/15/20 12/26/20 Rx blister powder for inhalation budesonide-formoterol HFA 160 2 puff INHALATION BID #10.2 gm 08/19/20 12/26/20 Rx mcg-4.5 mcg/actuation aerosol inhaler ipratropium bromide 0.02 % 2.5 ml INHALATION Q6H PRN #90 ml 08/19/20 12/26/20 Rx solution for inhalation levalbuterol HCl 1.25 mg/0.5 mL 2.5 mg INH Q4 PRN #30 ea 09/05/20 12/26/20 Rx solution for nebulization fluticasone propionate 50 See Rx Instructions .ROUTE 10/31/20 12/26/20 Rx mcg/actuation nasal .COMPLEX #48 ml spray,suspension prednisone 1 mg tablet See Rx Instructions PO DAILY 30 11/22/20 12/26/20 Rx Days #90 tab roflumilast 500 mcg tablet 500 mcg PO QAM #90 tab 11/22/20 12/26/20 Rx levalbuterol HCl 1.25 mg/0.5 mL 1.25 mg INHALATION Q20M PRN #30 ea 12/25/20 12/26/20 Rx solution for nebulization azelastine 2 spray INTRANASAL DAILY 12/26/20 12/26/20 History diltiazem HCl 180 mg PO DAILY 12/26/20 12/26/20 History ipratropium-albuterol [DuoNeb] 3 ml INHALATION QID PRN 12/26/20 12/26/20 History montelukast 10 mg PO DAILY 12/26/20 12/26/20 History triamcinolone acetonide 1 applic TOPICAL BID PRN 12/26/20 12/26/20 History Patient History Medical History Active asthma Anxiety Asthma-COPD overlap syndrome Asthma-COPD overlap syndrome Diastolic heart failure Dry mouth GERD (gastroesophageal reflux disease) Hiatal hernia History of breast cancer 2012- RT - S/P LUMPECTOMY + RADIATION THERAPY History of uterine cancer 2013- S/P GREGORIO BSO + CHEMO Insomnia Lung nodule Melanoma S/p excision Multiple pulmonary nodules determined by computed tomography of lung Nocturnal oxygen desaturation WEARS O2 AT 2 LPM AT NIGHT Obstructive sleep apnea uses oxygen and cpap JOAN (obstructive sleep apnea) PAT (paroxysmal atrial tachycardia) FOLLOWS W/ DR. RANDHAWA Rheumatoid arthritis Tobacco abuse Surgical History History of breast biopsy History of cataract surgery History of colonoscopy History of ERCP 02/02/2020 @ [facility] History of melanoma excision [address] [place] [address] History of Moh's micrographic surgery for skin cancer nose x2 History of sinus surgery 06/29/18-with turbinates-Dr. Lopez. MAC 3. 7.5 ETT. grade 2 view no issues. History of tonsillectomy History of total abdominal hysterectomy and bilateral salpingo-oophorectomy Hx laparoscopic cholecystectomy Status post right breast lumpectomy Family History Father Leukemia Myocardial infarction Sister Breast cancer Mother Cancer brain Other Coronary heart disease No family history of adverse response to anesthesia No family history of bleeding disorder Social History Smoking Status: Current every day smoker Tobacco Type: Cigarettes Years Smoked: 40; Cigarettes Per Day: 6 cigarretes daily; Second Hand Exposure: No; Do You Dip or Chew Tobacco: No; Tobacco Cessation Education Requested by Patient: No Hx Alcohol Use: Yes (1 beer per day) Alcohol type: beer Alcohol Intake Frequen cy Comment: 1 beer/day Hx Substance Use: No Preferred Language: Setswana Communication Ability: Effective Visual Impairment: No Limitations Parts Department Manager Required: No Beliefs That Will Affect Care: None marital status: Current Living Situation: Spouse current occupational status: employed 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 She is sitting up in bed. She is currently on O2 per nasal cannula. Alert and oriented x3. She does not appear to be in acute distress. Pleasant cooperative. On examination of her left lower extremity, she points to an area at the distal third of the tibia on the medial aspect stating that there is a bump there. On palpation of this area, I feel a hard foreign body or calcium deposit that is approximately a centimeter in length and approximately 5 mm in width. It feels to be in the superficial soft tissues. Prior to exam this area was not noted with any swelling and/or erythema. He states that it is a little bit sore whenever I push on it. No other swelling noted of the lower extremity to the ankle and foot. She has good range of motion of her ankle at this time and neurovascular is intact. Results & Data ([facility]) Vital Signs (Past 12 Hours) Vital Signs Temp Pulse Pulse Resp BP Pulse Ox 12/27/20 08:07 36.9 C 94 H 20 123/80 95 12/27/20 07:24 88 18 95 12/27/20 07:14 114 H 12/27/20 05:14 102 H 12/27/20 02:59 36.8 C 127 H 20 116/68 94 12/27/20 01:16 100 H 18 93 12/27/20 01:11 96 H
--- NOTE | 2020-12-27 11:19 | Hospitalist Progress Note ---
Date of Service December 27, 2020 Assessment & Plan (1) Respiratory failure with hypoxia and hypercapnia: [place]/COPD exacerbation Worsening dyspnea in the setting of chronic hypoxic respiratory failure Overall patient appears to be feeling better today. We will continue with methylprednisone 40 mg daily. Plan to switch to oral in the next day or 2. Currently her baseline oxygen requirement of 2 L of nasal cannula. Will continue with DuoNeb/Symbicort/Incruse. Will continue with Zithromax 250 mg daily for atypical coverage. Work with PT/OT. Foreign body in the left lower extremity Patient reports she had injury from [employer] a year ago and have had piece of plastic stuck since then. Recently she was treated for left lower extremity cellulitis as an outpatient as well. Recent ultrasound from outpatient revealed Linear hyperechoic focus within the subcutaneous soft tissues of the medial left teixeira. Finding is concerning for retained foreign body. Orthopedics has been consulted for further input. Elevated lipase Patient found to have elevated lipase level. However, CT abdomen/pelvis is not concerning for any pancreatic pathology. Her abdominal exam is benign. Patient denies any abdominal pain. Likely being contributed by secondary factors. Renal function is normal. PET scan in August 2020 without any active uptake. Will continue to trend. History of chronic hypoxic respiratory failure History of choledocholithiasis status post stent placement sp cholecystectomy History of obstructive sleep apnea on CPAP History of paroxysmal supraventricular tachycardia History of rheumatoid arthritis History of breast cancer status post surgery Ongoing tobacco use Oncology history: -Nasal tip melanoma, S/P resection and reconstructive surgery, sentinel lymph node positive. Overall T2a N1a - BRAF negative - She completed 1 year of Nivolumab (Opdivo) treatment on 03/29/2020. -Uterine carcinosarcoma S/P GREGORIO/BSO, T1a N0 M0, stage IA, 7 cm primary tumor, completed 6 cycles of adjuvant chemotherapy with paclitaxel and carboplatin in early March,. -Right breast DCIS, S/P lumpectomy, S/P adjuvant radiation treatment. (2012),She completed 5 years of tamoxifen in August,. Continue chronic daily medications. Admission and Anticipated Discharge Date Admission Date: December 26, 2020 Subjective Patient reports she is feeling better. Her shortness of breath is improved. Does have intermittent productive cough. Denies any chest pain, palpitations, nausea or any vomiting. Denies any abdominal pain, diarrhea or dysuria. Other review of systems negative. Review of Systems Review of Systems: All systems reviewed & are unremarkable except as noted in HPI & below Physical Exam Physical Exam: General: A&Ox3 HENT: NCAT, MMM, EOMI Eyes: PERRLA Neck: Supple, normal range of motion CVS: normal rate and rhythm Resp: b/l decreased breath sounds, left-sided port in place Abdomen: Soft, ND/NT, +BS Extremities: No c/c/e Neuro: face symmetric, no focal deficit Skin: warm and dry, no rashes/lesions/errythema MSK: , no joint swelling/erythema Results & Data [facility] Vital Signs (Past 12 Hours) Vital Signs Temp Pulse Pulse Resp BP Pulse Ox 12/27/20 08:07 36.9 C 94 H 20 123/80 95 12/27/20 07:24 88 18 95 12/27/20 07:14 114 H 12/27/20 05:14 102 H 12/27/20 02:59 36.8 C 127 H 20 116/68 94 12/27/20 01:16 100 H 18 93 12/27/20 01:11 96 H
--- NOTE | 2020-12-27 12:35 | XRay Report ---
XR tibia fibula LT 2V CLINICAL HISTORY: ? Foreign body left medial distal third tibia COMPARISON: None. DISCUSSION: No acute fracture or dislocation seen. Partially visualized severe degenerative changes of the left knee joint. There is questionable slightly radiopaque density is seen projecting to the soft tissue medially to t he mid-distal aspect of the left tibia, seen on frontal view only and might represent foreign body. IMPRESSION: No definite acute fracture or dislocation. Severe degenerative changes of the left knee joint. Possible foreign body within soft tissue, see discussion above. ACT 112: Negative or not required by law. The above report was generated using voice recognition software. It may contain grammatical, syntax o r spelling errors. Electronically signed by: Belén Hunter DO 12/27/2020 12:34 PM
[2020-12-27] MEDS ORDERED: ENOXAPARIN INJ 40 MG/0.4 ML SYR SQ SCH (13:00)
--- NOTE | 2020-12-27 16:23 | Pulmonology Progress Note ---
Date of Service December 27, 2020 Assessment & Plan (1) Dyspnea: 75-year-old female known to me from the pulmonary clinic with a history of asthma and COPD presenting to the hospital due to shortness of breath. Asthma and COPD overlap: We will transition her to prednisone tomorrow morning. Suspect that she can be discharged on Wednesday. We will reduce her nebulizer treatments to as needed given that she is very tremulous and has tachycardia. She does not sound overly bronchospastic at present. Consider Crystalkalia as an outpatient. Obstructive sleep apnea: Continue CPAP therapy. Thank you for the consultation. We will follow along with you. (2) Asthma-COPD overlap syndrome: (3) JOAN (obstructive sleep apnea): Admission and Anticipated Discharge Date Admission Date: December 26, 2020 Subjective Patient seen and examined. She has some tremulousness today. She does have some mild shortness of breath. She denies chest pain. Her appetite has been good. No fevers or chills. Review of Systems Review of Systems: All systems reviewed & are unremarkable except as noted in HPI & below Physical Exam Constitutional: WD/WN, vitals as above Neck: trachea midline, no thyromegaly Respiratory: normal respiratory effort, lungs clear to auscultation Cardiovascular: RRR, no murmur, no edema Gastrointestinal (Abdomen): normal bowel sounds, soft, nontender, no hepatosplenomegaly Musculoskeletal: no cyanosis or clubbing, extremities motor strength 5/5 Skin: no rashes, warm and dry Neurologic: PERRL, EOMI, accommodation nl, no face palsy, no dysarthria Psychiatric: A+Ox3, euthymic affect Results & Data Results & Data ([facility]) Vital Signs (Past 12 Hours) Vital Signs Temp Pulse Pulse Pulse Resp BP Pulse Ox 12/27/20 16:05 98.4 F 99 H 16 112/70 94 12/27/20 15:01 133 H 12/27/20 13:01 94 H 18 95 12/27/20 12:00 98.2 F 124 H 18 120/74 96 12/27/20 11:18 98.4 F 124 H 20 122/76 94 12/27/20 08:07 98.4 F 94 H 20 123/80 95 12/27/20 07:24 88 18 95 12/27/20 07:14 114 H 12/27/20 05:14 102 H vital signs, labs and imaging reviewed PG Care Time/CCT Total # of Minutes Spent Total Time Spent with Patient: Total time spent is greater than 50% in coordination of care (as documented) at patient's floor/unit and/or counseling patient: Coding Level of Care Code 03481 Subseq Hosp Care Lvl 2 Diagnoses Dyspnea R06.00 Asthma-COPD overlap syndrome J44.9 JOAN (obstructive sleep apnea) G47.33
[2020-12-27] MEDS ORDERED: SODIUM CHLORIDE 0.65% NA SOLN 45 ML (OCEAN) PRN (19:29)
[2020-12-27] MEDS ORDERED: SODIUM CHLORIDE 0.65% NA SOLN 45 ML (OCEAN) ONE (19:32)
[2020-12-27] MEDS: IPRATROPIUM BROMIDE NEB SOLN 0.02% 2.5 ML VIAL INH PRN (23:35)
[2020-12-27] MEDS: LEVALBUTEROL 1.25MG/0.5ML NEB INH PRN (23:36)
[2020-12-28] MEDS: IPRATROPIUM BROMIDE NEB SOLN 0.02% 2.5 ML VIAL INH PRN (05:18)
[2020-12-28] MEDS: LEVALBUTEROL 1.25MG/0.5ML NEB INH PRN (05:19)
[2020-12-28] MEDS ORDERED: ALENDRONATE SODIUM 70 MG TAB PO SCH (07:00)
[2020-12-28] MEDS: NICOTINE 7 MG/24 HR TDSY TD SCH (08:08)
[2020-12-28] MEDS: ROFLUMILAST 500 MCG TAB PO SCH (08:09)
[2020-12-28] MEDS: PANTOprazole 40 MG TAB PO SCH (08:10)
[2020-12-28] MEDS: guaiFENesin 600 MG TABCR PO SCH (08:10)
[2020-12-28] MEDS: dilTIAZem ER 120 MG CAPCR PO SCH (08:10)
[2020-12-28] MEDS: AZITHROMYCIN 250 MG TAB PO SCH (08:10)
[2020-12-28] MEDS: ENOXAPARIN INJ 40 MG/0.4 ML SYR SQ SCH (08:10)
[2020-12-28] MEDS: FLUTICASONE PROPIONATE NA SPR 16 GM BTL NAE SCH (08:10)
[2020-12-28] MEDS ORDERED: predniSONE 20 MG TAB PO SCH (09:00)
[2020-12-28] MEDS: SYMBICORT INH SCH (10:00)
[2020-12-28] MEDS: INCRUSE ELLIPTA INH SCH (10:00)
--- NOTE | 2020-12-28 13:30 | Pulmonology Progress Note ---
Date of Service December 28, 2020 Assessment & Plan (1) Dyspnea: 75-year-old female known to me from the pulmonary clinic with a history of asthma and COPD presenting to the hospital due to shortness of breath. Asthma and COPD overlap: Agree with prednisone taper. Stable for discharge home today. Continue home inhaler regimen upon discharge. She does not sound overly bronchospastic at present. Consider Bridger as an outpatient. We will schedule her for follow-up with me in the clinic in 1 to 2 weeks. Obstructive sleep apnea: Continue CPAP therapy. Thank you for the consultation. (2) Asthma-COPD overlap syndrome: (3) JOAN (obstructive sleep apnea): Admission and Anticipated Discharge Date Admission Date: December 26, 2020 Subjective Patient seen and examined. She is ready for discharge at this time and is eager to go home. She feels that her breathing has improved. She is sitting in bed and reviewing her discharge paperwork. She denies any chest pain, fevers, chills or night sweats. Shortness of breath is close to her baseline. Review of Systems Review of Systems: All systems reviewed & are unremarkable except as noted in HPI & below Physical Exam Constitutional: WD/WN, vitals as above Neck: trachea midline, no thyromegaly Respiratory: normal respiratory effort, lungs clear to auscultation Cardiovascular: RRR, no murmur, no edema Gastrointestinal (Abdomen): normal bowel sounds, soft, nontender, no hepatosplenomegaly Musculoskeletal: no cyanosis or clubbing, extremities motor strength 5/5 Skin: no rashes, warm and dry Neurologic: PERRL, EOMI, accommodation nl, no face palsy, no dysarthria Psychiatric: A+Ox3, euthymic affect Results & Data Results & Data ([facility]) Vital Signs (Past 12 Hours) Vital Signs Temp Pulse Pulse Pulse Resp BP Pulse Ox 12/28/20 12:23 98.1 F 90 80 20 118/76 95 12/28/20 11:19 98.1 F 80 20 118/76 95 12/28/20 08:00 85 12/28/20 07:18 98.1 F 86 20 125/81 95 12/28/20 05:19 95 12/28/20 03:49 115 H 93 12/28/20 03:07 98.1 F 121 H 18 126/80 93 Vital signs, labs and imaging reviewed. PG Care Time/CCT Total # of Minutes Spent Total Time Spent with Patient: Total time spent is greater than 50% in coordination of care (as documented) at patient's floor/unit and/or counseling patient: Coding Level of Care Code 76523 Subseq Hosp Care Lvl 2 Diagnoses Dyspnea R06.00 Asthma-COPD overlap syndrome J44.9 JOAN (obstructive sleep apnea) G47.33
--- NOTE | 2021-01-05 18:31 | Discharge Summary ---
Date of Service January 05, 2021 Admission HPI Per Admitting Provider History obtained from patient and records. Medical history significant for chronic respiratory failure secondary to COPD on home O2 currently on daily prednisone Rx, JOAN on CPAP, PSVT as per records, rheumatoid arthritis, breast cancer status post surgery radiation, uterine cancer status post surgery, skin cancer as per records, history biliary pancreatitis/choledocholithiasis status post stent placement/history cho lecystectomy, hx superficial nonocclusive LUE DVT as per records, ongoing tobacco abuse. Last confinement December 2019 for choledocholithiasis status post ERCP with CBD stone extraction and stent placement. Subsequent cholecystectomy done during confinement. 3 days history of junky cough symptoms later noted to be dry last night. Worsening shortness of breath without chest pain. No known COVID-19 contacts. Patient denies aspiration. Denies abdominal pain, nausea, vomiting. Patient brought to the ER for evaluation. Decadron and neb treatment given for COPD exacerbation. BiPAP initiated at the ER. Patient feeling much better. 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 Admission Exam Per Admitting Provider GENERAL: Slightly uncomfortable, no respiratory distress SKIN: Normal color, warm HEENT: [place] palpebral conjunctivae, no ptosis, dry buccal mucosa, BiPAP in place NECK : Supple, no tenderness CHEST : Decreased breath sounds, expiratory wheezes, no tenderness HEART : Tachycardic, no obvious murmurs ABDOMEN: Some distention, nontender EXTREMITIES : No LE swelling/tenderness, no other conspicuous deformities noted NEUROLOGIC : Coherent, no facial asymmetry, no other gross focality Principal Diagnosis Athma/COPD exacerbation Worsening dyspnea in the setting of chronic hypoxic respiratory failure Discharge Exam General: A&Ox3 HENT: NCAT, MMM, EOMI Eyes: PERRLA Neck: Supple, normal range of motion CVS: normal rate and rhythm Resp: b/l decreased breath sounds, left-sided port in place Abdomen: Soft, ND/NT, +BS Extremities: No c/c/e Neuro: face symmetric, no focal deficit Skin: warm and dry, no rashes/lesions/errythema MSK: , no joint swelling/erythema Discharge Data Allergies Allergy/AdvReac Type Severity Reaction Status Date / Time Tetracyclines Allergy Severe TONGUE Verified 11/22/20 11:12 SWELLS codeine Allergy Intermediate Hives Verified 11/22/20 11:12 nickel Allergy Intermediate "lip would Verified 11/22/20 11:12 swell with nickel mouthpiece with flute" acetaminophen Allergy Mild RASH Verified 11/22/20 11:12 amoxicillin Allergy Mild diarrhea Verified 11/22/20 11:12 and vomiting clavulanic acid Allergy Nausea/Vomi Unverified 12/26/20 07:26 [From Augmentin] ting bacitracin AdvReac Itching Unverified 12/26/20 07:26 Consultations 12/26/20 05:20 ED Decision to Admit Stat 12/26/20 08:06 Consult Pulmonology Routine 12/26/20 16:21 Consult Orthopedic Surgery Routine Ordered Studies 12/26/20 05:52 CT abd pelvis IV con only Urgent CT angio chest PE protocol Urgent Hospital Course (1) Respiratory failure with hypoxia and hypercapnia: Athma/COPD exacerbation Worsening dyspnea in the setting of chronic hypoxic respiratory failure Pulmonary Medicine was consulted. Patient was treated with steroids and was discharged on steroid regimen. Patient was also true with bronchodilators and Zithromax. Work with PT/ OT. On the day of discharge patient was at her baseline oxygen requirement. Patient was discharged in stable condition. Patient to follow-up with Pulmonary Medicine and Orthopedics as an outpatient. Foreign body in the left lower extremity Patient reports she had injury from week [place] a year ago and have had piece of plastic stuck since then. Recently she was treated for left lower extremity cellulitis as an outpatient as well. Recent ultrasound from outpatient revealed Linear hyperechoic focus within the subcutaneous soft tissues of the medial left teixeira. Finding is concerning for retained foreign body. Orthopedics Was consulted. No intervention during this hospitalization. Patient will need to follow up with Orthopedics as an outpatient. Elevated lipase Patient found to have elevated lipase level. However, CT abdomen/pelvis is not concerning for any pancreatic pathology. Her abdominal exam is benign. Patient denies any abdominal pain. Likely being contributed by secondary factors. Renal function is normal. PET scan in August 2020 without any active uptake. lipase improved significantly prior to discharge. History of chronic hypoxic respiratory failure History of choledocholithiasis status post stent placement sp cholecystectomy History of obstructive sleep apnea on CPAP History of paroxysmal supraventricular tachycardia History of rheumatoid arthritis History of breast cancer status post surgery Ongoing tobacco use Oncology history: -Nasal tip melanoma, S/P resection and reconstructive surgery, sentinel lymph node positive. Overall T2a N1a - BRAF negative - She completed 1 year of Nivolumab (Opdivo) treatment on 03/29/2020. -Uterine carcinosarcoma S/P GREGORIO/BSO, T1a N0 M0, stage IA, 7 cm primary tumor, completed 6 cycles of adjuvant chemotherapy with paclitaxel and carboplatin in early March,. -Right breast DCIS, S/P lumpectomy, S/P adjuvant radiation treatment. (2012),She completed 5 years of tamoxifen in August,. Continue chronic daily medications. Total Time Total Time Spent Total Time Spent (In Minutes): 35 Discharge Plan Discharge Items Patient Disposition: Home - Self-Care Reason For Visit: RESPIRATORY FAILURE Discharge Diagnosis: asthma/copd exacerbation Condition on Discharge: Good Activity: Resume your previous activity Non-emergency contact: Primary Care Provider Call non-emergency contact if: your symptoms worsen Follow-up/Referrals: Navin Saravia MD [Primary Care Provider] - Diet: Heart Healthy Addtl Attending Provider Instructions: Follow-up with your primary care physician, pulmonary and orthopedics as an outpatient. Appointments have been requested. Prednisone: 4 tabs tomorrow followed by 3 tabs/day for two days, followed by 2 tabs daily for two days, followed by 1 tab/day for two days. Start taking azithromycin 250 mg daily for 2 more days starting tomorrow. Please avoid Plaquenil for 2 days while you are on azithromycin. Pending Studies at Discharge: No Stand-Alone Forms: My [facility] [employer], Smoking Cessation Medications and DC Order Prescriptions: New azithromycin 250 mg Tablet 250 mg PO QAM Qty: 2 RF: 0 prednisone 10 mg tablet 10 mg PO DAILY Qty: 17 RF: 0 Continued albuterol sulfate 90 mcg/actuation HFA aerosol inhaler 2 puff Inhalation Q4 PRN (Reason: Shortness Of Breath Or Wheezing) Qty: 18 RF: 1 Incruse Ellipta 62.5 mcg/actuation blister with device 1 inh INHALATION QAM Qty: 1 RF: 5 levalbuterol HCl 1.25 mg/0.5 mL solution for nebulization 2.5 mg INH Q4 PRN (Reason: Shortness Of Breath Or Wheezing) Qty: 30 RF: 3 fluticasone propionate 50 mcg/actuation spray,suspension See Rx Instructions .ROUTE .COMPLEX Qty: 48 RF: 5 levalbuterol HCl 1.25 mg/0.5 mL solution for nebulization 1.25 mg inhalation Q20M PRN (Reason: shortness of breath or wheezing) Qty: 30 RF: 0 Daliresp 500 mcg tablet 500 mcg PO QAM Qty: 90 RF: 3 prednisone 1 mg tablet See Rx Instructions PO DAILY 30 Days Qty: 90 RF: 1 (DME) CPAP Supplies Misc See Rx Instructions .ROUTE .MEDSUPPLY Qty: 1 RF: 0 Symbicort 160-4.5 mcg/actuation HFA aerosol inhaler 2 puff INHALATION BID Qty: 10.2 RF: 1 ipratropium bromide 0.02 % solution 2.5 ml inhalation Q6H PRN (Reason: shortness of breath or wheezing) Qty: 90 RF: 3 (DME) Oxygen Home Liters Per Minute See Dose Instructions .ROUTE .MEDSUPPLY RF: 0 omeprazole 20 mg Capsule,Delayed Release(Dr/Ec) 20 mg PO QAM RF: 0 hydroxychloroquine [Plaquenil] 200 mg Tablet 200 mg PO QAM RF: 0 cholecalciferol (vitamin D3) [Vitamin D3] 1,000 unit Capsule 1,000 unit PO DAILY RF: 0 calcium carbonate-vit D3-min 600 mg calcium- 400 unit Tablet 1 tab PO DAILY RF: 0 alendronate 70 mg tablet 70 mg PO WK RF: 0 ipratropium-albuterol 0.5 mg-3 mg(2.5 mg base)/3 mL Solution For Nebulization 3 ml INHALATION QID PRN (Reason: Shortness Of Breath Or Wheezing) RF: 0 diltiazem HCl 180 mg capsule,extended release 24hr 180 mg PO DAILY RF: 0 triamcinolone acetonide 0.1 % cream 1 applic TOPICAL BID PRN (Reason: Skin Irritation) RF: 0 montelukast 10 mg tablet 10 mg PO DAILY RF: 0 azelastine 137 mcg (0.1 %) aerosol,spray 2 spray intranasal DAILY RF: 0 Discharge Orders: Discharge Order (Routine); Ordered 12/28/20 Ordered By: Holden Kraft/Other Patient Handouts: Chest and Lung Problems, Shortness of Breath Maximizing ... Admission Data Admit Date/Time: 12/26/20 06:02 Attending Provider: Holden Echevarria Admit Provider: Nelson Pires Primary Care Provider: Navin Saravia Other Providers: Nelson Pires ; Emerson Buck ; Gibson Garibay ; Florence Leal ; Jordan Woodward ; Alicia Johnson ; Cory Esparza ; Michael Luke ; Aurelio Treviño ; Michael Fierro ; Deshawn Rdz ; Greg Davis ; Harriett Rivero ; Bonifacio Langford ; Mikki Contreras ; Galileo Munoz ; David Knight ; Dick Livingston ; Raul Juarez ; David Mathews ; Fuad Dykes ; Wilfred Mata ; Robert Tomlin ; Pietro Maciel ; Mikki Layton ; Nabor Norman ; Rubio Anderson ; Coni Abel ; Andrews Quiñonez ; Charisse Parks Other Interventions: Discharge Summary Assessment (RN) Last Done: 12/28/20 12:23
--- NOTE | 2021-01-08 12:17 | Coding Query ---
CODING QUERY To promote full compliance with coding requirements relating to patient care, provider participation is requested in all cases of ear pull machine operator uncertainty. Please assist us with the question(s) below: Coding Question(s): Patient with chronic hypoxic respiratory failure admitted for COPD exacerbation. DS documents dyspnea in the setting of chronic respiratory failure. H/P documents acute/chronic respiratory failure with hypox and hypercapnia. Please check below the diagnosis that was treated during this IP stay. Note: patient treated with BIPAP in ED. Thanks for your help! SANIYA Moctezuma [facility] Physician's Response(s): dyspnea with Chronic respiratory failure Acute on Chronic Respiratory Failure with Hypoxia and Hypercapnia Cannot Clinically correlate acuity of respiratory failure Other: Please document: Principal Diagnosis: "that condition established after study, to be chiefly responsible for occasioning the admission of the patient to the hospital for care." Co-Existing Principal Diagnosis: "when two or more diagnoses equally meet the criteria for principal diagnosis as determined by the circumstances of admission, diagnostic work up, and/or therapy provided, and the Alphabetic Index, Tabular List, or another coding guideline does not provide sequencing direction, any one of the diagnoses may be sequenced first." "When the physician has documented what appears to be a current diagnosis in the body of the record, but has not included the diagnosis in the final diagnostic statement, the physician should be asked whether the diagnosis should be added." (Source Coding Clinic 2 QTR90. p3-4) SHELBID
== END 2020-12-28 14:00 | disposition home or self-care (01) | DRG 191 ==
LOC: ED 03:40 → 2N 06:02

== ENCOUNTER 2021-02-14 05:35 | Inpatient (IN) ==
[2021-02-14] MEDS ORDERED: ALBUT/IPRATROP 3MG/0.5MG NEB 3 ML VIAL NEB ONE (05:55)
[2021-02-14] MEDS ORDERED: methylPREDNISolone 125 MG/2 ML VIAL IV STA (05:55)
--- NOTE | 2021-02-14 06:02 | Emergency Department Note ---
History of Present Illness General Chief complaint: Respiratory Problems Stated complaint: HARD TIME BREATHING History of Present Illness This is a 75-year-old female presenting to the emergency department for nidhi luation of breathing difficulty. The patient states her symptoms have been waxing and waning for the past several days. She has a history of tobacco use and complicated asthma and COPD. The patient has been admitted for respiratory issues in the past, with her most recent admission about 6 or 7 weeks ago. The patient does follow with [facility] pulmonology. She has not had fevers or chills. She does wear oxygen at home and has not increased her home oxygen use. No new medications. No fevers or chills. She rates her discomfort an 8/10. Home Medications Medication Instructions Recorded Confirmed Type calcium carb-vit D3-minerals 600 1 tab PO BID 04/02/18 02/14/21 History mg calcium-400 unit tablet (Calcium 600 + Minerals) cholecalciferol (vitamin D3) 25 1,000 unit PO HS 04/02/18 02/14/21 History mcg (1,000 unit) capsule (Vitamin D3) hydroxychloroquine 200 mg tablet 200 mg PO QAM 04/02/18 02/14/21 History (Plaquenil) omeprazole 20 mg capsule,delayed 20 mg PO QAM 04/02/18 02/14/21 History release Oxygen Home ea 05/01/19 01/09/21 History CPAP Supplies #1 ea 08/11/19 01/09/21 Rx alendronate 70 mg tablet (Fosamax) 70 mg PO WK 09/12/19 02/14/21 History umeclidinium 62.5 mcg/actuation 1 inh INHALATION QAM #1 inhaler 07/15/20 02/14/21 Rx blister powder for inhalation (Incruse Ellipta) budesonide-formoterol HFA 160 2 puff INHALATION BID #10.2 gm 08/19/20 02/14/21 Rx mcg-4.5 mcg/actuation aerosol inhaler (Symbicort) ipratropium bromide 0.02 % 2.5 ml INHALATION Q6H PRN #90 ml 08/19/20 02/14/21 Rx solution for inhalation roflumilast 500 mcg tablet 500 mcg PO QAM #90 tab 11/22/20 02/14/21 Rx (Daliresp) azelastine 137 mcg (0.1 %) nasal 2 spray INTRANASAL DAILY 12/26/20 02/14/21 History spray aerosol diltiazem HCl 180 mg 180 mg PO QAM 12/26/20 02/14/21 History capsule,extended release 24 hr (Cardizem CD) ipratropium 0.5 mg-albuterol 3 mg 3 ml INHALATION QID PRN 12/26/20 02/14/21 History (2.5 mg base)/3 mL nebulization soln montelukast 10 mg tablet 10 mg PO HS 12/26/20 02/14/21 History (Singulair) albuterol sulfate 90 mcg/actuation 2 puff INHALATION Q4 PRN 02/14/21 02/14/21 H istory aerosol inhaler (ProAir HFA) fluticasone propionate 50 2 spray INTRANASAL HS 02/14/21 02/14/21 History mcg/actuation nasal spray,suspension (Flonase Allergy Relief) levalbuterol HCl 1.25 mg/0.5 mL 2.5 mg INH Q4 PRN 02/14/21 02/14/21 History solution for nebulization (Xopenex Concentrate) prednisone 10 mg tablet 10 mg PO QAM 02/14/21 02/14/21 History Allergies Allergy/AdvReac Type Severity Reaction Status Date / Time Tetracyclines Allergy Severe TONGUE Verified 02/14/21 07:29 SWELLS codeine Allergy Intermediate Hives Verified 02/14/21 07:29 nickel Allergy Intermediate "lip would Verified 02/14/21 07:29 swell with nickel mouthpiece with flute" acetaminophen Allergy Mild RASH Verified 02/14/21 07:29 amoxicillin Allergy Mild diarrhea Verified 02/14/21 07:29 and vomiting bacitracin AdvReac Mild Itching Unverified 02/14/21 10:45 clavulanic acid AdvReac Mild Nausea/Vomi Unverified 02/14/21 10:45 [From Augmentin] ting Past Med/Surg History Medical History Active asthma Anxiety Asthma exacerbation Asthma-COPD overlap syndrome Asthma-COPD overlap syndrome Diastolic heart failure Dry mouth GERD (gastroesophageal reflux disease) Hiatal hernia History of breast cancer 2013- RT - S/P LUMPECTOMY + RADIATION THERAPY History of uterine cancer 2013- S/P GREGORIO BSO + CHEMO Insomnia Lung nodule Melanoma S/p excision Multiple pulmonary nodules determined by computed tomography of lung Nocturnal oxygen desaturation WEARS O2 AT 2 LPM AT NIGHT Obstructive sleep apnea uses oxygen and cpap JOAN (obstructive sleep apnea) PAT (paroxysmal atrial tachycardia) FOLLOWS W/ DR. RANDHAWA Rheumatoid arthritis Tobacco abuse Surgical History History of breast biopsy History of cataract surgery History of colonoscopy History of ERCP 02/02/2020 @ [facility] History of melanoma excision 2018 [place] History of Moh's micrographic surgery for skin cancer nose x2 History of sinus surgery 06/29/18-with turbinates-Dr. Lopez. MAC 3. 7.5 ETT. grade 2 view no issues. History of tonsillectomy History of total abdominal hysterectomy and bilateral salpingo-oophorectomy Hx laparoscopic cholecystectomy Status post right breast lumpectomy Family History Father Leukemia Myocardial infarction Sister Breast cancer Mother Cancer brain Other Coronary heart disease No family history of adverse response to anesthesia No family history of bleeding disorder Social History Smoking Status: Current every day smoker Tobacco Type: Cigarettes Years Smoked: 40; Cigarettes Per Day: 5; Second Hand Exposure: No; Do You Dip or Chew Tobacco: No; Tobacco Cessation Education Requested by Patient: Yes Hx Alcohol Use: Yes Alcohol type: beer Alcohol Intake Frequency Comment: 1 beer/day Hx Substance Use: No Preferred Language: Portuguese Communication Ability: Effective Visual Impairment: No Limitations Living Advisor Required: No Beliefs That Will Affect Care: None marital status: Current Living Situation: Spouse current occupational status: employed 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 Other Information That Helps Us Care for You: No Feels Safe at Home: Yes Safety Concerns: Feels Safe At This Time Assistive Devices: Oxygen - Continuous Assistive Devices Comment: 2 L/min O2 at bedtime Review of Systems A total of 10 systems reviewed and were otherwise negative Physical Exam Vital Signs Vital Signs - 24 hr 02/14/21 05:38 02/14/21 05:53 02/14/21 06:17 Temperature 36.6 C Temperature Source Temporal Artery Scan Pulse Rate 100 H Pulse Rate [Finger] 85 Pulse Rate from SpO2 Sensor Respiratory Rate 26 H 26 H Respiratory Effort / Characteristics Spontaneous Spontaneous Short of Breath Blood Pressure 152/94 H Blood Pressure [Left Arm] Blood Pressure Mean 113 Blood Pressure Mean [Left Arm] Pulse Oximetry 95 99 Oxygen Delivery Method Nasal Cannula Nasal Cannula Oxymask Oxygen Flow Rate 2 2 4 Sepsis New/Unexplained Change in Mental Status N/A Sepsis Action Taken by Nursing No Action Required Pulse Oximetry Post Tiitration 98 02/14/21 06:45 02/14/21 06:49 02/14/21 06:51 Temperature Temperature Source Pulse Rate 85 Pulse Rate [Finger] 87 Pulse Rate from SpO2 Sensor Respiratory Rate 20 24 Respiratory Effort / Characteristics Short of Breath Blood Pressure Blood Pressure [Left Arm] 123/96 Blood Pressure Mean Blood Pressure Mean [Left Arm] 105 Pulse Oximetry 100 100 Oxygen Delivery Method Nasal Cannula Nasal Cannula Nasal Cannula Oxygen Flow Rate 2 2 2 Sepsis New/Unexplained Change in Mental Status Sepsis Action Taken by Nursing Pulse Oximetry Post Tiitration 02/14/21 07:00 02/14/21 07:30 02/14/21 08:00 Temperature Temperature Source Pulse Rate 89 109 H 89 Pulse Rate [Finger] Pulse Rate from SpO2 Sensor 87 93 H 89 Respiratory Rate 21 23 23 Respiratory Effort / Characteristics Blood Pressure 102/81 126/72 124/78 Blood Pressure [Left Arm] Blood Pressure Mean 88 90 93 Blood Pressure Mean [Left Arm] Pulse Oximetry 100 100 100 Oxygen Delivery Method Oxygen Flow Rate Sepsis New/Unexplained Change in Mental Status Sepsis Action Taken by Nursing Pulse Oximetry Post Tiitration 02/14/21 08:30 Temperature Temperature Source Pulse Rate 114 H Pulse Rate [Finger] Pulse Rate from SpO2 Sensor 115 H Respiratory Rate 23 Respiratory Effort / Characteristics Blood Pressure 111/64 Blood Pressure [Left Arm] Blood Pressure Mean 79 Blood Pressure Mean [Left Arm] Pulse Oximetry 99 Oxygen Delivery Method Oxygen Flow Rate Sepsis New/Unexplained Change in Mental Status Sepsis Action Taken by Nursing Pulse Oximetry Post Tiitration VITALS: Vitals are noted on the nurse's note and reviewed by myself. Vital signs stable. GENERAL: Chronically ill-appearing white female who is speaking in short sentences. She does appear with increased work of breathing. She was transitioned from 2 L nasal cannula to nonrebreather. HEAD: Normocephalic atraumatic. HEART: Regular rate and rhythm without murmurs gallops or rubs. LUNGS: Generally diminished breath sounds throughout. Difficult to hear on the left. There is some mild wheezing on the right. ABDOMEN: Positive normal bowel sounds x 4. Soft, nontender, without masses or organomegaly. No guarding or rebound tenderness. MUSCULOSKELETAL: No muscle atrophy, erythema, or edema noted. Full range of motion in all extremities. NEURO: Patient was alert and oriented to person place and time. CN II through XII grossly intact. Course Administered Medications Albuterol (Albut/Ipratrop 3mg/0.5mg Neb 3 Ml Vial) 3 ml INH Q6R [place] Stop: 03/16/21 12:59 Last Admin: 02/14/21 17:30 Dose: 3 ml Documented by: [id number] Admin: 02/14/21 12:16 Dose: 3 ml Documented by: [id number] Diltiazem HCl (Diltiazem Hcl 180 Mg Capcr) 180 mg PO QAM [place] Stop: 03/16/21 09:29 Last Admin: 02/14/21 11:24 Dose: 180 mg Documented by: [id number] Fluticasone Propionate (Fluticasone Propionate Na Spr 16 Gm Btl) 2 sprays NA [facility] Stop: 03/16/21 20:59 Last Admin: 02/14/21 20:37 Dose: 2 sprays Documented by: [id number] Fluticasone/Vilanterol (Fluticasone/Vilanterol 200/25mcg 14 Puffs/Inhaler) 1 puffs INH HS COUNTS INCLUDE 234 BEDS AT THE [facility] Stop: 03/16/21 20:59 Last Admin: 02/14/21 20:38 Dose: 1 puffs Documented by: [id number] Guaifenesin (Guaifenesin 600 Mg Tabcr) 1,200 mg PO Q12 [place] Stop: 03/16/21 20:59 Last Admin: 02/14/21 20:38 Dose: 1,200 mg Documented by: [id number] Hydroxychloroquine Sulfate (Hydroxychloroquine Sulfate 200 Mg Tab) 200 mg PO QAM [place] Stop: 03/16/21 09:29 Last Admin: 02/14/21 11:24 Dose: 200 mg Documented by: [id number] Methylprednisolone 40 mg/ (Syringe) 0.64 mls @ 1.5 mls/min IV BID [place] Stop: 03/16/21 20:59 Last Admin: 02/14/21 21:50 Dose: 1.5 mls/min Documented by: [id number] Loratadine (Loratadine 10 Mg Tab) 10 mg PO [facility] Stop: 03/16/21 10:14 Last Admin: 02/14/21 13:05 Dose: 10 mg Documented by: [id number] Miscellaneous (Azelastine 0.1% Nasal [place]~Order Awaiting Action) 1 ea N/A QS COUNTS INCLUDE 234 BEDS AT THE [facility] Stop: 03/16/21 15:59 Last Admin: 02/14/21 15:00 Dose: Not Given Documented by: [id number] Montelukast Sodium (Montelukast Sodium 10 Mg Tablet) 10 mg PO [facility] Stop: 03/16/21 20:59 Last Admin: 02/14/21 20:39 Dose: 10 mg Documented by: [id number] Multivitamins/Minerals (Calcium 600mg + Vit D 400 Iu Tab) 1 tab PO BID COUNTS INCLUDE 234 BEDS AT THE [facility] Stop: 03/16/21 09:29 Last Admin: 02/14/21 20:39 Dose: 1 tab Documented by: [id number] Admin: 02/14/21 12:35 Dose: 1 tab Documented by: [id number] Nicotine (Nicotine 7 Mg/24 Hr Tdsy) 7 mg TD [facility] Stop: 03/16/21 09:59 Last Admin: 02/14/21 11:24 Dose: 7 mg Documented by: [id number] Pantoprazole Sodium (Pantoprazole 40 Mg Tab) 40 mg PO [facility]; Protocol Stop: 03/16/21 11:29 Last Admin: 02/14/21 12:34 Dose: 40 mg Documented by: [id number] Roflumilast (Roflumilast 500 Mcg Tab) 500 mcg PO [facility] Stop: 03/16/21 09:29 Last Admin: 02/14/21 11:24 Dose: 500 mcg Documented by: [id number] Umeclidinium [place] (Umeclidinium [place] 62.5mcg/Blister 7 Puffs/Inhaler) 1 puffs INH [facility] Stop: 03/16/21 09:29 Last Admin: 02/14/21 11:23 Dose: 1 puffs Documented by: [id number] Vitamin D (Cholecalciferol 1,000 Units 25 Mcg Tab) 1,000 units PO [facility] Stop: 03/16/21 20:59 Last Admin: 02/14/21 20:39 Dose: 1,000 units Documented by: [id number] Discontinued Medications Albuterol (Albut/Ipratrop 3mg/0.5mg Neb 3 Ml Vial) 12 ml NEB ONE ONE Stop: 02/14/21 05:56 Last Admin: 02/14/21 06:12 Dose: 12 ml Documented by: [id number] Budesonide/Formoterol Fumarate (Budesonide/Formoterol Fumarate 160/4.5 60 Puffs/Inhaler) 2 puffs INH BID [place] Stop: 03/16/21 09:29 Last Admin: 02/14/21 13:19 Dose: Not Given Documented by: [id number] Fluticasone/Vilanterol (Fluticasone/Vilanterol 200/25mcg 14 Puffs/Inhaler) 1 puffs INH DAILY [place] Stop: 03/16/21 09:29 Last Admin: 02/14/21 13:19 Dose: Not Given Documented by: [id number] Methylprednisolone (Methylprednisolone 125 Mg/2 Ml Vial) 125 mg IV NOW STA Stop: 02/14/21 05:56 Last Admin: 02/14/21 06:31 Dose: 125 mg Documented by: [id number] Non-Formulary Medication (Calcium Carbonate-Vit D3-Min [Calcium 600 + Minerals]) 1 tab PO BID [place] Stop: 03/16/21 09:29 Last Admin: 02/14/21 13:19 Dose: Not Given Documented by: [id number] Medical Decision Making Differential Diagnosis Differential diagnosis: Etiologies such as infections, reactive airway disease, COPD, pneumonia, pleural effusion, pulmonary edema, ARDS, pneumothorax, CHF, cardiac ischemia, cardiac tamponade, dysrhythmia, anemia, pulmonary embolism, musculoskeletal, gastrointestinal process, as well as others were entertained. Laboratory Data Result diagrams: 02/14/21 06:22 02/14/21 06:22 Lab Results 02/14/21 02/14/21 02/14/21 Range/Units 06:22 06:22 06:22 WBC 7.61 (4.8-10.8) K/uL RBC 4.55 (4.2-5.4) M/uL Hgb 13.3 (12.0-16.0) g/dL Hct 40.7 (37-47) % MCV 89.5 (80-100) fL MCH 29.2 (25-34) pg MCHC 32.7 (32-36) g/dL RDW Std Deviation 51.4 H (36.4-46.3) fL RDW Coeff of Arleen 15.7 H (11.5-14.5) % Plt Count 255 (130-400) K/uL MPV 9.0 (7.4-10.4) fL Immature Gran % (Auto) 1.6 % Neut % (Auto) 73.7 % Lymph % (Auto) 13.9 % Heard % (Auto) 9.9 % Eos % (Auto) 0.8 % Baso % (Auto) 0.1 % Neut # (Auto) 5.61 (1.4-6.5) K/uL Lymph # (Auto) 1.06 L (1.2-3.4) K/uL Heard # (Auto) 0.75 H (0.11-0.59) K/uL Eos # (Auto) 0.06 (0-0.5) K/uL Baso # (Auto) 0.01 (0-0.2) K/uL Immature Gran # (Auto) 0.12 H (0.00-0.02) K/uL ESR (0-30) mm/hr ABG pH 7.45 (7.35-7.45) ABG pCO2 37 (35-46) mmHg ABG pO2 103 H (80-95) mmHg ABG HCO3 26 H (19-24) mmol/L ABG O2 Saturation 97.9 H (90-95) % ABG Base Excess 1.7 (-9-1.8) mEq/L Isaiah Test POS (Pos) Barometric Pressure 736.3 mm/Hg Oxygen Given 2 L Sodium 141 (136-145) mmol/L Potassium 3.5 (3.5-5.1) mmol/L Chloride 110 H (98-107) mmol/L Carbon Dioxide 26 (21-32) mmol/L Anion Gap 5.0 (3-11) BUN 11 (7-18) mg/dl Creatinine 0.67 (0.6-1.2) mg/dl Est Cr Clr Drug Dosing 79.7 ml/min Est GFR ( Amer) 101.1 ml/min Est GFR (Non-Af Amer) 87.2 ml/min BUN/Creatinine Ratio 16.9 (10-20) Glucose 82 (70-99) mg/dl Lactate (0.4-2.0) mmol/L Calcium 8.4 L (8.5-10.1) mg/dl Total Bilirubin 0.4 (0.2-1) mg/dl AST 14 L (15-37) U/L ALT 29 (12-78) U/L Alkaline Phosphatase 67 (45-117) U/L Troponin I < 0.015 (0-0.045) ng/ml C-Reactive Protein 0.53 H (0-0.29) mg/dl NT-Pro-B Natriuret Pep 115 (0-900) pg/ml Total Protein 6.3 L (6.4-8.2) gm/dl Albumin 3.1 L (3.4-5.0) gm/dl Globulin 3.2 (2.5-4.0) gm/dl Albumin/Globulin Ratio 1.0 (0.9-2) Procalcitonin (0-0.5) ng/ml COVID-19 Eval Order SARS-CoV-2 (PCR) (Negative) 02/14/21 02/14/21 02/14/21 Range/Units 06:22 06:22 06:24 WBC (4.8-10.8) K/uL RBC (4.2-5.4) M/uL Hgb (12.0-16.0) g/dL Hct (37-47) % MCV (80-100) fL MCH (25-34) pg MCHC (32-36) g/dL RDW Std Deviation (36.4-46.3) fL RDW Coeff of Arleen (11.5-14.5) % Plt Count (130-400) K/uL MPV (7.4-10.4) fL Immature Gran % (Auto) % Neut % (Auto) % Lymph % (Auto) % Heard % (Auto) % Eos % (Auto) % Baso % (Auto) % Neut # (Auto) (1.4-6.5) K/uL Lymph # (Auto) (1.2-3.4) K/uL Heard # (Auto) (0.11-0.59) K/uL Eos # (Auto) (0-0.5) K/uL Baso # (Auto) (0-0.2) K/uL Immature Gran # (Auto) (0.00-0.02) K/uL ESR 14 (0-30) mm/hr ABG pH (7.35-7.45) ABG pCO2 (35-46) mmHg ABG pO2 (80-95) mmHg ABG HCO3 (19-24) mmol/L ABG O2 Saturation (90-95) % ABG Base Excess (-9-1.8) mEq/L Isaiah Test (Pos) Barometric Pressure mm/Hg Oxygen Given Sodium (136-145) mmol/L Potassium (3.5-5.1) mmol/L Chloride (98-107) mmol/L Carbon Dioxide (21-32) mmol/L Anion Gap (3-11) BUN (7-18) mg/dl Creatinine (0.6-1.2) mg/dl Est Cr Clr Drug Dosing ml/min Est GFR ( Amer) ml/min Est GFR (Non-Af Amer) ml/min BUN/Creatinine Ratio (10-20) Glucose (70-99) mg/dl Lactate 2.0 (0.4-2.0) mmol/L Calcium (8.5-10.1) mg/dl Total Bilirubin (0.2-1) mg/dl AST (15-37) U/L ALT (12-78) U/L Alkaline Phosphatase (45-117) U/L Troponin I (0-0.045) ng/ml C-Reactive Protein (0-0.29) mg/dl NT-Pro-B Natriuret Pep (0-900) pg/ml Total Protein (6.4-8.2) gm/dl Albumin (3.4-5.0) gm/dl Globulin (2.5-4.0) gm/dl Albumin/Globulin Ratio (0.9-2) Procalcitonin < 0.05 (0-0.5) ng/ml COVID-19 Eval Order SARS-CoV-2 (PCR) (Negative) 02/14/21 02/14/21 Range/Units 06:35 06:35 WBC (4.8-10.8) K/uL RBC (4.2-5.4) M/uL Hgb (12.0-16.0) g/dL Hct (37-47) % MCV (80-100) fL MCH (25-34) pg MCHC (32-36) g/dL RDW Std Deviation (36.4-46.3) fL RDW Coeff of Arleen (11.5-14.5) % Plt Count (130-400) K/uL MPV (7.4-10.4) fL Immature Gran % (Auto) % Neut % (Auto) % Lymph % (Auto) % Heard % (Auto) % Eos % (Auto) % Baso % (Auto) % Neut # (Auto) (1.4-6.5) K/uL Lymph # (Auto) (1.2-3.4) K/uL Heard # (Auto) (0.11-0.59) K/uL Eos # (Auto) (0-0.5) K/uL Baso # (Auto) (0-0.2) K/uL Immature Gran # (Auto) (0.00-0.02) K/uL ESR (0-30) mm/hr ABG pH (7.35-7.45) ABG pCO2 (35-46) mmHg ABG pO2 (80-95) mmHg ABG HCO3 (19-24) mmol/L ABG O2 Saturation (90-95) % ABG Base Excess (-9-1.8) mEq/L Isaiah Test (Pos) Barometric Pressure mm/Hg Oxygen Given Sodium (136-145) mmol/L Potassium (3.5-5.1) mmol/L Chloride (98-107) mmol/L Carbon Dioxide (21-32) mmol/L Anion Gap (3-11) BUN (7-18) mg/dl Creatinine (0.6-1.2) mg/dl Est Cr Clr Drug Dosing ml/min Est GFR ( Amer) ml/min Est GFR (Non-Af Amer) ml/min BUN/Creatinine Ratio (10-20) Glucose (70-99) mg/dl Lactate (0.4-2.0) mmol/L Calcium (8.5-10.1) mg/dl Total Bilirubin (0.2-1) mg/dl AST (15-37) U/L ALT (12-78) U/L Alkaline Phosphatase (45-117) U/L Troponin I (0-0.045) ng/ml C-Reactive Protein (0-0.29) mg/dl NT-Pro-B Natriuret Pep (0-900) pg/ml Total Protein (6.4-8.2) gm/dl Albumin (3.4-5.0) gm/dl Globulin (2.5-4.0) gm/dl Albumin/Globulin Ratio (0.9-2) Procalcitonin (0-0.5) ng/ml COVID-19 Eval Order Covid19 at [facility] SARS-CoV-2 (PCR) NEGATIVE (Negative) Imaging Data Radiologist's Impression: Chest X-Ray 02/14/21 05:55 XR chest 1V portable HISTORY: 75 years-old Female sob acute shortness of breath COMPARISON: Chest radiograph 12/26/2020 TECHNIQUE: Portable AP view of the chest FINDINGS: Left pectoral Ujiumm-o-Wukz catheter distal tip projects over the right atrium. Cardiac silhouette is upper limits of normal in size. Emphysema. No pneumothorax, pleural effusion or overt pulmonary edema. Unchanged mild left lung base opacities suggestive of atelectasis. Bones appear grossly intact. IMPRESSION: Emphysema without acute process. ACT 112: Negative or not required by law. The above report was generated using voice recognition software. It may contain grammatical, syntax or spelling errors. Electronically signed by: Jeffrey Durham M.D. 02/14/2021 6:55 AM [facility] Narrative Physical exam and history were performed. Nursing notes, EMR, and Medication List were personally reviewed. Patient appears to have difficulty breathing bring her to the emergency department. She does have a complicated pulmonary history exacerbated by chronic tobacco use, asthma, and COPD. She is with significant work of breathing upon arrival and is speaking in very short sentences. She has very diminished breath sounds on the left and wheezing on the right. IV access was established and labs were obtained. The patient was given IV Solu-Medrol and a 1 hour DuoNeb. Chest x-ray was ordered. The patient's blood work is as above and was reviewed. She does not have a significantly elevated white blood cell count, gross anemia, or significant electrolyte imbalance. PO2 is 103, HCO3 is 26. Glucose is 82. Lipase and transaminases are not diagnostic. Troponin x1 is negative. CRP is slightly elevated at 0.53. Chest x-ray was reviewed by myself and radiology showing no acute process. On reevaluation the patient is feeling better after Solu-Medrol and breathing t reatment. I discussed options of care with the patient who is concerned as she has had similar respiratory issues in the past. At this time she does not appear well for discharge home. The case was discussed with the on-call [facility] team. Please see their dictation for further patient course, plan, and disposition. The chart was completed utilizing [employer] Speech Voice Recognition Software. Grammatical errors, random word insertions, pronoun errors, and incomplete sentences are an occasional consequence of this system due to software limitations, ambient noise, and hardware issues. Any formal questions or concerns about the content, text, or information contained within the body of this dictation should be directly addressed to the provider for clarification. . Impression & Plan COPD exacerbation, Respiratory failure Discharge Plan Visit Data Chief Complaint: Respiratory Problems Stated Complaint: HARD TIME BREATHING ED Provider: Jyoti Pinto ED Midlevel Provider: Abraham Ga Discharge Problem: COPD exacerbation, Respiratory failure Patient Disposition: Admitted As Inpatient Discharge Instructions Interventions: ED Discharge Assessment Last Done: 02/14/21 10:20
[2021-02-14 06:36] LABS: Base Excess ABG 1.7 mEq/L (-9-1.8); HCO3 ABG 26 mmol/L (19-24); Oxygen Saturation ABG 97.9 % (90-95); PCO2 ABG 37 mmHg (35-46); PO2 ABG 103 mmHg (80-95); pH ABG 7.45 (7.35-7.45)
[2021-02-14 06:40] LABS: Basophils # (auto) 0.01 K/uL (0-0.2); Basophils % (auto) 0.1 %; Eosinophils # (auto) 0.06 K/uL (0-0.5); Eosinophils % (auto) 0.8 %; Hematocrit (blood only) 40.7 % (37-47); Hemoglobin 13.3 g/dL (12.0-16.0); Immature Granulocytes # (auto) 0.12 K/uL (0.00-0.02); Immature Granulocytes % (auto) 1.6 %; Lymphocytes # (auto) 1.06 K/uL (1.2-3.4); Lymphocytes % (auto) 13.9 %; Mean Corpuscular Hemoglobin 29.2 pg (25-34); Mean Corpuscular Hgb Conc 32.7 g/dL (32-36); Mean Corpuscular Volume 89.5 fL (80-100); Monocytes # (auto) 0.75 K/uL (0.11-0.59); Monocytes % (auto) 9.9 %; Neutrophils # (auto) 5.61 K/uL (1.4-6.5); Neutrophils % (auto) 73.7 %; Platelet Count 255 K/uL (130-400); RDW Coefficient of Variation 15.7 % (11.5-14.5); RDW Standard Deviation 51.4 fL (36.4-46.3); Red Blood Count 4.55 M/uL (4.2-5.4); White Blood Count 7.61 K/uL (4.8-10.8)
[2021-02-14 06:43] LABS: Allen Test POS (Pos)
--- NOTE | 2021-02-14 06:56 | XRay Report ---
XR chest 1V portable HISTORY: 75 years-old Female sob acute shortness of breath COMPARISON: Chest radiograph 12/26/2020 TECHNIQUE: Portable AP view of the chest FINDINGS: Left pectoral Mondfj-n-Kknh catheter distal tip projects over the right atrium. Cardiac silhouette is upper limits of normal in size. Emphysema. No pneumothorax, pleural effusion or overt pulmonary brook a. Unchanged mild left lung base opacities suggestive of atelectasis. Bones appear grossly intact. IMPRESSION: Emphysema without acute process. ACT 112: Negative or not required by law. The above report was generated using voice recognition software. It may contain grammatical, syntax o r spelling errors. Electronically signed by: Jeffrey Durham M.D. 02/14/2021 6:55 AM
[2021-02-14 06:57] LABS: Alanine Aminotransferase 29 U/L (12-78); Albumin Level 3.1 gm/dl (3.4-5.0); Aspartate Aminotransferase 14 U/L (15-37); BUN Creatinine Ratio 16.9 (10-20); Blood Urea Nitrogen 11 mg/dl (7-18); Calcium 8.4 mg/dl (8.5-10.1); Carbon Dioxide 26 mmol/L (21-32); Chloride 110 mmol/L (98-107); Creatinine Clr Calc Pharmacy 79.7 ml/min; Est GFR (African American) 101.1 ml/min; Est GFR (Non-African American) 87.2 ml/min; Glucose 82 mg/dl (70-99); Potassium 3.5 mmol/L (3.5-5.1); Sodium 141 mmol/L (136-145)
[2021-02-14 07:02] LABS: Alkaline Phosphatase 67 U/L (45-117); Bilirubin,Total 0.4 mg/dl (0.2-1); C Reactive Protein 0.53 mg/dl (0-0.29); Globulin 3.2 gm/dl (2.5-4.0); NT Pro B Type Natriuretic Pept 115 pg/ml (0-900); Total Protein 6.3 gm/dl (6.4-8.2); Troponin I < 0.015 ng/ml (0-0.045)
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
[2021-02-14] MEDS ORDERED: BUDESONIDE/FORMOTEROL FUMARATE 160/4.5 60 PUFFS/INHALER INH SCH (09:30)
[2021-02-14] MEDS ORDERED: NON-FORMULARY MEDICATION (Omeprazole 20 mg Capsule,Delayed Release(Dr/Ec)) PO SCH (09:30)
[2021-02-14] MEDS ORDERED: CAL PO SCH (09:30)
[2021-02-14] MEDS ORDERED: [UNRECOGNIZED DRUG - OTHER] PO SCH (09:30)
[2021-02-14] MEDS ORDERED: CALCIUM CARBONATE VIT D3 MIN PO SCH (09:30)
[2021-02-14] MEDS ORDERED: LEVALBUTEROL 1.25MG/0.5ML NEB INH PRN (10:36)
[2021-02-14] MEDS ORDERED: ONDANSETRON INJ 2 MG/ML 2 ML VIAL IV PRN (10:36)
[2021-02-14] MEDS ORDERED: ACETAMINOPHEN 325 MG TAB PO PRN (10:36)
[2021-02-14] MEDS: UMECLIDINIUM BROMIDE 62.5MCG/BLISTER 7 PUFFS/INHALER INH SCH (11:23)
[2021-02-14] MEDS: dilTIAZem HCL 180 MG CAPCR PO SCH (11:24)
[2021-02-14] MEDS: HYDROXYCHLOROQUINE SULFATE 200 MG TAB PO SCH (11:24)
[2021-02-14] MEDS: NICOTINE 7 MG/24 HR TDSY TD SCH (11:24)
[2021-02-14] MEDS: ROFLUMILAST 500 MCG TAB PO SCH (11:24)
[2021-02-14] MEDS ORDERED: SODIUM CHLORIDE 0.65% NA SOLN 45 ML (OCEAN) PRN (11:47)
[2021-02-14] MEDS: ALBUT/IPRATROP 3MG/0.5MG NEB 3 ML VIAL INH SCH ×2 (12:16→17:30)
[2021-02-14] MEDS: PANTOprazole 40 MG TAB PO SCH (12:34)
[2021-02-14] MEDS: CALCIUM 600MG + VIT D 400 IU TAB PO SCH ×2 (12:35→20:39)
[2021-02-14] MEDS: FLUTICASONE/VILANTEROL 200/25MCG 14 PUFFS/INHALER INH SCH ×3 (12:35→20:38)
[2021-02-14] MEDS ORDERED: Nursing to Pharmacy Communication SCH (12:45)
[2021-02-14] MEDS: LORATADINE 10 MG TAB PO SCH (13:05)
--- NOTE | 2021-02-14 14:12 | Pulmonary Consultation ---
Date of Consultation February 14, 2021 Assessment & Plan (1) Multiple pulmonary nodules determined by computed tomography of lung: (2) Acute and chronic respiratory failure with hypoxia: (3) JOAN (obstructive sleep apnea): (4) Asthma-COPD overlap syndrome: (5) COPD exacerbation: (6) Current smoker: Chest x-ray 02/14/2021 personally reviewed: Portable film, good inspiratory effort, bilateral costophrenic and cardiophrenic angles are clean, no clear lung. Appreciated, left-sided Port-A-Cath in place ABG 02/14/2021: 7.45/37/103 on 2 L PFTs 11/04/2020: Severe COPD with emphysema, moderate decrease in DLCO which corrects for VA, significant bronchodilator response FVC 1.53 L, 51%, FEV1 1.76 L, 34%, FEV1/FVC 50%, RV 150%, TLC 97%, RV/TLC 152%, DLCO 56%, DLCO/VA 91% --Acute exacerbation of asthma-COPD overlap syndrome Patient has baseline very severe COPD She also has used a component as she had high eosinophils in the past Continue with steroids,inhaled bronchodilators Patient has had absolute eosinophil count as high as 480 back in 2020 Continue with O2 supplementation to keep O2 saturation between 88-92% BiPAP nightly and as needed shortness of breath Patient should try to avoid humid environment as this will make her underlying COPD worse and difficulty to breathe. --JOAN Continue with home settings of CPAP --Current smoker Advised to quit --Pulmonary nodule Unchanged on CTA 12/26/2020 7 mm groundglass right lung apex. --History of RA On hydroxychloroquine Plan: Continue with Solu-Medrol 40 mg every 12 hours Starting tomorrow can start prednisone 40 mg Cannot rule out patient's underlying anxiety also playing a role in her shortness of breath. Consideration of Lexapro or buspirone can also be thought of. Patient has recently finished prolonged taper of prednisone. Along with Bactrim thrice weekly for PCP prophylaxis Allergy has been working on trying to get the patient Fasenra. Patient will benefit from pulmonary rehab as outpatient. Please note the above document was generated using voice recognition software. It may contain grammatical, syntax or spelling errors.Any formal questions or concerns about the content, text or information contained within the body of this dictation should be directly addressed to the provider for clarification. History of Present Illness Attending Physician: Jackie Means MD History of Present Illness 75-year-old female past medical history of asthma-COPD overlap syndrome, current smoker, RA, JOAN on CPAP, history of melanoma s/p immunotherapy, chronic hypoxic respiratory failure on 2 L oxygen at home presented to the ED with complaints of worsening shortness of breath which has been going on for the last couple of da ys. She was recently seen by Dr. Esparza on 01/09/2021 and was started on prolonged taper of prednisone along with Bactrim for P LIVAN prophylaxis. Patient states that she has been having cough which is mostly clear. Has mild congestion. Denies any hemoptysis. No fever or chills. No headache. No dysuria, no diarrhea. Patient has been compliant with her inhalers Symbicort high-dose twice daily along with Incruse as well as Daliresp. Social history: Greater than [id number] active smoker, denies any illicit drug use. No birds or poultry nearby. Allergies Allergy/AdvReac Type Severity Reaction Status Date / Time Tetracyclines Allergy Severe TONGUE Verified 02/14/21 07:29 SWELLS codeine Allergy Intermediate Hives Verified 02/14/21 07:29 nickel Allergy Intermediate "lip would Verified 02/14/21 07:29 swell with nickel mouthpiece with flute" acetaminophen Allergy Mild RASH Verified 02/14/21 07:29 amoxicillin Allergy Mild diarrhea Verified 02/14/21 07:29 and vomiting bacitracin AdvReac Mild Itching Unverified 02/14/21 10:45 clavulanic acid AdvReac Mild Nausea/Vomi Unverified 02/14/21 10:45 [From Augmentin] ting Home Medications Medication Instructions Recorded Confirmed Type calcium carb-vit D3-minerals 600 1 tab PO BID 04/02/18 02/14/21 History mg calcium-400 unit tablet (Calcium 600 + Minerals) cholecalciferol (vitamin D3) 25 1,000 unit PO HS 04/02/18 02/14/21 History mcg (1,000 unit) capsule (Vitamin D3) hydroxychloroquine 200 mg tablet 200 mg PO QAM 04/02/18 02/14/21 History (Plaquenil) omeprazole 20 mg capsule,delayed 20 mg PO QAM 04/02/18 02/14/21 History release Oxygen Home ea 05/01/19 01/09/21 History CPAP Supplies #1 ea 08/11/19 01/09/21 Rx alendronate 70 mg tablet (Fosamax) 70 mg PO WK 09/12/19 02/14/21 History umeclidinium 62.5 mcg/actuation 1 inh INHALATION QAM #1 inhaler 07/15/20 02/14/21 Rx blister powder for inhalation (Incruse Ellipta) budesonide-formoterol HFA 160 2 puff INHALATION BID #10.2 gm 08/19/20 02/14/21 Rx mcg-4.5 mcg/actuation aerosol inhaler (Symbicort) ipratropium bromide 0.02 % 2.5 ml INHALATION Q6H PRN #90 ml 08/19/20 02/14/21 Rx solution for inhalation roflumilast 500 mcg tablet 500 mcg PO QAM #90 tab 11/22/20 02/14/21 Rx (Daliresp) azelastine 137 mcg (0.1 %) nasal 2 spray INTRANASAL DAILY 12/26/20 02/14/21 History spray aerosol diltiazem HCl 180 mg 180 mg PO QAM 12/26/20 02/14/21 History capsule,extended release 24 hr (Cardizem CD) ipratropium 0.5 mg-albuterol 3 mg 3 ml INHALATION QID PRN 12/26/20 02/14/21 History (2.5 mg base)/3 mL nebulization soln montelukast 10 mg tablet 10 mg PO HS 12/26/20 02/14/21 History (Singulair) albuterol sulfate 90 mcg/actuation 2 puff INHALATION Q4 PRN 02/14/21 02/14/21 History aerosol inhaler (ProAir HFA) fluticasone propionate 50 2 spray INTRANASAL HS 02/14/21 02/14/21 History mcg/actuation nasal spray,suspension (Flonase Allergy Relief) levalbuterol HCl 1.25 mg/0.5 mL 2.5 mg INH Q4 PRN 02/14/21 02/14/21 History solution for nebulization (Xopenex Concentrate) prednisone 10 mg tablet 10 mg PO QAM 02/14/21 02/14/21 History Patient History Medical History Active asthma Anxiety Asthma exacerbation Asthma-COPD overlap syndrome Asthma-COPD overlap syndrome Diastolic heart failure Dry mouth GERD (gastroesophageal reflux disease) Hiatal hernia History of breast cancer 2013- RT - S/P LUMPECTOMY + RADIATION THERAPY History of uterine cancer 2012- S/P GREGORIO BSO + CHEMO Insomnia Lung nodule Melanoma S/p excision Multiple pulmonary nodules determined by computed tomography of lung Nocturnal oxygen desaturation WEARS O2 AT 2 LPM AT NIGHT Obstructive sleep apnea uses oxygen and cpap JOAN (obstructive sleep apnea) PAT (paroxysmal atrial tachycardia) FOLLOWS W/ DR. RANDHAWA Rheumatoid arthritis Tobacco abuse Surgical History History of breast biopsy History of cataract surgery History of colonoscopy History of ERCP 02/02/2020 @ [facility] History of melanoma excision 2018 [place] History of Moh's micrographic surgery for skin cancer nose x2 History of sinus surgery 06/29/18-with turbinates-Dr. Lopez. MAC 3. 7.5 ETT. grade 2 view no issues. History of tonsillectomy History of total abdominal hysterectomy and bilateral salpingo-oophorectomy Hx laparoscopic cholecystectomy Status post right breast lumpectomy Family History Father Leukemia Myocardial infarction Sister Breast cancer Mother Cancer brain Other Coronary heart disease No family history of adverse response to anesthesia No family history of bleeding disorder Social History Smoking Status: Current every day smoker Tobacco Type: Cigarettes Years Smoked: 40; Cigarettes Per Day: 5; Second Hand Exposure: No; Do You Dip or Chew Tobacco: No; Tobacco Cessation Education Requested by Patient: Yes Hx Alcohol Use: Yes Alcohol type: beer Alcohol Intake Frequency Comment: 1 beer/day Hx Substance Use: No Preferred Language: Syriac Communication Ability: Effective Visual Impairment: No Limitations Director Of Consumer Marketing Required: No Beliefs That Will Affect Care: None marital status: Current Living Situation: Spouse current occupational status: employed 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 [employer] Other Information That Helps Us Care for You: No Feels Safe at Home: Yes Safety Concerns: Feels Safe At This Time Assistive Devices: Oxygen - Continuous Assistive Devices Comment: 2 L/min O2 at bedtime Review of Systems Review of Systems: All systems reviewed & are unremarkable except as noted in HPI & below Physical Exam Physical Exam: Constitutional: No acute distress HEENT: EOMI, PERRLA, hyperpigmented lesion at the tip of the nose Respiratory system: Decreased air entry bilaterally, no wheeze, rhonchi, no crackles CVS: S1-S2 positive, no murmurs or gallops, left-sided Port-A-Cath Abdomen: Soft, nontender, nondistended, positive bowel sounds x4 Extremities: +2 pulses bilaterally radialis/ dorsalis pedis, no cyanosis, no edema Neuro: Awake alert oriented x3 Psych: Normal mood and affect G/U: No Tineo Skin: no rashes, warm and dry Lymphatic: no cervical or axillary lymphadenopathy Results & Data Results & Data ([facility]) Vital Signs (Past 12 Hours) Vital Signs Temp Pulse Pulse Resp BP BP Pulse Ox 02/14/21 10:30 37.1 C 113 H 24 131/83 95 02/14/21 10:00 113 H 22 129/77 95 02/14/21 09:30 116 H 30 H 130/102 H 94 02/14/21 09:00 95 H 25 H 126/72 97 02/14/21 08:30 114 H 23 111/64 99 02/14/21 08:00 89 23 124/78 100 02/14/21 07:30 109 H 23 126/72 100 02/14/21 07:00 89 21 102/81 100 02/14/21 06:49 87 24 123/96 100 02/14/21 06:45 85 20 100 02/14/21 06:17 85 26 H 99 02/14/21 05:38 36.6 C 100 H 26 H 152/94 H 95 02/14/21 06:22 02/14/21 06:22 PG Care Time/CCT Total # of Minutes Spent Total Time Spent with Patient: Total time spent is greater than 50% in coordination of care (as documented) at patient's floor/unit and/or counseling patient: Coding Level of Care Code 68321 Initial Inpt Care Lvl 3 Diagnoses Multiple pulmonary nodules determined by computed tomography of lung R91.8 Acute and chronic respiratory failure with hypoxia J96.21 JOAN (obstructive sleep apnea) G47.33 Asthma-COPD overlap syndrome J44.9 COPD exacerbation J44.1 Current smoker F17.200
[2021-02-14] MEDS: FLUTICASONE PROPIONATE NA SPR 16 GM BTL SCH (20:37)
[2021-02-14] MEDS: guaiFENesin 600 MG TABCR PO SCH (20:38)
[2021-02-14] MEDS: MONTELUKAST SODIUM 10 MG TABLET PO SCH (20:39)
[2021-02-14] MEDS: CHOLECALCIFEROL 1,000 UNITS 25 MCG TAB PO SCH (20:39)
[2021-02-14] MEDS: methylPREDNISolone 40 MG in SYRINGE 0 ML IV SCH (21:50)
[2021-02-15] MEDS: ALBUT/IPRATROP 3MG/0.5MG NEB 3 ML VIAL INH SCH ×5 (01:24→19:51)
--- NOTE | 2021-02-15 06:37 | Electrocardiogram Report ---
Test Reason : Blood Pressure : / mmHG Vent. Rate : 085 BPM Atrial Rate : 085 BPM P-R Int : 132 ms QRS Dur : 092 ms QT Int : 384 ms P-R-T Axes : 084 -30 062 degrees QTc Int : 456 ms Poor data quality, interpretation may be adversely affected Sinus rhythm with Premature atrial complexes with Aberrant conduction Left axis deviation Incomplete right bundle branch block Abnormal ECG When compared with ECG of 26-DEC-2020 04:18, Aberrant conduction is now Present Confirmed by Arjun Varela ([id number]) on 02/15/2021 6:36:38 AM Referred By: REFERRED SELF Confirmed By:Arjun Varela
[2021-02-15 07:23] LABS: Hematocrit (blood only) 40.1 % (37-47); Hemoglobin 13.2 g/dL (12.0-16.0); Mean Corpuscular Hemoglobin 29.1 pg (25-34); Mean Corpuscular Hgb Conc 32.9 g/dL (32-36); Mean Corpuscular Volume 88.3 fL (80-100); Mean Platelet Volume 9.3 fL (7.4-10.4); Platelet Count 306 K/uL (130-400); RDW Coefficient of Variation 15.4 % (11.5-14.5); RDW Standard Deviation 49.8 fL (36.4-46.3); Red Blood Count 4.54 M/uL (4.2-5.4); White Blood Count 19.01 K/uL (4.8-10.8)
[2021-02-15 07:26] LABS: BUN Creatinine Ratio 20.6 (10-20); Calcium 8.9 mg/dl (8.5-10.1); Creatinine Clr Calc Pharmacy 67.6 ml/min; Est GFR (African American) 87.4 ml/min; Est GFR (Non-African American) 75.4 ml/min; Magnesium 2.1 mg/dl (1.8-2.4)
[2021-02-15 07:28] LABS: Albumin Globulin Ratio 0.9 (0.9-2); Bilirubin,Total 0.5 mg/dl (0.2-1); Globulin 3.3 gm/dl (2.5-4.0); Phosphorus 2.7 mg/dl (2.5-4.9); Total Protein 6.3 gm/dl (6.4-8.2)
[2021-02-15] MEDS: guaiFENesin 600 MG TABCR PO SCH ×2 (08:02→20:52)
[2021-02-15] MEDS: dilTIAZem HCL 180 MG CAPCR PO SCH (08:02)
[2021-02-15] MEDS: LORATADINE 10 MG TAB PO SCH (08:02)
[2021-02-15] MEDS: PANTOprazole 40 MG TAB PO SCH (08:02)
[2021-02-15] MEDS: UMECLIDINIUM BROMIDE 62.5MCG/BLISTER 7 PUFFS/INHALER INH SCH (08:02)
[2021-02-15] MEDS: HYDROXYCHLOROQUINE SULFATE 200 MG TAB PO SCH (08:02)
[2021-02-15] MEDS: methylPREDNISolone 40 MG in SYRINGE 0 ML IV SCH (08:02)
[2021-02-15] MEDS: CALCIUM 600MG + VIT D 400 IU TAB PO SCH ×2 (08:02→20:52)
[2021-02-15] MEDS: ROFLUMILAST 500 MCG TAB PO SCH (08:02)
[2021-02-15] MEDS: NICOTINE 7 MG/24 HR TDSY TD SCH (08:03)
[2021-02-15] MEDS: predniSONE 20 MG TAB PO SCH (09:42)
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
--- NOTE | 2021-02-15 13:24 | Pulmonology Progress Note ---
Date of Service February 15, 2021 Assessment & Plan (1) Multiple pulmonary nodules determined by computed tomography of lung: (2) Acute and chronic respiratory failure with hypoxia: (3) JOAN (obstructive sleep apnea): (4) Asthma-COPD overlap syndrome: (5) COPD exacerbation: (6) Current smoker: Plan: Chest x-ray 02/14/2021 personally reviewed: Portable film, good inspiratory effort, bilateral costophrenic and cardiophrenic angles are clean, no clear lung. Appreciated, left-sided Port-A-Cath in place ABG 02/14/2021: 7.45/37/103 on 2 L PFTs 11/04/2020: Severe COPD with emphysema, moderate decrease in DLCO which corrects for VA, significant bronchodilator response FVC 1.53 L, 51%, FEV1 1.76 L, 34%, FEV1/FVC 50%, RV 150%, TLC 97%, RV/TLC 152%, DLCO 56%, DLCO/VA 91% --Acute exacerbation of asthma-COPD overlap syndrome Patient has baseline very severe COPD She also has used a component as she had high eosinophils in the past Continue with steroids,inhaled bronchodilators Patient has had absolute eosinophil count as high as 480 back in 2020 Continue with O2 supplementation to keep O2 saturation between 88-92% BiPAP nightly and as needed shortness of breath Patient should try to avoid humid environment as this will make her underlying COPD worse and difficulty to breathe. --JOAN Continue with home settings of CPAP --Current smoker Advised to quit --Pulmonary nodule Unchanged on CTA 12/26/2020 7 mm groundglass right lung apex. --History of RA On hydroxychloroquine Plan: Continue with tapering prednisone 40 mg for 3, hold by 20 mg for 2 Patient will benefit from pulmonary rehab as outpatient. Patient is clinically doing better from pulmonary perspective. Please call directly with any questions Case was discussed with Please note the above document was generated using voice recognition software. It may contain grammatical, syntax or spelling errors.Any formal questions or concerns about the content, text or information contained within the body of this dictation should be directly addressed to the provider for clarification. Admission and Anticipated Discharge Date Admission Date: February 14, 2021 Subjective Patient seen and examined at bedside. No acute distress, no adverse events overnight. Patient states she is feeling much better. Shortness of breath is improved. Has been using incentive spirometer as listed above. No chest pain. Fair appetite. Denies any hemoptysis. Review of Systems Review of Systems: All systems reviewed & are unremarkable except as noted in Subjective Physical Exam Physical Exam: Constitutional: No acute distress HEENT: EOMI, PERRLA, hyperpigmented lesion at the tip of the nose Respiratory system: Decreased air entry bilaterally, no wheeze, rhonchi, no crackles CVS: S1-S2 positive, no murmurs or gallops, left-sided Port-A-Cath Abdomen: Soft, nontender, nondistended, positive bowel sounds x4 Extremities: +2 pulses bilaterally radialis/ dorsalis pedis, no cyanosis, no edema Neuro: Awake alert oriented x3 Psych: Normal mood and affect G/U: No Tineo Skin: no rashes, warm and dry Lymphatic: no cervical or axillary lymphadenopathy Results & Data Results & Data ([facility]) Vital Signs (Past 12 Hours) Vital Signs Temp Pulse Pulse Resp BP Pulse Ox 02/15/21 13:08 96 02/15/21 13:02 90 18 92 02/15/21 07:39 36.8 C 130 H 20 110/80 91 02/15/21 07:19 90 02/15/21 06:07 86 18 96 02/15/21 03:05 84 22 94 02/15/21 03:04 84 22 94 02/15/21 03:00 36.7 C 124 H 20 131/89 93 02/15/21 06:18 02/15/21 06:18 PG Care Time/CCT Total # of Minutes Spent Total Time Spent with Patient: Total time spent is greater than 50% in coordination of care (as documented) at patient's floor/unit and/or counseling patient: Coding Level of Care Code 84737 Subseq Hosp Care Lvl 2 Diagnoses Multiple pulmonary nodules determined by computed tomography of lung R91.8 Acute and chronic respiratory failure with hypoxia J96.21 JOAN (obstructive sleep apnea) G47.33 Asthma-COPD overlap syndrome J44.9 COPD exacerbation J44.1 Current smoker F17.200
[2021-02-15] MEDS: FLUTICASONE/VILANTEROL 200/25MCG 14 PUFFS/INHALER INH SCH (20:52)
[2021-02-15] MEDS: MONTELUKAST SODIUM 10 MG TABLET PO SCH (20:52)
[2021-02-15] MEDS: FLUTICASONE PROPIONATE NA SPR 16 GM BTL SCH (20:52)
[2021-02-15] MEDS: CHOLECALCIFEROL 1,000 UNITS 25 MCG TAB PO SCH (20:52)
[2021-02-15] MEDS: HEPARIN 100 UNIT/ML 5ML FLUSH FLUSH PRN (20:53)
[2021-02-16] MEDS: ALBUT/IPRATROP 3MG/0.5MG NEB 3 ML VIAL INH SCH ×3 (01:17→13:09)
[2021-02-16] MEDS: predniSONE 20 MG TAB PO SCH (07:17)
[2021-02-16] MEDS: PANTOprazole 40 MG TAB PO SCH (07:17)
[2021-02-16] MEDS: HYDROXYCHLOROQUINE SULFATE 200 MG TAB PO SCH (07:17)
[2021-02-16] MEDS: LORATADINE 10 MG TAB PO SCH (07:18)
[2021-02-16] MEDS: guaiFENesin 600 MG TABCR PO SCH (07:18)
[2021-02-16] MEDS: dilTIAZem HCL 180 MG CAPCR PO SCH (07:18)
[2021-02-16] MEDS: CALCIUM 600MG + VIT D 400 IU TAB PO SCH (07:19)
[2021-02-16] MEDS: ROFLUMILAST 500 MCG TAB PO SCH (07:19)
[2021-02-16] MEDS: UMECLIDINIUM BROMIDE 62.5MCG/BLISTER 7 PUFFS/INHALER INH SCH (07:20)
[2021-02-16 07:41] LABS: Hematocrit (blood only) 39.8 % (37-47); Hemoglobin 13.3 g/dL (12.0-16.0); Mean Corpuscular Hemoglobin 29.8 pg (25-34); Mean Corpuscular Hgb Conc 33.4 g/dL (32-36); Mean Platelet Volume 8.8 fL (7.4-10.4); Platelet Count 313 K/uL (130-400); RDW Coefficient of Variation 15.7 % (11.5-14.5); RDW Standard Deviation 50.6 fL (36.4-46.3); Red Blood Count 4.47 M/uL (4.2-5.4); White Blood Count 18.37 K/uL (4.8-10.8)
[2021-02-16] MEDS: NICOTINE 7 MG/24 HR TDSY TD SCH (07:44)
[2021-02-16 07:58] LABS: Albumin Level 3.1 gm/dl (3.4-5.0); BUN Creatinine Ratio 31.4 (10-20); Calcium 9.4 mg/dl (8.5-10.1); Creatinine Clr Calc Pharmacy 65.1 ml/min; Est GFR (African American) 83.5 ml/min; Est GFR (Non-African American) 72.1 ml/min; Potassium 4.4 mmol/L (3.5-5.1)
[2021-02-16 08:01] LABS: Albumin Globulin Ratio 0.9 (0.9-2); Bilirubin,Total 0.4 mg/dl (0.2-1); Globulin 3.4 gm/dl (2.5-4.0); Total Protein 6.5 gm/dl (6.4-8.2)
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
[2021-02-16] MEDS: HEPARIN 100 UNIT/ML 5ML FLUSH FLUSH PRN (12:27)
== END 2021-02-16 14:30 | disposition home or self-care (01) | DRG 190 ==
LOC: ED 05:35 → 3W 08:44 → 2N 08:45 → 3W 10:20

== ENCOUNTER 2021-04-21 05:04 | Inpatient (IN) ==
[2021-04-21] MEDS ORDERED: ALBUT/IPRATROP 3MG/0.5MG NEB 3 ML VIAL NEB STA (05:18)
[2021-04-21] MEDS ORDERED: methylPREDNISolone 125 MG/2 ML VIAL IV STA (05:18)
[2021-04-21] MEDS ORDERED: LORazepam 0.5 MG/1 ML VIAL IV STA (05:18)
[2021-04-21] MEDS ORDERED: KETOROLAC TROMETHAMINE 15 MG/ML VIAL IV STA (05:18)
--- NOTE | 2021-04-21 05:22 | Emergency Department Note ---
History of Present Illness General Chief Complaint: Respiratory Problems Stated Complaint: CAN'T BREATHE (COPD/ASTHMA),4 BROKEN RIBS RT SIDE Time Seen by Provider: 04/21/21 05:12 History of Present Illness Provider Complaint: shortness of breath Onset (ago): week(s) (2) Severity: moderate Consistency/Duration: + progressively worsening Relieved By: + oxygen Exacerbated By: + nothing Context: + trauma/injury (Recently diagnosed with broken ribs on the right) Known history of: asthma Associated symptoms: + chest pain, + cough and + wheezing; no fever, no sputum production, no palpitations, no hemoptysis, no diaphoresis, no abdominal pain or no chest congestion Treatment prior to arrival: oxygen Related Data Home oxygen amount: 2 liters Home Medications Medication Instructions Recorded Confirmed Type calcium carb-vit D3-minerals 600 1 tab PO BID 04/02/18 04/07/21 History mg calcium-400 unit tablet (Calcium 600 + Minerals) cholecalciferol (vitamin D3) 25 1,000 unit PO HS 04/02/18 04/07/21 History mcg (1,000 unit) capsule (Vitamin D3) hydroxychloroquine 200 mg tablet 200 mg PO QAM 04/02/18 04/07/21 History (Plaquenil) omeprazole 20 mg capsule,delayed 20 mg PO QAM 04/02/18 04/07/21 History release Oxygen Home ea 05/01/19 03/20/21 History CPAP Supplies #1 ea 08/11/19 03/20/21 Rx alendronate 70 mg tablet (Fosamax) 70 mg PO WK 09/12/19 04/07/21 History umeclidinium 62.5 mcg/actuation 1 inh INHALATION QAM #1 inhaler 07/15/20 04/07/21 Rx blister powder for inhalation (Incruse Ellipta) budesonide-formoterol HFA 160 2 puff INHALATION BID #10.2 gm 08/19/20 04/07/21 Rx mcg-4.5 mcg/actuation aerosol inhaler (Symbicort) roflumilast 500 mcg tablet 500 mcg PO QAM #90 tab 11/22/20 04/07/21 Rx (Daliresp) azelastine 137 mcg (0.1 %) nasal 2 spray INTRANASAL DAILY 12/26/20 04/07/21 History spray aerosol diltiazem HCl 180 mg 180 mg PO QAM 12/26/20 04/07/21 History capsule,extended release 24 hr (Cardizem CD) montelukast 10 mg tablet 10 mg PO HS 12/26/20 04/07/21 History (Singulair) albuterol sulfate 90 mcg/actuation 2 puff INHALATION Q4 PRN 02/14/21 04/07/21 History aerosol inhaler (ProAir HFA) fluticasone propionate 50 2 spray INTRANASAL HS 02/14/21 04/07/21 History mcg/actuation nasal spray,suspension (Flonase Allergy Relief) ipratropium bromide 0.02 % 2.5 ml INHALATION Q6H PRN #300 ml 03/12/21 04/07/21 Rx solution for inhalation levalbuterol HCl 1.25 mg/3 mL 1.25 mg INH Q6H PRN #360 ml 03/12/21 04/07/21 Rx solution for nebulization [id number]/Laxasperse Cap See Rx Instructions .ROUTE 03/13/21 04/07/21 Rx .COMPLEX #28 cap albuterol sulfate 0.63 mg/3 mL 0.63 mg INHALATION QID PRN 03/20/21 04/07/21 H istory solution for nebulization guaifenesin 600 mg tablet, 600 mg PO BID 03/20/21 04/07/21 History extended release 12 hr (Mucinex) potassium chloride 10 mEq 10 meq PO 2XWK cap 03/20/21 04/07/21 History capsule,extended release furosemide 20 mg tablet 20 mg PO 2XWK 03/24/21 04/07/21 History prednisone 20 mg tablet 40 mg PO DAILY 10 Days #20 tab 04/09/21 Rx Allergies Allergy/AdvReac Type Severity Reaction Status Date / Time Tetracyclines Allergy Severe Tongue Verified 03/28/21 11:50 swelling codeine Allergy Intermediate Hives Verified 03/28/21 11:50 nickel Allergy Intermediate Lip Verified 03/28/21 11:50 swelling (nickel mouthpiece with flute) bacitracin Allergy Mild Itching Verified 03/28/21 11:50 amoxicillin AdvReac Mild Diarrhea, Verified 03/28/21 11:50 vomiting clavulanic acid AdvReac Mild Nausea/Vomi Verified 03/28/21 11:50 [From Augmentin] kezia Past Med/Surg History Medical History Anxiety Asthma-COPD overlap syndrome Diastolic heart failure Dry mouth GERD (gastroesophageal reflux disease) Hiatal hernia History of breast cancer Right (2012) s/p lumpectomy + radiation History of uterine cancer GREGORIO BSO + chemo (2012) Insomnia Lung nodule Melanoma S/p excision Multiple pulmonary nodules determined by computed tomography of lung Nocturnal oxygen desaturation 2L O2 HS Obstructive sleep apnea CPAP (+2L O2 HS) PAT (paroxysmal atrial tachycardia) Rheumatoid arthritis Surgical History History of breast biopsy History of cataract surgery History of colonoscopy Colonoscopy (03/20/20): MAC at [facility] History of ERCP ERCP (02/02/20): MAC at [facility] History of melanoma excision 2019 History of Moh's micrographic surgery for skin cancer nose x2 History of sinus surgery 06/29/18 (MAC 3, 7.5 ETT, grade 2 view) History of tonsillectomy History of total abdominal hysterectomy and bilateral salpingo-oophorectomy History of vascular access device Left chest (port flush [facility] on 03/26/21) Hx laparoscopic cholecystectomy Status post right breast lumpectomy Family History Father Leukemia Myocardial infarction Sister Breast cancer Mother Cancer brain Other Coronary heart disease No family history of adverse response to anesthesia No family history of bleeding disorder Social History Smoking Status: Current every day smoker Tobacco Type: Cigarettes Years Smoked: 40; Cigarettes Per Day: 5-6 cigs per day; Second Hand Exposure: No; Hx Alcohol Use: Yes Alcohol type: beer Alcohol Intake Frequency Comment: 1 beer/day Hx Substance Use: No Preferred Language: Romansh Communication Ability: Effective Visual Impairment: No Limitations Boot Liner Maker Required: No Beliefs That Will Affect Care: None marital status: Current Living Situation: Spouse current occupational status: employed 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 Feels Safe at Home: Yes Assistive Devices: CPAP, Glasses and Oxygen - at Night Review of Systems A total of 10 systems reviewed and were otherwise negative Physical Exam Vital Signs: Vital Signs - 24 hr 04/21/21 05:08 04/21/21 05:57 04/21/21 06:10 Temperature 36.6 C Temperature Source Temporal Artery Sc an Pulse Rate 93 H Pulse Rate [Apical ] 87 Pulse Rhythm [Apic al] Pulse Strength [Ap ical] Respiratory Rate 28 H 20 Respiratory Effort / Characteristics Spontaneous Access ory Muscle Use Lab ored Pursed Lip Sh ort of Breath Spli nting (from pain) Blood Pressure 166/93 H Blood Pressure Roberta n 117 Pulse Oximetry 99 97 Oxygen Delivery Me thod Nasal Cannula Nasal Cannula Nasal Cannula Oxygen Flow Rate 2.5 3 2 Sepsis New/Unexpla ined Change in Men gay Status N/A Sepsis Action Take n by Nursing No Action Required 04/21/21 06:12 Temperature Temperature Source Pulse Rate Pulse Rate [Apical ] Pulse Rhythm [Apic al] Regular Pulse Strength [Ap ical] Normal Respiratory Rate 25 H Respiratory Effort / Characteristics Accessory Muscle U se Short of Breath Tripoding Blood Pressure Blood Pressure Roberta n Pulse Oximetry 96 Oxygen Delivery Me thod Nasal Cannula Oxygen Flow Rate 3 Sepsis New/Unexpla ined Change in Men gay Status Sepsis Action Take n by Nursing Physical Exam: Physical Exam HENT: Exam performed. -Head: Normocephalic and atraumatic. -Right Ear: External ear normal. No mastoid tenderness. -Left Ear: External ear normal. No mastoid tenderness. -Mouth/Throat: The oropharynx is clear and moist. No trismus in the jaw. No dental abscesses or uvula swelling. No oropharyngeal exudate or tonsillar abscesses. EYES: Conjunctivae and EOM are normal. Pupils are equal, round, and reactive to light. Right eye exhibits no discharge. Left eye exhibits no discharge. No scleral icterus. NECK: Normal range of motion. Neck supple. No JVD present. No spinous process tenderness present. No carotid bruit present. No rigidity. No tracheal deviation and normal range of motion present. No Brudzinski's sign and no Kernig's sign noted. CV: Normal rate, regular rhythm, normal heart sounds and intact distal pulses. There is no peripheral edema. Palpable radial pulses bue. PULM/CHEST: Tachypneic. Scant expiratory wheezes bilaterally. Rales at the right lung base. -Chest Wall: No crepitus bilaterally. ABD: The abdomen is soft. Bowel sounds are normal. She has no distension. No mass is present. There is no tenderness. There is no rebound, no guarding, no Stratton's sign and no tenderness at McBurney's point. Rovsig negative MUSC/SKEL: Normal range of motion. There is no peripheral edema, tenderness or deformity. LYMPH: No cervical adenopathy. NEURO: She is alert and oriented to person, place, and time. She has normal strength. No cranial nerve deficit or sensory deficit. Coordination and gait normal. GCS eye subscore is 4. GCS verbal subscore is 5. GCS motor subscore is 6. Cerebellar tests wnl. SKIN: Skin is warm and dry. She is not diaphoretic. PSYCH: She has a normal mood and affect. Behavior is normal. Judgment and thought content normal. Course Course 0512: The patient was evaluated in room B6. A complete history and physical exam was performed Cardiac monitoring: An order was placed for continuous cardiac monitoring. The monitor shows a rate of 90 with sinus rhythm EMR reviewed. Patient was seen in the emergency department 2 weeks ago. At that time she was reporting pain in her right mid back. Patient had x-rays done and rib x-rays which showed no acute fracture. She then had a CT done which did show fractures in her right paravertebral ribs 3 through 6 that are unknown for chronicity. Patient was discharged. Patient refused any opiate analgesics. She stated she had incentive spirometer to use at home. Patient will be treated with DuoNeb treatment, Solu-Medrol, and Ativan given her tachypnea and obstructive lung disease. In accordance with her wishes to avoid opiate medications, Toradol ordered for the patient. 0540: Chest x-ray shows right lower lobe pneumonia. This most likely result of the patient not ventilating and breathing properly due to his rib fractures. Patient be treated with azithromycin and Rocephin. 0630: Vital signs stable. Patient less tachypneic after receiving Ativan DuoNeb and Solu-Medrol. On recitation lungs there is still scant expiratory wheezes and rales at the right lower lobe. Lab work within normal limits. Patient will be admitted for pain control for rib fractures and treatment of her pneumonia. Dr. Reyes [facility] hospitalist has been notified. Administered Medications Discontinued Medications Albuterol (Albut/Ipratrop 3mg/0.5mg Neb 3 Ml Vial) 3 ml NEB NOW STA Stop: 04/21/21 05:19 Last Admin: 04/21/21 06:08 Dose: 3 ml Documented by: [id number] Azithromycin (Azithromycin 250 Mg Tab) 500 mg PO NOW ONE Stop: 04/21/21 05:38 Last Admin: 04/21/21 06:25 Dose: 500 mg Documented by: [id number] Lorazepam (Ativan) 0.5 mg in 1 mls @ 1 mls/min IV NOW STA Stop: 04/21/21 05:19 Last Admin: 04/21/21 05:49 Dose: 1 mls/min Documented by: [id number] Ceftriaxone Sodium (Rocephin) 1,000 mg in 50 mls @ 100 mls/hr IV NOW STA Stop: 04/21/21 06:06 Last Admin: 04/21/21 05:56 Dose: 100 mls/hr Documented by: [id number] Ketorolac Tromethamine (Ketorolac Tromethamine 15 Mg/Ml Vial) 15 mg IV NOW STA Stop: 04/21/21 05:19 Last Admin: 04/21/21 05:56 Dose: 15 mg Documented by: [id number] Methylprednisolone (Methylprednisolone 125 Mg/2 Ml Vial) 125 mg IV NOW STA Stop: 04/21/21 05:19 Last Admin: 04/21/21 05:56 Dose: 125 mg Documented by: [id number] Medical Decision Making Laboratory Data Result diagrams: 04/21/21 05:39 04/21/21 05:39 Lab Results 04/21/21 04/21/21 04/21/21 Range/Units 05:39 05:39 05:39 WBC 11.96 H (4.8-10.8) K/uL RBC 4.70 (4.2-5.4) M/uL Hgb 14.0 (12.0-16.0) g/dL Hct 42.8 (37-47) % MCV 91.1 (80-100) fL MCH 29.8 (25-34) pg MCHC 32.7 (32-36) g/dL RDW Std Deviation 52.3 H (36.4-46.3) fL RDW Coeff of Arleen 15.5 H (11.5-14.5) % Plt Count 319 (130-400) K/uL MPV 9.0 (7.4-10.4) fL Immature Gran % (Auto) 2.3 % Neut % (Auto) 78.1 % Lymph % (Auto) 10.0 % Dooly % (Auto) 8.5 % Eos % (Auto) 1.0 % Baso % (Auto) 0.1 % Neut # (Auto) 9.34 H (1.4-6.5) K/uL Lymph # (Auto) 1.20 (1.2-3.4) K/uL Dooly # (Auto) 1.02 H (0.11-0.59) K/uL Eos # (Auto) 0.12 (0-0.5) K/uL Baso # (Auto) 0.01 (0-0.2) K/uL Immature Gran # (Auto) 0.27 H (0.00-0.02) K/uL VBG pH 7.39 (7.36-7.41) VBG pCO2 50 (38-50) mmHg VBG pO2 30 mmHg VBG HCO3 30 mmol/L VBG O2 Saturation < 60.0 % VBG Base Excess 3.6 mEq/L Barometric Pressure 734.0 mm/Hg Sodium 142 (136-145) mmol/L Potassium 3.9 (3.5-5.1) mmol/L Chloride 107 (98-107) mmol/L Carbon Dioxide 30 (21-32) mmol/L Anion Gap 5.0 (3-11) BUN 12 (7-18) mg/dl Creatinine 0.92 (0.6-1.2) mg/dl Est Cr Clr Drug Dosing Not Reportable Est GFR ( Amer) 71.6 ml/min Est GFR (Non-Af Amer) 61.8 ml/min BUN/Creatinine Ratio 13.2 (10-20) Glucose 91 (70-99) mg/dl Calcium 9.2 (8.5-10.1) mg/dl Troponin I < 0.015 (0-0.045) ng/ml NT-Pro-B Natriuret Pep 200 (0-900) pg/ml COVID-19 Eval Order 04/21/21 Range/Units 06:00 WBC (4.8-10.8) K/uL RBC (4.2-5.4) M/uL Hgb (12.0-16.0) g/dL Hct (37-47) % MCV (80-100) fL MCH (25-34) pg MCHC (32-36) g/dL RDW Std Deviation (36.4-46.3) fL RDW Coeff of Arleen (11.5-14.5) % Plt Count (130-400) K/uL MPV (7.4-10.4) fL Immature Gran % (Auto) % Neut % (Auto) % Lymph % (Auto) % Dooly % (Auto) % Eos % (Auto) % Baso % (Auto) % Neut # (Auto) (1.4-6.5) K/uL Lymph # (Auto) (1.2-3.4) K/uL Dooly # (Auto) (0.11-0.59) K/uL Eos # (Auto) (0-0.5) K/uL Baso # (Auto) (0-0.2) K/uL Immature Gran # (Auto) (0.00-0.02) K/uL VBG pH (7.36-7.41) VBG pCO2 (38-50) mmHg VBG pO2 mmHg VBG HCO3 mmol/L VBG O2 Saturation % VBG Base Excess mEq/L Barometric Pressure mm/Hg Sodium (136-145) mmol/L Potassium (3.5-5.1) mmol/L Chloride (98-107) mmol/L Carbon Dioxide (21-32) mmol/L Anion Gap (3-11) BUN (7-18) mg/dl Creatinine (0.6-1.2) mg/dl Est Cr Clr Drug Dosing Est GFR ( Amer) ml/min Est GFR (Non-Af Amer) ml/min BUN/Creatinine Ratio (10-20) Glucose (70-99) mg/dl Calcium (8.5-10.1) mg/dl Troponin I (0-0.045) ng/ml NT-Pro-B Natriuret Pep (0-900) pg/ml COVID-19 Eval Order Covid19 at [facility] Imaging Data My Impression: Chest x-ray: RLL infiltrate no PTX no free air ECG Data Interpretation: Sinus rhythm with rate of 101. VA QRS and QTc intervals are within normal limits. No ST elevation or ST depression. [facility] [place] Narrative 0512: The patient was evaluated in room B6. A complete history and physical exam was performed Cardiac monitoring: An order was placed for continuous cardiac monitoring. The monitor shows a rate of 90 with sinus rhythm EMR reviewed. Patient was seen in the emergency department 2 weeks ago. At that time she was reporting pain in her right mid back. Patient had x-rays done and rib x-rays which showed no acute fracture. She then had a CT done which did show fractures in her right paravertebral ribs 3 through 6 that are unknown for chronicity. Patient was discharged. Patient refused any opiate analgesics. She stated she had incentive spirometer to use at home. Patient will be treated with DuoNeb treatment, Solu-Medrol, and Ativan given her tachypnea and obstructive lung disease. In accordance with her wishes to avoid opiate medications, Toradol ordered for the patient. 0540: Chest x-ray shows right lower lobe pneumonia. This most likely result of the patient not ventilating and breathing properly due to his rib fractures. Patient be treated with azithromycin and Rocephin. 0630: Vital signs stable. Patient less tachypneic after receiving Ativan DuoNeb and Solu-Medrol. On recitation lungs there is still scant expiratory wheezes and rales at the right lower lobe. Lab work within normal limits. Patient will be admitted for pain control for rib fractures and treatment of her pneumonia. Dr. Reyes [facility] hospitalist has been notified. Impression & Plan Pneumonia, COPD exacerbation Discharge Plan Visit Data Chief Complaint: Respiratory Problems Stated Complaint: CAN'T BREATHE (COPD/ASTHMA),4 BROKEN RIBS RT SIDE ED Provider: Guero Lorenzo Discharge Problem: Pneumonia, COPD exacerbation Patient Disposition: Being Evaluated by Hospitalist Forms Stand Alone Forms: [employer] Prescriptions Prescriptions: No Action Incruse Ellipta 62.5 mcg/actuation blister with device 1 inh INHALATION QAM Qty: 1 RF: 5 prednisone 20 mg tablet 40 mg PO DAILY 10 Days Qty: 20 RF: 0 Daliresp 500 mcg tablet 500 mcg PO QAM Qty: 90 RF: 3 guaifenesin [Mucinex] 600 mg tablet extended release 12hr 600 mg PO BID RF: 0 albuterol sulfate 0.63 mg/3 mL solution for nebulization 0.63 mg inhalation QID PRN (Reason: Wheezing) RF: 0 potassium chloride 10 mEq capsule, extended release 10 meq PO 2XWK RF: 0 (DME) CPAP Supplies Misc See Rx Instructions .ROUTE .MEDSUPPLY Qty: 1 RF: 0 ipratropium bromide 0.02 % solution 2.5 ml inhalation Q6H PRN (Reason: shortness of breath or wheezing) Qty: 300 RF: 3 levalbuterol HCl 1.25 mg/3 mL solution for nebulization 1.25 mg INH Q6H PRN (Reason: Shortness Of Breath Or Wheezing) Qty: 360 RF: 3 Symbicort 160-4.5 mcg/actuation HFA aerosol inhaler 2 puff INHALATION BID Qty: 10.2 RF: 1 [id number]/Laxasperse Cap capsule See Rx Instructions .ROUTE .COMPLEX Qty: 28 RF: 3 (DME) Oxygen Home Liters Per Minute See Dose Instructions .ROUTE .MEDSUPPLY RF: 0 omeprazole 20 mg Capsule,Delayed Release(Dr/Ec) 20 mg PO QAM RF: 0 hydroxychloroquine [Plaquenil] 200 mg Tablet 200 mg PO QAM RF: 0 cholecalciferol (vitamin D3) [Vitamin D3] 1,000 unit Capsule 1,000 unit PO HS RF: 0 calcium carbonate-vit D3-min [Calcium 600 + Minerals] 600 mg calcium- 400 unit Tablet 1 tab PO BID RF: 0 alendronate [Fosamax] 70 mg tablet 70 mg PO WK RF: 0 albuterol sulfate [ProAir HFA] 90 mcg/actuation HFA aerosol inhaler 2 puff Inhalation Q4 PRN (Reason: Shortness Of Breath Or Wheezing) RF: 0 fluticasone propionate [Flonase Allergy Relief] 50 mcg/actuation spray,suspension 2 spray intranasal HS RF: 0 diltiazem HCl [Cardizem CD] 180 mg capsule,extended release 24hr 180 mg PO QAM RF: 0 montelukast [Singulair] 10 mg tablet 10 mg PO HS RF: 0 azelastine 137 mcg (0.1 %) aerosol,spray 2 spray intranasal DAILY RF: 0 furosemide 20 mg Tablet 20 mg PO 2XWK RF: 0 Referrals Referrals: Navin Saravia MD [Primary Care Provider] -
[2021-04-21] MEDS ORDERED: cefTRIAXone SODIUM 1,000 MG/50 ML BAG IV STA (05:37)
[2021-04-21] MEDS ORDERED: AZITHROMYCIN 250 MG TAB PO ONE (05:37)
[2021-04-21 05:48] LABS: Basophils # (auto) 0.01 K/uL (0-0.2); Basophils % (auto) 0.1 %; Eosinophils # (auto) 0.12 K/uL (0-0.5); Hematocrit (blood only) 42.8 % (37-47); Immature Granulocytes # (auto) 0.27 K/uL (0.00-0.02); Immature Granulocytes % (auto) 2.3 %; Mean Corpuscular Hemoglobin 29.8 pg (25-34); Mean Corpuscular Hgb Conc 32.7 g/dL (32-36); Mean Corpuscular Volume 91.1 fL (80-100); Monocytes # (auto) 1.02 K/uL (0.11-0.59); Monocytes % (auto) 8.5 %; Neutrophils # (auto) 9.34 K/uL (1.4-6.5); Neutrophils % (auto) 78.1 %; Platelet Count 319 K/uL (130-400); RDW Coefficient of Variation 15.5 % (11.5-14.5); RDW Standard Deviation 52.3 fL (36.4-46.3); White Blood Count 11.96 K/uL (4.8-10.8)
[2021-04-21 06:01] LABS: Base Excess VBG 3.6 mEq/L; HCO3 VBG 30 mmol/L; PCO2 VBG 50 mmHg (38-50); PO2 VBG 30 mmHg; pH VBG 7.39 (7.36-7.41)
[2021-04-21 06:05] LABS: Oxygen Saturation VBG < 60.0 %
[2021-04-21 06:06] LABS: BUN Creatinine Ratio 13.2 (10-20); Blood Urea Nitrogen 12 mg/dl (7-18); Calcium 9.2 mg/dl (8.5-10.1); Carbon Dioxide 30 mmol/L (21-32); Chloride 107 mmol/L (98-107); Est GFR (African American) 71.6 ml/min; Est GFR (Non-African American) 61.8 ml/min; Glucose 91 mg/dl (70-99); Potassium 3.9 mmol/L (3.5-5.1); Sodium 142 mmol/L (136-145)
[2021-04-21 06:11] LABS: NT Pro B Type Natriuretic Pept 200 pg/ml (0-900); Troponin I < 0.015 ng/ml (0-0.045)
[2021-04-21] MEDS ORDERED: dilTIAZem HCL 180 MG CAPCR PO STA (06:48)
[2021-04-21] MEDS ORDERED: HEPARIN 100 UNIT/ML 5ML FLUSH ONE (07:01)
[2021-04-21 07:14] LABS: Prothrombin Time 9.7 Seconds (9.0-12.0)
[2021-04-21 07:18] LABS: Partial Thromboplastin Ratio 0.8; Partial Thromboplastin Time < 20.0 Seconds (21.0-31.0)
--- NOTE | 2021-04-21 07:44 | History & Physical Report ---
Date of Service April 21, 2021 Assessment & Plan (1) COPD exacerbation: Plan: History chronic respiratory failure secondary to steroid-dependent COPD/asthma overlap syndrome Secondary to community-acquired pneumonia No overt sepsis for now Posttussive rib fractures hx PSVT as per records rheumatoid arthritis, at baseline breast cancer status post surgery uterine cancer status post surgery ongoing tobacco abuse Medical telemetry Ceftriaxone, Azithromycin Steroids, nebs RTC Pulmonary consult Re: COPD exacerbation (Patient known to [facility] Lidoderm patch for rib fractures Nicotine gum as needed DVT prophylaxis. Lovenox subcu Full code Text document was generated using [employer] voice recognition software. It may contain grammatical or spelling errors. Kindly contact undersigned for clarification of any documentation item in question. History obtained from patient and records. History of Present Illness Chief Complaint: Worsening cough, shortness of breath Primary Care Provider: Navin Saravia MD Medical history significant for chronic respiratory failure secondary to asthma/COPD overlap syndrome on home O2 currently on daily prednisone Rx, JOAN on CPAP, PSVT as per records, rheumatoid arthritis, breast cancer status post surgery radiation, uterine cancer status post surgery, skin cancer as per records, history biliary pancreatitis/choledocholithiasis status post stent placement/history cholecystectomy, hx superficial nonocclusive LUE DVT as per records, ongoing tobacco abuse. Last confinement February 2021 for COPD exacerbation. Last month, patient noted right mid back pain described as stabbing worsened with sneezing and coughing fits. Patient seen at the ER about 3 weeks ago. Imaging showed multiple rib fractures on the right side. Patient discharged home. Last week, patient noted junky cough symptoms worsening rib fracture pain. Worsening shortness of breath. No fluid retention as per patient. Inhalation of fumes from neighbors burning trash as per patient. Patient noted to be in respiratory distress upon arrival at the ER. Solu-Medrol, neb treatment, ceftriaxone, and azithromycin administered at the ER. Patient currently feeling better. 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 Allergies Allergy/AdvReac Type Severity Reaction Status Date / Time Tetracyclines Allergy Severe Tongue Verified 04/21/21 07:42 swelling codeine Allergy Intermediate Hives Verified 04/21/21 07:42 nickel Allergy Intermediate Lip Verified 04/21/21 07:42 swelling (nickel mouthpiece with flute) bacitracin Allergy Mild Itching Verified 04/21/21 07:42 amoxicillin AdvReac Mild Diarrhea, Verified 04/21/21 07:42 vomiting clavulanic acid AdvReac Mild Nausea/Vomi Verified 04/21/21 07:42 [From Augmentin] ting Home Medications Medication Instructions Recorded Confirmed Type calcium carb-vit D3-minerals 600 1 tab PO BID 04/02/18 04/21/21 History mg calcium-400 unit tablet (Calcium 600 + Minerals) cholecalciferol (vitamin D3) 25 1,000 unit PO HS 04/02/18 04/21/21 History mcg (1,000 unit) capsule (Vitamin D3) hydroxychloroquine 200 mg tablet 200 mg PO QAM 04/02/18 04/21/21 History (Plaquenil) omeprazole 20 mg capsule,delayed 20 mg PO QAM 04/02/18 04/21/21 History release alendronate 70 mg tablet (Fosamax) 70 mg PO WK 09/12/19 04/21/21 History umeclidinium 62.5 mcg/actuation 1 inh INHALATION QAM #1 inhaler 07/15/20 04/21/21 Rx blister powder for inhalation (Incruse Ellipta) budesonide-formoterol HFA 160 2 puff INHALATION BID #10.2 gm 08/19/20 04/21/21 Rx mcg-4.5 mcg/actuation aerosol inhaler (Symbicort) roflumilast 500 mcg tablet 500 mcg PO QAM #90 tab 11/22/20 04/21/21 Rx (Daliresp) azelastine 137 mcg (0.1 %) nasal 2 spray INTRANASAL DAILY 12/26/20 04/21/21 History spray aerosol diltiazem HCl 180 mg 180 mg PO QAM 12/26/20 04/21/21 History capsule,extended release 24 hr (Cardizem CD) montelukast 10 mg tablet 10 mg PO HS 12/26/20 04/21/21 History (Singulair) albuterol sulfate 90 mcg/actuation 2 puff INHALATION Q4 PRN 02/14/21 04/21/21 History aerosol inhaler (ProAir HFA) fluticasone propionate 50 2 spray INTRANASAL HS 02/14/21 04/21/21 History mcg/actuation nasal spray,suspension (Flonase Allergy Relief) ipratropium bromide 0.02 % 2.5 ml INHALATION Q6H PRN #300 ml 03/12/21 04/21/21 Rx solution for inhalation levalbuterol HCl 1.25 mg/3 mL 1.25 mg INH Q6H PRN #360 ml 03/12/21 04/21/21 Rx solution for nebulization albuterol sulfate 0.63 mg/3 mL 0.63 mg INHALATION QID PRN 03/20/21 04/21/21 History solution for nebulization guaifenesin 600 mg tablet, 600 mg PO BID 03/20/21 04/21/21 History extended release 12 hr (Mucinex) potassium chloride 10 mEq 10 meq PO UD cap 03/20/21 04/21/21 History capsule,extended release furosemide 20 mg tablet 20 mg PO UD 03/24/21 04/21/21 History prednisone 20 mg tablet 40 mg PO DAILY 10 Days #20 tab 04/09/21 04/21/21 Rx baclofen 10 mg tablet 10 mg PO BID 04/21/21 04/21/21 History metoprolol succinate 25 mg 12.5 mg PO DAILY 04/21/21 04/21/21 History tablet,extended release 24 hr Past Med/Surg History Medical History Anxiety Asthma-COPD overlap syndrome Diastolic heart failure Dry mouth GERD (gastroesophageal reflux disease) Hiatal hernia History of breast cancer Right (2012) s/p lumpectomy + radiation History of uterine cancer GREGORIO BSO + chemo (2012) Insomnia Lung nodule Melanoma S/p excision Multiple pulmonary nodules determined by computed tomography of lung Nocturnal oxygen desaturation 2L O2 HS Obstructive sleep apnea CPAP (+2L O2 HS) PAT (paroxysmal atrial tachycardia) Rheumatoid arthritis Surgical History History of breast biopsy History of cataract surgery History of colonoscopy Colonoscopy (03/20/20): MAC at [facility] History of ERCP ERCP (02/02/20): MAC at [facility] History of melanoma excision 2019 History of Moh's micrographic surgery for skin cancer nose x2 History of sinus surgery 06/29/18 (MAC 3, 7.5 ETT, grade 2 view) History of tonsillectomy History of total abdominal hysterectomy and bilateral salpingo-oophorectomy History of vascular access device Left chest (port flush [facility] on 03/26/21) Hx laparoscopic cholecystectomy Status post right breast lumpectomy Family History Father Leukemia Myocardial infarction Sister Breast cancer Mother Cancer brain Other Coronary heart disease No family history of adverse response to anesthesia No family history of bleeding disorder Social History Smoking Status: Current every day smoker Tobacco Type: Cigarettes Years Smoked: 40; Cigarettes Per Day: 5; Second Hand Exposure: No; Do You Dip or Chew Tobacco: No; Tobacco Cessation Education Requested by Patient: No Hx Alcohol Use: Yes Alcohol type: beer Alcohol Intake Frequency Comment: 1 beer/day Hx Substance Use: No Preferred Language: [place] Communication Ability: Effective Visual Impairment: No Limitations Tobacco Sieve Operator Required: No Beliefs That Will Affect Care: None marital status: Current Living Situation: Spouse current occupational status: employed 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 Other Information That Helps Us Care for You: No Feels Safe at Home: Yes Safety Concerns: Feels Safe At This Time Assistive Devices: CPAP and Oxygen - Continuous Review of Systems Review of Systems: As per HPI, all 10 systems reviewed, all other ROS negative Physical Exam Physical Exam: GENERAL: Slightly uncomfortable, minimal respiratory distress SKIN: Normal color, warm HEENT: Healed surgical scar over face, pink palpebral conjunctivae, no ptosis, dry buccal mucosa, nasal cannula in place NECK : Supple, no tenderness CHEST : Decreased breath sounds, expiratory wheezes, no tenderness HEART : RRR, no obvious murmurs ABDOMEN: Some distention, nontender EXTREMITIES : No LE swelling/tenderness, no other conspicuous deformities noted NEUROLOGIC : Coherent, no facial asymmetry, no other gross focality Results & Data Results & Data ([facility]) Vital Signs (Past 12 Hours) Vital Signs Temp Pulse Pulse Resp BP Pulse Ox 04/21/21 06:12 25 H 96 04/21/21 06:10 87 20 97 04/21/21 05:08 36.6 C 93 H 28 H 166/93 H 99 Laboratory Results Laboratory Results WBC 11.96 K/uL (4.8-10.8) H 04/21/21 05:39 RBC 4.70 M/uL (4.2-5.4) 04/21/21 05:39 Hgb 14.0 g/dL (12.0-16.0) 04/21/21 05:39 Hct 42.8 % (37-47) 04/21/21 05:39 MCV 91.1 fL (80-100) 04/21/21 05:39 MCH 29.8 pg (25-34) 04/21/21 05:39 MCHC 32.7 g/dL (32-36) 04/21/21 05:39 RDW Std Deviation 52.3 fL (36.4-46.3) H 04/21/21 05:39 RDW Coeff of Arleen 15.5 % (11.5-14.5) H 04/21/21 05:39 Plt Count 319 K/uL (130-400) 04/21/21 05:39 MPV 9.0 fL (7.4-10.4) 04/21/21 05:39 Immature Gran % (Auto) 2.3 % 04/21/21 05:39 Neut % (Auto) 78.1 % 04/21/21 05:39 Lymph % (Auto) 10.0 % 04/21/21 05:39 [place] % (Auto) 8.5 % 04/21/21 05:39 Eos % (Auto) 1.0 % 04/21/21 05:39 Baso % (Auto) 0.1 % 04/21/21 05:39 Neut # (Auto) 9.34 K/uL (1.4-6.5) H 04/21/21 05:39 Lymph # (Auto) 1.20 K/uL (1.2-3.4) 04/21/21 05:39 [place] # (Auto) 1.02 K/uL (0.11-0.59) H 04/21/21 05:39 Eos # (Auto) 0.12 K/uL (0-0.5) 04/21/21 05:39 Baso # (Auto) 0.01 K/uL (0-0.2) 04/21/21 05:39 Immature Gran # (Auto) 0.27 K/uL (0.00-0.02) H 04/21/21 05:39 PT 9.7 Seconds (9.0-12.0) 04/21/21 06:48 INR 1.0 (0.9-1.1) 04/21/21 06:48 APTT < 20.0 Seconds (21.0-31.0) L 04/21/21 06:48 PTT Ratio 0.8 04/21/21 06:48 VBG pH 7.39 (7.36-7.41) 04/21/21 05:39 VBG pCO2 50 mmHg (38-50) 04/21/21 05:39 VBG pO2 30 mmHg 04/21/21 05:39 VBG HCO3 30 mmol/L 04/21/21 05:39 VBG O2 Saturation < 60.0 % 04/21/21 05:39 VBG Base Excess 3.6 mEq/L 04/21/21 05:39 Barometric Pressure 734.0 mm/Hg 04/21/21 05:39 Sodium 142 mmol/L (136-145) 04/21/21 05:39 Potassium 3.9 mmol/L (3.5-5.1) 04/21/21 05:39 Chloride 107 mmol/L (98-107) 04/21/21 05:39 Carbon Dioxide 30 mmol/L (21-32) 04/21/21 05:39 Anion Gap 5.0 (3-11) 04/21/21 05:39 BUN 12 mg/dl (7-18) 04/21/21 05:39 Creatinine 0.92 mg/dl (0.6-1.2) 04/21/21 05:39 Est Cr Clr Drug Dosing Not Reportable 04/21/21 05:39 Est GFR ( Amer) 71.6 ml/min 04/21/21 05:39 Est GFR (Non-Af Amer) 61.8 ml/min 04/21/21 05:39 BUN/Creatinine Ratio 13.2 (10-20) 04/21/21 05:39 Glucose 91 mg/dl (70-99) 04/21/21 05:39 Calcium 9.2 mg/dl (8.5-10.1) 04/21/21 05:39 Magnesium 2.4 mg/dl (1.8-2.4) 04/21/21 05:39 Troponin I < 0.015 ng/ml (0-0.045) 04/21/21 05:39 NT-Pro-B Natriuret Pep 200 pg/ml (0-900) 04/21/21 05:39 COVID-19 Eval Order Covid19 at [facility] 04/21/21 06:00 SARS-CoV-2 (PCR) NEGATIVE (Negative) 04/21/21 06:00 Diagnostic Findings Chest x-ray as per my interpretation: Right basilar infiltrate EKG as per my interpretation : Rate 105, sinus tachycardia, LAD, LAFB, incomplete RBBB, T wave inversion inferior leads, low voltage
--- NOTE | 2021-04-21 07:49 | XRay Report ---
XR chest 1V portable HISTORY: Atypical Chest Pain COMPARISON: Chest 04/07/2021. FINDINGS: The patient's head obscures the lung apices. No definite pneumothorax. Left Port-A-Cath ter minates in the superior cavoatrial junction. This remains unchanged. No new focal lung consolidations to suggest pneumonia. No evidence for pulmonary edema. No pleural effusions. Focal hazy density at t he right lateral lung base likely corresponds to the subsegmental atelectasis seen on the prior chest CTA. The patient's previous identified subcentimeter groundglass nodule within the right lung apex i s not well evaluated by this modality. IMPRESSION: 1. Small focal hazy density within the right lateral lung base. This favors subsegmental atelectasis when compared to the prior chest CTA. A small developing airspace opacity could also have a similar a ppearance. 2. The patient's previous identified subcentimeter groundglass nodule within the right lung apex is n ot well evaluated by this modality. ACT 112: Negative or not required by law. Electronically signed by: Dom Garcia M.D. 04/21/2021 7:48 AM
[2021-04-21] MEDS ORDERED: BUDESONIDE/FORMOTEROL FUMARATE 160/4.5 60 PUFFS/INHALER INH SCH (09:15)
[2021-04-21] MEDS: METOPROLOL SUCC 25MG EXT REL TAB PO SCH (12:05)
[2021-04-21] MEDS: HYDROXYCHLOROQUINE SULFATE 200 MG TAB PO SCH (12:05)
[2021-04-21] MEDS: ROFLUMILAST 500 MCG TAB PO SCH (12:06)
[2021-04-21] MEDS ORDERED: XOPENEX/ATROVENT 1.25mg/0.5MG NEB COMBO NEB SCH (13:18)
[2021-04-21] MEDS ORDERED: PROMETHAZINE HCL 12.5 MG in SODIUM CHLORIDE 0.9% 50 ML IV PRN (13:18)
[2021-04-21] MEDS ORDERED: traMADol HCL 50 MG TABLET PO PRN (13:18)
[2021-04-21] MEDS ORDERED: MoRPHine SULFATE 2 MG/ML CARP IV PRN (13:18)
[2021-04-21] MEDS ORDERED: INFLUENZA VACCINE HIGH DOSE PF 65+ 0.7 ML SYR IM ONE (13:40)
[2021-04-21] MEDS ORDERED: FLUTICASONE/VILANTEROL 200/25MCG 14 PUFFS/INHALER INH SCH (14:00)
--- NOTE | 2021-04-21 14:26 | Electrocardiogram Report ---
Test Reason : Blood Pressure : / mmHG Vent. Rate : 101 BPM Atrial Rate : 101 BPM P-R Int : 136 ms QRS Dur : 086 ms QT Int : 370 ms P-R-T Axes : 086 -49 052 degrees QTc Int : 479 ms Poor data quality, interpretation may be adversely affected Sinus tachycardia with Premature supraventricular complexes Left axis deviation Low voltage QRS Abnormal ECG When compared with ECG of 07-APR-2021 10:59, Premature supraventricular complexes are now Present Confirmed by Emerson Richardson ([id number]) on 04/21/2021 2:25:59 PM Referred By: REFERRED SELF Confirmed By:Emerson Richardson
[2021-04-21] MEDS: LEVALBUTEROL 1.25MG/0.5ML NEB INH SCH ×2 (14:48→20:10)
[2021-04-21] MEDS: IPRATROPIUM BROMIDE NEB SOLN 0.02% 2.5 ML VIAL INH SCH ×3 (14:48→22:58)
[2021-04-21] MEDS ORDERED: SODIUM CHLORIDE 0.65% NA SOLN 45 ML (OCEAN) PRN (14:50)
--- NOTE | 2021-04-21 14:52 | Pulmonary Consultation ---
Date of Consultation April 21, 2021 History of Present Illness Attending Physician: Sujata Campoverde MD History of Present Illness Attending: Dr. Luke Allergies Allergy/AdvReac Type Severity Reaction Status Date / Time Tetracyclines Allergy Severe Tongue Verified 04/21/21 07:42 swelling codeine Allergy Intermediate Hives Verified 04/21/21 07:42 nickel Allergy Intermediate Lip Verified 04/21/21 07:42 swelling (nickel mouthpiece with flute) bacitracin Allergy Mild Itching Verified 04/21/21 07:42 amoxicillin AdvReac Mild Diarrhea, Verified 04/21/21 07:42 vomiting clavulanic acid AdvReac Mild Nausea/Vomi Verified 04/21/21 07:42 [From Augmentin] ting Home Medications Medication Instructions Recorded Confirmed Type calcium carb-vit D3-minerals 600 1 tab PO BID 04/02/18 04/21/21 History mg calcium-400 unit tablet (Calcium 600 + Minerals) cholecalciferol (vitamin D3) 25 1,000 unit PO HS 04/02/18 04/21/21 History mcg (1,000 unit) capsule (Vitamin D3) hydroxychloroquine 200 mg tablet 200 mg PO QAM 04/02/18 04/21/21 History (Plaquenil) omeprazole 20 mg capsule,delayed 20 mg PO QAM 04/02/18 04/21/21 History release alendronate 70 mg tablet (Fosamax) 70 mg PO WK 09/12/19 04/21/21 History umeclidinium 62.5 mcg/actuation 1 inh INHALATION QAM #1 inhaler 07/15/20 04/21/21 Rx blister powder for inhalation (Incruse Ellipta) budesonide-formoterol HFA 160 2 puff INHALATION BID #10.2 gm 08/19/20 04/21/21 Rx mcg-4.5 mcg/actuation aerosol inhaler (Symbicort) roflumilast 500 mcg tablet 500 mcg PO QAM #90 tab 11/22/20 04/21/21 Rx (Daliresp) azelastine 137 mcg (0.1 %) nasal 2 spray INTRANASAL DAILY 12/26/20 04/21/21 History spray aerosol diltiazem HCl 180 mg 180 mg PO QAM 12/26/20 04/21/21 History capsule,extended release 24 hr (Cardizem CD) montelukast 10 mg tablet 10 mg PO HS 12/26/20 04/21/21 History (Singulair) albuterol sulfate 90 mcg/actuation 2 puff INHALATION Q4 PRN 02/14/21 04/21/21 History aerosol inhaler (ProAir HFA) fluticasone propionate 50 2 spray INTRANASAL HS 02/14/21 04/21/21 History mcg/actuation nasal spray,suspension (Flonase Allergy Relief) ipratropium bromide 0.02 % 2.5 ml INHALATION Q6H PRN #300 ml 03/12/21 04/21/21 Rx solution for inhalation levalbuterol HCl 1.25 mg/3 mL 1.25 mg INH Q6H PRN #360 ml 03/12/21 04/21/21 Rx solution for nebulization albuterol sulfate 0.63 mg/3 mL 0.63 mg INHALATION QID PRN 03/20/21 04/21/21 History solution for nebulization guaifenesin 600 mg tablet, 600 mg PO BID 03/20/21 04/21/21 History extended release 12 hr (Mucinex) potassium chloride 10 mEq 10 meq PO UD cap 03/20/21 04/21/21 History capsule,extended release furosemide 20 mg tablet 20 mg PO UD 03/24/21 04/21/21 History prednisone 20 mg tablet 40 mg PO DAILY 10 Days #20 tab 04/09/21 04/21/21 Rx baclofen 10 mg tablet 10 mg PO BID 04/21/21 04/21/21 History metoprolol succinate 25 mg 12.5 mg PO DAILY 04/21/21 04/21/21 History tablet,extended release 24 hr Patient History Medical History Anxiety Asthma-COPD overlap syndrome Diastolic heart failure Dry mouth GERD (gastroesophageal reflux disease) Hiatal hernia History of breast cancer Right (2012) s/p lumpectomy + radiation History of uterine cancer GREGORIO BSO + chemo (2012) Insomnia Lung nodule Melanoma S/p excision Multiple pulmonary nodules determined by computed tomography of lung Nocturnal oxygen desaturation 2L O2 HS Obstructive sleep apnea CPAP (+2L O2 HS) PAT (paroxysmal atrial tachycardia) Rheumatoid arthritis Surgical History History of breast biopsy History of cataract surgery History of colonoscopy Colonoscopy (03/20/20): MAC at [facility] History of ERCP ERCP (02/02/20): MAC at [facility] History of melanoma excision 2019 History of Moh's micrographic surgery for skin cancer nose x2 History of sinus surgery 06/29/18 (MAC 3, 7.5 ETT, grade 2 view) History of tonsillectomy History of total abdominal hysterectomy and bilateral salpingo-oophorectomy History of vascular access device Left chest (port flush [facility] on 03/26/21) Hx laparoscopic cholecystectomy Status post right breast lumpectomy Family History Father Leukemia Myocardial infarction Sister Breast cancer Mother Cancer brain Other Coronary heart disease No family history of adverse response to anesthesia No family history of bleeding disorder Social History Smoking Status: Current every day smoker Tobacco Type: Cigarettes Years Smoked: 40; Cigarettes Per Day: 5; Second Hand Exposure: No; Do You Dip or Chew Tobacco: No; Tobacco Cessation Education Requested by Patient: No Hx Alcohol Use: Yes Alcohol type: beer Alcohol Intake Frequency Comment: 1 beer/day Hx Substance Use: No Preferred Language: German Communication Ability: Effective Visual Impairment: No Limitations Client Relations Associate Required: No Beliefs That Will Affect Care: None marital status: Current Living Situation: Spouse current occupational status: employed 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) Vital Signs (Past 12 Hours) Vital Signs Temp Pulse Pulse Resp BP BP Pulse Ox 04/21/21 14:51 91 H 18 95 04/21/21 13:26 37.1 C 91 H 27 H 145/84 H 94 04/21/21 12:00 98 H 20 155/107 H 96 04/21/21 10:30 90 28 H 131/92 04/21/21 10:00 133 H 89 20 120/68 96 04/21/21 09:30 106 H 25 H 147/94 H 96 04/21/21 09:00 83 29 H 130/90 96 04/21/21 08:30 102 H 24 97 04/21/21 08:00 95 H 88 25 H 135/92 137/94 96 04/21/21 07:30 89 27 H 95 04/21/21 07:00 92 H 26 H 99 04/21/21 06:30 82 18 97 04/21/21 06:12 25 H 96 04/21/21 06:10 87 20 97 04/21/21 06:00 93 H 35 H 98 04/21/21 05:39 91 H 21 97 04/21/21 05:08 36.6 C 93 H 28 H 166/93 H 99 Pulse Ox 04/21/21 14:51 04/21/21 13:26 94 04/21/21 12:00 04/21/21 10:30 04/21/21 10:00 04/21/21 09:30 04/21/21 09:00 04/21/21 08:30 04/21/21 08:00 04/21/21 07:30 04/21/21 07:00 04/21/21 06:30 04/21/21 06:12 04/21/21 06:10 04/21/21 06:00 04/21/21 05:39 04/21/21 05:08 PG Care Time/CCT Total # of Minutes Spent Total Time Spent with Patient: Total time spent is greater than 50% in coordination of care (as documented) at patient's floor/unit and/or counseling patient: Coding
[2021-04-21] MEDS: ENOXAPARIN INJ 40 MG/0.4 ML SYR SQ SCH (14:59)
[2021-04-21] MEDS: LIDOCAINE 5% 1 PATCH TD SCH (14:59)
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
[2021-04-21] MEDS: UMECLIDINIUM BROMIDE 62.5MCG/BLISTER 7 PUFFS/INHALER INH SCH (17:23)
[2021-04-21] MEDS ORDERED: ALBUTEROL HFA 8 GM INHALER INH PRN (17:23)
--- NOTE | 2021-04-21 17:26 | Hospitalist Progress Note ---
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 She had recently [3 weeks ago] had right rib fracture secondary to continuously sneezing/coughing fits per patient. Personal/Social history : 5 cigarettes daily, 1 beer daily, denies abuse as per patient; [employer] business. She is being managed for the following: #. COPD exacerbation #. Pneumonia Patient has chronic respiratory failure secondary to steroid dependent COPD/asthma overlap syndrome, uses 2 L oxygen at night at home. Patient came in with few days of cough associated with shortness of breath Recent right rib fracture likely contributing to development of pneumonia leading to COPD exacerbation Continue with bronchodilator/steroid/Rocephin/azithromycin P.o. steroid for 5 days, ATB for 5 days Pulmonology on board: Outpatient pulm follow-up. #. Posttussive rib fractures PT/OT, encourage movement, pain managementLidoderm patch #. Ongoing tobacco use As noted above, patient agreeable to nicotine patch while inpatient Posttussive rib fractures #. Other chronic medical conditions: Resume home meds DVT prophylaxis. Lovenox subcu Full code Admission and Anticipated Discharge Date Admission Date: April 21, 2021 Subjective Patient was lying in bed, on 2 L oxygen, NAD, no new events overnight. Patient reports improvement in breathing, chest pain, cough. Patient denies any headache/dizziness/other review of symptoms. Physical Exam Physical Exam: GENERAL: Alert and oriented x3. NAD, on 3L. HEENT: No pallor, no icterus. Pupils equal, round and reactive to light. Oral mucosa moist. Tip of nose with well-healed scalp graft with hairs. NECK: No JVD, no neck masses. HEART: S1 and S2 heard. Regular rate and rhythm. No murmur, no gallop. RESPIRATORY SYSTEM: Normal AP diameter. No accessory muscle use. No wheezing, no crackles. Increased breath sounds over right lower lobe noted. ABDOMEN: Soft, bowel sounds present, nontender, no distention. CENTRAL NERVOUS SYSTEM: Alert and oriented x3. No facial droop. Speech is clear. Obeys simple commands. Moves extremities. EXTREMITIES: Trace edema, no erythema seen. Results & Data Results & Data ([facility]) Vital Signs (Past 12 Hours) Vital Signs Temp Pulse Pulse Resp BP BP Pulse Ox 04/21/21 16:00 37.3 C 86 22 150/94 H 97 04/21/21 14:51 91 H 18 95 04/21/21 13:26 37.1 C 91 H 27 H 145/84 H 94 04/21/21 12:00 98 H 20 155/107 H 96 04/21/21 10:30 90 28 H 131/92 04/21/21 10:00 133 H 89 20 120/68 96 04/21/21 09:30 106 H 25 H 147/94 H 96 04/21/21 09:00 83 29 H 130/90 96 04/21/21 08:30 102 H 24 97 04/21/21 08:00 95 H 88 25 H 135/92 137/94 96 04/21/21 07:30 89 27 H 95 04/21/21 07:00 92 H 26 H 99 04/21/21 06:30 82 18 97 04/21/21 06:12 25 H 96 04/21/21 06:10 87 20 97 04/21/21 06:00 93 H 35 H 98 04/21/21 05:39 91 H 21 97 Pulse Ox 04/21/21 16:00 98 04/21/21 14:51 04/21/21 13:26 94 04/21/21 12:00 04/21/21 10:30 04/21/21 10:00 04/21/21 09:30 04/21/21 09:00 04/21/21 08:30 04/21/21 08:00 04/21/21 07:30 04/21/21 07:00 04/21/21 06:30 04/21/21 06:12 04/21/21 06:10 04/21/21 06:00 04/21/21 05:39 (1) Pneumonia Laterality: right Lung location: lower lobe of lung Pneumonia type: due to unspecified organism Qualified Code(s): J18.9 - Pneumonia, unspecified organism
[2021-04-21] MEDS: BACLOFEN 10 MG TAB PO SCH (20:23)
[2021-04-21] MEDS: MONTELUKAST SODIUM 10 MG TABLET PO SCH (20:23)
[2021-04-21] MEDS: guaiFENesin 600 MG TABCR PO SCH (20:23)
[2021-04-22] MEDS: IPRATROPIUM BROMIDE NEB SOLN 0.02% 2.5 ML VIAL INH SCH ×3 (02:03→11:15)
[2021-04-22] MEDS: LEVALBUTEROL 1.25MG/0.5ML NEB INH SCH ×4 (02:03→11:15)
[2021-04-22] MEDS: cefTRIAXone SODIUM 1,000 MG in DEXTROSE 5% 50 ML IV SCH (05:24)
[2021-04-22] MEDS ORDERED: cefTRIAXone SODIUM 2,000 MG in DEXTROSE 5% 50 ML IV SCH (06:00)
[2021-04-22] MEDS: HEPARIN 100 UNIT/ML 5ML FLUSH FLUSH PRN ×3 (06:11→21:24)
[2021-04-22 06:42] LABS: Basophils # (auto) 0.01 K/uL (0-0.2); Basophils % (auto) 0.1 %; Eosinophils # (auto) 0.01 K/uL (0-0.5); Eosinophils % (auto) 0.1 %; Hematocrit (blood only) 39.7 % (37-47); Immature Granulocytes # (auto) 0.18 K/uL (0.00-0.02); Immature Granulocytes % (auto) 1.1 %; Lymphocytes # (auto) 1.19 K/uL (1.2-3.4); Lymphocytes % (auto) 7.3 %; Mean Corpuscular Hemoglobin 29.5 pg (25-34); Mean Corpuscular Hgb Conc 32.7 g/dL (32-36); Mean Platelet Volume 9.3 fL (7.4-10.4); Monocytes # (auto) 0.97 K/uL (0.11-0.59); Monocytes % (auto) 5.9 %; Neutrophils # (auto) 14.03 K/uL (1.4-6.5); Neutrophils % (auto) 85.5 %; Platelet Count 342 K/uL (130-400); RDW Coefficient of Variation 15.3 % (11.5-14.5); Red Blood Count 4.41 M/uL (4.2-5.4); White Blood Count 16.39 K/uL (4.8-10.8)
[2021-04-22 07:02] LABS: BUN Creatinine Ratio 28.1 (10-20); Calcium 8.7 mg/dl (8.5-10.1); Creatinine Clr Calc Pharmacy 68.1 ml/min; Est GFR (African American) 90.2 ml/min; Est GFR (Non-African American) 77.8 ml/min; Potassium 3.8 mmol/L (3.5-5.1)
[2021-04-22] MEDS: FLUTICASONE/VILANTEROL 100/25MCG 14 PUFFS/INHALER INH SCH (08:14)
[2021-04-22] MEDS: UMECLIDINIUM BROMIDE 62.5MCG/BLISTER 7 PUFFS/INHALER INH SCH (08:14)
[2021-04-22] MEDS: LIDOCAINE 5% 1 PATCH TD SCH (08:15)
[2021-04-22] MEDS: PANTOprazole 40 MG TAB PO SCH (08:15)
[2021-04-22] MEDS: METOPROLOL SUCC 25MG EXT REL TAB PO SCH (08:15)
[2021-04-22] MEDS: ROFLUMILAST 500 MCG TAB PO SCH (08:15)
[2021-04-22] MEDS: guaiFENesin 600 MG TABCR PO SCH ×2 (08:15→21:20)
[2021-04-22] MEDS: BACLOFEN 10 MG TAB PO SCH ×2 (08:15→21:23)
[2021-04-22] MEDS: ENOXAPARIN INJ 40 MG/0.4 ML SYR SQ SCH (08:15)
[2021-04-22] MEDS: HYDROXYCHLOROQUINE SULFATE 200 MG TAB PO SCH (08:16)
[2021-04-22] MEDS: dilTIAZem HCL 180 MG CAPCR PO SCH (08:16)
[2021-04-22] MEDS: AZELASTINE HCL 0.1% NASAL 200 SPRAYS/27,400 MCG BTL SCH (08:16)
[2021-04-22] MEDS: predniSONE 20 MG TAB PO SCH (08:16)
[2021-04-22] MEDS: FUROSEMIDE 20 MG TAB PO SCH (08:18)
[2021-04-22] MEDS: POTASSIUM CHLORIDE 10 MEQ TABCR PO SCH (08:19)
[2021-04-22] MEDS: AZITHROMYCIN 250 MG TAB PO SCH (08:45)
--- NOTE | 2021-04-22 10:52 | Pulmonology Progress Note ---
Date of Service April 22, 2021 Assessment & Plan (1) COPD exacerbation: (2) Multiple fractures of ribs of right side: Encounter type: initial encounter Fracture type: closed Qualified Code(s): S22.41XA - Multiple fractures of ribs, right side, initial encounter for closed fracture Plan: Impression: 75-year-old female with advanced obstructive lung disease, due to overlap syndrome with both asthmatic component and COPD. She is admitted with chest discomfort due to rib fractures and questionable subsegmental atelectasis of the right lower lobe. She also has a mild increase in her shortness of breath. Recommendations: 1. COPD: Agree with treatment in the form of bronchodilators and systemic steroids. Will change to prednisone and taper over 5 days. Can start with 40 mg p.o. daily at this time. 2. Basilar atelectasis versus pneumonia. Okay to continue with Rocephin and azithromycin at the current time. Procalcitonin level is negative. 3. Would continue bronchodilators in the form of Symbicort and Incruse as prescribed at home. 4. Rib fractures. Management per primary service. Continue with pain control. Try to minimize narcotics. Would educate patient on splinting with a pillow or blanket. Encourage incentive spirometry. 5. Tobacco abuse: Patient still smoking approx 6 cigarettes daily. Encouraged complete abstinence. Patient reports that she has cut done significantly and acknowledges that she needs to quit. Thank you for including us in the care of this patient. Patient ambulated well in the hallways without supplemental oxygen and did not desaturate. Okay to discharge from a pulmonary perspective and follow-up in the outpatient clinic. Pulmonary services will sign off at this time. Please feel free to reconsult as needed Admission and Anticipated Discharge Date Admission Date: April 21, 2021 Subjective Attending: Dr. Luke Patient seen and examined in room 260-1. She is feeling some improvement but continues to experience thick post nasal drip and feels of shortness of breath. Supplemental O2 was turned up to 4L/min overnight and SaO2 was 98%. I suspect that this contributed to her feelings of SOB. She denies cough or fever. She has no complaints of rigors or night sweats. She walked with physical therapy in the halls and had no desaturation events. She denied chest pain with exertion. Patient has no new acute complaints. Review of Systems Review of Systems: All systems reviewed & are unremarkable except as noted in Subjective Physical Exam Physical Exam: GENERAL : No acute distress EYES: No icterus, gaze conjugate NOSE: No evidence of epistaxis MOUTH: No lesions or candidiasis NECK: Supple LUNGS: Some upper field bronchospasm. Good inspirational effort. Air movement improved from yesterday. HEART: Regular, rate controlled ABDOMEN: Soft, NT, ND, BS Present EXTREMITIES: No LE edema, pedal pulses intact NEURO: A&OX3 Results & Data Results & Data ([facility]) Vital Signs (Past 12 Hours) Vital Signs Temp Pulse Pulse Pulse Resp BP BP 04/22/21 07:37 76 16 04/22/21 07:31 36.9 C 85 16 119/78 04/22/21 05:02 36.8 C 87 20 130/84 04/22/21 04:41 110 H 04/22/21 02:06 93 H 18 04/21/21 23:50 36.8 C 20 144/99 H Pulse Ox 04/22/21 07:37 98 04/22/21 07:31 97 04/22/21 05:02 97 04/22/21 04:41 04/22/21 02:06 93 04/21/21 23:50 97 Laboratory Results 04/22/21 06:03 04/22/21 06:03 Diagnostic Findings No further diagnostic imaging PG Care Time/CCT Total # of Minutes Spent Total Time Spent with Patient: Total time spent is greater than 50% in coordination of care (as documented) at patient's floor/unit and/or counseling patient: 30 minutes Coding Level of Care Code 08273 Subseq Hosp Care Lvl 2 Diagnoses COPD exacerbation J44.1 Multiple fractures of ribs of right side S22.41XA Encounter type: initial encounter Fracture type: closed Time Spent (min) 30
[2021-04-22] MEDS ORDERED: IPRATROPIUM BROMIDE NEB SOLN 0.02% 2.5 ML VIAL INH PRN (12:52)
[2021-04-22] MEDS ORDERED: LEVALBUTEROL 1.25MG/0.5ML NEB INH PRN (12:53)
--- NOTE | 2021-04-22 18:37 | Hospitalist Progress Note ---
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 She had recently [3 weeks ago] had right rib fracture secondary to continuously sneezing/coughing fits per patient. Personal/Social history : 5 cigarettes daily, 1 beer daily, denies abuse as per patient; [employer]. She is being managed for the following: #. COPD exacerbation #. Pneumonia Patient has chronic respiratory failure secondary to steroid dependent COPD/asthma overlap syndrome, uses 2 L oxygen at night at home. Patient came in with few days of cough associated with shortness of breath Recent right rib fracture likely contributing to development of pneumonia leading to COPD exacerbation Continue with bronchodilator/steroid/Rocephin/azithromycin P.o. steroid for 5 days, ATB for 5 days Pulmonology on board: Outpatient pulm follow-up. #. Posttussive rib fractures PT/OT, encourage movement, pain managementLidoderm patch Likely need patch upon discharge. #. Ongoing tobacco use As noted above, patient agreeable to nicotine patch while inpatient #. Other chronic medical conditions: Resume home meds DVT prophylaxis. Lovenox subcu Full code Disposition: Possible discharge to home tomorrow. Admission and Anticipated Discharge Date Admission Date: April 21, 2021 Subjective Patient sitting up in the bedside, on room air, NAD, no acute events overnight. Patient denies any headache/chills/fever/shortness of breath/any other review of symptoms. Patient reports improvement in her cough and her back pain. Physical Exam Physical Exam: GENERAL: Alert and oriented x3. NAD, on room air. HEENT: No pallor, no icterus. Pupils equal, round and reactive to light. Oral mucosa moist. Tip of nose with well-healed scalp graft with hairs. NECK: No JVD, no neck masses. HEART: S1 and S2 heard. Regular rate and rhythm. No murmur, no gallop. RESPIRATORY SYSTEM: Normal AP diameter. No accessory muscle use. No wheezing, no crackles. Clear to auscultation. ABDOMEN: Soft, bowel sounds present, nontender, no distention. CENTRAL NERVOUS SYSTEM: Alert and oriented x3. No facial droop. Speech is cl ear. Obeys simple commands. Moves extremities. EXTREMITIES: Trace edema, no erythema seen. Results & Data Results & Data ([facility]) Vital Signs (Past 12 Hours) Vital Signs Temp Pulse Pulse Resp BP Pulse Ox 04/22/21 15:39 76 04/22/21 15:15 36.5 C 92 H 18 118/75 92 04/22/21 11:15 88 18 92 04/22/21 11:11 36.5 C 98 H 16 131/68 92 04/22/21 08:00 85 04/22/21 07:37 76 16 98 04/22/21 07:31 36.9 C 85 16 119/78 97 (1) Pneumonia Laterality: right Lung location: lower lobe of lung Pneumonia type: due to unspecified organism Qualified Code(s): J18.9 - Pneumonia, unspecified organism
[2021-04-22] MEDS: ALBUTEROL 0.083% NEBU SOLN 3 ML VIAL INH PRN (19:40)
[2021-04-22] MEDS: MONTELUKAST SODIUM 10 MG TABLET PO SCH (21:20)
[2021-04-22] MEDS ORDERED: METOPROLOL TARTRATE 1 MG/ML VIAL IV PRN (23:51)
[2021-04-23] MEDS: ACETAMINOPHEN 325 MG TAB PO PRN ×2 (04:29→12:15)
[2021-04-23] MEDS: ALBUTEROL 0.083% NEBU SOLN 3 ML VIAL INH PRN ×2 (04:55→21:56)
[2021-04-23] MEDS: cefTRIAXone SODIUM 1,000 MG in DEXTROSE 5% 50 ML IV SCH (06:43)
[2021-04-23 07:22] LABS: Hemoglobin 12.8 g/dL (12.0-16.0); Mean Corpuscular Hemoglobin 29.6 pg (25-34); Mean Corpuscular Hgb Conc 32.8 g/dL (32-36); Mean Corpuscular Volume 90.3 fL (80-100); Mean Platelet Volume 9.6 fL (7.4-10.4); Platelet Count 299 K/uL (130-400); RDW Coefficient of Variation 15.7 % (11.5-14.5); RDW Standard Deviation 52.2 fL (36.4-46.3); Red Blood Count 4.32 M/uL (4.2-5.4)
[2021-04-23] MEDS: AZITHROMYCIN 250 MG TAB PO SCH (09:15)
[2021-04-23] MEDS: dilTIAZem HCL 180 MG CAPCR PO SCH (09:16)
[2021-04-23] MEDS: ENOXAPARIN INJ 40 MG/0.4 ML SYR SQ SCH (09:16)
[2021-04-23] MEDS: FLUTICASONE/VILANTEROL 100/25MCG 14 PUFFS/INHALER INH SCH (09:17)
[2021-04-23] MEDS: FUROSEMIDE 20 MG TAB PO SCH (09:17)
[2021-04-23] MEDS: guaiFENesin 600 MG TABCR PO SCH ×2 (09:17→21:39)
[2021-04-23] MEDS: HYDROXYCHLOROQUINE SULFATE 200 MG TAB PO SCH (09:18)
[2021-04-23] MEDS: LIDOCAINE 5% 1 PATCH TD SCH (09:18)
[2021-04-23] MEDS: PANTOprazole 40 MG TAB PO SCH (09:18)
[2021-04-23] MEDS: ROFLUMILAST 500 MCG TAB PO SCH (09:19)
[2021-04-23] MEDS: POTASSIUM CHLORIDE 10 MEQ TABCR PO SCH (09:19)
[2021-04-23] MEDS: predniSONE 20 MG TAB PO SCH (09:19)
[2021-04-23] MEDS: UMECLIDINIUM BROMIDE 62.5MCG/BLISTER 7 PUFFS/INHALER INH SCH (09:20)
[2021-04-23] MEDS: BACLOFEN 10 MG TAB PO SCH ×2 (09:33→21:39)
[2021-04-23] MEDS: AZELASTINE HCL 0.1% NASAL 200 SPRAYS/27,400 MCG BTL SCH (09:39)
--- NOTE | 2021-04-23 10:41 | Cardiology Consultation ---
Date of Consultation April 23, 2021 Assessment & Plan (1) COPD exacerbation: (2) Pneumonia: (3) Tobacco use disorder: (4) PAT (paroxysmal atrial tachycardia): (5) PSVT (paroxysmal supraventricular tachycardia): (6) Sinus tachycardia: (7) Premature atrial complexes: Atrial ectopy, sinus tachycardia, past paroxysmal supraventricular tachycardia and paroxysmal atrial tachycardia. Continue diltiazem CD at 180 mg/day. Increase metoprolol succinate to 25 mg/day. Hypertension. Blood pressure is acceptably controlled. If/when additional blood pressure control is needed would likely initiate an ARB Intermittent fluid retention, multifactorial in etiology left (diastolic heart failure, underlying lung disease, calcium channel brian therapy). Continue oral furosemide and supplemental potassium Tobacco abuse, COPD, asthma, obstructive sleep apnea on CPAP therapy, followed by [facility] – [place] Pulmonary Medicine. Supervising Physician Co-Signing Physician Notes Patient seen and examined, chart, medications telemetry reviewed full assessment as noted above. Plan as outlined we will increase metoprolol dosing. 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 Cardiac history includes paroxysmal atrial tachycardia and PSVT occurring in association with acute pulmonary exacerbations. Patient recently evaluated as an outpatient with complaints of increased heart rates on home pulse oximeter. Holter monitoring revealed sinus/sinus tachycardia as a dominant rhythm, with an average heart rate of 101 bpm. Frequent atrial ectopy (14,503) noted along with multiple nonsustained runs of supraventricular tachycardia. No significant bradycardia/pauses noted. Holter findings were felt to reflect patients underlying very severe COPD. Diltiazem was not increased further (currently prescribed 180 mg/day) due to fluid retention. Low dose beta- brian therapy (metoprolol succinate 12.5 mg/day) was prescribed without difficulty. Furosemide and potassium prescribed with correction of fluid retention. Patient denies chest pain. No overt tachypalpitations. Heart rates notably observed via home pulse oximetry. Dysnea has significantly improved since admis jay on 04/21/2021. + Cough. No orthopnea. No PND. Edema has been controlled, notably worse in the hot humid weather. No lightheadedness, dizziness, near syncope, or true syncope. She continues to smoke. Allergies Allergy/AdvReac Type Severity Reaction Status Date / Time Tetracyclines Allergy Severe Tongue Verified 04/21/21 07:42 swelling codeine Allergy Intermediate Hives Verified 04/21/21 07:42 nickel Allergy Intermediate Lip Verified 04/21/21 07:42 swelling (nickel mouthpiece with flute) bacitracin Allergy Mild Itching Verified 04/21/21 07:42 amoxicillin AdvReac Mild Diarrhea, Verified 04/21/21 07:42 vomiting clavulanic acid AdvReac Mild Nausea/Vomi Verified 04/21/21 07:42 [From Augmentin] ting Home Medications Medication Instructions Recorded Confirmed Type calcium carb-vit D3-minerals 600 1 tab PO BID 04/02/18 04/21/21 History mg calcium-400 unit tablet (Calcium 600 + Minerals) cholecalciferol (vitamin D3) 25 1,000 unit PO HS 04/02/18 04/21/21 History mcg (1,000 unit) capsule (Vitamin D3) hydroxychloroquine 200 mg tablet 200 mg PO QAM 04/02/18 04/21/21 History (Plaquenil) omeprazole 20 mg capsule,delayed 20 mg PO QAM 04/02/18 04/21/21 History release alendronate 70 mg tablet (Fosamax) 70 mg PO WK 09/12/19 04/21/21 History umeclidinium 62.5 mcg/actuation 1 inh INHALATION QAM #1 inhaler 07/15/20 04/21/21 Rx blister powder for inhalation (Incruse Ellipta) budesonide-formoterol HFA 160 2 puff INHALATION BID #10.2 gm 08/19/20 04/21/21 Rx mcg-4.5 mcg/actuation aerosol inhaler (Symbicort) roflumilast 500 mcg tablet 500 mcg PO QAM #90 tab 11/22/20 04/21/21 Rx (Daliresp) azelastine 137 mcg (0.1 %) nasal 2 spray INTRANASAL DAILY 12/26/20 04/21/21 History spray aerosol diltiazem HCl 180 mg 180 mg PO QAM 12/26/20 04/21/21 History capsule,extended release 24 hr (Cardizem CD) montelukast 10 mg tablet 10 mg PO HS 12/26/20 04/21/21 History (Singulair) albuterol sulfate 90 mcg/actuation 2 puff INHALATION Q4 PRN 02/14/21 04/21/21 History aerosol inhaler (ProAir HFA) fluticasone propionate 50 2 spray INTRANASAL HS 02/14/21 04/21/21 History mcg/actuation nasal spray,suspension (Flonase Allergy Relief) ipratropium bromide 0.02 % 2.5 ml INHALATION Q6H PRN #300 ml 03/12/21 04/21/21 Rx solution for inhalation levalbuterol HCl 1.25 mg/3 mL 1.25 mg INH Q6H PRN #360 ml 03/12/21 04/21/21 Rx solution for nebulization albuterol sulfate 0.63 mg/3 mL 0.63 mg INHALATION QID PRN 03/20/21 04/21/21 History solution for nebulization guaifenesin 600 mg tablet, 600 mg PO BID 03/20/21 04/21/21 History extended release 12 hr (Mucinex) potassium chloride 10 mEq 10 meq PO UD cap 03/20/21 04/21/21 History capsule,extended release furosemide 20 mg tablet 20 mg PO UD 03/24/21 04/21/21 History prednisone 20 mg tablet 40 mg PO DAILY 10 Days #20 tab 04/09/21 04/21/21 Rx baclofen 10 mg tablet 10 mg PO BID 04/21/21 04/21/21 History metoprolol succinate 25 mg 12.5 mg PO DAILY 04/21/21 04/21/21 History tablet,extended release 24 hr Patient History Medical History Anxiety Asthma-COPD overlap syndrome Diastolic heart failure Dry mouth GERD (gastroesophageal reflux disease) Hiatal hernia History of breast cancer Right (2012) s/p lumpectomy + radiation History of uterine cancer GREGORIO BSO + chemo (2012) Insomnia Lung nodule Melanoma S/p excision Multiple pulmonary nodules determined by computed tomography of lung Nocturnal oxygen desaturation 2L O2 HS Obstructive sleep apnea CPAP (+2L O2 HS) PAT (paroxysmal atrial tachycardia) Rheumatoid arthritis Surgical History History of breast biopsy History of cataract surgery History of colonoscopy Colonoscopy (03/20/20): MAC at [facility] History of ERCP ERCP (02/02/20): MAC at [facility] History of melanoma excision 2019 History of Moh's micrographic surgery for skin cancer nose x2 History of sinus surgery 06/29/18 (MAC 3, 7.5 ETT, grade 2 view) History of tonsillectomy History of total abdominal hysterectomy and bilateral salpingo-oophorectomy History of vascular access device Left chest (port flush [facility] on 03/26/21) Hx laparoscopic cholecystectomy Status post right breast lumpectomy Family History Father Leukemia Myocardial infarction Sister Breast cancer Mother Cancer brain Other Coronary heart disease No family history of adverse response to anesthesia No family history of bleeding disorder Social History Smoking Status: Current every day smoker Tobacco Type: Cigarettes Years Smoked: 40; Cigarettes Per Day: 5; Second Hand Exposure: No; Hx Alcohol Use: Yes Alcohol type: beer Alcohol Intake Frequency Comment: 1 beer/day Hx Substance Use: No Preferred Language: Welsh Communication Ability: Effective Visual Impairment: No Limitations Associate Professor Of Communication Required: No Beliefs That Will Affect Care: None marital status: Current Living Situation: Spouse current occupational status: employed 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 Physical Exam Physical Exam: General: A&Ox3. NAD. HENT: Conjunctiva pink, sclera clear. Neck: No carotid bruits. No JVD. Heart: RRR, 88 bpm. No murmur. No rub. No gallop. PMI is nondisplaced. Lungs: Diminished. Decreased air exchange. Left lower lobe rhonchi. No current wheeze. Abdomen: +BS. Soft. Nontender. No masses or organomegaly. Extremities: No current edema. No clubbing. No cyanosis. Limited neurological examination is without focal deficits. Pulses: radial=2/4, posterior tibial=2/4 Results & Data ([facility]) Vital Signs (Past 12 Hours) Vital Signs Temp Pulse Pulse Resp BP BP Pulse Ox 04/23/21 07:40 36.6 C 87 73 18 123/78 91 04/23/21 04:55 66 18 96 04/23/21 04:17 96 H 20 132/97 92 04/23/21 02:00 36.8 C 82 18 144/91 H 94 04/23/21 01:01 86 18 131/81 94 04/23/21 00:46 135 H 123/85 04/22/21 23:00 36.8 C 83 18 121/78 93 04/22/21 22:51 78 Laboratory Results Laboratory Results - last 24 hr 04/22/21 04/23/21 10:04 06:34 WBC 10.70 RBC 4.32 Hgb 12.8 Hct 39.0 MCV 90.3 MCH 29.6 MCHC 32.8 RDW Std Deviation 52.2 H RDW Coeff of Arleen 15.7 H Plt Count 299 MPV 9.6 Procalcitonin < 0.05 Diagnostic Findings March 2021 Holter: 1. Duration - 24 hours 2. Quality - good 3. Dominant rhythm - sinus and sinus tachycardia average heart rate 101 beats per minute 4. PACs - frequent, 18 and 53 premature atrial beats with 2 triplets and 103 runs nonsustained supraventricular tachycardia 5. PVCs - rare, 5 6. Symptoms - no diary entry submitted 7. No pauses or Elfego arrhythmias observed March 18, 2021 TTE Interpretation Summary (as per Dr. Negron): Sinus tachycardia with rate of 120-130 beats per minute was present during the echocardiogram study. The LV wall thickness is mildly increased (concentric). The left ventricular wall motion is normal. The qualitative LV ejection fraction is >70% (hyperdynamic). The left ventricular diastolic function is mildly abnormal (grade I). There is no significant valvular heart disease. EKG on 04/21/2021 at 05:32:42: Poor data quality, interpretation may be adversely affected. Sinus tachycardia at 101 bpm with premature supraventricular complexes, left axis deviation, low voltage QRS. (1) Pneumonia Laterality: right Lung location: lower lobe of lung Pneumonia type: due to unspecified organism Qualified Code(s): J18.9 - Pneumonia, unspecified organism
[2021-04-23] MEDS: METOPROLOL SUCC 25MG EXT REL TAB PO SCH (11:08)
--- NOTE | 2021-04-23 16:58 | Hospitalist Progress Note ---
Date of Service April 23, 2021 Assessment & Plan (1) COPD exacerbation: (2) Pneumonia: Plan: per Dr. 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 She had recently [3 weeks ago] had right rib fracture secondary to continuously sneezing/coughing fits per patient. Personal/Social history : 5 cigarettes daily, 1 beer daily, denies abuse as per patient; [employer] business. She is being managed for the following: #. COPD exacerbation #. Pneumonia Patient has chronic respiratory failure secondary to steroid dependent COPD/asthma overlap syndrome, uses 2 L oxygen at night at home. Patient came in with few days of cough associated with shortness of breath Recent right rib fracture likely contributing to development of pneumonia leading to COPD exacerbation Continue with bronchodilator/steroid/Rocephin/azithromycin P.o. steroid for 5 days, ATB for 5 days Pulmonology on board: Outpatient pulm follow-up. 04/23 stable improving continue Ceftri + Azithro taper Prednisone to 30mg daily will need 2 step o2 test tomorrow Sinus tachycardia - per patient, Dr. Connor recommended to her today to maintain Metoprolol Succ 12.5mg daily for now continue to observe #. Posttussive rib fractures PT/OT, encourage movement, pain managementLidoderm patch Likely need patch upon discharge. #. Ongoing tobacco use As noted above, patient agreeable to nicotine patch while inpatient #. Other chronic medical conditions: Resume home meds DVT prophylaxis. Lovenox subcu Full code Disposition: anticipate d/c home tomorrow Admission and Anticipated Discharge Date Admission Date: April 21, 2021 Subjective ff up for COPD exacerbation, RLL pneumonia, etc seen resting, sitting up in bed not in distress, comfortable states she feels improved daily less cough, with clear sputum less r rib pain breathing improving overall no chest pain, dyspnea, palpitations, dizziness denies other symptoms Review of Systems Review of Systems: all noted and negative except for above Physical Exam Physical Exam: General- oriented x 3, not in distress, speaks in sentences with no effort or accessory muscle use Head- atraumatic Eyes- PERRL, EOMI, anicteric ENT- oropharynx clear Neck- supple, no JVD, no adenopathy, no thyromegaly; carotids +2/2, no bruits appreciated Lungs- (+) mild rhonchi R base clear on the left no wheezing Heart- normal rate, regular rhythm; no murmur, no gallop, no rub appreciated Abdomen- normal bowel sounds, nondistended, soft, nontender, no masses or hepatosplenomegaly Extremities- no pretibial edema, no calf tenderness; peripheral pulses intact Neuro- alert, oriented x 3; CN 2-12 grossly intact; motor 5/5 bilaterally;sensation 100% on all extremities; no other gross focal neurologic deficits Skin- warm & dry Results & Data Results & Data ([facility]) Vital Signs (Past 12 Hours) Vital Signs Temp Pulse Pulse Resp BP Pulse Ox 04/23/21 15:12 37.0 C 79 16 101/68 93 04/23/21 14:18 77 04/23/21 11:25 36.7 C 86 18 107/73 91 04/23/21 07:40 36.6 C 87 73 18 123/78 91 04/23/21 04:55 66 18 96 all noted and reviewed including below (1) Pneumonia Laterality: right Lung location: lower lobe of lung Pneumonia type: due to unspecified organism Qualified Code(s): J18.9 - Pneumonia, unspecified organism
[2021-04-23] MEDS: MONTELUKAST SODIUM 10 MG TABLET PO SCH (21:39)
[2021-04-24] MEDS: ACETAMINOPHEN 325 MG TAB PO PRN ×2 (04:10→14:03)
[2021-04-24] MEDS: ALBUTEROL 0.083% NEBU SOLN 3 ML VIAL INH PRN (04:20)
[2021-04-24] MEDS: cefTRIAXone SODIUM 1,000 MG in DEXTROSE 5% 50 ML IV SCH (06:15)
[2021-04-24] MEDS: HEPARIN 100 UNIT/ML 5ML FLUSH FLUSH PRN ×2 (06:47→12:37)
[2021-04-24] MEDS: LIDOCAINE 5% 1 PATCH TD SCH (08:13)
[2021-04-24] MEDS: METOPROLOL SUCC 25MG EXT REL TAB PO SCH (08:14)
[2021-04-24] MEDS: HYDROXYCHLOROQUINE SULFATE 200 MG TAB PO SCH (08:14)
[2021-04-24] MEDS: dilTIAZem HCL 180 MG CAPCR PO SCH (08:14)
[2021-04-24] MEDS: AZITHROMYCIN 250 MG TAB PO SCH (08:15)
[2021-04-24] MEDS: PANTOprazole 40 MG TAB PO SCH (08:15)
[2021-04-24] MEDS: FUROSEMIDE 20 MG TAB PO SCH (08:16)
[2021-04-24] MEDS: POTASSIUM CHLORIDE 10 MEQ TABCR PO SCH (08:16)
[2021-04-24] MEDS: ROFLUMILAST 500 MCG TAB PO SCH (08:16)
[2021-04-24] MEDS: UMECLIDINIUM BROMIDE 62.5MCG/BLISTER 7 PUFFS/INHALER INH SCH (08:17)
[2021-04-24] MEDS: FLUTICASONE/VILANTEROL 100/25MCG 14 PUFFS/INHALER INH SCH (08:17)
[2021-04-24] MEDS: AZELASTINE HCL 0.1% NASAL 200 SPRAYS/27,400 MCG BTL SCH (08:18)
[2021-04-24] MEDS: ENOXAPARIN INJ 40 MG/0.4 ML SYR SQ SCH (08:18)
[2021-04-24] MEDS: guaiFENesin 600 MG TABCR PO SCH (08:19)
[2021-04-24] MEDS: BACLOFEN 10 MG TAB PO SCH (08:25)
[2021-04-24] MEDS ORDERED: predniSONE 10 MG TABLET PO SCH (09:00)
[2021-04-24] MEDS ORDERED: METOPROLOL SUCC 25MG EXT REL TAB PO ONE (09:15)
[2021-04-24 10:32] LABS: BUN Creatinine Ratio 20.8 (10-20); Calcium 9.4 mg/dl (8.5-10.1); Creatinine Clr Calc Pharmacy 52.8 ml/min; Est GFR (African American) 65.5 ml/min; Est GFR (Non-African American) 56.5 ml/min; Potassium 4.1 mmol/L (3.5-5.1)
--- NOTE | 2021-04-24 11:10 | Cardiology Progress Note ---
Date of Service April 24, 2021 Assessment & Plan (1) COPD exacerbation: (2) Pneumonia: (3) Tobacco use disorder: (4) PAT (paroxysmal atrial tachycardia): (5) PSVT (paroxysmal supraventricular tachycardia): (6) Sinus tachycardia: (7) Premature atrial complexes: Plan: Atrial ectopy, sinus tachycardia, past paroxysmal supraventricular tachycardia and paroxysmal atrial tachycardia. Continue diltiazem CD at 180 mg/day. Recommend continuation of the increased dose of metoprolol succinate, 25 mg/day, on discharge. Patient notably aware of the increased risk for atrial fibrillation, as discussed. Hypertension. Blood pressure is acceptably controlled. If/when additional blood pressure control is needed would likely initiate an ARB Intermittent fluid retention, multifactorial in etiology left (diastolic heart failure, underlying lung disease, calcium channel brian therapy). Recommend continuation of oral furosemide and oral supplemental potassium as prescribed throughout hospital course. Tobacco abuse, COPD, asthma, obstructive sleep apnea on CPAP therapy, [place] [facility] [place] [facility] [place]. Tobacco cessation recommended. Admission and Anticipated Discharge Date Admission Date: April 21, 2021 Supervising Physician Co-Signing Physician Notes Patient was seen and examined. Findings and assessment as above. Patient anticipates discharge to home today with notable increase in metoprolol succinate to 25 mg/day all other medications as prescribed. Subjective Patient seen and examined. Chart, medications, and telemetry reviewed. Telemetry reveals sinus rhythm with premature atrial contractions. Heart rates are currently in the 70s. Heart rates have trended down over the last 24 hours. No significant bradycardia observed. Patient asymptomatic in regards to palpitations. No chest pain. Dyspnea is unchanged from yesterday. Stable cough. No hemoptysis. No orthopnea, PND, or edema. No dizziness with positional change, near-syncope, or syncope. Review of Systems Review of Systems: Complete Review of Systems is as stated above, negative, or noncontributory. Physical Exam Physical Exam: General: A&Ox3. NAD. HENT: Conjunctiva pink, sclera clear. Neck: No carotid bruits. No JVD. Heart: RRR, 76 bpm. No murmur. No rub. No gallop. PMI is nondisplaced. Lungs: Diminished. Decreased air exchange. Right midlung rhonchi. No wheeze. Abdomen: +BS. Soft. Nontender. No masses or organomegaly. Extremities: No current edema. No clubbing. No cyanosis. Limited neurological examination is without focal deficits. Pulses: radial=2/4, posterior tibial=2/4 Results & Data ([facility]) Vital Signs (Past 12 Hours) Vital Signs Temp Pulse Pulse Pulse Pulse Pulse Resp 04/24/21 10:00 90 71 83 04/24/21 07:43 36.7 C 75 16 04/24/21 07:20 97 H 04/24/21 04:20 78 18 04/24/21 04:12 36.6 C 90 20 04/23/21 23:58 36.7 C 90 20 Resp Resp Resp BP Pulse Ox Pulse Ox Pulse Ox 04/24/21 10:00 18 18 18 92 93 04/24/21 07:43 123/81 91 04/24/21 07:20 04/24/21 04:20 93 04/24/21 04:12 126/87 93 04/23/21 23:58 113/72 93 Pulse Ox 04/24/21 10:00 95 04/24/21 07:43 04/24/21 07:20 04/24/21 04:20 04/24/21 04:12 04/23/21 23:58 Laboratory Results Laboratory Results - last 24 hr 04/24/21 10:01 Sodium 137 Potassium 4.1 Chloride 103 Carbon Dioxide 31 Anion Gap 3.0 BUN 21 H Creatinine 0.99 Est Cr Clr Drug Dosing 52.8 Est GFR ( Amer) 65.5 Est GFR (Non-Af Amer) 56.5 BUN/Creatinine Ratio 20.8 H Glucose 111 H Calcium 9.4 (1) Pneumonia Laterality: right Lung location: lower lobe of lung Pneumonia type: due to unspecified organism Qualified Code(s): J18.9 - Pneumonia, unspecified organism
--- NOTE | 2021-04-24 13:45 | Discharge Summary ---
Date of Service April 24, 2021 Admission HPI Per Admitting Provider Medical history significant for chronic respiratory failure secondary to asthma/COPD overlap syndrome on home O2 currently on daily prednisone Rx, JOAN on CPAP, PSVT as per records, rheumatoid arthritis, breast cancer status post surgery radiation, uterine cancer status post surgery, skin cancer as per records, history biliary pancreatitis/choledocholithiasis status post stent placement/history cholecystectomy, hx superficial nonocclusive LUE DVT as per records, ongoing tobacco abuse. Last confinement February 2021 for COPD exacerbation. Last month, patient noted right mid back pain described as stabbing worsened with sneezing and coughing fits. Patient seen at the ER about 3 weeks ago. Imaging showed multiple rib fractures on the right side. Patient discharged home. Last week, patient noted junky cough symptoms worsening rib fracture pain. Worsening shortness of breath. No fluid retention as per patient. Inhalation of fumes from neighbors burning trash as per patient. Patient noted to be in respiratory distress upon arrival at the ER. Solu-Medrol, neb treatment, ceftriaxone, and azithromycin administered at the ER. Patient currently feeling better. Medical History as above Surgical History : Endoscopic sinus surgery, breast biopsy with lymph node excision, pedicled flap for skin cancer surgery, ear cartilage graft, vascular procedure, GREGORIO/BSO, partial mastectomy, tonsillectomy, cataract surgery, tissue transfer, cholecystectomy Family History : Gallbladder disease, breast cancer, diabetes, heart disease Personal/Social history : 5 cigarettes daily, 1 beer daily, denies abuse as per patient; [employer] Admission Exam (Per Admitting) Constitutional GENERAL: Slightly uncomfortable, minimal respiratory distress SKIN: Normal color, warm HEENT: Healed surgical scar over face, pink palpebral conjunctivae, no ptosis, dry buccal mucosa, nasal cannula in place NECK : Supple, no tenderness CHEST : Decreased breath sounds, expiratory wheezes, no tenderness HEART : RRR, no obvious murmurs ABDOMEN: Some distention, nontender EXTREMITIES : No LE swelling/tenderness, no other conspicuous deformities noted NEUROLOGIC : Coherent, no facial asymmetry, no other gross focality Discharge Data Consultations 04/21/21 06:19 ED Decision to Admit Stat 04/21/21 13:18 Consult Pulmonology Routine 04/23/21 08:00 Consult Cardiology Routine Procedures Performed XR chest 1V portable HISTORY: Atypical Chest Pain COMPARISON: Chest 04/07/2021. FINDINGS: The patient's head obscures the lung apices. No definite pneumothorax. Left Port-A-Cath terminates in the superior cavoatrial junction. This remains unchanged. No new focal lung consolidations to suggest pneumonia. No evidence for pulmonary edema. No pleural effusions. Focal hazy density at the right lateral lung base likely corresponds to the subsegmental atelectasis seen on the prior chest CTA. The patient's previous identified subcentimeter groundglass nodule within the right lung apex is not well evaluated by this modality. IMPRESSION: 1. Small focal hazy density within the right lateral lung base. This favors subsegmental atelectasis when compared to the prior chest CTA. A small develo ping airspace opacity could also have a similar appearance. 2. The patient's previous identified subcentimeter groundglass nodule within the right lung apex is not well evaluated by this modality. ACT 112: Negative or not required by law. Electronically signed by: Dom Garcia M.D. 04/21/2021 7:48 AM Hospital Course (1) COPD exacerbation: (2) Pneumonia: per Dr. 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 She had recently [3 weeks ago] had right rib fracture secondary to continuously sneezing/coughing fits per patient. #. COPD exacerbation #. Pneumonia Patient has chronic respiratory failure secondary to steroid dependent COPD/asthma overlap syndrome, uses 2 L oxygen at night at home. Patient came in with few days of cough associated with shortness of breath Recent right rib fracture likely contributing to development of pneumonia leading to COPD exacerbation given bronchodilator/steroid/Rocephin/azithromycin Pulmonology consulted 04/24 remains stable does not require oxygen at rest nor with ambulation transition from Ceftri + Azithro--> Cefdinir + Azithro PO to complete 7 day course taper Prednisone from 30mg , to 20, 10 then stop to complete 5 day Prednisone taper continue incentive spirometry, Mucinex ff up with Supervisor Building Maintenance Dr. Luke in 2 weeks Sinus tachycardia - Metoprolol succinate increased from 12.5 to 25mg po daily - ff up with Features Editor as scheduled #. Posttussive rib fractures PT/OT, encourage movement, pain managementLidoderm patch Likely need patch upon discharge. #. Ongoing tobacco use As noted above, patient agreeable to nicotine patch while inpatient #. Other chronic medical conditions: Resume home meds DVT prophylaxis. Lovenox subcu Full code Disposition: d/c home ff up with PCP in 1 week ff up with Pulmo in 2 weeks ff up with Features Editor as scheduled
[2021-04-25] MEDS ORDERED: METOPROLOL SUCC 25MG EXT REL TAB PO SCH (09:00)
== END 2021-04-24 16:50 | disposition home or self-care (01) | DRG 190 ==
LOC: ED 05:04 → EDINP 07:46 → SUATTDRO 07:46 → EDINP 10:56 → 2W 18:26
DX: R00.0 Tachycardia, unspecified; Z88.0 Allergy status to penicillin; X58.XXXA Exposure to other specified factors, initial encounter; Z86.718 Personal history of other venous thrombosis and embolism; Z92.21 Personal history of antineoplastic chemotherapy; Z88.1 Allergy status to other antibiotic agents; F17.210 Nicotine dependence, cigarettes, uncomplicated; Z92.3 Personal history of irradiation; Z99.81 Dependence on supplemental oxygen; K21.9 Gastro-esophageal reflux disease without esophagitis; J44.1 Chronic obstructive pulmonary disease with (acute) exacerbation; Z85.42 Personal history of malignant neoplasm of other parts of uterus; J96.10 Chronic respiratory failure, unspecified whether with hypoxia or hypercapnia; Z99.89 Dependence on other enabling machines and devices; G47.00 Insomnia, unspecified; I50.32 Chronic diastolic (congestive) heart failure; J18.9 Pneumonia, unspecified organism; Z88.5 Allergy status to narcotic agent; Z85.3 Personal history of malignant neoplasm of breast; Z91.048 Other nonmedicinal substance allergy status; Z79.899 Other long term (current) drug therapy; Z79.52 Long term (current) use of systemic steroids; J45.909 Unspecified asthma, uncomplicated; Z85.820 Personal history of malignant melanoma of skin; G47.33 Obstructive sleep apnea (adult) (pediatric); N18.9 Chronic kidney disease, unspecified; S22.41XA Multiple fractures of ribs, right side, initial encounter for closed fracture; M06.9 Rheumatoid arthritis, unspecified

== ENCOUNTER 2021-09-11 05:27 | Inpatient (IN) ==
[2021-09-11] MEDS ORDERED: dexAMETHasone**PF** 10 MG/ML VIAL IV ONE (05:53)
[2021-09-11] MEDS ORDERED: ALBUT/IPRATROP 3MG/0.5MG NEB 3 ML VIAL INH STA (05:53)
[2021-09-11 06:20] LABS: Basophils # (auto) 0.02 K/uL (0-0.2); Basophils % (auto) 0.2 %; Eosinophils # (auto) 0.12 K/uL (0-0.5); Eosinophils % (auto) 1.4 %; Hemoglobin 13.5 g/dL (12.0-16.0); Immature Granulocytes # (auto) 0.03 K/uL (0.00-0.02); Immature Granulocytes % (auto) 0.3 %; Lymphocytes # (auto) 1.55 K/uL (1.2-3.4); Lymphocytes % (auto) 17.6 %; Mean Corpuscular Hemoglobin 29.3 pg (25-34); Mean Corpuscular Hgb Conc 32.1 g/dL (32-36); Mean Corpuscular Volume 91.3 fL (80-100); Mean Platelet Volume 9.7 fL (7.4-10.4); Monocytes # (auto) 0.83 K/uL (0.11-0.59); Monocytes % (auto) 9.4 %; Neutrophils # (auto) 6.25 K/uL (1.4-6.5); Neutrophils % (auto) 71.1 %; Platelet Count 287 K/uL (130-400); RDW Coefficient of Variation 14.7 % (11.5-14.5); RDW Standard Deviation 48.9 fL (36.4-46.3)
--- NOTE | 2021-09-11 06:25 | XRay Report ---
XR chest 1V portable CLINICAL HISTORY: Dyspnea COMPARISON STUDY: Chest CT April 07, 2021. Chest radiograph April 21, 2021. FINDINGS: [Internal jugular [id number] is in place. There is no pneumothorax or pleural effusion. Slight cardiomegaly is unchanged. Subtle interstitial thickening is unchanged. There is no evidence f or pulmonary edema or pneumonia. IMPRESSION: No acute cardiopulmonary findings. ACT 112: Negative or not required by law. Electronically signed by: Baldo Díaz M.D. 09/11/2021 6:23 AM
--- NOTE | 2021-09-11 06:41 | Emergency Department Note ---
Impression & Plan Asthma exacerbation Admit to the [facility] ED Provider Note NAME: JORDAN RUDOLPH AGE: 75 SEX: F ARRIVES VIA: Walk-In INFORMANT: Patient ED PROVIDER(S): Jyoti Pinto DO CHIEF COMPLAINT: Dyspnea PLAN: Disposition: Admit to the [facility] Condition: Guarded MEDICAL DECISION MAKING: This is a 75-year-old female with a history of asthma who presents to the [facility] department complaining of worsening shortness of breath and congestion. The patient has a longstanding history of COPD and asthma. She has been trying to treat this exacerbation at home but symptoms have persistently worsened. She is vaccinated against COVID but is exposed to the public. Chest x-ray is unremarkable. Covid testing is negative. She was given IV Decadron and an hour-long DuoNeb treatment but is not significantly improving. I discussed the case with the [facility] and they will evaluate for further management. Triage Nursing notes reviewed and agree with them. Prior medical records reviewed Vital Signs: reviewed and unremarkable Differential diagnosis: Covid, pneumonia, respiratory failure, bronchitis, asthma exacerbation ER treatment provided: DuoNeb Decadron Diagnostics interpreted by me: ECG: Normal sinus rhythm at a rate of [address] segment changes or signs of ischemia. Cardiac Monitoring: Normal sinus rhythm at 82 Laboratory studies: See below Imaging studies: As per my interpretation Chest x-ray: No acute pulmonary infiltrates or consolidation HPI: 75/F arrives for evaluation of shortness of breath. The patient has noticed increasing head congestion and shortness of breath over the past couple of days. The patient has a history of COPD and asthma. She takes 5 mg of prednisone daily. ROS: See above HPI for pertinent positives & negatives. A total of 10 systems reviewed and were otherwise negative. PAST MEDICAL HISTORY:See Below PAST SURGICAL HISTORY:See Below FAMILY HISTORY:See Below SOCIAL HISTORY:See Below HOME MEDICATIONS:See list ALLERGIES:See list VITALS:See Below PHYSICAL EXAMINATION: General: The patient is in obvious respiratory distress and is moving very little air HEENT: Head - normocephalic and atraumatic Pupils are equal, round, and reactive to light. Extraocular eye muscles are intact, and sclera are anicteric. Nose - moist nasal mucosa without discharge. Mouth - moist buccal mucosa. Oropharynx is nonerythematous and there is no tonsillar exudate or edema noted. Neck: Supple; no JVD, nuchal rigidity, cervical lymphadenopathy, or auscultated bruits. Heart: Regular rate and rhythm. There is a normal S1 and S2 with no murmurs, clicks, or gallops appreciated. Lungs: Diminished breath sounds in all lung brennan; there is very little air movement Abdomen: Soft, completely nontender, nondistended, with good bowel sounds. There are no palpable pulsatile masses or hepatosplenomegaly. There is no guarding, rigidity, or rebound noted. Extremities: No evidence of cyanosis, clubbing, or edema. There are easily palpable peripheral pulses. Skin: warm and dry with good turgor and no rashes. ED COURSE: Times/Reassessments: 545: The patient was evaluated in room B 12. A complete history and physical was performed. An IV lock was initiated and labs are drawn as above. The patient was given IV Decadron started on an hour-long DuoNeb treatment. Portable chest x-ray was performed. Covid testing was performed. Upon repeat evaluation, the patient still had minimal air movement. Twelve-lead EKG was obtained. I reviewed laboratory testing and results with the patient. I felt she will require inpatient care for this asthma exacerbation. I discussed the case with the [facility] hospitalist group. Jyoti Pinto DO Past Med/Surg History Medical History Anxiety Asthma-COPD overlap syndrome Diastolic heart failure Dry mouth GERD (gastroesophageal reflux disease) Hiatal hernia History of breast cancer History of uterine cancer Insomnia Lung nodule Melanoma Multiple pulmonary nodules determined by computed tomography of lung Nocturnal oxygen desaturation Obstructive sleep apnea PAT (paroxysmal atrial tachycardia) Rheumatoid arthritis Sinus congestion Surgical History History of breast biopsy History of cataract surgery History of colonoscopy History of ERCP History of melanoma excision History of Moh's micrographic surgery for skin cancer History of sinus surgery History of tonsillectomy History of total abdominal hysterectomy and bilateral salpingo-oophorectomy History of vascular access device Hx laparoscopic cholecystectomy Status post right breast lumpectomy Family History Father Leukemia Myocardial infarction Sister Breast cancer Mother Cancer brain Other Coronary heart disease No family history of adverse response to anesthesia No family history of bleeding disorder Social History Smoking Status: Current every day smoker Tobacco Type: Cigarettes Years Smoked: 40; Cigarettes Per Day: 5; Second Hand Exposure: No; Hx Alcohol Use: Yes Alcohol type: beer Alcohol Intake Frequency Comment: 1 beer/day Hx Substance Use: No Preferred Language: Georgian Communication Ability: Effective Visual Impairment: No Limitations Stain Wiper Required: No Beliefs That Will Affect Care: None marital status: Current Living Situation: Spouse current occupational status: employed 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 Feels Safe at Home: Yes Assistive Devices: Glasses and Oxygen - Continuous Allergies Allergies Allergy/AdvReac Type Severity Reaction Status Date / Time Tetracyclines Allergy Severe Tongue Verified 09/11/21 07:31 swelling codeine Allergy Intermediate Hives Verified 09/11/21 07:31 nickel Allergy Intermediate Lip Verified 09/11/21 07:31 swelling (nickel mouthpiece with flute) bacitracin Allergy Mild Itching Verified 09/11/21 07:31 amoxicillin AdvReac Mild Diarrhea, Verified 09/11/21 07:31 vomiting clavulanic acid AdvReac Mild Nausea/Vomi Verified 09/11/21 07:31 [From Augmentin] ting Home Meds Home Medications Medication Instructions Recorded Confirmed cholecalciferol (vitamin D3) 25 1,000 unit PO HS 04/02/18 09/11/21 mcg (1,000 unit) capsule (Vitamin D3) hydroxychloroquine 200 mg tablet 200 mg PO QAM 04/02/18 09/11/21 (Plaquenil) omeprazole 20 mg capsule,delayed 20 mg PO QAM 04/02/18 09/11/21 release azelastine 137 mcg (0.1 %) nasal 2 spray INTRANASAL DAILY 12/26/20 09/11/21 spray aerosol diltiazem HCl 180 mg 180 mg PO QAM 12/26/20 09/11/21 capsule,extended release 24 hr (Cardizem CD) fluticasone propionate 50 2 spray INTRANASAL HS 02/14/21 09/11/21 mcg/actuation nasal spray,suspension (Flonase Allergy Relief) albuterol sulfate 0.63 mg/3 mL 0.63 mg INHALATION QID PRN 03/20/21 09/11/21 solution for nebulization metoprolol succinate 25 mg See Rx Instructions PO DAILY tab 06/13/21 09/11/21 tablet,extended release 24 hr calcium carbonate 600 mg-vitamin 1 tab PO BID 09/11/21 09/11/21 D3 5 mcg (200 unit) tablet guaifenesin 600 mg tablet, 600 mg PO BID PRN 09/11/21 09/11/21 extended release 12 hr (Mucinex) potassium chloride 10 mEq 20 meq PO DAILY 09/11/21 09/11/21 capsule,extended release Previous Rx's Medication Instructions Recorded budesonide-formoterol HFA 160 2 puff INHALATION BID #10.2 gm 08/19/20 mcg-4.5 mcg/actuation aerosol inhaler (Symbicort) furosemide 20 mg tablet 20 mg PO DAILY #30 tab 04/24/21 ipratropium bromide 0.02 % 2.5 ml INHALATION Q6H PRN #300 ml 05/21/21 solution for inhalation levalbuterol HCl 1.25 mg/3 mL See Rx Instructions .ROUTE 06/10/21 solution for nebulization .COMPLEX #1080 ml albuterol sulfate 90 mcg/actuation 2 puff INHALATION Q4 PRN #8.5 g 06/23/21 aerosol inhaler (ProAir HFA) roflumilast 500 mcg tablet 500 mcg PO QAM #90 tab 06/23/21 (Daliresp) umeclidinium 62.5 mcg/actuation 1 inh INHALATION QAM #1 inhaler 06/23/21 blister powder for inhalation (Incruse Ellipta) prednisone 5 mg tablet 5 mg PO DAILY #30 tab 07/28/21 Results & Data (ED) Vital Signs Vital Signs - 24 hr 09/11/21 05:30 09/11/21 05:47 09/11/21 05:59 Temperature 36.9 C Temperature Source Temporal Artery Scan Pulse Rate 87 98 H Pulse Rate [Apical] Pulse Rate [Right Finger] Pulse Rate from SpO2 Sensor 80 Respiratory Rate 26 H 19 Respiratory Effort / Characteristics Spontaneous Blood Pressure 160/91 H Blood Pressure [Left Arm] Blood Pressure Mean 114 Blood Pressure Mean [Left Arm] Pulse Oximetry 98 97 90 Oxygen Delivery Method Nasal Cannula Room Air Oxygen Flow Rate 2 2 Sepsis New/Unexplained Change in Mental Status N/A Sepsis Action Taken by Nursing No Action Required 09/11/21 06:00 09/11/21 06:04 09/11/21 06:05 Temperature Temperature Source Pulse Rate 82 Pulse Rate [Apical] 79 Pulse Rate [Right Finger] 81 Pulse Rate from SpO2 Sensor 82 Respiratory Rate 33 H 26 H Respiratory Effort / Characteristics Accessory Muscle Use Labored Short of Breath Tripoding Spontaneous Short of Breath Blood Pressure Blood Pressure [Left Arm] 153/88 H Blood Pressure Mean Blood Pressure Mean [Left Arm] 109 Pulse Oximetry 94 98 Oxygen Delivery Method Nasal Cannula Oxygen Flow Rate 2 Sepsis New/Unexplained Change in Mental Status Sepsis Action Taken by Nursing 09/11/21 06:30 09/11/21 07:00 09/11/21 07:30 Temperature Temperature Source Pulse Rate 78 86 Pulse Rate [Apical] Pulse Rate [Right Finger] Pulse Rate from SpO2 Sensor 79 85 97 H Respiratory Rate 20 21 21 Respiratory Effort / Characteristics Blood Pressure 132/72 137/74 Blood Pressure [Left Arm] Blood Pressure Mean 92 95 Blood Pressure Mean [Left Arm] Pulse Oximetry 100 100 100 Oxygen Delivery Method Oxygen Flow Rate Sepsis New/Unexplained Change in Mental Status Sepsis Action Taken by Nursing 09/11/21 08:00 09/11/21 08:30 09/11/21 09:00 Temperature Temperature Source Pulse Rate 129 H 117 H 118 H Pulse Rate [Apical] Pulse Rate [Right Finger] Pulse Rate from SpO2 Sensor 118 H 124 H 122 H Respiratory Rate 35 H 22 26 H Respiratory Effort / Characteristics Blood Pressure 132/77 151/90 H Blood Pressure [Left Arm] Blood Pressure Mean 95 110 Blood Pressure Mean [Left Arm] Pulse Oximetry 97 98 98 Oxygen Delivery Method Oxygen Flow Rate Sepsis New/Unexplained Change in Mental Status Sepsis Action Taken by Nursing 09/11/21 09:30 09/11/21 10:00 09/11/21 10:30 Temperature Temperature Source Pulse Rate Pulse Rate [Apical] Pulse Rate [Right Finger] Pulse Rate from SpO2 Sensor 105 H 106 H 108 H Respiratory Rate 25 H 26 H 33 H Respiratory Effort / Characteristics Blood Pressure 146/73 H 120/73 135/75 Blood Pressure [Left Arm] Blood Pressure Mean 97 88 95 Blood Pressure Mean [Left Arm] Pulse Oximetry 96 96 94 Oxygen Delivery Method Oxygen Flow Rate Sepsis New/Unexplained Change in Mental Status Sepsis Action Taken by Nursing 09/11/21 10:46 09/11/21 10:50 09/11/21 10:53 Temperature Temperature Source Pulse Rate 107 H 102 H Pulse Rate [Apical] Pulse Rate [Right Finger] 100 H Pulse Rate from SpO2 Sensor 102 H Respiratory Rate 8 L 22 20 Respiratory Effort / Characteristics Non-Labored Spontaneous Blood Pressure Blood Pressure [Left Arm] Blood Pressure Mean Blood Pressure Mean [Left Arm] Pulse Oximetry 98 100 Oxygen Delivery Method Nasal Cannula Oxygen Flow Rate 2 Sepsis New/Unexplained Change in Mental Status Sepsis Action Taken by Nursing 09/11/21 11:00 09/11/21 11:10 09/11/21 11:20 Temperature Temperature Source Pulse Rate 146 H 97 H 102 H Pulse Rate [Apical] Pulse Rate [Right Finger] Pulse Rate from SpO2 Sensor 100 H 100 H 101 H Respiratory Rate 32 H 25 H 22 Respiratory Effort / Characteristics Blood Pressure 137/85 Blood Pressure [Left Arm] Blood Pressure Mean 102 Blood Pressure Mean [Left Arm] Pulse Oximetry 97 98 98 Oxygen Delivery Method Oxygen Flow Rate Sepsis New/Unexplained Change in Mental Status Sepsis Action Taken by Nursing 09/11/21 11:30 09/11/21 11:31 09/11/21 11:40 Temperature Temperature Source Pulse Rate 101 H 111 H 101 H Pulse Rate [Apical] Pulse Rate [Right Finger] Pulse Rate from SpO2 Sensor 101 H 105 H 101 H Respiratory Rate 18 33 H 30 H Respiratory Effort / Characteristics Blood Pressure 120/72 Blood Pressure [Left Arm] Blood Pressure Mean 88 Blood Pressure Mean [Left Arm] Pulse Oximetry 97 94 96 Oxygen Delivery Method Oxygen Flow Rate Sepsis New/Unexplained Change in Mental Status Sepsis Action Taken by Nursing 09/11/21 11:50 09/11/21 12:00 09/11/21 12:39 Temperature Temperature Source Pulse Rate 151 H 98 H Pulse Rate [Apical] Pulse Rate [Right Finger] 99 H Pulse Rate from SpO2 Sensor 102 H 97 H Respiratory Rate 33 H 26 H 22 Respiratory Effort / Characteristics Spontaneous Blood Pressure 124/68 Blood Pressure [Left Arm] Blood Pressure Mean 86 Blood Pressure Mean [Left Arm] Pulse Oximetry 96 99 97 Oxygen Delivery Method Nasal Cannula Oxygen Flow Rate 2 Sepsis New/Unexplained Change in Mental Status Sepsis Action Taken by Nursing Laboratory Data Result diagrams: 09/11/21 06:00 09/11/21 06:00 Lab Results 09/11/21 09/11/21 09/11/21 Range/Units 06:00 06:00 06:00 WBC 8.80 (4.8-10.8) K/uL RBC 4.60 (4.2-5.4) M/uL Hgb 13.5 (12.0-16.0) g/dL Hct 42.0 (37-47) % MCV 91.3 (80-100) fL MCH 29.3 (25-34) pg MCHC 32.1 (32-36) g/dL RDW Std Deviation 48.9 H (36.4-46.3) fL RDW Coeff of Arleen 14.7 H (11.5-14.5) % Plt Count 287 (130-400) K/uL MPV 9.7 (7.4-10.4) fL Immature Gran % (Auto) 0.3 % Neut % (Auto) 71.1 % Lymph % (Auto) 17.6 % Pine % (Auto) 9.4 % Eos % (Auto) 1.4 % Baso % (Auto) 0.2 % Neut # (Auto) 6.25 (1.4-6.5) K/uL Lymph # (Auto) 1.55 (1.2-3.4) K/uL Pine # (Auto) 0.83 H (0.11-0.59) K/uL Eos # (Auto) 0.12 (0-0.5) K/uL Baso # (Auto) 0.02 (0-0.2) K/uL Immature Gran # (Auto) 0.03 H (0.00-0.02) K/uL D-Dimer 1870 H* (0-500) ug/L FEU Sodium 140 (136-145) mmol/L Potassium 3.9 (3.5-5.1) mmol/L Chloride 105 (98-107) mmol/L Carbon Dioxide 27 (21-32) mmol/L Anion Gap 8 (3-11) BUN 21 (6-23) mg/dl Creatinine 1.03 (0.6-1.2) mg/dl Est Cr Clr Drug Dosing 51.7 ml/min Est GFR ( Amer) 62.5 ml/min Est GFR (Non-Af Amer) 53.9 ml/min BUN/Creatinine Ratio 20.4 H (10-20) Glucose 83 (70-99(Fasting)) mg/dl Calcium 9.2 (8.5-10.1) mg/dl Total Bilirubin 0.4 (0.2-1.0) mg/dl AST 13 (13-39) U/L ALT 20 (7-52) U/L Alkaline Phosphatase 56 (34-104) U/L Troponin I < 0.03 (0-0.04) ng/ml Total Protein 6.2 (6.0-8.3) gm/dl Albumin 3.9 (3.4-5.0) gm/dl Globulin 2.3 L (2.5-4.0) gm/dl Albumin/Globulin Ratio 1.7 (0.9-2) SARS-CoV-2, RNA, NAAT (NEGATIVE) 09/11/21 Range/Units 06:07 WBC (4.8-10.8) K/uL RBC (4.2-5.4) M/uL Hgb (12.0-16.0) g/dL Hct (37-47) % MCV (80-100) fL MCH (25-34) pg MCHC (32-36) g/dL RDW Std Deviation (36.4-46.3) fL RDW Coeff of Arleen (11.5-14.5) % Plt Count (130-400) K/uL MPV (7.4-10.4) fL Immature Gran % (Auto) % Neut % (Auto) % Lymph % (Auto) % Pine % (Auto) % Eos % (Auto) % Baso % (Auto) % Neut # (Auto) (1.4-6.5) K/uL Lymph # (Auto) (1.2-3.4) K/uL Pine # (Auto) (0.11-0.59) K/uL Eos # (Auto) (0-0.5) K/uL Baso # (Auto) (0-0.2) K/uL Immature Gran # (Auto) (0.00-0.02) K/uL D-Dimer (0-500) ug/L FEU Sodium (136-145) mmol/L Potassium (3.5-5.1) mmol/L Chloride (98-107) mmol/L Carbon Dioxide (21-32) mmol/L Anion Gap (3-11) BUN (6-23) mg/dl Creatinine (0.6-1.2) mg/dl Est Cr Clr Drug Dosing ml/min Est GFR ( Amer) ml/min Est GFR (Non-Af Amer) ml/min BUN/Creatinine Ratio (10-20) Glucose (70-99(Fasting)) mg/dl Calcium (8.5-10.1) mg/dl Total Bilirubin (0.2-1.0) mg/dl AST (13-39) U/L ALT (7-52) U/L Alkaline Phosphatase (34-104) U/L Troponin I (0-0.04) ng/ml Total Protein (6.0-8.3) gm/dl Albumin (3.4-5.0) gm/dl Globulin (2.5-4.0) gm/dl Albumin/Globulin Ratio (0.9-2) SARS-CoV-2, RNA, NAAT NEGATIVE (NEGATIVE) Administered Medications Azelastine HCl (Azelastine Hcl 0.1% Nasal 200 Sprays/27,400 Mcg Btl) 2 sprays NA DAILY ON LICENSE OF [facility] Stop: 10/11/21 12:58 Last Admin: 09/11/21 14:52 Dose: 2 sprays Documented by: [id number] Diltiazem HCl (Diltiazem Hcl 180 Mg Capcr) 180 mg PO QAM ON LICENSE OF [facility] Stop: 10/11/21 09:29 Last Admin: 09/11/21 10:26 Dose: 180 mg Documented by: [id number] Fluticasone/Vilanterol (Fluticasone/Vilanterol 200/25mcg 14 Puffs/Inhaler) 1 puffs INH DAILY ON LICENSE OF [facility] Stop: 10/11/21 08:59 Last Admin: 09/11/21 10:23 Dose: 1 puffs Documented by: [id number] Furosemide (Furosemide 20 Mg Tab) 20 mg PO DAILY ON LICENSE OF [facility] Stop: 10/11/21 09:29 Last Admin: 09/11/21 10:26 Dose: 20 mg Documented by: [id number] Hydroxychloroquine Sulfate (Hydroxychloroquine Sulfate 200 Mg Tab) 200 mg PO QAM ON LICENSE OF [facility] Stop: 10/11/21 09:29 Last Admin: 09/11/21 10:23 Dose: 200 mg Documented by: [id number] Metoprolol Succinate (Metoprolol Succ 25mg Ext Rel Tab) 37.5 mg PO DAILY ON LICENSE OF [facility] Stop: 10/11/21 09:59 Last Admin: 09/11/21 11:11 Dose: 37.5 mg Documented by: [id number] Pantoprazole Sodium (Pantoprazole 40 Mg Tab) [facility] Stop: 10/11/21 08:59 Last Admin: 09/11/21 10:27 Dose: 40 mg Documented by: [id number] Potassium Chloride (Potassium Chloride 10 Meq Tabcr) 20 meq PO DAILY [place] Stop: 10/11/21 09:29 Last Admin: 09/11/21 10:29 Dose: 20 meq Documented by: [id number] Roflumilast (Roflumilast 500 Mcg Tab) 500 mcg PO QAM ON LICENSE OF [facility] Stop: 10/11/21 09:29 Last Admin: 09/11/21 10:31 Dose: 500 mcg Documented by: [id number] Umeclidinium [place] (Umeclidinium [place] 62.5mcg/Blister 7 Puffs/Inhaler) 1 [facility] Stop: 10/11/21 09:29 Last Admin: 09/11/21 10:23 Dose: 1 puffs Documented by: [id number] Discontinued Medications Albuterol (Albut/Ipratrop 3mg/0.5mg Neb 3 Ml Vial) 12 ml INH ONE STA Stop: 09/11/21 05:54 Last Admin: 09/11/21 06:02 Dose: 12 ml Documented by: [id number] Budesonide/Formoterol Fumarate (Budesonide/Formoterol Fumarate 160/4.5 60 Puffs/Inhaler) 2 puffs INH BID ON LICENSE OF [facility] Stop: 10/11/21 09:29 Last Admin: 09/11/21 10:35 Dose: Not Given Documented by: [id number] Dexamethasone Sodium Phosphate (DexamethasonePf 10 Mg/Ml Vial) 10 mg IV NOW ONE Stop: 09/11/21 05:54 Last Admin: 09/11/21 06:11 Dose: 10 mg Documented by: [id number] Ioversol (Optiray 320 125ml) 120 ml IV ONCE ONE Stop: 09/11/21 07:55 Last Admin: 09/11/21 07:54 Dose: 120 ml Documented by: [id number] Levalbuterol HCl (Levalbuterol 1.25mg/0.5ml Neb) 1.25 mg NEB Q6R ON LICENSE OF [facility]; Protocol Stop: 10/11/21 08:47 Last Admin: 09/11/21 12:37 Dose: 1.25 mg Documented by: [id number] Admin: 09/11/21 10:51 Dose: 1.25 mg Documented by: [id number] Non-Formulary Medication (Omeprazole) [facility] Stop: 10/11/21 09:29 Last Admin: 09/11/21 10:35 Dose: Not Given Documented by: [id number] Imaging Data Radiologist's Impression: Chest X-Ray 09/11/21 05:53 XR chest 1V portable CLINICAL HISTORY: Dyspnea COMPARISON STUDY: Chest CT April 07, 2021. Chest radiograph April 21, 2021. FINDINGS: [Internal jugular [id number] is in place. There is no pneumothorax or pleural effusion. Slight cardiomegaly is unchanged. Subtle interstitial thickening is unchanged. There is no evidence for pulmonary edema or pneumonia. IMPRESSION: No acute cardiopulmonary findings. ACT 112: Negative or not required by law. Electronically signed by: Baldo Díaz M.D. 09/11/2021 6:23 AM Chest CTA 09/11/21 07:20 CT angio chest PE protocol CLINICAL HISTORY: Shortness of breath. Evaluate for pulmonary embolus. COMPARISON STUDY: Portable chest from 09/11/2021 and previous CTA chest from 04/07/2021 CT DOSE: 377.58 mGy.cm TECHNIQUE: CT Angio of the chest was performed.followed by image post processing with coronal, and sagittal MIP reformats. Contrast Volume: Optiray 320, 120 ml FINDINGS: Vasculature: There is homogeneous perfusion of the pulmonary vasculature bilaterally. No intraluminal filling defects or evidence for pulmonary embolus is seen. Airway: The airway is clear. No endobronchial lesion is identified. Lungs: The lungs are clear of acute alveolar opacities, air bronchograms or pulmonary nodules. Pleura: There is no evidence for pleural effusion. There is no evidence for pneumothorax. Mediastinum: There is no evidence for pathologic adenopathy. The heart size is within normal limits. The thoracic aorta is within normal limits. There is no evidence for pericardial effusion. Upper abdomen:The adrenal glands are normal bilaterally. There is a small hiatal hernia. Osseous structures: There is no acute osseous pathology. Impression: 1. No CTA evidence for pulmonary embolus. 2. No acute chest disease. ACT 112: Negative or not required by law. Electronically signed by: Gaudencio Ridley M.D. 09/11/2021 8:12 AM Discharge Plan Visit Data Chief Complaint: Shortness of Breath/Dyspnea Stated Complaint: SOB ED Provider: Jyoti Pinto Discharge Problem: Asthma exacerbation Patient Disposition: Admitted As Inpatient Discharge Instructions Interventions: ED Discharge Assessment Last Done: 09/11/21 13:10 Discharge Problem: Asthma exacerbation Qualifiers: Asthma severity: moderate Asthma persistence: persistent Qualified Code(s): J45.41 - Moderate persistent asthma with (acute) exacerbation
[2021-09-11 06:45] LABS: Troponin I < 0.03 ng/ml (0-0.04)
[2021-09-11 06:54] LABS: Alanine Aminotransferase 20 U/L (7-52); Albumin Globulin Ratio 1.7 (0.9-2); Albumin Level 3.9 gm/dl (3.4-5.0); Alkaline Phosphatase 56 U/L (34-104); Anion Gap 8 (3-11); Aspartate Aminotransferase 13 U/L (13-39); BUN Creatinine Ratio 20.4 (10-20); Bilirubin,Total 0.4 mg/dl (0.2-1.0); Blood Urea Nitrogen 21 mg/dl (6-23); Calcium 9.2 mg/dl (8.5-10.1); Carbon Dioxide 27 mmol/L (21-32); Chloride 105 mmol/L (98-107); Creatinine Clr Calc Pharmacy 51.7 ml/min; Est GFR (African American) 62.5 ml/min; Est GFR (Non-African American) 53.9 ml/min; Globulin 2.3 gm/dl (2.5-4.0); Glucose 83 mg/dl (70-99(Fasting)); Potassium 3.9 mmol/L (3.5-5.1); Sodium 140 mmol/L (136-145); Total Protein 6.2 gm/dl (6.0-8.3)
[2021-09-11 06:56] LABS: D Dimer 1870 ug/L FEU (0-500)
[2021-09-11] MEDS ORDERED: OPTIRAY 320 125ml IV ONE (07:54)
--- NOTE | 2021-09-11 08:13 | CT Scan Report ---
CT angio chest PE protocol CLINICAL HISTORY: Shortness of breath. Evaluate for pulmonary embolus. COMPARISON STUDY: Portable chest from 09/11/2021 and previous CTA chest from 04/07/2021 CT DOSE: 377.58 mGy.cm TECHNIQUE: CT Angio of the chest was performed.followed by image post processing with coronal, and s agittal MIP reformats. Contrast Volume: Optiray 320, 120 ml FINDINGS: Vasculature: There is homogeneous perfusion of the pulmonary vasculature bilaterally. No intraluminal filling defects or evidence for pulmonary embolus is seen. Airway: The airway is clear. No endobronchial lesion is identified. Lungs: The lungs are clear of acute alveolar opacities, air bronchograms or pulmonary nodules. Pleura: There is no evidence for pleural effusion. There is no evidence for pneumothorax. Mediastinum: There is no evidence for pathologic adenopathy. The heart size is within normal limits. The thoracic aorta is within normal limits. There is no evidence for pericardial effusion. Upper abdomen:The adrenal glands are normal bilaterally. There is a small hiatal hernia. Osseous structures: There is no acute osseous pathology. Impression: 1. No CTA evidence for pulmonary embolus. 2. No acute chest disease. ACT 112: Negative or not required by law. Electronically signed by: Gaudencio Ridley M.D. 09/11/2021 8:12 AM
--- NOTE | 2021-09-11 08:38 | History & Physical Report ---
Date of Service September 11, 2021 Assessment & Plan (1) Asthma-COPD overlap syndrome: (2) Acute and chronic respiratory failure with hypoxia: (3) COPD (chronic obstructive pulmonary disease): (4) Current smoker: (5) Tobacco use disorder: (6) Multiple pulmonary nodules determined by computed tomography of lung: (7) JOAN (obstructive sleep apnea): Plan: - Admit to med surg with tele - Overnight she received dexamethasone 10 mg and nebulizer treatments. She was on 4 L at bedside during our conversation and satting at 97 to 99%, I turned her O2 down to 3 L and she maintained O2 sats at 96%. Titrate O2 to 92-92% with COPD - Continue to taper steroid with prednisone x 5 days s/p dexamethasone inj. Takes prednisone 5 mg daily at baseline for COPD. - no abx at this time, afebrile, no wbc, - Continue pulmonary toilet with duonebs, mucinex, flutter and incentive spirometry - Follows with Dr. Esparza as outpatient with pulmonology - Continue daliresp, symbicort inhalers now - CTA was completed due to tachycardia and shortness of breath and is negative for pulmonary embolism. (8) Sinus tachycardia: Plan: - Pt did not take any morning medications yet, will give metoprolol succinate 25 mg now to assist with tachycardia - likely worsened by albuterol inh/nebs in the past 24 hours. - Monitor on tele for now - HR in 110s-120s while at bedside - Pt denies cp, tightness, palpitations DVT ppx: - teds, scds CODE: Full code Dispo: From home, likely to remain in the hospital x 1-2 days History of Present Illness Primary Care Provider: Navin Saarvia MD This is a 75-year-old female with PMHx of COPD, asthma, chronic respiratory failure with hypoxia, tobacco use disorder, PSVT, rheumatoid arthritis, remote uterine and DCIS of breast in 2013, and melanoma in 2018, she has previously been admitted several times for chronic respiratory failure secondary to steroid-dependent COPD/asthma overlap syndrome; the last was in mid April 2021 and before that in February 2021. She has been following with pulmonology as well as ears nose and throat with Imelda Hamlin. 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 She considered taking her rescue azithromycin and prednisone steroid pack however did not start them. She thought that she would be able to use nebulizers and that her symptoms would improve versus needing to come to the hospital. Yesterday she consistently use albuterol nebs as well as her inhalers, however did not seem to improve therefore presented to the hospital last night around 5:30 PM. She denies any chest pain, fever, chills or sweats, recent illnesses or sick contacts. Patient continues to smoke 4 to 5 cigarettes daily. At baseline, she has no supplemental oxygen needs other than 2 L at night. Presently she feels improved compared to what she did last evening. Mediport in the right chest wall is accessed. Patient reports she requested this stay in place after receiving immunotherapy status post melanoma resection from her nose in 2017 until March 2020 because of her frequent hospital stays. Allergies Allergy/AdvReac Type Severity Reaction Status Date / Time Tetracyclines Allergy Severe Tongue Verified 09/11/21 07:31 swelling codeine Allergy Intermediate Hives Verified 09/11/21 07:31 nickel Allergy Intermediate Lip Verified 09/11/21 07:31 swelling (nickel mouthpiece with flute) bacitracin Allergy Mild Itching Verified 09/11/21 07:31 amoxicillin AdvReac Mild Diarrhea, Verified 09/11/21 07:31 vomiting clavulanic acid AdvReac Mild Nausea/Vomi Verified 09/11/21 07:31 [From Augmentin] ting Home Medications Medication Instructions Recorded Confirmed Type cholecalciferol (vitamin D3) 25 1,000 unit PO HS 04/02/18 09/11/21 History mcg (1,000 unit) capsule (Vitamin D3) hydroxychloroquine 200 mg tablet 200 mg PO QAM 04/02/18 09/11/21 History (Plaquenil) omeprazole 20 mg capsule,delayed 20 mg PO QAM 04/02/18 09/11/21 History release budesonide-formoterol HFA 160 2 puff INHALATION BID #10.2 gm 08/19/20 09/11/21 Rx mcg-4.5 mcg/actuation aerosol inhaler (Symbicort) azelastine 137 mcg (0.1 %) nasal 2 spray INTRANASAL DAILY 12/26/20 09/11/21 History spray aerosol diltiazem HCl 180 mg 180 mg PO QAM 12/26/20 09/11/21 History capsule,extended release 24 hr (Cardizem CD) fluticasone propionate 50 2 spray INTRANASAL HS 02/14/21 09/11/21 History mcg/actuation nasal spray,suspension (Flonase Allergy Relief) albuterol sulfate 0.63 mg/3 mL 0.63 mg INHALATION QID PRN 03/20/21 09/11/21 History solution for nebulization furosemide 20 mg tablet 20 mg PO DAILY #30 tab 04/24/21 09/11/21 Rx ipratropium bromide 0.02 % 2.5 ml INHALATION Q6H PRN #300 ml 05/21/21 09/11/21 Rx solution for inhalation levalbuterol HCl 1.25 mg/3 mL See Rx Instructions .ROUTE 06/10/21 09/11/21 Rx solution for nebulization .COMPLEX #1080 ml metoprolol succinate 25 mg See Rx Instructions PO DAILY tab 06/13/21 09/11/21 History tablet,extended release 24 hr albuterol sulfate 90 mcg/actuation 2 puff INHALATION Q4 PRN #8.5 g 06/23/21 09/11/21 Rx aerosol inhaler (ProAir HFA) roflumilast 500 mcg tablet 500 mcg PO QAM #90 tab 06/23/21 09/11/21 Rx (Daliresp) umeclidinium 62.5 mcg/actuation 1 inh INHALATION QAM #1 inhaler 06/23/21 09/11/21 Rx blister powder for inhalation (Incruse Ellipta) prednisone 5 mg tablet 5 mg PO DAILY #30 tab 07/28/21 09/11/21 Rx calcium carbonate 600 mg-vitamin 1 tab PO BID 09/11/21 09/11/21 History D3 5 mcg (200 unit) tablet guaifenesin 600 mg tablet, 600 mg PO BID PRN 09/11/21 09/11/21 History extended release 12 hr (Mucinex) potassium chloride 10 mEq 20 meq PO DAILY 09/11/21 09/11/21 History capsule,extended release Past Med/Surg History Medical History Anxiety Asthma-COPD overlap syndrome Diastolic heart failure Dry mouth GERD (gastroesophageal reflux disease) Hiatal hernia History of breast cancer History of uterine cancer Insomnia Lung nodule Melanoma Multiple pulmonary nodules determined by computed tomography of lung Nocturnal oxygen desaturation Obstructive sleep apnea PAT (paroxysmal atrial tachycardia) Rheumatoid arthritis Sinus congestion Surgical History History of breast biopsy History of cataract surgery History of colonoscopy History of ERCP History of melanoma excision History of Moh's micrographic surgery for skin cancer History of sinus surgery History of tonsillectomy History of total abdominal hysterectomy and bilateral salpingo-oophorectomy History of vascular access device Hx laparoscopic cholecystectomy Status post right breast lumpectomy Family History Father Leukemia Myocardial infarction Sister Breast cancer Mother Cancer brain Other Coronary heart disease No family history of adverse response to anesthesia No family history of bleeding disorder Social History Smoking Status: Current every day smoker Tobacco Type: Cigarettes Years Smoked: 40; Cigarettes Per Day: 5; Second Hand Exposure: No; Hx Alcohol Use: Yes Alcohol type: beer Alcohol Intake Frequency Comment: 1 beer/day Hx Substance Use: No Preferred Language: Armenian Communication Ability: Effective Visual Impairment: No Limitations Application Processor Required: No Beliefs That Will Affect Care: None marital status: Current Living Situation: Spouse current occupational status: employed 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 Feels Safe at Home: Yes Assistive Devices: Glasses and Oxygen - Continuous Review of Systems Review of Systems: Constitutional: No fever, sweats or chills Eyes: No diplopia, no worsening or blurred vision ENT: normal hearing, no trouble swallowing Respiratory: As per HPI, chronic dry cough, no sputum, +dyspnea at rest and on exertion Cardiovascular: No chest pain, tightness or palpitations Abdomen: No pain, nausea, vomiting, diarrhea or constipation Musculoskeletal: No joint pain, calf pain, swelling Neurologic: No weakness, numbness/tingling, or balance problems Psychiatric: No anxiety or depression Skin: No rash or itch Physical Exam Physical Exam: General: awake, alert, no apparent distress Head: Normocephalic, atraumatic ENT: PERRL, EOMI, no pharyngeal exudate, mucous membranes moist, nose s/p surgical resection of melanoma well healed, scar down forehead well healed Chest: On 4 L with sats at 97%, diminished breath sounds throughout with some faint wheezing moreso in the left brennan, no crackles. Cardiac: Sinus tachycardia with HR in 120s, no murmur, no JVD, normal peripheral pulses, good capillary refill Abdominal: NABS x 4 quadrants, soft, nondistended, nontender to palpation, no rebound or guarding Extremities: Normal inspection, no peripheral edema or erythema, calfs nontender to palpation Psych: Normal mood and affect Neuro: AAO x 3, strength intact bilaterally and rated 5/5, no motor deficits, speech is clear, no peripheral sensory deficits Results & Data Results & Data ([facility]) Vital Signs (Past 12 Hours) Vital Signs Temp Pulse Pulse Pulse Resp BP BP 09/11/21 08:00 129 H 35 H 09/11/21 07:30 21 137/74 09/11/21 07:00 86 21 09/11/21 06:30 78 20 132/72 09/11/21 06:05 79 81 26 H 153/88 H 09/11/21 06:00 82 33 H 09/11/21 05:59 98 H 19 09/11/21 05:47 09/11/21 05:30 36.9 C 87 26 H 160/91 H Pulse Ox 09/11/21 08:00 97 09/11/21 07:30 100 09/11/21 07:00 100 09/11/21 06:30 100 09/11/21 06:05 98 09/11/21 06:00 94 09/11/21 05:59 90 09/11/21 05:47 97 09/11/21 05:30 98 Supervising Physician Co-Signing Physician Notes Attending addendum: The patient was seen and examined in medical telemetry unit She has been complaining of nasal congestion with runny nose for the last 5 to 7 days and acute shortness of breath since this morning Has asthma exacerbation Moderate shortness of breath at rest but has been conversing normally On examination Moderate shortness of breath at rest Hemodynamically stable without any tachycardia and/or desaturation on 2 L Chestdecreased breath sounds with minimal wheezing HeartS1-S2, regular Abdomenbenign Extremitytrace edema bilaterally Her labs, EKG and imaging studies reviewed No evidence of pneumonia and Covid has been negative We will give [id number] nebulized bronchodilator and Solu-Medrol intravenously twice a day Agree with assessment plan as outlined above by Bridgett Lopez (1) COPD (chronic obstructive pulmonary disease) COPD type: unspecified COPD Qualified Code(s): J44.9 - Chronic obstructive pulmonary disease, unspecified
[2021-09-11] MEDS ORDERED: ACETAMINOPHEN 325 MG TAB PO PRN (08:48)
[2021-09-11] MEDS ORDERED: LEVALBUTEROL 1.25MG/0.5ML NEB NEB SCH (08:48)
[2021-09-11] MEDS ORDERED: ONDANSETRON INJ 2 MG/ML 2 ML VIAL IV PRN (08:48)
[2021-09-11] MEDS ORDERED: METOPROLOL SUCC 25MG EXT REL TAB PO SCH (09:30)
[2021-09-11] MEDS ORDERED: BUDESONIDE/FORMOTEROL FUMARATE 160/4.5 60 PUFFS/INHALER INH SCH (09:30)
[2021-09-11] MEDS ORDERED: NON-FORMULARY MEDICATION (Omeprazole 20 mg Capsule,Delayed Release(Dr/Ec)) PO SCH (09:30)
[2021-09-11] MEDS: FLUTICASONE/VILANTEROL 200/25MCG 14 PUFFS/INHALER INH SCH (10:23)
[2021-09-11] MEDS: UMECLIDINIUM BROMIDE 62.5MCG/BLISTER 7 PUFFS/INHALER INH SCH (10:23)
[2021-09-11] MEDS: HYDROXYCHLOROQUINE SULFATE 200 MG TAB PO SCH (10:23)
[2021-09-11] MEDS: FUROSEMIDE 20 MG TAB PO SCH (10:26)
[2021-09-11] MEDS: dilTIAZem HCL 180 MG CAPCR PO SCH (10:26)
[2021-09-11] MEDS: PANTOprazole 40 MG TAB PO SCH (10:27)
[2021-09-11] MEDS: POTASSIUM CHLORIDE 10 MEQ TABCR PO SCH (10:29)
[2021-09-11] MEDS: ROFLUMILAST 500 MCG TAB PO SCH (10:31)
[2021-09-11] MEDS: LEVALBUTEROL 1.25MG/0.5ML NEB NEB SCH ×2 (10:51→12:37)
[2021-09-11] MEDS: METOPROLOL SUCC 25MG EXT REL TAB PO SCH (11:11)
[2021-09-11] MEDS ORDERED: guaiFENesin 600 MG TABCR PO PRN (12:59)
[2021-09-11] MEDS: AZELASTINE HCL 0.1% NASAL 200 SPRAYS/27,400 MCG BTL SCH (14:52)
[2021-09-11 18:54] LABS: Appearance Urine Clear (Clear); Bilirubin Urine Negative (Negative); Blood Urine Negative (Negative); Color Urine Yellow; Glucose Urine UA Negative (Negative); Ketones Urine Negative (Negative); Leukocyte Esterase Urine Negative (Negative); Nitrite Urine Negative (Negative); Protein Urine Negative (Negative); Specific Gravity Urine 1.019 (1.000-1.030); Urobilinogen Urine Negative (Negative); pH Urine 5.5 (4.5-7.5)
[2021-09-11] MEDS: ALBUT/IPRATROP 3MG/0.5MG NEB 3 ML VIAL NEB SCH ×2 (19:29→22:37)
[2021-09-11] MEDS: CHOLECALCIFEROL 1,000 UNITS 25 MCG TAB PO SCH (20:13)
[2021-09-11] MEDS: guaiFENesin 600 MG TABCR PO SCH (20:14)
[2021-09-11] MEDS: HEPARIN SOD 5,000 UNIT/0.5 ML VIAL SQ SCH (20:15)
[2021-09-11] MEDS: methylPREDNISolone 40 MG in SYRINGE 0 ML IV SCH (20:16)
[2021-09-11] MEDS ORDERED: HEPARIN 100 UNIT/ML 5ML FLUSH IV PRN (20:36)
[2021-09-11] MEDS: FLUTICASONE PROPIONATE NA SPR 16 GM BTL SCH (21:05)
[2021-09-12] MEDS: ALBUT/IPRATROP 3MG/0.5MG NEB 3 ML VIAL NEB SCH ×3 (03:29→10:40)
--- NOTE | 2021-09-12 05:58 | Electrocardiogram Report ---
Test Reason : Blood Pressure : / mmHG Vent. Rate : 087 BPM Atrial Rate : 087 BPM P-R Int : 144 ms QRS Dur : 092 ms QT Int : 390 ms P-R-T Axes : 079 -35 070 degrees QTc Int : 469 ms Poor data quality, interpretation may be adversely affected Normal sinus rhythm Left axis deviation Incomplete right bundle branch block Abnormal ECG When compared with ECG of 21-APR-2021 05:32, Premature supraventricular complexes are no longer Present Confirmed by Arjun Varela ([id number]) on 09/12/2021 5:57:24 AM Referred By: Chi Feldman Confirmed By:Arjun Varela
[2021-09-12 06:37] LABS: Basophils # (auto) 0.01 K/uL (0-0.2); Basophils % (auto) 0.1 %; Hematocrit (blood only) 40.6 % (37-47); Hemoglobin 13.1 g/dL (12.0-16.0); Immature Granulocytes # (auto) 0.05 K/uL (0.00-0.02); Immature Granulocytes % (auto) 0.3 %; Lymphocytes # (auto) 0.76 K/uL (1.2-3.4); Lymphocytes % (auto) 4.2 %; Mean Corpuscular Hgb Conc 32.3 g/dL (32-36); Mean Corpuscular Volume 89.8 fL (80-100); Mean Platelet Volume 9.8 fL (7.4-10.4); Monocytes # (auto) 0.63 K/uL (0.11-0.59); Monocytes % (auto) 3.5 %; Neutrophils # (auto) 16.62 K/uL (1.4-6.5); Neutrophils % (auto) 91.9 %; Platelet Count 308 K/uL (130-400); RDW Coefficient of Variation 14.6 % (11.5-14.5); RDW Standard Deviation 47.3 fL (36.4-46.3); Red Blood Count 4.52 M/uL (4.2-5.4); White Blood Count 18.07 K/uL (4.8-10.8)
[2021-09-12 07:01] LABS: Albumin Globulin Ratio 1.4 (0.9-2); Albumin Level 3.9 gm/dl (3.4-5.0); BUN Creatinine Ratio 30.9 (10-20); Bilirubin,Total 0.3 mg/dl (0.2-1.0); Calcium 8.8 mg/dl (8.5-10.1); Creatinine Clr Calc Pharmacy 65.8 ml/min; Est GFR (African American) 83.5 ml/min; Est GFR (Non-African American) 72.1 ml/min; Globulin 2.8 gm/dl (2.5-4.0); Potassium 4.1 mmol/L (3.5-5.1); Total Protein 6.7 gm/dl (6.0-8.3)
[2021-09-12] MEDS: PANTOprazole 40 MG TAB PO SCH (08:02)
[2021-09-12] MEDS: HYDROXYCHLOROQUINE SULFATE 200 MG TAB PO SCH (08:02)
[2021-09-12] MEDS: METOPROLOL SUCC 25MG EXT REL TAB PO SCH (08:02)
[2021-09-12] MEDS: ROFLUMILAST 500 MCG TAB PO SCH (08:03)
[2021-09-12] MEDS: dilTIAZem HCL 180 MG CAPCR PO SCH (08:03)
[2021-09-12] MEDS: guaiFENesin 600 MG TABCR PO SCH ×2 (08:03→20:22)
[2021-09-12] MEDS: methylPREDNISolone 40 MG in SYRINGE 0 ML IV SCH ×2 (08:04→20:22)
[2021-09-12] MEDS: AZELASTINE HCL 0.1% NASAL 200 SPRAYS/27,400 MCG BTL SCH (08:04)
[2021-09-12] MEDS: POTASSIUM CHLORIDE 10 MEQ TABCR PO SCH (08:04)
[2021-09-12] MEDS: HEPARIN SOD 5,000 UNIT/0.5 ML VIAL SQ SCH ×2 (08:04→20:24)
[2021-09-12] MEDS: FUROSEMIDE 20 MG TAB PO SCH (08:04)
[2021-09-12] MEDS ORDERED: predniSONE 20 MG TAB PO SCH (09:00)
[2021-09-12] MEDS ORDERED: METOPROLOL SUCC 25MG EXT REL TAB PO SCH (09:00)
[2021-09-12] MEDS: FLUTICASONE/VILANTEROL 200/25MCG 14 PUFFS/INHALER INH SCH (10:23)
[2021-09-12] MEDS: UMECLIDINIUM BROMIDE 62.5MCG/BLISTER 7 PUFFS/INHALER INH SCH (10:23)
--- NOTE | 2021-09-12 13:59 | Hospitalist Progress Note ---
Date of Service September 12, 2021 Assessment & Plan (1) Asthma-COPD overlap syndrome: Plan: - Overnight she received dexamethasone 10 mg and nebulizer treatments. She was on 4 L at bedside during our conversation and satting at 97 to 99%, I turned her O2 down to 3 L and she maintained O2 sats at 96%. Titrate O2 to 92-92% with COPD Takes prednisone 5 mg daily at baseline for COPD. No abx at this time, afebrile, no wbc, Continue pulmonary toilet with duonebs, mucinex, flutter and incentive spirometry Follows with Dr. Esparza as outpatient with pulmonology Continue daliresp, symbicort inhalers now CTA was completed due to tachycardia and shortness of breath and is negative for pulmonary embolism. Has been getting [id number] nebulized bronchodilator since admission and intravenous Solu-Medrol 40 mg twice daily Condition has improved a lot and will change nebulized solutions to as needed and continue with inhalers [id number] Clinically much better and has been getting PT and OT evaluation We will get to a stable O2 saturation tomorrow and likely discharge home in the afternoon (2) Acute and chronic respiratory failure with hypoxia: Plan: As above Uses oxygen at nighttime Will need 2 step O2 saturation test before discharge (3) COPD (chronic obstructive pulmonary disease): Plan: Doubt any acute bronchitis and/or pneumonia (4) Current smoker: Plan: Strongly advised to quit smoking (5) Tobacco use disorder: (6) Multiple pulmonary nodules determined by computed tomography of lung: (7) JOAN (obstructive sleep apnea): (8) Sinus tachycardia: Plan: - Pt did not take any morning medications yet, will give metoprolol succinate 25 mg now to assist with tachycardia - likely worsened by albuterol inh/nebs in the past 24 hours. - Monitor on tele for now - HR in 110s-120s while at bedside - Pt denies cp, tightness, palpitations -Heart rate remains minimally elevated secondary to use of nebulized bronchodilator DVT ppx: - teds, scds CODE: Full code Likely discharge tomorrow and the patient is agreeable Admission and Anticipated Discharge Date Admission Date: September 11, 2021 Subjective 09/12/2021 The patient was seen and examined in medical telemetry unit She has been feeling much better Has cough and wheezing but shortness of breath is improving Saturating normally on room air Review of Systems Review of Systems: All systems reviewed and are unremarkable except as noted below Respiratory: Mild to moderate shortness of breath at rest with cough Physical Exam Physical Exam: Lying in bed without any acute distress but looks very anxious Constitutional: well developed, well nourished, + ill appearing and + obese Eyes: PERRL, conjunctivae normal, anicteric sclerae ENMT: external ear and nose normal, oropharynx normal Neck: trachea midline, no thyromegaly Respiratory: + respiratory distress (Minimal distress at rest) A uscultation: + diminished lung sounds, + crackles (Minimal crackles at the bases) and + wheezes (No wheezing) Cardiovascular: Rate/Rhythm: regular rate and regular rhythm; not tachycardic Heart Sounds: normal S1 and normal S2; no murmur Extremities: no edema Gastrointestinal (Abdomen): Inspection/Auscultation: normal bowel sounds; abdomen not distended Percussion/Palpation: abdomen soft; abdomen nontender Musculoskeletal: No acute arthritis in any joint Neurologic: Alert, awake and oriented x3, no focal sensory and motor deficit appreciated Results & Data Results & Data ([facility]) Vital Signs (Past 12 Hours) Vital Signs Temp Pulse Pulse Resp BP BP Pulse Ox 09/12/21 12:42 09/12/21 11:25 96 09/12/21 10:48 92 H 09/12/21 10:41 114 H 18 94 09/12/21 10:00 36.9 C 97 H 20 118/79 95 09/12/21 07:20 36.8 C 117 H 18 126/82 96 09/12/21 07:09 92 H 18 95 09/12/21 03:46 36.7 C 104 H 18 118/71 93 09/12/21 03:30 96 H 18 96 09/12/21 02:08 90 Pulse Ox Pulse Ox 09/12/21 12:42 93 90 09/12/21 11:25 09/12/21 10:48 09/12/21 10:41 09/12/21 10:00 09/12/21 07:20 09/12/21 07:09 09/12/21 03:46 09/12/21 03:30 09/12/21 02:08 Laboratory Results Short CBC 09/12/21 Range/Units 06:08 WBC 18.07 H (4.8-10.8) K/uL Hgb 13.1 (12.0-16.0) g/dL Hct 40.6 (37-47) % Plt Count 308 (130-400) K/uL BMP 09/12/21 06:08 Sodium 138 Potassium 4.1 Chloride 104 Carbon Dioxide 24 BUN 25 H Creatinine 0.81 Glucose 132 H Calcium 8.8 Liver Function 09/12/21 Range/Units 06:08 Total Bilirubin 0.3 (0.2-1.0) mg/dl AST 25 (13-39) U/L ALT 23 (7-52) U/L Alkaline Phosphatase 56 (34-104) U/L Albumin 3.9 (3.4-5.0) gm/dl Urine 09/11/21 Range/Units 18:40 Urine Color Yellow Urine Appearance Clear (Clear) Urine pH 5.5 (4.5-7.5) Ur Specific [place] 1.019 (1.000-1.030) Urine Protein Negative (Negative) Urine Glucose (UA) Negative (Negative) Medications Administered Current Inpatient Medications Acetaminophen (Acetaminophen 325 Mg Tab) 650 mg PO Q4H PRN PRN Reason: Moderate Pain Stop: 10/11/21 08:47 Last Admin: 09/12/21 06:22 Dose: 650 mg Documented by: Albuterol (Albut/Ipratrop 3mg/0.5mg Neb 3 Ml Vial) 3 ml NEB Q4R PRN; Protocol PRN Reason: Shortness Of Breath Or Wheezing Stop: 10/11/21 18:59 Albuterol (Albuterol Hfa 8 Gm Inhaler) 2 puffs INH Q4 [facility] Stop: 10/12/21 15:59 Azelastine HCl (Azelastine Hcl 0.1% Nasal 200 Sprays/27,400 Mcg Btl) 2 sprays NA DAILY [facility] Stop: 10/11/21 12:58 Last Admin: 09/12/21 08:04 Dose: 2 sprays Documented by: Diltiazem HCl (Diltiazem Hcl 180 Mg Capcr) 180 mg PO QAM [place] Stop: 10/11/21 09:29 Last Admin: 09/12/21 08:03 Dose: 180 mg Documented by: Fluticasone Propionate (Fluticasone Propionate Na Spr 16 Gm Btl) 2 sprays NA HS [facility] Stop: 10/11/21 20:59 Last Admin: 09/11/21 21:05 Dose: 2 sprays Documented by: Fluticasone/Vilanterol (Fluticasone/Vilanterol 200/25mcg 14 Puffs/Inhaler) 1 puffs INH DAILY [place] Stop: 10/11/21 08:59 Last Admin: 09/12/21 10:23 Dose: 1 puffs Documented by: Furosemide (Furosemide 20 Mg Tab) 20 mg PO DAILY [facility] Stop: 10/11/21 09:29 Last Admin: 09/12/21 08:04 Dose: Not Given Documented by: Guaifenesin (Guaifenesin 600 Mg Tabcr) 1,200 mg PO Q12 [facility] Stop: 10/11/21 20:59 Last Admin: 09/12/21 08:03 Dose: 1,200 mg Documented by: Heparin Sodium (Porcine) (Heparin Sod 5,000 Unit/0.5 Ml Vial) 5,000 units SQ Q12 [facility] Stop: 10/11/21 20:59 Last Admin: 09/12/21 08:04 Dose: 5,000 units Documented by: Heparin Sodium (Porcine) (Heparin 100 Unit/Ml 5ml Flush) 5 ml IV PRN PRN PRN Reason: Flush Stop: 10/11/21 20:35 Hydroxychloroquine Sulfate (Hydroxychloroquine Sulfate 200 Mg Tab) 200 mg PO QAM [facility] Stop: 10/11/21 09:29 Last Admin: 09/12/21 08:02 Dose: 200 mg Documented by: Methylprednisolone 40 mg/ (Syringe) 0.64 mls @ 1.5 mls/min IV BID [facility] Stop: 10/11/21 20:59 Last Admin: 09/12/21 08:04 Dose: 1.5 mls/min Documented by: Metoprolol Succinate (Metoprolol Succ 25mg Ext Rel Tab) 37.5 mg PO DAILY [facility] Stop: 10/11/21 09:59 Last Admin: 09/12/21 08:02 Dose: 37.5 mg Documented by: Ondansetron HCl (Ondansetron Inj 2 Mg/Ml 2 Ml Vial) 4 mg IV Q4H PRN PRN Reason: Nausea And Vomiting Stop: 10/11/21 08:47 Pantoprazole Sodium (Pantoprazole 40 Mg Tab) 40 mg PO QAM [facility] Stop: 10/11/21 08:59 Last Admin: 09/12/21 08:02 Dose: 40 mg Documented by: Potassium Chloride (Potassium Chloride 10 Meq Tabcr) 20 meq PO DAILY [facility] Stop: 10/11/21 09:29 Last Admin: 09/12/21 08:04 Dose: Not Given Documented by: Roflumilast (Roflumilast 500 Mcg Tab) 500 mcg PO QAM [facility] Stop: 10/11/21 09:29 Last Admin: 09/12/21 08:03 Dose: 500 mcg Documented by: Umeclidinium [place] (Umeclidinium [place] 62.5mcg/Blister 7 Puffs/Inhaler) 1 puffs INH QAM [facility] Stop: 10/11/21 09:29 Last Admin: 09/12/21 10:23 Dose: 1 puffs Documented by: Vitamin D (Cholecalciferol 1,000 Units 25 Mcg Tab) 1,000 units PO HS [facility] Stop: 10/11/21 20:59 Last Admin: 09/11/21 20:13 Dose: 1,000 units Documented by: (1) COPD (chronic obstructive pulmonary disease) COPD type: unspecified COPD Qualified Code(s): J44.9 - Chronic obstructive pulmonary disease, unspecified
[2021-09-12] MEDS: ALBUTEROL HFA 8 GM INHALER INH SCH ×2 (14:50→19:16)
[2021-09-12] MEDS: ALBUT/IPRATROP 3MG/0.5MG NEB 3 ML VIAL NEB PRN ×2 (19:18→22:36)
[2021-09-12] MEDS: FLUTICASONE PROPIONATE NA SPR 16 GM BTL SCH (20:24)
[2021-09-12] MEDS: CHOLECALCIFEROL 1,000 UNITS 25 MCG TAB PO SCH (20:24)
[2021-09-13] MEDS: ALBUTEROL HFA 8 GM INHALER INH SCH ×4 (01:21→11:20)
[2021-09-13] MEDS: ALBUT/IPRATROP 3MG/0.5MG NEB 3 ML VIAL NEB PRN ×3 (02:37→11:19)
[2021-09-13 06:07] LABS: Hematocrit (blood only) 39.9 % (37-47); Mean Corpuscular Hemoglobin 29.3 pg (25-34); Mean Corpuscular Hgb Conc 32.6 g/dL (32-36); Mean Corpuscular Volume 89.9 fL (80-100); Mean Platelet Volume 9.7 fL (7.4-10.4); Platelet Count 315 K/uL (130-400); RDW Coefficient of Variation 14.6 % (11.5-14.5); RDW Standard Deviation 48.4 fL (36.4-46.3); Red Blood Count 4.44 M/uL (4.2-5.4)
[2021-09-13 06:29] LABS: Albumin Globulin Ratio 1.8 (0.9-2); Albumin Level 3.8 gm/dl (3.4-5.0); BUN Creatinine Ratio 42.9 (10-20); Bilirubin,Total 0.3 mg/dl (0.2-1.0); Calcium 9.3 mg/dl (8.5-10.1); Creatinine Clr Calc Pharmacy 93.6 ml/min; Est GFR (African American) 107.2 ml/min; Est GFR (Non-African American) 92.5 ml/min; Globulin 2.1 gm/dl (2.5-4.0); Potassium 4.3 mmol/L (3.5-5.1); Total Protein 5.9 gm/dl (6.0-8.3)
[2021-09-13] MEDS: POTASSIUM CHLORIDE 10 MEQ TABCR PO SCH (08:14)
[2021-09-13] MEDS: FLUTICASONE/VILANTEROL 200/25MCG 14 PUFFS/INHALER INH SCH (08:14)
[2021-09-13] MEDS: AZELASTINE HCL 0.1% NASAL 200 SPRAYS/27,400 MCG BTL SCH (08:15)
[2021-09-13] MEDS: METOPROLOL SUCC 25MG EXT REL TAB PO SCH (08:15)
[2021-09-13] MEDS: PANTOprazole 40 MG TAB PO SCH (08:15)
[2021-09-13] MEDS: FUROSEMIDE 20 MG TAB PO SCH (08:15)
[2021-09-13] MEDS: dilTIAZem HCL 180 MG CAPCR PO SCH (08:15)
[2021-09-13] MEDS: ROFLUMILAST 500 MCG TAB PO SCH (08:15)
[2021-09-13] MEDS: HYDROXYCHLOROQUINE SULFATE 200 MG TAB PO SCH (08:15)
[2021-09-13] MEDS: UMECLIDINIUM BROMIDE 62.5MCG/BLISTER 7 PUFFS/INHALER INH SCH (08:15)
[2021-09-13] MEDS: methylPREDNISolone 40 MG in SYRINGE 0 ML IV SCH (08:15)
[2021-09-13] MEDS: HEPARIN SOD 5,000 UNIT/0.5 ML VIAL SQ SCH (08:16)
[2021-09-13] MEDS: guaiFENesin 600 MG TABCR PO SCH (08:16)
--- NOTE | 2021-09-13 11:53 | Hospitalist Progress Note ---
Date of Service September 13, 2021 Assessment & Plan (1) Asthma-COPD overlap syndrome: Plan: - Overnight she received dexamethasone 10 mg and nebulizer treatments. She was on 4 L at bedside during our conversation and satting at 97 to 99%, I turned her O2 down to 3 L and she maintained O2 sats at 96%. Titrate O2 to 92-92% with COPD Takes prednisone 5 mg daily at baseline for COPD. No abx at this time, afebrile, no wbc, Continue pulmonary toilet with duonebs, mucinex, flutter and incentive spirometry Follows with Dr. Esparza as outpatient with pulmonology Continue daliresp, symbicort inhalers now CTA was completed due to tachycardia and shortness of breath and is negative for pulmonary embolism. Has been getting [id number] nebulized bronchodilator since admission and intravenous Solu-Medrol 40 mg twice daily Condition has improved a lot and will change nebulized solutions to as needed and continue with inhalers [id number] Clinically much better and has been getting PT and OT evaluation We will get to a stable O2 saturation tomorrow and likely discharge home in the afternoon Clinically much better without any wheezing and/or shortness of breath at rest but he still has minimal cough We will get a 2 step O2 saturation test before discharging home this afternoon (2) Acute and chronic respiratory failure with hypoxia: Plan: As above Uses oxygen at nighttime Will need 2 step O2 saturation test before discharge (3) COPD (chronic obstructive pulmonary disease): Plan: Doubt any acute bronchitis and/or pneumonia We will give a very short course of tapering dose of prednisone on discharge (4) Current smoker: Plan: Strongly advised to quit smoking (5) Tobacco use disorder: Plan: Strongly advised to quit smoking (6) Multiple pulmonary nodules determined by computed tomography of lung: (7) JOAN (obstructive sleep apnea): (8) Sinus tachycardia: Plan: - Pt did not take any morning medications yet, will give metoprolol succinate 25 mg now to assist with tachycardia - likely worsened by albuterol inh/nebs in the past 24 hours. - Monitor on tele for now - HR in 110s-120s while at bedside - Pt denies cp, tightness, palpitations -Heart rate remains minimally elevated secondary to use of nebulized bronchodilator DVT ppx: - teds, scds CODE: Full code Likely discharge tomorrow and the patient is agreeable Discharge home this afternoon Admission and Anticipated Discharge Date Admission Date: September 11, 2021 Subjective 09/12/2021 The patient was seen and examined in medical telemetry unit She has been feeling much better Has cough and wheezing but shortness of breath is improving Saturating normally on room air 09/13/2021 The patient was seen and examined in medical telemetry unit She has been feeling much better and denies any chest tightness and or wheezing She only complains to have cough She will have a two-step O2 saturation test before discharging home this afternoon Review of Systems Review of Systems: All systems reviewed and are unremarkable except as noted below Respiratory: Mild to moderate shortness of breath at rest with cough Physical Exam Physical Exam: Lying in bed without any acute distress but looks very anxious Constitutional: well developed, well nourished, + ill appearing and + obese Eyes: PERRL, conjunctivae normal, anicteric sclerae ENMT: external ear and nose normal, oropharynx normal Neck: trachea midline, no thyromegaly Respiratory: no respiratory distress (Minimal distress at rest) Auscultation: + diminished lung sounds; no crackles (Minimal crackles at the bases) and no wheezes (No wheezing) Cardiovascular: Rate/Rhythm: regular rate and regular rhythm; not tachycardic Heart Sounds: normal S1 and normal S2; no murmur Extremities: no edema Gastrointestinal (Abdomen): Inspection/Auscultation: normal bowel sounds; abdomen not distended Percussion/Palpation: abdomen soft; abdomen nontender Musculoskeletal: No acute arthritis in any joint Neurologic: Alert, awake and oriented x3. No focal sensory and/or motor deficit appreciated Results & Data Results & Data ([facility]) Vital Signs (Past 12 Hours) Vital Signs Temp Pulse Pulse Resp BP Pulse Ox 09/13/21 11:20 83 18 94 09/13/21 11:19 36.7 C 67 20 135/81 97 09/13/21 10:20 72 09/13/21 07:38 36.5 C 80 20 130/81 95 09/13/21 07:16 112 H 18 97 09/13/21 02:45 92 H 16 96 09/13/21 02:33 36.7 C 83 18 138/76 95 Laboratory Results Short CBC 09/13/21 Range/Units 05:49 WBC 18.10 H (4.8-10.8) K/uL Hgb 13.0 (12.0-16.0) g/dL Hct 39.9 (37-47) % Plt Count 315 (130-400) K/uL BMP 09/13/21 05:49 Sodium 138 Potassium 4.3 Chloride 106 Carbon Dioxide 27 BUN 24 H Creatinine 0.56 L Glucose 109 H Calcium 9.3 Liver Function 09/13/21 Range/Units 05:49 Total Bilirubin 0.3 (0.2-1.0) mg/dl AST 22 (13-39) U/L ALT 25 (7-52) U/L Alkaline Phosphatase 48 (34-104) U/L Albumin 3.8 (3.4-5.0) gm/dl Medications Administered Current Inpatient Medications Acetaminophen (Acetaminophen 325 Mg Tab) 650 mg PO Q4H PRN PRN Reason: Moderate Pain Stop: 10/11/21 08:47 Last Admin: 09/12/21 06:22 Dose: 650 mg Documented by: Albuterol (Albut/Ipratrop 3mg/0.5mg Neb 3 Ml Vial) 3 ml NEB Q4R PRN; Protocol PRN Reason: Shortness Of Breath Or Wheezing Stop: 10/11/21 18:59 Last Admin: 09/13/21 11:19 Dose: 3 ml Documented by: Albuterol (Albuterol Hfa 8 Gm Inhaler) 2 puffs INH Q4 [place] Stop: 10/12/21 15:59 Last Admin: 09/13/21 11:20 Dose: Not Given Documented by: Azelastine HCl (Azelastine Hcl 0.1% Nasal 200 Sprays/27,400 Mcg Btl) 2 sprays NA DAILY [place] Stop: 10/11/21 12:58 Last Admin: 09/13/21 08:15 Dose: 2 sprays Documented by: Diltiazem HCl (Diltiazem Hcl 180 Mg Capcr) 180 mg PO QAM [place] Stop: 10/11/21 09:29 Last Admin: 09/13/21 08:15 Dose: 180 mg Documented by: Fluticasone Propionate (Fluticasone Propionate Na Spr 16 Gm Btl) 2 sprays NA HS [place] Stop: 10/11/21 20:59 Last Admin: 09/12/21 20:24 Dose: 2 sprays Documented by: Fluticasone/Vilanterol (Fluticasone/Vilanterol 200/25mcg 14 Puffs/Inhaler) 1 puffs INH DAILY [facility] Stop: 10/11/21 08:59 Last Admin: 09/13/21 08:14 Dose: 1 puffs Documented by: Furosemide (Furosemide 20 Mg Tab) 20 mg PO DAILY [facility] Stop: 10/11/21 09:29 Last Admin: 09/13/21 08:15 Dose: 20 mg Documented by: Guaifenesin (Guaifenesin 600 Mg Tabcr) 1,200 mg PO Q12 [place] Stop: 10/11/21 20:59 Last Admin: 09/13/21 08:16 Dose: 1,200 mg Documented by: Heparin Sodium (Porcine) (Heparin Sod 5,000 Unit/0.5 Ml Vial) 5,000 units SQ Q12 [facility] Stop: 10/11/21 20:59 Last Admin: 09/13/21 08:16 Dose: 5,000 units Documented by: Heparin Sodium (Porcine) (Heparin 100 Unit/Ml 5ml Flush) 5 ml IV PRN PRN PRN Reason: Flush Stop: 10/11/21 20:35 Hydroxychloroquine Sulfate (Hydroxychloroquine Sulfate 200 Mg Tab) 200 mg PO QAM [facility] Stop: 10/11/21 09:29 Last Admin: 09/13/21 08:15 Dose: 200 mg Documented by: Methylprednisolone 40 mg/ (Syringe) 0.64 mls @ 1.5 mls/min IV BID [facility] Stop: 10/11/21 20:59 Last Admin: 09/13/21 08:15 Dose: 1.5 mls/min Documented by: Metoprolol Succinate (Metoprolol Succ 25mg Ext Rel Tab) 37.5 mg PO DAILY [facility] Stop: 10/11/21 09:59 Last Admin: 09/13/21 08:15 Dose: 37.5 mg Documented by: Ondansetron HCl (Ondansetron Inj 2 Mg/Ml 2 Ml Vial) 4 mg IV Q4H PRN PRN Reason: Nausea And Vomiting Stop: 10/11/21 08:47 Pantoprazole Sodium (Pantoprazole 40 Mg Tab) 40 mg PO QAM [facility] Stop: 10/11/21 08:59 Last Admin: 09/13/21 08:15 Dose: 40 mg Documented by: Potassium Chloride (Potassium Chloride 10 Meq Tabcr) 20 meq PO DAILY [facility] Stop: 10/11/21 09:29 Last Admin: 09/13/21 08:14 Dose: 20 meq Documented by: Roflumilast (Roflumilast 500 Mcg Tab) 500 mcg PO QAM [place] Stop: 10/11/21 09:29 Last Admin: 09/13/21 08:15 Dose: 500 mcg Documented by: Umeclidinium [place] (Umeclidinium [place] 62.5mcg/Blister 7 Puffs/Inhaler) 1 puffs INH QAM [place] Stop: 10/11/21 09:29 Last Admin: 09/13/21 08:15 Dose: 1 puffs Documented by: Vitamin D (Cholecalciferol 1,000 Units 25 Mcg Tab) 1,000 units PO HS [facility] Stop: 10/11/21 20:59 Last Admin: 09/12/21 20:24 Dose: 1,000 units Documented by: (1) COPD (chronic obstructive pulmonary disease) COPD type: unspecified COPD Qualified Code(s): J44.9 - Chronic obstructive pulmonary disease, unspecified
--- NOTE | 2021-09-14 08:29 | Discharge Summary ---
Date of Service September 14, 2021 Admission HPI Per Admitting Provider This is a 75-year-old female with PMHx of COPD, asthma, chronic respiratory failure with hypoxia, tobacco use disorder, PSVT, rheumatoid arthritis, remote uterine and DCIS of breast in 2012, and melanoma in 2018, she has previously been admitted several times for chronic respiratory failure secondary to steroid-dependent COPD/asthma overlap syndrome; the last was in mid April 2021 and before that in February 2021. She has been following with pulmonology as well as ears nose and throat with Imelda Hamlin. 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 She considered taking her rescue azithromycin and prednisone steroid pack however did not start them. She thought that she would be able to use nebulizers and that her symptoms would improve versus needing to come to the hospital. Yesterday she consistently use albuterol nebs as well as her inhalers, however did not seem to improve therefore presented to the hospital last night around 5:30 PM. She denies any chest pain, fever, chills or sweats, recent illnesses or sick contacts. Patient continues to smoke 4 to 5 cigarettes daily. At baseline, she has no supplemental oxygen needs other than 2 L at night. Presently she feels improved compared to what she did last evening. Mediport in the right chest wall is accessed. Patient reports she requested this stay in place after receiving immunotherapy status post melanoma resection from her nose in 2017 until March 2020 because of her frequent hospital stays. Admission Exam Per Admitting Provider Physical Exam: General: awake, alert, no apparent distress Head: Normocephalic, atraumatic ENT: PERRL, EOMI, no pharyngeal exudate, mucous membranes moist, nose s/p surgical resection of melanoma well healed, scar down forehead well healed Chest: On 4 L with sats at 97%, diminished breath sounds throughout with some faint wheezing moreso in the left brennan, no crackles. Cardiac: Sinus tachycardia with HR in 120s, no murmur, no JVD, normal peripheral pulses, good capillary refill Abdominal: NABS x 4 quadrants, soft, nondistended, nontender to palpation, no rebound or guarding Extremities: Normal inspection, no peripheral edema or erythema, calfs nontender to palpation Psych: Normal mood and affect Neuro: AAO x 3, strength intact bilaterally and rated 5/5, no motor deficits, speech is clear, no peripheral sensory deficits Principal Diagnosis Exacerbation of asthma, COPD, JOAN, chronic respiratory failure on home oxygen at night Discharge Exam Lying in bed without any acute distress but looks very anxious Constitutional well developed, well nourished, + ill appearing and + obese Eyes PERRL, conjunctivae normal, anicteric sclerae ENMT external ear and nose normal, oropharynx normal Neck trachea midline, no thyromegaly Respiratory no respiratory distress (Minimal distress at rest) Auscultation: + diminished lung sounds; no crackles (Minimal crackles at the bases) and no wheezes (No wheezing) Cardiovascular Rate/Rhythm: regular rate and regular rhythm; not tachycardic Heart Sounds: normal S1 and normal S2; no murmur Extremities: no edema Gastrointestinal (Abdomen) Inspection/Auscultation: normal bowel sounds; abdomen not distended Percussion/Palpation: abdomen soft; abdomen nontender Discharge Data Allergies Allergy/AdvReac Type Severity Reaction Status Date / Time Tetracyclines Allergy Severe Tongue Verified 09/11/21 07:31 swelling codeine Allergy Intermediate Hives Verified 09/11/21 07:31 nickel Allergy Intermediate Lip Verified 09/11/21 07:31 swelling (nickel mouthpiece with flute) bacitracin Allergy Mild Itching Verified 09/11/21 07:31 amoxicillin AdvReac Mild Diarrhea, Verified 09/11/21 07:31 vomiting clavulanic acid AdvReac Mild Nausea/Vomi Verified 09/11/21 07:31 [From Augmentin] ting Consultations 09/11/21 07:30 ED Decision to Admit Stat Ordered Studies 09/11/21 07:20 CT angio chest PE protocol Stat Hospital Course (1) Asthma-COPD overlap syndrome: - Overnight she received dexamethasone 10 mg and nebulizer treatments. She was on 4 L at bedside during our conversation and satting at 97 to 99%, I turned her O2 down to 3 L and she maintained O2 sats at 96%. Titrate O2 to 92- 92% with COPD Takes prednisone 5 mg daily at baseline for COPD. No abx at this time, afebrile, no wbc, Continue pulmonary toilet with duonebs, mucinex, flutter and incentive spirometry Follows with Dr. Esparza as outpatient with pulmonology Continue daliresp, symbicort inhalers now CTA was completed due to tachycardia and shortness of breath and is negative for pulmonary embolism. Has been getting [id number] nebulized bronchodilator since admission and intravenous Solu-Medrol 40 mg twice daily Condition has improved a lot and will change nebulized solutions to as needed and continue with inhalers [id number] Clinically much better and has been getting PT and OT evaluation We will get to a stable O2 saturation tomorrow and likely discharge home in the afternoon Clinically much better without any wheezing and/or shortness of breath at rest but he still has minimal cough We will get a 2 step O2 saturation test before discharging home this afternoon (2) Acute and chronic respiratory failure with hypoxia: As above Uses oxygen at nighttime Will need 2 step O2 saturation test before discharge (3) COPD (chronic obstructive pulmonary disease): Doubt any acute bronchitis and/or pneumonia We will give a very short course of tapering dose of prednisone on discharge (4) Current smoker: Strongly advised to quit smoking (5) Tobacco use disorder: Strongly advised to quit smoking (6) Multiple pulmonary nodules determined by computed tomography of lung: (7) JOAN (obstructive sleep apnea): (8) Sinus tachycardia: - Pt did not take any morning medications yet, will give metoprolol succinate 25 mg now to assist with tachycardia - likely worsened by albuterol inh/nebs in the past 24 hours. - Monitor on tele for now - HR in 110s-120s while at bedside - Pt denies cp, tightness, palpitations -Heart rate remains minimally elevated secondary to use of nebulized bronchodilator DVT ppx: - teds, scds CODE: Full code Likely discharge tomorrow and the patient is agreeable Discharge home this afternoon Total Time Total Time Spent Total Time Spent (In Minutes): 35 minutes Discharge Plan Discharge Items Patient Disposition: Home - Self-Care Reason For Visit: COPD/ASTHMA Discharge Diagnosis: Exacerbation of asthma, COPD, JOAN, chronic respiratory failure on home oxygen at night Condition on Discharge: Good Activity: Resume your previous activity Non-emergency contact: Primary Care Provider Call non-emergency contact if: you have any medication questions and your symptoms worsen Follow-up/Referrals: Navin Saravia MD [Primary Care Provider] - (Your doctor's office will call you on Wednesday with an appointment within 7 days) Diet: Heart Healthy Addtl Attending Provider Instructions: Please take precautions to avoid fall Please take prednisone as advised There is no change in your current medication Please keep appointments with your healthcare providers including custodial aide Continue your maintenance prednisone after finishing the tapering dose of prednisone Pending Studies at Discharge: No Stand-Alone Forms: [employer], Smoking Cessation Medications and DC Order Prescriptions: New prednisone 10 mg tablet 10 mg PO UD Qty: 30 RF: 0 Continued ipratropium bromide 0.02 % solution 2.5 ml inhalation Q6H PRN (Reason: shortness of breath or wheezing) Qty: 300 RF: 3 levalbuterol HCl 1.25 mg/3 mL solution for nebulization See Rx Instructions .ROUTE .COMPLEX Qty: 1080 RF: 6 albuterol sulfate [ProAir HFA] 90 mcg/actuation HFA aerosol inhaler 2 puff Inhalation Q4 PRN (Reason: Shortness Of Breath Or Wheezing) Qty: 8.5 RF: 3 Daliresp 500 mcg tablet 500 mcg PO QAM Qty: 90 RF: 3 Incruse Ellipta 62.5 mcg/actuation blister with device 1 inh INHALATION QAM Qty: 1 RF: 5 prednisone 5 mg tablet 5 mg PO DAILY Qty: 30 RF: 2 albuterol sulfate 0.63 mg/3 mL solution for nebulization 0.63 mg inhalation QID PRN (Reason: Wheezing) RF: 0 metoprolol succinate 25 mg tablet extended release 24 hr See Rx Instructions PO DAILY RF: 0 Symbicort 160-4.5 mcg/actuation HFA aerosol inhaler 2 puff INHALATION BID Qty: 10.2 RF: 1 omeprazole 20 mg Capsule,Delayed Release(Dr/Ec) 20 mg PO QAM RF: 0 hydroxychloroquine [Plaquenil] 200 mg Tablet 200 mg PO QAM RF: 0 cholecalciferol (vitamin D3) [Vitamin D3] 1,000 unit Capsule 1,000 unit PO HS RF: 0 fluticasone propionate [Flonase Allergy Relief] 50 mcg/actuation spray,suspension 2 spray intranasal HS RF: 0 calcium carbonate-vitamin D3 600 mg-5 mcg (200 unit) Tablet 1 tab PO BID RF: 0 potassium chloride 10 mEq capsule, extended release 20 meq PO DAILY RF: 0 guaifenesin [Mucinex] 600 mg tablet extended release 12hr 600 mg PO BID PRN (Reason: Congestion) RF: 0 diltiazem HCl [Cardizem CD] 180 mg capsule,extended release 24hr 180 mg PO QAM RF: 0 azelastine 137 mcg (0.1 %) aerosol,spray 2 spray intranasal DAILY RF: 0 furosemide 20 mg tablet 20 mg PO DAILY Qty: 30 RF: 2 Discharge Orders: Discharge Order (Routine); Ordered 09/13/21 Ordered By: Jamar Lopez Admission Data Admit Date/Time: 09/11/21 08:48 Attending Provider: Jamar Lopez Admit Provider: Bridgett Leyva Primary Care Provider: Navin Saravia Other Providers: Jamar Lopez Other Interventions: Discharge Summary Assessment (RN) Last Done: 09/13/21 12:46
== END 2021-09-13 13:25 | disposition home or self-care (01) | DRG 189 ==
LOC: ED 05:27 → 2N 12:55

== ENCOUNTER 2022-08-09 13:59 | Inpatient (IN) ==
[2022-08-09] MEDS ORDERED: methylPREDNISolone 125 MG/2 ML VIAL IV STA (14:11)
[2022-08-09] MEDS ORDERED: ALBUT/IPRATROP 3MG/0.5MG NEB 3 ML VIAL NEB STA ×2 (14:11→17:20)
--- NOTE | 2022-08-09 14:22 | Emergency Department Note ---
Impression & Plan COPD (chronic obstructive pulmonary disease), Pneumonia, COVID-19 virus infection ED Provider Note NAME: JORDAN RUDOLPH AGE: 76 SEX: F : 1945 ARRIVES VIA: Walk-In INFORMANT: Patient, ED PROVIDER(S): Emerson Casiano DO CHIEF COMPLAINT: Shortness of breath HPI: The patient is a 76-year-old female who presented to the emergency [facility] for an evaluation of shortness of breath. The patient has a long history of COPD. She has a history of tobacco use as well. She continues to use tobacco products. She presented to the emergency department today because of worsening shortness of breath. The patient notices shortness of breath with exertion. She is also had a cough for productive sputum which is clear. She is had no fever. She denies having any hemoptysis. The patient states that she has had similar episodes in the past multiple times. The patient states that she has been using her nebulizer. She does not normally wear oxygen during the day but does have oxygen for at night as well as a CPAP machine. She has been using both over the last 24 hours without significant relief. She does take a daily prednisone pill. She was not seen by her primary care physician for the symptoms because of the weekend. She states her symptoms are severe with any exertion and relieved with rest. She denies having any chest pain or fever. ROS: See above HPI for pertinent positives & negatives. A total of 10 systems reviewed and were otherwise negative. PAST MEDICAL HISTORY: See Below PAST SURGICAL HISTORY: See Below FAMILY HISTORY: See Below SOCIAL HISTORY: See Below HOME MEDICATIONS: See Below ALLERGIES: See Below VITALS: See Below PHYSICAL EXAMINATION: GENERAL: Patient is awake and alert. Patient is somewhat anxious appearing. EYES: The conjunctivae are clear. The pupils are round and reactive. EARS, NOSE, MOUTH AND THROAT: The nose is without any evidence of any deformity. NECK: The neck is nontender and supple. RESPIRATORY: Diminished breath sounds are noted throughout. Pursed lip breathing was also appreciated. There is wheezing in both upper lung brennan. There was significant tachypnea. CARDIOVASCULAR: Regular rate and rhythm noted there no murmurs rubs or gallops normal S1 normal S2. GASTROINTESTINAL: The abdomen is soft. Abdomen is nontender. MUSCULOSKELETAL/EXTREMITIES: There is no evidence of gross deformity full range of motion is noted in the hips and shoulders. SKIN: Skin is warm and dry. Trace pedal edema was noted bilaterally. NEUROLOGIC: Patient is awake alert and oriented x3 MEDICAL DECISION MAKING: The patient is a 76-year-old female who has a history of COPD as well as tobacco use who presented to the emergency department for an evaluation of difficulty breathing. The patient's history and physical exam appear to be consistent with an acute exacerbation of her COPD. She did have a productive cough but no fever. I discussed the patient's laboratory and radiographic studies with her. She was treated with IV steroids as well as bronchodilator therapy. She was reevaluated. She was minimally improved but given her findings especially her chest x-ray and her COVID swab I do feel the patient would be a better candidate for inpatient management. For this reason I will discuss her case with the on- call [facility]. Triage Nursing notes reviewed. Prior medical records reviewed Vital Signs: reviewed and remarkable for tachypnea and relative hypoxia. Differential diagnosis: Reactive airway disease, pneumonia, pneumothorax, COPD, CHF, infections, cardiac ischemia, pulmonary embolism, musculoskeletal, gastrointestinal, as well as other pathologies. ER treatment provided: See below Diagnostics interpreted by me: ECG: EKG was obtained in the emergency department. My interpretation is sinus tachycardia 101 bpm. There is no ectopy. Right bundle branch block pattern was noted. This was compared to a tracing from September 11, 2021. The QRS appears to of widened somewhat otherwise no significant changes were noted. Cardiac Monitoring: An order was placed for continuous cardiac monitoring. The monitor shows a rate of 97 bpm with sinus rhythm. Laboratory studies: As stated above and show below. Imaging studies: See below. Radiographic imaging was reviewed by myself Consultation(s): I discussed this case with Suki who is on-call for the [facility] group. Past Med/Surg History Medical History Anxiety Asthma-COPD overlap syndrome Diastolic heart failure Dry mouth GERD (gastroesophageal reflux disease) Hiatal hernia History of breast cancer Right (2012) s/p lumpectomy + radiation History of uterine cancer GREGORIO BSO + chemo (2012) Insomnia Lung nodule Melanoma S/p excision Multiple pulmonary nodules determined by computed tomography of lung Nocturnal oxygen desaturation 2L O2 HS Obstructive sleep apnea CPAP (+2L O2 HS) PAT (paroxysmal atrial tachycardia) Rheumatoid arthritis Sinus congestion Surgical History History of breast biopsy History of cataract surgery History of colonoscopy Colonoscopy (03/20/20): MAC at [facility] History of ERCP ERCP (02/02/20): MAC at [facility] History of melanoma excision 2019 History of Moh's micrographic surgery for skin cancer nose x2 History of sinus surgery 06/29/18 (MAC 3, 7.5 ETT, grade 2 view) History of tonsillectomy History of total abdominal hysterectomy and bilateral salpingo-oophorectomy History of vascular access device Left chest (port flush [facility] on 03/26/21) Hx laparoscopic cholecystectomy Status post right breast lumpectomy Family History Father Leukemia Myocardial infarction Sister Breast cancer Mother Cancer brain Other Coronary heart disease No family history of adverse response to anesthesia No family history of bleeding disorder Social History Smoking Status: Current every day smoker Tobacco Type: Cigarettes Cigarettes Per Day: 5; Second Hand Exposure: No; Hx Alcohol Use: Yes Alcohol type: beer Alcohol Intake Frequency Comment: 1 beer/day Hx Substance Use: No Preferred Language: Indonesian Communication Ability: Effective Visual Impairment: No Limitations Dicer Operator Required: No Beliefs That Will Affect Care: None marital status: Current Living Situation: Spouse current occupational status: employed 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 Feels Safe at Home: Yes Assistive Devices: Glasses Allergies Allergies Allergy/AdvReac Type Severity Reaction Status Date / Time Tetracyclines Allergy Severe Tongue Verified 08/09/22 14:45 swelling codeine Allergy Intermediate Hives Verified 08/09/22 14:45 nickel Allergy Intermediate Lip Verified 08/09/22 14:45 swelling (nickel mouthpiece with flute) bacitracin Allergy Mild Itching Verified 08/09/22 14:45 amoxicillin AdvReac Mild Diarrhea, Verified 08/09/22 14:45 vomiting clavulanic acid AdvReac Mild Nausea/Vomi Verified 08/09/22 14:45 [From Augmentin] ting Home Meds Home Medications Medication Instructions Recorded Confirmed cholecalciferol (vitamin D3) 25 1,000 unit PO HS 04/02/18 08/09/22 mcg (1,000 unit) capsule (Vitamin D3) hydroxychloroquine 200 mg tablet 200 mg PO QAM 04/02/18 08/09/22 (Plaquenil) omeprazole 20 mg capsule,delayed 20 mg PO QAM 04/02/18 08/09/22 release diltiazem HCl 180 mg 180 mg PO QAM 12/26/20 08/09/22 capsule,extended release 24 hr (Cardizem CD) albuterol sulfate 0.63 mg/3 mL 0.63 mg inhalation QID PRN Wheezing 03/20/21 08/09/22 solution for nebulization metoprolol succinate 25 mg 12.5 mg PO DAILY 06/13/21 08/09/22 tablet,extended release 24 hr calcium carbonate 600 mg-vitamin 1 tab PO BID 09/11/21 08/09/22 D3 5 mcg (200 unit) tablet potassium chloride 10 mEq 10 meq PO DAILY 09/11/21 08/09/22 capsule,extended release denosumab 60 mg/mL subcutaneous 60 mg subcut DAILY 09/17/21 08/09/22 syringe (Prolia) levalbuterol HCl 1.25 mg/3 mL 1.25 mg inhalation UD 08/09/22 08/09/22 solution for nebulization prednisone 5 mg tablet 5 mg PO DAILY 08/09/22 08/09/22 Previous Rx's Medication Instructions Recorded furosemide 20 mg tablet 20 mg PO DAILY #30 tabs 04/24/21 roflumilast 500 mcg tablet 500 mcg PO QAM #90 tabs 06/23/21 (Daliresp) tezepelumab-ekko 210 mg/1.91 mL 210 mg (1.91 mL) subcut .COMPLEX 09/25/21 (110 mg/mL) subcutaneous syringe #1.91 mL (Tezspire) fluticasone propionate 50 2 spray intranasal DAILY #48 grams 04/17/22 mcg/actuation nasal spray,suspension (Flonase Allergy Relief) ipratropium bromide 0.02 % 2.5 ml inhalation Q6H PRN 06/24/22 solution for inhalation shortness of breath or wheezing #300 mL azelastine 137 mcg (0.1 %) nasal 2 spray intranasal DAILY #30 mL 06/26/22 spray aerosol budesonide-formoterol HFA 160 2 puff inhalation BID #10.2 grams 06/26/22 mcg-4.5 mcg/actuation aerosol inhaler (Symbicort) umeclidinium 62.5 mcg/actuation 1 inh inhalation QAM #1 inhaler 06/26/22 blister powder for inhalation (Incruse Ellipta) albuterol sulfate 90 mcg/actuation 2 puff inhalation Q4 PRN Shortness 06/30/22 aerosol inhaler (Ventolin HFA) Of Breath Or Wheezing #1 inhaler Results & Data (ED) Vital Signs Vital Signs - 24 hr 08/09/22 14:03 08/09/22 14:17 08/09/22 14:28 Temperature 37.2 C Temperature Source Temporal Artery Scan Pulse Rate 104 H 98 H Pulse Rate [Apical] Pulse Rhythm Regular Respiratory Rate 18 28 H Respiratory Effort / Characteristics Non-Labored Spontaneous Respiratory Depth Normal Respiratory Pattern Blood Pressure 128/76 Blood Pressure [Left Arm] Blood Pressure Mean 93 Blood Pressure Mean [Left Arm] Blood Pressure Position Sitting Pulse Oximetry 93 92 92 Oxygen Delivery Method Nasal Cannula Room Air Room Air Oxygen Flow Rate 2 Sepsis Recent Fever Within 48 Hours No Sepsis New/Unexplained Change in Mental Status N/A Sepsis Action Taken by Nursing No Action Required Oxygen Flow Rate - Titration 3 Pulse Oximetry Post Tiitration 97 08/09/22 14:57 Temperature Temperature Source Pulse Rate Pulse Rate [Apical] 97 H Pulse Rhythm Respiratory Rate 26 H Respiratory Effort / Characteristics Spontaneous Labored Respiratory Depth Normal Respiratory Pattern Rapid/Shallow Blood Pressure Blood Pressure [Left Arm] 130/70 Blood Pressure Mean Blood Pressure Mean [Left Arm] 90 Blood Pressure Position Pulse Oximetry 99 Oxygen Delivery Method Oxymask Oxygen Flow Rate 3 Sepsis Recent Fever Within 48 Hours Sepsis New/Unexplained Change in Mental Status Sepsis Action Taken by Nursing Oxygen Flow Rate - Titration Pulse Oximetry Post Tiitration Home Medications Current Medication List: was personally reviewed by me Laboratory Data Attestation: I reviewed the patient's lab results. 08/09/22 15:17 08/09/22 15:17 Lab Results 08/09/22 08/09/22 08/09/22 Range/Units 14:47 15:17 15:17 WBC 3.94 L (4.8-10.8) K/ul RBC 4.41 (4.20-5.40) M/uL Hgb 12.6 (12.0-16.0) g/dl Hct 39.6 (37.0-47.0) % MCV 89.8 (80.0-100.0) fL MCH 28.6 (25.0-34.0) pg MCHC 31.8 L (32.0-36.0) g/dL RDW Std Deviation 49.0 H (36.4-46.3) fL RDW Coeff of Arleen 14.7 H (11.5-14.5) % Plt Count 195 (130-400) K/uL MPV 9.3 L (9.4-12.4) fL Immature Gran % (Auto) 0.3 % Neut % (Auto) 65.3 % Lymph % (Auto) 18.3 % [place] % (Auto) 15.5 % Eos % (Auto) 0.3 % Baso % (Auto) 0.3 % Neut # (Auto) 2.58 (1.40-6.50) K/uL Lymph # (Auto) 0.72 L (1.2-3.4) K/uL [place] # (Auto) 0.61 H (0.11-0.59) K/uL Eos # (Auto) 0.01 (0-0.50) K/uL Baso # (Auto) 0.01 (0-0.2) K/uL Immature Gran # (Auto) 0.01 (0.01-0.20) K/uL ESR (0-30) mm/hr PT (9.0-12.0) Seconds INR (0.9-1.1) APTT (21.0-31.0) Seconds PTT Ratio VBG pH (7.36-7.41) VBG pCO2 (38-50) mmHg VBG pO2 mmHg VBG HCO3 mmol/L VBG O2 Saturation % VBG Base Excess mEq/L Sodium 136 (136-145) mmol/L Potassium 3.3 L (3.5-5.1) mmol/L Chloride 105 (98-107) mmol/L Carbon Dioxide 25 (21-32) mmol/L Anion Gap 6 (3-11) BUN 6 (6-23) mg/dl Creatinine 0.71 (0.6-1.2) mg/dl Est Cr Clr Drug Dosing 74.2 ml/min Est GFR ( Amer) 97.3 ml/min Est GFR (Non-Af Amer) 83.9 ml/min BUN/Creatinine Ratio 8.5 L (10-20) Glucose 80 (70-99(Fasting)) mg/dl Calcium 8.0 L (8.5-10.1) mg/dl Magnesium 1.9 (1.7-2.4) mg/dl Total Bilirubin 0.7 (0.2-1.0) mg/dl AST 18 (13-39) U/L ALT 15 (7-52) U/L Alkaline Phosphatase 50 (34-104) U/L Troponin I High Sens 7.9 (0-14) pg/ml B-Natriuretic Peptide (0-100) pg/ml Total Protein 6.4 (6.0-8.3) gm/dl Albumin 3.9 (3.4-5.0) gm/dl Globulin 2.5 (2.5-4.0) gm/dl Albumin/Globulin Ratio 1.6 (0.9-2) SARS-CoV-2 (PCR) POSITIVE A* (Negative) Influenza Type A (PCR) Negative (Neg) Influenza Type B (PCR) Negative (Neg) RSV (RT-PCR) Negative (Neg) 08/09/22 08/09/22 08/09/22 Range/Units 15:17 15:17 15:17 WBC (4.8-10.8) K/ul RBC (4.20-5.40) M/uL Hgb (12.0-16.0) g/dl Hct (37.0-47.0) % MCV (80.0-100.0) fL MCH (25.0-34.0) pg MCHC (32.0-36.0) g/dL RDW Std Deviation (36.4-46.3) fL RDW Coeff of Arleen (11.5-14.5) % Plt Count (130-400) K/uL MPV (9.4-12.4) fL Immature Gran % (Auto) % Neut % (Auto) % Lymph % (Auto) % [place] % (Auto) % Eos % (Auto) % Baso % (Auto) % Neut # (Auto) (1.40-6.50) K/uL Lymph # (Auto) (1.2-3.4) K/uL [place] # (Auto) (0.11-0.59) K/uL Eos # (Auto) (0-0.50) K/uL Baso # (Auto) (0-0.2) K/uL Immature Gran # (Auto) (0.01-0.20) K/uL ESR (0-30) mm/hr PT 10.3 (9.0-12.0) Seconds INR 1.0 (0.9-1.1) APTT 22.5 (21.0-31.0) Seconds PTT Ratio 0.8 VBG pH 7.39 (7.36-7.41) VBG pCO2 43 (38-50) mmHg VBG pO2 25 mmHg VBG HCO3 26 mmol/L VBG O2 Saturation < 60.0 % VBG Base Excess 0.8 mEq/L Sodium (136-145) mmol/L Potassium (3.5-5.1) mmol/L Chloride (98-107) mmol/L Carbon Dioxide (21-32) mmol/L Anion Gap (3-11) BUN (6-23) mg/dl Creatinine (0.6-1.2) mg/dl Est Cr Clr Drug Dosing ml/min Est GFR ( Amer) ml/min Est GFR (Non-Af Amer) ml/min BUN/Creatinine Ratio (10-20) Glucose (70-99(Fasting)) mg/dl Calcium (8.5-10.1) mg/dl Magnesium (1.7-2.4) mg/dl Total Bilirubin (0.2-1.0) mg/dl AST (13-39) U/L ALT (7-52) U/L Alkaline Phosphatase (34-104) U/L Troponin I High Sens (0-14) pg/ml B-Natriuretic Peptide 92 (0-100) pg/ml Total Protein (6.0-8.3) gm/dl Albumin (3.4-5.0) gm/dl Globulin (2.5-4.0) gm/dl Albumin/Globulin Ratio (0.9-2) SARS-CoV-2 (PCR) (Negative) Influenza Type A (PCR) (Neg) Influenza Type B (PCR) (Neg) RSV (RT-PCR) (Neg) 08/09/22 Range/Units 15:59 WBC (4.8-10.8) K/ul RBC (4.20-5.40) M/uL Hgb (12.0-16.0) g/dl Hct (37.0-47.0) % MCV (80.0-100.0) fL MCH (25.0-34.0) pg MCHC (32.0-36.0) g/dL RDW Std Deviation (36.4-46.3) fL RDW Coeff of Arleen (11.5-14.5) % Plt Count (130-400) K/uL MPV (9.4-12.4) fL Immature Gran % (Auto) % Neut % (Auto) % Lymph % (Auto) % [place] % (Auto) % Eos % (Auto) % Baso % (Auto) % Neut # (Auto) (1.40-6.50) K/uL Lymph # (Auto) (1.2-3.4) K/uL [place] # (Auto) (0.11-0.59) K/uL Eos # (Auto) (0-0.50) K/uL Baso # (Auto) (0-0.2) K/uL Immature Gran # (Auto) (0.01-0.20) K/uL ESR 14 (0-30) mm/hr PT (9.0-12.0) Seconds INR (0.9-1.1) APTT (21.0-31.0) Seconds PTT Ratio VBG pH (7.36-7.41) VBG pCO2 (38-50) mmHg VBG pO2 mmHg VBG HCO3 mmol/L VBG O2 Saturation % VBG Base Excess mEq/L Sodium (136-145) mmol/L Potassium (3.5-5.1) mmol/L Chloride (98-107) mmol/L Carbon Dioxide (21-32) mmol/L Anion Gap (3-11) BUN (6-23) mg/dl Creatinine (0.6-1.2) mg/dl Est Cr Clr Drug Dosing ml/min Est GFR ( Amer) ml/min Est GFR (Non-Af Amer) ml/min BUN/Creatinine Ratio (10-20) Glucose (70-99(Fasting)) mg/dl Calcium (8.5-10.1) mg/dl Magnesium (1.7-2.4) mg/dl Total Bilirubin (0.2-1.0) mg/dl AST (13-39) U/L ALT (7-52) U/L Alkaline Phosphatase (34-104) U/L Troponin I High Sens (0-14) pg/ml B-Natriuretic Peptide (0-100) pg/ml Total Protein (6.0-8.3) gm/dl Albumin (3.4-5.0) gm/dl Globulin (2.5-4.0) gm/dl Albumin/Globulin Ratio (0.9-2) SARS-CoV-2 (PCR) (Negative) Influenza Type A (PCR) (Neg) Influenza Type B (PCR) (Neg) RSV (RT-PCR) (Neg) Administered Medications Discontinued Medications Albuterol (Albut/Ipratrop 3mg/0.5mg Neb 3 Ml Vial) 3 ml NEB NOW STA; Protocol Stop: 08/09/22 14:12 Last Admin: 08/09/22 14:23 Dose: 3 ml Documented By: HAYDEN Methylprednisolone (Methylprednisolone 125 Mg/2 Ml Vial) 125 mg IV NOW STA Stop: 08/09/22 14:12 Last Admin: 08/09/22 14:47 Dose: 125 mg Documented By: HAYDEN Imaging Data Radiologist's Impression: Chest X-Ray 08/09/22 14:11 XR chest 1V portable CLINICAL HISTORY: Dyspnea COMPARISON STUDY: Chest radiograph and chest CT September 11, 2021. FINDINGS: Left internal jugular Mphucz-k-Kzne is in place. Opacity along the left heart border likely reflects epicardial fat pad. There is no pneumothorax or pleural effusion. Minimal right basilar opacity favors atelectasis. There may be minimal left midlung opacity. Cardiomediastinal silhouette is stable. IMPRESSION: Possible mild left midlung opacity. This could reflect an infectious process. Radiographic follow-up to ensure resolution is recommended. ACT 112: Negative or not required by law. Electronically signed by: Baldo Díaz M.D. 08/09/2022 3:55 PM Discharge Plan Visit Data Chief Complaint: Shortness of Breath/Dyspnea Stated Complaint: DYSPNEA, DIFFICULTY BREATHING ED Provider: Emerson Casiano Discharge Problem: COPD (chronic obstructive pulmonary disease), Pneumonia, COVID-19 virus infection Patient Disposition: Being Evaluated by Hospitalist Forms Stand Alone Forms: My [facility] [employer] Prescriptions Prescriptions: No Action Daliresp 500 mcg tablet 500 mcg PO QAM Qty: 90 3RF fluticasone propionate [Flonase Allergy Relief] 50 mcg/actuation spray,suspension 2 spray intranasal DAILY Qty: 48 4RF Rx Instructions: ADMINISTER 2 SPRAYS INTO EACH NOSTRIL EVERY DAY ipratropium bromide 0.02 % solution 2.5 ml inhalation Q6H PRN (Reason: shortness of breath or wheezing) Qty: 300 3RF Rx Instructions: Mixed with Levalbuterol every 4 hours PRN cough, dyspnea and wheeze albuterol sulfate 0.63 mg/3 mL solution for nebulization 0.63 mg inhalation QID PRN (Reason: Wheezing) metoprolol succinate 25 mg tablet extended release 24 hr 12.5 mg PO DAILY Rx Instructions: 1.5 tablets PO daily; azelastine 137 mcg (0.1 %) aerosol,spray 2 spray intranasal DAILY Qty: 30 11RF Rx Instructions: INSTILL 2 SPRAYS INTO INTO EACH NOSTRIL EVERY DAY Symbicort 160-4.5 mcg/actuation HFA aerosol inhaler 2 puff INHALATION BID Qty: 10.2 1RF Incruse Ellipta 62.5 mcg/actuation blister with device 1 inh INHALATION QAM Qty: 1 5RF Prolia 60 mg/mL syringe 60 mg subcut DAILY Tezspire 210 mg/1.91 mL (110 mg/mL) syringe 210 mg subcut .COMPLEX Qty: 1.91 11RF Rx Instructions: 210 mg subcut EVERY 4 WEEKS APPROVED thru [facility] Part D GOOD 09/24/2021 for as long as she's covered albuterol sulfate [Ventolin HFA] 90 mcg/actuation HFA aerosol inhaler 2 puff inhalation Q4 PRN (Reason: Shortness Of Breath Or Wheezing) Qty: 1 11RF omeprazole 20 mg Capsule,Delayed Release(Dr/Ec) 20 mg PO QAM hydroxychloroquine [Plaquenil] 200 mg Tablet 200 mg PO QAM cholecalciferol (vitamin D3) [Vitamin D3] 1,000 unit Capsule 1,000 unit PO HS calcium carbonate-vitamin D3 600 mg-5 mcg (200 unit) Tablet 1 tab PO BID potassium chloride 10 mEq capsule, extended release 10 meq PO DAILY prednisone 5 mg tablet 5 mg PO DAILY Rx Instructions: TAKE 1 TABLET BY MOUTH EVERY DAY levalbuterol HCl 1.25 mg/3 mL solution for nebulization 1.25 mg inhalation UD Rx Instructions: USE 1 VIAL VIA NEBULIZER MIXED WITH IPRATROPIUM EVERY 6 HOURS NEEDED FOR COUGH, WHEEZE diltiazem HCl [Cardizem CD] 180 mg capsule,extended release 24hr 180 mg PO QAM furosemide 20 mg tablet 20 mg PO DAILY Qty: 30 2RF Referrals Referrals: Navin Saravia MD [Primary Care Provider] -
[2022-08-09 15:30] LABS: Base Excess VBG 0.8 mEq/L; Basophils # (auto) 0.01 K/uL (0-0.2); Basophils % (auto) 0.3 %; Eosinophils # (auto) 0.01 K/uL (0-0.50); Eosinophils % (auto) 0.3 %; HCO3 VBG 26 mmol/L; Hematocrit (blood only) 39.6 % (37.0-47.0); Hemoglobin 12.6 g/dl (12.0-16.0); Immature Granulocytes # (auto) 0.01 K/uL (0.01-0.20); Immature Granulocytes % (auto) 0.3 %; Lymphocytes # (auto) 0.72 K/uL (1.2-3.4); Lymphocytes % (auto) 18.3 %; Mean Corpuscular Hemoglobin 28.6 pg (25.0-34.0); Mean Corpuscular Hgb Conc 31.8 g/dL (32.0-36.0); Mean Corpuscular Volume 89.8 fL (80.0-100.0); Mean Platelet Volume 9.3 fL (9.4-12.4); Monocytes # (auto) 0.61 K/uL (0.11-0.59); Monocytes % (auto) 15.5 %; Neutrophils # (auto) 2.58 K/uL (1.40-6.50); Neutrophils % (auto) 65.3 %; Oxygen Saturation VBG < 60.0 %; PCO2 VBG 43 mmHg (38-50); PO2 VBG 25 mmHg; Platelet Count 195 K/uL (130-400); RDW Coefficient of Variation 14.7 % (11.5-14.5); Red Blood Count 4.41 M/uL (4.20-5.40); White Blood Count 3.94 K/ul (4.8-10.8); pH VBG 7.39 (7.36-7.41)
[2022-08-09 15:43] LABS: Influenza A virus by PCR Negative (Neg); Influenza B virus by PCR Negative (Neg); RSV by PCR Negative (Neg)
[2022-08-09 15:47] LABS: Albumin Level 3.9 gm/dl (3.4-5.0); Bilirubin,Total 0.7 mg/dl (0.2-1.0); Magnesium 1.9 mg/dl (1.7-2.4); Partial Thromboplastin Ratio 0.8; Partial Thromboplastin Time 22.5 Seconds (21.0-31.0); Potassium 3.3 mmol/L (3.5-5.1); Prothrombin Time 10.3 Seconds (9.0-12.0)
[2022-08-09 15:53] LABS: Albumin Globulin Ratio 1.6 (0.9-2); BUN Creatinine Ratio 8.5 (10-20); Creatinine Clr Calc Pharmacy 74.2 ml/min; Est GFR (African American) 97.3 ml/min; Est GFR (Non-African American) 83.9 ml/min; Globulin 2.5 gm/dl (2.5-4.0); Total Protein 6.4 gm/dl (6.0-8.3)
[2022-08-09 15:57] LABS: SARS CoV2 RNA(COVID-19) Ceph POSITIVE (Negative)
[2022-08-09 15:57] LABS: Troponin I High Sensitivity 7.9 pg/ml (0-14)
--- NOTE | 2022-08-09 15:57 | XRay Report ---
XR chest 1V portable CLINICAL HISTORY: Dyspnea COMPARISON STUDY: Chest radiograph and chest CT September 11, 2021. FINDINGS: Left internal jugular Rxnugh-q-Xfeu is in place. Opacity along the left heart border likely reflects epicardial fat pad. There is no pneumothorax or pleural effusion. Minimal right basilar opa city favors atelectasis. There may be minimal left midlung opacity. Cardiomediastinal silhouette is s table. IMPRESSION: Possible mild left midlung opacity. This could reflect an infectious process. Radiographi c follow-up to ensure resolution is recommended. ACT 112: Negative or not required by law. Electronically signed by: Baldo Díaz M.D. 08/09/2022 3:55 PM
[2022-08-09] MEDS ORDERED: cefTRIAXone SODIUM 2,000 MG/70 ML BAG IV STA (16:18)
[2022-08-09] MEDS ORDERED: AZITHROMYCIN 250 MG TAB PO ONE (16:18)
--- NOTE | 2022-08-09 16:18 | History & Physical Report ---
Date of Service August 09, 2022 Assessment & Plan (1) Acute hypoxemic respiratory failure: (2) COPD exacerbation: (3) Pneumonia: (4) COVID-19 virus infection: (5) JOAN (obstructive sleep apnea): Plan his is a 76-year-old female who has significant past medical history of COPD/as thma, tobacco abuse, pulmonary nodules, chronic sinusitis, chronic hypoxic respiratory failure requiring nocturnal oxygen, PSVT, rheumatoid arthritis, senile osteoporosis, history of DCIS and history of uterine cancer, hx of melanoma s/p immunotherapy, current presence of a port a cath from previous infusion therapies who presents to ED secondary to shortness of breath times a few days. Patient met criteria for sepsis per current CMS guidelines in setting of leukopenia, tachycardia and tachypnea. Chest x-ray is questionable for a left middle lobe pneumonia. Patient is nontoxic-appearing. I feel tachycardia and tachypnea are likely as a result of respiratory distress not true sepsis. Blood cultures are ordered and pending She will remain on antibiotics for now. Acute hypoxic respiratory failure COPD exacerbation Left middle lobe pneumonia SARS-CoV-2 positive JOAN on CPAP Admit to telemetry Treat with COVID-19 protocol of remdesivir and daily Decadron Aggressive pulmonary toilet with DuoNeb every 4, incentive spirometry Monitor LFTs, ESR, CRP and procalcitonin Continue Rocephin 2 g daily and azithromycin 500 mg p.o. daily for now, PNA possibly viral Continue oxygen supplementation as needed, titrate and wean oxygen for saturations of approximately 88 to 92% CPAP at bedtime Continue Roflumilast, umeclididium, Symbicort Hypokalemia replete Rheumatoid arthritis Continue hydroxychloroquine History of melanoma Port-A-Cath in place Placed approximately 3 years ago to left chest wall for Opdivo treatment Continues to remain in place, nursing care History of PSVT Continue metoprolol and diltiazem DVT ppx: SQ LOvenox BID Dispo: tele PCP: Manjit FULL CODE Pt was seen and examined in collaboration with Dr. Virk, please see addendum A total of 60 minutes were spent with greater than 50% of that time face to face with the patient, personally reviewing all current laboratories, imaging studies, past medication reconciliation, outpatient chart review, and discussion with specialists to collaborate care for the patient with attending. Please see attending documentation for corrections and/or additions. History of Present Illness Chief Complaint: SOB x few days. Primary Care Provider: Navin Saravia MD This is a 76-year-old female who has significant past medical history of COPD/asthma, tobacco abuse, pulmonary nodules, chronic sinusitis, chronic hypoxic respiratory failure requiring nocturnal oxygen, PSVT, rheumatoid arthritis, senile osteoporosis, history of DCIS and history of uterine cancer, hx of melanoma s/p immunotherapy, current presence of a port a cath from previous infusion therapies who presents to ED secondary to shortness of breath times a few days. Of significance she has known history of COPD. She follows [facility] pulmonology as well as allergy and immunology. She continues to use tobacco products. She presents today due to increasing shortness of breath at rest and with exertion. Typically she only requires oxygen at night but has been using it over the past 24 hours without significant relief. She further complains of a productive cough of clear sputum. She denies documented fever, chills, sweats, lightheadedness, dizziness, chest pain, hemoptysis, nausea, vomiting, abdominal pain, change in bowel or urinary habits. She has used her nebulizer with minimal relief. She further complains of headache, frontal, sinus congestion and postnasal drip. Her appetite is decreased and she did not take any of her morning meds. In ED patient was placed on 3 L of oxygen. She met SIRS criteria secondary to tachycardia, leukopenia and tachypnea. Her SARS-CoV-2 was positive. Chest x-ray concerning for possible left midlung opacity. Her CBC was consistent with WBC 3.94, H&H 12.6 and 39.6 and platelet count 195. She received IV Solu-Medrol and nebulizer treatment with moderate improvement. Allergies Allergy/AdvReac Type Severity Reaction Status Date / Time Tetracyclines Allergy Severe Tongue Verified 08/09/22 14:45 swelling codeine Allergy Intermediate Hives Verified 08/09/22 14:45 nickel Allergy Intermediate Lip Verified 08/09/22 14:45 swelling (nickel mouthpiece with flute) bacitracin Allergy Mild Itching Verified 08/09/22 14:45 amoxicillin AdvReac Mild Diarrhea, Verified 08/09/22 14:45 vomiting clavulanic acid AdvReac Mild Nausea/Vomi Verified 08/09/22 14:45 [From Augmentin] ting Home Medications Medication Instructions Recorded Confirmed Type cholecalciferol (vitamin D3) 25 1,000 unit PO HS 04/02/18 08/09/22 History mcg (1,000 unit) capsule (Vitamin D3) hydroxychloroquine 200 mg tablet 200 mg PO QAM 04/02/18 08/09/22 History (Plaquenil) omeprazole 20 mg capsule,delayed 20 mg PO QAM 04/02/18 08/09/22 History release diltiazem HCl 180 mg 180 mg PO QAM 12/26/20 08/09/22 History capsule,extended release 24 hr (Cardizem CD) albuterol sulfate 0.63 mg/3 mL 0.63 mg inhalation QID PRN Wheezing 03/20/21 08/09/22 History solution for nebulization furosemide 20 mg tablet 20 mg PO DAILY #30 tabs 04/24/21 08/09/22 Rx metoprolol succinate 25 mg 37.5 mg PO DAILY 06/13/21 08/09/22 History tablet,extended release 24 hr roflumilast 500 mcg tablet 500 mcg PO QAM #90 tabs 06/23/21 08/09/22 Rx (Daliresp) calcium carbonate 600 mg-vitamin 1 tab PO BID 09/11/21 08/09/22 History D3 5 mcg (200 unit) tablet potassium chloride 10 mEq 20 meq PO DAILY 09/11/21 08/09/22 History capsule,extended release denosumab 60 mg/mL subcutaneous 60 mg subcut DAILY 09/17/21 08/09/22 History syringe (Prolia) tezepelumab-ekko 210 mg/1.91 mL 210 mg (1.91 mL) subcut .COMPLEX 09/25/21 08/09/22 Rx (110 mg/mL) subcutaneous syringe #1.91 mL (Tezspire) fluticasone propionate 50 2 spray intranasal DAILY #48 grams 04/17/22 08/09/22 Rx mcg/actuation nasal spray,suspension (Flonase Allergy Relief) ipratropium bromide 0.02 % 2.5 ml inhalation Q6H PRN 06/24/22 08/09/22 Rx solution for inhalation shortness of breath or wheezing #300 mL azelastine 137 mcg (0.1 %) nasal 2 spray intranasal DAILY #30 mL 06/26/22 08/09/22 Rx spray aerosol budesonide-formoterol HFA 160 2 puff inhalation BID #10.2 grams 06/26/22 08/09/22 Rx mcg-4.5 mcg/actuation aerosol inhaler (Symbicort) umeclidinium 62.5 mcg/actuation 1 inh inhalation QAM #1 inhaler 06/26/22 08/09/22 Rx blister powder for inhalation (Incruse Ellipta) albuterol sulfate 90 mcg/actuation 2 puff inhalation Q4 PRN Shortness 06/30/22 08/09/22 Rx aerosol inhaler (Ventolin HFA) Of Breath Or Wheezing #1 inhaler levalbuterol HCl 1.25 mg/3 mL 1.25 mg inhalation UD 08/09/22 08/09/22 History solution for nebulization prednisone 5 mg tablet 5 mg PO DAILY 08/09/22 08/09/22 History rosuvastatin 10 mg tablet 10 mg PO HS 08/09/22 08/09/22 History Past Med/Surg History Medical History Anxiety Asthma-COPD overlap syndrome Diastolic heart failure Dry mouth GERD (gastroesophageal reflux disease) Hiatal hernia History of breast cancer Right (2012) s/p lumpectomy + radiation History of uterine cancer GREGORIO BSO + chemo (2012) Insomnia Lung nodule Melanoma S/p excision Multiple pulmonary nodules determined by computed tomography of lung Nocturnal oxygen desaturation 2L O2 HS Obstructive sleep apnea CPAP (+2L O2 HS) PAT (paroxysmal atrial tachycardia) Rheumatoid arthritis Sinus congestion Surgical History History of breast biopsy History of cataract surgery History of colonoscopy Colonoscopy (03/20/20): MAC at [facility] History of ERCP ERCP (02/02/20): MAC at [facility] History of melanoma excision 2019 History of Moh's micrographic surgery for skin cancer nose x2 History of sinus surgery 06/29/18 (MAC 3, 7.5 ETT, grade 2 view) History of tonsillectomy History of total abdominal hysterectomy and bilateral salpingo-oophorectomy History of vascular access device Left chest (port flush [facility] on 03/26/21) Hx laparoscopic cholecystectomy Status post right breast lumpectomy Family History Father Leukemia Myocardial infarction Sister Breast cancer Mother Cancer brain Other Coronary heart disease No family history of adverse response to anesthesia No family history of bleeding disorder Social History Smoking Status: Current every day smoker Tobacco Type: Cigarettes Cigarettes Per Day: 1/2 Pack; Second Hand Exposure: No; Do You Dip or Chew Tobacco: No; Hx Alcohol Use: Yes Alcohol type: beer Alcohol Intake Frequency Comment: 1 beer/day Hx Substance Use: No Preferred Language: Upper Sorbian Communication Ability: Effective Visual Impairment: No Limitations Noc Engineer Required: No Beliefs That Will Affect Care: None marital status: Current Living Situation: Spouse current occupational status: employed 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 Feels Safe at Home: Yes Assistive Devices: Cane, Glasses and Oxygen - at Night Review of Systems Review of Systems: All systems reviewed & are unremarkable except as noted in HPI & below Physical Exam Physical Exam: Constitutional: WD/WN, vitals as above, NAD, sitting up in bed, pleasant, conversing easily Head: Normocephalic, Atraumatic Eyes: PERRL, conjunctivae normal, anicteric sclerae ENMT: external ear and nose normal, oropharynx normal +oxymask Neck: trachea midline, no thyromegaly normal visual inspection Respiratory: normal respiratory effort, lungs clear to auscultation, +scattered exp wheeze, no rales, rhonchi. Normal insp/exp effort, no accessory muscle use Cardiovascular: RRR, no murmur, no edema Vessels: no JVD or carotid bruit Chest: normal inspection of chest +LACW portacath Abdomen: normal bowel sounds, soft, nontender, no hepatosplenomegaly Musculoskeletal: no cyanosis or clubbing, extremities motor strength 5/5 Skin: no rashes, warm and dry normal turgor Neurologic: PERRL, EOMI, accommodation nl, no face palsy, no dysarthria CN's II-XI intact bilaterally and moves all extremities Psychiatric: A+Ox3, euthymic affect Lymphatic: no cervical or axillary lymphadenopathy : deferred Results & Data Results & Data ([facility]) Vital Signs (Past 12 Hours) Vital Signs Temp Pulse Pulse Resp BP BP Pulse Ox 08/09/22 16:00 98 H 22 130/73 96 08/09/22 14:57 97 H 26 H 130/70 99 08/09/22 14:28 92 08/09/22 14:17 98 H 28 H 92 08/09/22 14:03 37.2 C 104 H 18 128/76 93 O2 Del Method O2 Flow Rate 08/09/22 16:00 Oxymask 3 08/09/22 14:57 Oxymask 3 08/09/22 14:28 Room Air 08/09/22 14:17 Room Air 08/09/22 14:03 Nasal Cannula 2 Diagnostic Findings Chest X-Ray 08/09/22 14:11 XR chest 1V portable CLINICAL HISTORY: Dyspnea COMPARISON STUDY: Chest radiograph and chest CT September 11, 2021. FINDINGS: Left internal jugular Ymbqyd-f-Luer is in place. Opacity along the left heart border likely reflects epicardial fat pad. There is no pneumothorax or pleural effusion. Minimal right basilar opacity favors atelectasis. There may be minimal left midlung opacity. Cardiomediastinal silhouette is stable. IMPRESSION: Possible mild left midlung opacity. This could reflect an infectious process. Radiographic follow-up to ensure resolution is recommended. ACT 112: Negative or not required by law. Electronically signed by: Baldo Díaz M.D. 08/09/2022 3:55 PM Medications Administered Medication List Discontinued Medications Albuterol (Albut/Ipratrop 3mg/0.5mg Neb 3 Ml Vial) 3 ml NEB NOW STA; Protocol Stop: 08/09/22 14:12 Last Admin: 08/09/22 14:23 Dose: 3 ml Documented By: HAYDEN Methylprednisolone (Methylprednisolone 125 Mg/2 Ml Vial) 125 mg IV NOW STA Stop: 08/09/22 14:12 Last Admin: 08/09/22 14:47 Dose: 125 mg Documented By: HAYDEN COVID-19 Results Results COVID-19 Adm Lab Results: RBC 4.40 M/uL (4.20-5.40) 08/10/22 WBC 3.41 K/ul (4.8-10.8) L 08/10/22 Hgb 12.8 g/dl (12.0-16.0) 08/10/22 Hct 38.6 % (37.0-47.0) 08/10/22 Plt Count 228 K/uL (130-400) 08/10/22 Neutrophils (%) (Auto) 80.4 % 08/10/22 Lymphocytes (%) (Auto) 15.5 % 08/10/22 Monocytes # (Auto) 0.13 K/uL (0.11-0.59) 08/10/22 Eosinophils # (Auto) 0.00 K/uL (0-0.50) 08/10/22 Immature Granulocyte % (Auto) 0.3 % 08/10/22 Neutrophils # (Auto) 2.74 K/uL (1.40-6.50) 08/10/22 Lymphocytes # (Auto) 0.53 K/uL (1.2-3.4) L 08/10/22 Monocytes # (Auto) 0.13 K/uL (0.11-0.59) 08/10/22 Eosinophils # (Auto) 0.00 K/uL (0-0.50) 08/10/22 Basophils # (Auto) 0.00 K/uL (0-0.2) 08/10/22 Immature Granulocyte # (Auto) 0.01 K/uL (0.01-0.20) 3 Na 140 mmol/L (136-145) 08/11/22 K 3.9 mmol/L (3.5-5.1) 08/11/22 Cl 106 mmol/L (98-107) 08/11/22 CO2 26 mmol/L (21-32) 08/11/22 Anion Gap 8 (3-11) 08/11/22 BUN 19 mg/dl (6-23) 08/11/22 Creatinine 0.73 mg/dl (0.6-1.2) 08/11/22 BUN/Creatinine Ratio 26.0 (10-20) H 08/11/22 Glucose Level 86 mg/dl (70-99(Fasting)) 08/11/22 Ca 9.7 mg/dl (8.5-10.1) 08/11/22 Total Bilirubin 0.3 mg/dl (0.2-1.0) 08/11/22 AST/SGOT 19 U/L (13-39) 08/11/22 ALT/SGPT 16 U/L (7-52) 08/11/22 Alkaline Phosphatase 40 U/L (34-104) 08/11/22 Total Protein 6.4 gm/dl (6.0-8.3) 08/11/22 Albumin 3.9 gm/dl (3.4-5.0) 08/11/22 Globulin 2.5 gm/dl (2.5-4.0) 08/11/22 Albumin/Globulin Ratio 1.6 (0.9-2) 08/11/22 CRP 0.98 mg/dl (0-0.5) H 08/11/22 Procalcitonin < 0.05 ng/ml (0-0.5) 08/10/22 PTT 22.5 Seconds (21.0-31.0) 08/09/22 INR 1.0 (0.9-1.1) 08/09/22 COVID-19 PCR POSITIVE (Negative) A* 08/09/22 Influenza Virus Type A (PCR) Negative (Neg) 08/09/22 Influenza Virus Type B (PCR) Negative (Neg) 08/09/22 Chest X-Ray 08/09/22 Code Status & VTE Plan Code Status FULL CODE (1) Pneumonia Laterality: left Lung location: unspecified part of lung Pneumonia type: due to unspecified organism Qualified Code(s): J18.9 - Pneumonia, unspecified organism
[2022-08-09] MEDS ORDERED: POTASSIUM CHLORIDE CRTAB 20 MEQ TABCR PO STA (16:33)
[2022-08-09] MEDS ORDERED: KETOROLAC TROMETHAMINE 15 MG/ML VIAL IV ONE (17:20)
[2022-08-09] MEDS ORDERED: MAGNESIUM HYDROXIDE SUSP 30 ML UDC PO PRN (20:03)
[2022-08-09] MEDS ORDERED: POLYETHYLENE (MIRALAX) 17 GM PACK PO PRN (20:03)
[2022-08-09] MEDS ORDERED: ALUMINUM/MAGNESIUM SUSP 30 ML UDC PO PRN (20:03)
[2022-08-09] MEDS ORDERED: ONDANSETRON INJ 2 MG/ML 2 ML VIAL IV PRN (20:03)
[2022-08-09] MEDS ORDERED: REMDESIVIR 200 MG in SODIUM CHLORIDE 0.9% 210 ML IV STA (20:07)
[2022-08-09] MEDS ORDERED: BUDESONIDE/FORMOTEROL FUMARATE 160/4.5 60 PUFFS/INHALER INH SCH (21:00)
--- NOTE | 2022-08-09 21:17 | Electrocardiogram Report ---
Test Reason : Blood Pressure : / mmHG Vent. Rate : 101 BPM Atrial Rate : 101 BPM P-R Int : 144 ms QRS Dur : 120 ms QT Int : 374 ms P-R-T Axes : 068 -39 026 degrees QTc Int : 484 ms Poor data quality, interpretation may be adversely affected Sinus tachycardia Left axis deviation Right bundle branch block Abnormal ECG When compared with ECG of 11-SEP-2021 05:41, Right bundle branch block has replaced Incomplete right bundle branch block Confirmed by Jarrett Barros ([id number]) on 08/09/2022 9:17:07 PM Referred By: REFERRED SELF Confirmed By:Aaron Barros
[2022-08-09] MEDS: ALBUT/IPRATROP 3MG/0.5MG NEB 3 ML VIAL NEB SCH (22:03)
[2022-08-09 22:23] LABS: Appearance Urine Clear (Clear); Bilirubin Urine Negative (Negative); Blood Urine Negative (Negative); Color Urine Yellow; Glucose Urine UA Negative (Negative); Ketones Urine Trace (Negative); Leukocyte Esterase Urine Trace (Negative); Nitrite Urine Negative (Negative); Protein Urine Negative (Negative); Urobilinogen Urine Negative (Negative); pH Urine 5.5 (4.5-7.5)
[2022-08-09 22:31] LABS: Epithelial Cell Urine 20-30 /lpf (0-5)
[2022-08-09 22:32] LABS: RBC Urine 0-4 /hpf (0-4)
[2022-08-09 22:33] LABS: Bacteria Urine Negative (Negative)
[2022-08-09] MEDS: METOPROLOL SUCC 25MG EXT REL TAB PO SCH (22:57)
[2022-08-09] MEDS: CALCIUM 600MG + VIT D 400 IU TAB PO SCH (22:59)
[2022-08-09] MEDS: CHOLECALCIFEROL 1,000 UNITS 25 MCG TAB PO SCH (23:00)
[2022-08-09] MEDS: ROSUVASTATIN CALCIUM 10 MG TAB PO SCH (23:01)
[2022-08-09] MEDS: ENOXAPARIN INJ 40 MG/0.4 ML SYR SQ SCH (23:02)
[2022-08-09] MEDS: ACETAMINOPHEN 325 MG TAB PO PRN (23:52)
[2022-08-10] MEDS: ACETAMINOPHEN 325 MG TAB PO PRN (05:54)
[2022-08-10] MEDS: ALBUT/IPRATROP 3MG/0.5MG NEB 3 ML VIAL NEB SCH ×5 (06:02→22:04)
[2022-08-10] MEDS: dilTIAZem HCL 180 MG CAPCR PO SCH (08:58)
[2022-08-10] MEDS: dexAMETHasone 6 MG in SYRINGE 0 ML IV SCH (08:58)
[2022-08-10] MEDS: cefTRIAXone SODIUM 2,000 MG in DEXTROSE 5% 50 ML IV SCH (08:58)
[2022-08-10] MEDS: FUROSEMIDE 20 MG TAB PO SCH (08:59)
[2022-08-10] MEDS: AZITHROMYCIN 250 MG TAB PO SCH (08:59)
[2022-08-10] MEDS: POTASSIUM CHLORIDE CRTAB 20 MEQ TABCR PO SCH (08:59)
[2022-08-10] MEDS: PANTOprazole 40 MG TAB PO SCH (08:59)
[2022-08-10] MEDS: CALCIUM 600MG + VIT D 400 IU TAB PO SCH ×2 (09:00→20:29)
[2022-08-10] MEDS: HYDROXYCHLOROQUINE SULFATE 200 MG TAB PO SCH (09:00)
[2022-08-10] MEDS: METOPROLOL SUCC 25MG EXT REL TAB PO SCH (09:00)
[2022-08-10] MEDS: ROFLUMILAST 500 MCG TAB PO SCH (09:00)
[2022-08-10] MEDS: UMECLIDINIUM BROMIDE 62.5MCG/BLISTER 7 PUFFS/INHALER INH SCH (09:01)
[2022-08-10] MEDS: FLUTICASONE/VILANTEROL 200/25MCG 14 PUFFS/INHALER INH SCH (09:01)
[2022-08-10 09:02] LABS: Hematocrit (blood only) 38.6 % (37.0-47.0); Hemoglobin 12.8 g/dl (12.0-16.0); Immature Granulocytes # (auto) 0.01 K/uL (0.01-0.20); Immature Granulocytes % (auto) 0.3 %; Lymphocytes # (auto) 0.53 K/uL (1.2-3.4); Lymphocytes % (auto) 15.5 %; Mean Corpuscular Hemoglobin 29.1 pg (25.0-34.0); Mean Corpuscular Hgb Conc 33.2 g/dL (32.0-36.0); Mean Corpuscular Volume 87.7 fL (80.0-100.0); Mean Platelet Volume 9.6 fL (9.4-12.4); Monocytes # (auto) 0.13 K/uL (0.11-0.59); Monocytes % (auto) 3.8 %; Neutrophils # (auto) 2.74 K/uL (1.40-6.50); Neutrophils % (auto) 80.4 %; Platelet Count 228 K/uL (130-400); RDW Coefficient of Variation 14.6 % (11.5-14.5); RDW Standard Deviation 47.2 fL (36.4-46.3); White Blood Count 3.41 K/ul (4.8-10.8)
[2022-08-10] MEDS: ENOXAPARIN INJ 40 MG/0.4 ML SYR SQ SCH ×2 (09:02→20:31)
[2022-08-10] MEDS: FLUTICASONE PROPIONATE NA SPR 16 GM BTL SCH (09:02)
[2022-08-10] MEDS: AZELASTINE HCL 0.1% NASAL 200 SPRAYS/27,400 MCG BTL SCH (09:02)
[2022-08-10 09:33] LABS: Calcium 8.8 mg/dl (8.5-10.1); Magnesium 2.1 mg/dl (1.7-2.4); Potassium 4.4 mmol/L (3.5-5.1)
[2022-08-10 09:38] LABS: BUN Creatinine Ratio 16.2 (10-20); C Reactive Protein 1.69 mg/dl (0-0.5); Creatinine Clr Calc Pharmacy 79.2 ml/min; Est GFR (African American) 99.9 ml/min; Est GFR (Non-African American) 86.2 ml/min
--- NOTE | 2022-08-10 14:18 | Hospitalist Progress Note ---
Date of Service August 10, 2022 Assessment & Plan (1) Acute hypoxemic respiratory failure: (2) COPD exacerbation: (3) Pneumonia: (4) COVID-19 virus infection: (5) JOAN (obstructive sleep apnea): Plan Acute hypoxic respiratory failure his is a 76-year-old female who has significant past medical history of COPD/asthma, tobacco abuse, pulmonary nodules, chronic sinusitis, chronic hypoxic respiratory failure requiring nocturnal oxygen, PSVT, rheumatoid arthritis, senile osteoporosis, history of DCIS and history of uterine cancer, hx of melanoma s/p immunotherapy, current presence of a port a cath from previous infusion therapies who presents to ED secondary to shortness of breath times a few days. Patient met criteria for sepsis per current CMS guidelines in setting of leukopenia, tachycardia and tachypnea. Tested positive for Covid 19 CXr showed possible mild left midlung opacity. Continue Dexamethasone and Remdesivir Currently on abx with ceftriaxone and azithromycin to cover for superimposed bacterial infection as well Doubt about bacterial pneumonia since procalcitonin normal Blood culture pending, if negative consider to discontinue antibiotic Inflammatory marker CRP elevated from 0.9 to 1.6, but ESR normal Continue incentive spirometry and flutter valve Continue Roflumilast, umeclididium, Symbicort Continue monitor LFT while on remdesivir Will continue to wean her off the oxygen Consider 2 step exercise before discharge JOAN Continue CPAP @ HS Hypokalemia potassium 3.3 on admission potassium 4.4 today Stable Rheumatoid arthritis Continue hydroxychloroquine History of melanoma Port-A-Cath in place Placed approximately 3 years ago to left chest wall for Opdivo treatment Continues to remain in place, nursing care History of PSVT Continue metoprolol and diltiazem DVT ppx: SQ LOvenox BID Disposition Will discharge once medically stable FULL CODE Admission and Anticipated Discharge Date Admission Date: August 09, 2022 Subjective Patient was seen and evaluated for follow-up shortness of breath due to COVID 19. Sitting in bed with no acute distress with at bedside. Patient said she is doing much better and her breathing improves. She was saturating well on room air; but when I mentioned about she is now on oxygen, she said that she took it off because she had to go to the bathroom and the tube is too short. She said that she continues to cough but less. Denies any chest pain, palpitation, dizziness, and fever. Review of Systems Review of Systems: All systems reviewed & are unremarkable except as noted in Subjective Physical Exam Physical Exam: General- No acute distress Head- atraumatic Eyes- PERRL, EOMI, ENT- oropharynx clear Neck- supple, no JVD Lungs- +diminished BS Heart- regular rhythm; no murmur Abdomen- normal bowel sounds, soft, nontender Extremities- no calf tenderness Neuro- alert, oriented x 3; PERRL, EOMI; no facial palsy; no dysarthria Skin- warm & dry Results & Data Results & Data ([facility]) Vital Signs (Past 12 Hours) Vital Signs Temp Pulse Pulse Pulse Pulse Resp BP 08/10/22 11:54 36.8 C 85 16 102/68 08/10/22 11:08 90 18 08/10/22 09:00 08/10/22 08:03 36.7 C 84 16 131/80 08/10/22 07:10 90 08/10/22 06:02 90 20 08/10/22 02:31 36.4 C L 97 H 20 111/73 Pulse Ox O2 Del Method O2 Flow Rate 08/10/22 11:54 95 Room Air 08/10/22 11:08 98 Nasal Cannula 3 08/10/22 09:00 Nasal Cannula 3 08/10/22 08:03 92 Room Air 08/10/22 07:10 08/10/22 06:02 96 Oxymask 3 08/10/22 02:31 97 Oxymask 3 (1) Pneumonia Laterality: left Lung location: unspecified part of lung Pneumonia type: due to unspecified organism Qualified Code(s): J18.9 - Pneumonia, unspecified organism
[2022-08-10] MEDS: CHOLECALCIFEROL 1,000 UNITS 25 MCG TAB PO SCH (20:28)
[2022-08-10] MEDS: ROSUVASTATIN CALCIUM 10 MG TAB PO SCH (20:28)
[2022-08-10] MEDS: REMDESIVIR 100 MG in SODIUM CHLORIDE 0.9% 230 ML IV SCH (20:29)
[2022-08-11] MEDS ORDERED: HEPARIN 100 UNIT/ML 5ML FLUSH FLUSH PRN (01:35)
[2022-08-11] MEDS: ALBUT/IPRATROP 3MG/0.5MG NEB 3 ML VIAL NEB SCH ×6 (03:43→22:45)
[2022-08-11] MEDS: CALCIUM 600MG + VIT D 400 IU TAB PO SCH ×2 (07:59→21:08)
[2022-08-11] MEDS: FUROSEMIDE 20 MG TAB PO SCH (08:00)
[2022-08-11] MEDS: METOPROLOL SUCC 25MG EXT REL TAB PO SCH (08:00)
[2022-08-11] MEDS: PANTOprazole 40 MG TAB PO SCH (08:02)
[2022-08-11] MEDS: HYDROXYCHLOROQUINE SULFATE 200 MG TAB PO SCH (08:02)
[2022-08-11] MEDS: ROFLUMILAST 500 MCG TAB PO SCH (08:02)
[2022-08-11] MEDS: AZITHROMYCIN 250 MG TAB PO SCH (08:03)
[2022-08-11] MEDS: dilTIAZem HCL 180 MG CAPCR PO SCH (08:03)
[2022-08-11] MEDS: ENOXAPARIN INJ 40 MG/0.4 ML SYR SQ SCH ×2 (08:03→21:09)
[2022-08-11] MEDS: UMECLIDINIUM BROMIDE 62.5MCG/BLISTER 7 PUFFS/INHALER INH SCH (08:04)
[2022-08-11] MEDS: dexAMETHasone 6 MG in SYRINGE 0 ML IV SCH (08:04)
[2022-08-11] MEDS: AZELASTINE HCL 0.1% NASAL 200 SPRAYS/27,400 MCG BTL SCH (08:04)
[2022-08-11] MEDS: FLUTICASONE/VILANTEROL 200/25MCG 14 PUFFS/INHALER INH SCH (08:04)
[2022-08-11] MEDS: FLUTICASONE PROPIONATE NA SPR 16 GM BTL SCH (08:05)
[2022-08-11 08:10] LABS: Albumin Globulin Ratio 1.6 (0.9-2); Albumin Level 3.9 gm/dl (3.4-5.0); Bilirubin,Total 0.3 mg/dl (0.2-1.0); C Reactive Protein 0.98 mg/dl (0-0.5); Calcium 9.7 mg/dl (8.5-10.1); Creatinine Clr Calc Pharmacy 73.9 ml/min; Est GFR (Non-African American) 81.1 ml/min; Globulin 2.5 gm/dl (2.5-4.0); Potassium 3.9 mmol/L (3.5-5.1); Total Protein 6.4 gm/dl (6.0-8.3)
[2022-08-11] MEDS: POTASSIUM CHLORIDE CRTAB 20 MEQ TABCR PO SCH (08:23)
[2022-08-11] MEDS: cefTRIAXone SODIUM 2,000 MG in DEXTROSE 5% 50 ML IV SCH (08:23)
--- NOTE | 2022-08-11 17:04 | Hospitalist Progress Note ---
Date of Service August 11, 2022 Assessment & Plan (1) Acute hypoxemic respiratory failure: (2) COPD exacerbation: (3) Pneumonia: (4) COVID-19 virus infection: (5) JOAN (obstructive sleep apnea): Plan Acute hypoxic respiratory failure his is a 76-year-old female who has significant past medical history of COPD/asthma, tobacco abuse, pulmonary nodules, chronic sinusitis, chronic hypoxic respiratory failure requiring nocturnal oxygen, PSVT, rheumatoid a rthritis, senile osteoporosis, history of DCIS and history of uterine cancer, hx of melanoma s/p immunotherapy, current presence of a port a cath from previous infusion therapies who presents to ED secondary to shortness of breath times a few days. Patient met criteria for sepsis per current CMS guidelines in setting of leukopenia, tachycardia and tachypnea. Tested positive for Covid 19 CXR showed possible mild left midlung opacity. Continue Dexamethasone and Remdesivir Currently on abx with ceftriaxone and azithromycin to cover for superimposed bacterial infection as well Doubt about bacterial pneumonia since procalcitonin normal x2 Blood culture pending, if negative consider to discontinue antibiotic Inflammatory marker for CRP peaked at 1.6, now trending down to 0.98, but ESR normal Continue incentive spirometry and flutter valve Continue Roflumilast, umeclidinium, Symbicort Continue monitor LFT while on remdesivir Will discontinue abx since blood cx negative and procalcitonin normal Consider 2 step exercise before discharge JOAN Continue CPAP @ HS Hypokalemia potassium 3.3 on admission potassium 4.4 today Stable Rheumatoid arthritis Continue hydroxychloroquine History of melanoma Port-A-Cath in place Placed approximately 3 years ago to left chest wall for Opdivo treatment Continues to remain in place, nursing care History of PSVT Continue metoprolol and diltiazem DVT ppx:SQ LOvenox BID Disposition Plan to discharge tomorrow FULL CODE Admission and Anticipated Discharge Date Admission Date: August 09, 2022 Subjective Patient was seen and evaluated for follow-up shortness of breath due to COVID 19. Sitting in bed with no acute distress with no acute distress Pt said that she feels better Currently she saturated well on RA She said that her cough improved She is looking to be discharged tomorrow afternoon Denies any chest pain, palpitation, dizziness and SOB Review of Systems Review of Systems: All systems reviewed & are unremarkable except as noted in Subjective Physical Exam Physical Exam: General- No acute distress Head- atraumatic Eyes- PERRL, EOMI, ENT- oropharynx clear Neck- supple, no JVD Lungs- +diminished BS Heart- regular rhythm; no murmur Abdomen- normal bowel sounds, soft, nontender Extremities- no calf tenderness Neuro- alert, oriented x 3; PERRL, EOMI; no facial palsy; no dysarthria Skin- warm & dry Results & Data Results & Data ([facility]) Vital Signs (Past 12 Hours) Vital Signs Temp Pulse Pulse Resp BP Pulse Ox O2 Del Method 08/11/22 15:16 84 18 94 Room Air 08/11/22 14:40 80 08/11/22 11:46 36.9 C 86 15 105/73 93 Room Air 08/11/22 11:21 73 18 92 Room Air 08/11/22 10:15 Room Air 08/11/22 08:02 37.1 C 16 93 Room Air 08/11/22 08:02 85 120/78 08/11/22 07:34 75 16 99 Nasal Cannula 08/11/22 07:00 85 O2 Flow Rate 08/11/22 15:16 08/11/22 14:40 08/11/22 11:46 08/11/22 11:21 08/11/22 10:15 08/11/22 08:02 08/11/22 08:02 08/11/22 07:34 2 08/11/22 07:00 (1) Pneumonia Laterality: left Lung location: unspecified part of lung Pneumonia type: due to unspecified organism Qualified Code(s): J18.9 - Pneumonia, unspecified organism
[2022-08-11] MEDS: REMDESIVIR 100 MG in SODIUM CHLORIDE 0.9% 230 ML IV SCH (20:05)
[2022-08-11] MEDS: ROSUVASTATIN CALCIUM 10 MG TAB PO SCH (21:09)
[2022-08-11] MEDS: CHOLECALCIFEROL 1,000 UNITS 25 MCG TAB PO SCH (21:09)
[2022-08-12] MEDS: ALBUT/IPRATROP 3MG/0.5MG NEB 3 ML VIAL NEB SCH ×6 (03:33→22:43)
[2022-08-12 07:13] LABS: Albumin Globulin Ratio 1.6 (0.9-2); Albumin Level 3.9 gm/dl (3.4-5.0); BUN Creatinine Ratio 23.8 (10-20); Bilirubin,Total 0.3 mg/dl (0.2-1.0); Calcium 9.9 mg/dl (8.5-10.1); Creatinine Clr Calc Pharmacy 67.3 ml/min; Est GFR (African American) 84.2 ml/min; Est GFR (Non-African American) 72.6 ml/min; Globulin 2.5 gm/dl (2.5-4.0); Potassium 3.9 mmol/L (3.5-5.1); Total Protein 6.4 gm/dl (6.0-8.3)
[2022-08-12] MEDS: dexAMETHasone 6 MG in SYRINGE 0 ML IV SCH (08:28)
[2022-08-12] MEDS: dilTIAZem HCL 180 MG CAPCR PO SCH (08:30)
[2022-08-12] MEDS: ROFLUMILAST 500 MCG TAB PO SCH (08:30)
[2022-08-12] MEDS: PANTOprazole 40 MG TAB PO SCH (08:30)
[2022-08-12] MEDS: FUROSEMIDE 20 MG TAB PO SCH (08:30)
[2022-08-12] MEDS: CALCIUM 600MG + VIT D 400 IU TAB PO SCH ×2 (08:30→19:52)
[2022-08-12] MEDS: METOPROLOL SUCC 25MG EXT REL TAB PO SCH (08:31)
[2022-08-12] MEDS: HYDROXYCHLOROQUINE SULFATE 200 MG TAB PO SCH (08:31)
[2022-08-12] MEDS: ENOXAPARIN INJ 40 MG/0.4 ML SYR SQ SCH ×2 (08:32→19:54)
[2022-08-12] MEDS: UMECLIDINIUM BROMIDE 62.5MCG/BLISTER 7 PUFFS/INHALER INH SCH (08:34)
[2022-08-12] MEDS: FLUTICASONE/VILANTEROL 200/25MCG 14 PUFFS/INHALER INH SCH (08:34)
[2022-08-12] MEDS: FLUTICASONE PROPIONATE NA SPR 16 GM BTL SCH (08:34)
[2022-08-12] MEDS: POTASSIUM CHLORIDE CRTAB 20 MEQ TABCR PO SCH (08:35)
[2022-08-12] MEDS: AZELASTINE HCL 0.1% NASAL 200 SPRAYS/27,400 MCG BTL SCH (08:35)
--- NOTE | 2022-08-12 08:43 | Hospitalist Progress Note ---
Date of Service August 12, 2022 Assessment & Plan (1) Acute hypoxemic respiratory failure: (2) COPD exacerbation: (3) Pneumonia: (4) COVID-19 virus infection: (5) JOAN (obstructive sleep apnea): Plan Acute hypoxic respiratory failure 76 yo female who has significant past medical history of COPD/asthma, tobacco abuse, pulmonary nodules, chronic sinusitis, chronic hypoxic respiratory failure requiring nocturnal oxygen, PSVT, rheumatoid arthritis, senile osteoporosis, history of DCIS and history of uterine cancer, hx of melanoma s/p immunotherapy, current presence of a port a cath from previous infusion therapies who presents to ED secondary to shortness of breath for several days, found to have COVID 19. Patient met criteria for sepsis per current CMS guidelines in setting of leukopenia, tachycardia and tachypnea. Tested positive for Covid 19 CXR showed possible mild left midlung opacity. Repeat CXR as outpt recommended. Continue Dexamethasone and Remdesivir Was on ceftriaxone and azithromycin to cover for superimposed bacterial infection as well Doubt about bacterial pneumonia since procalcitonin normal x2 Discontinued abx since blood cx negative and procalcitonin normal Inflammatory marker for CRP peaked at 1.6, now trending down to 0.98, but ESR normal Continue incentive spirometry and flutter valve Continue Roflumilast, umeclidinium, Symbicort Continue monitor LFT while on remdesivir 2 step obtained - no need for suppl. O2 JOAN Continue CPAP @ HS Hypokalemia potassium 3.3 on admission replete and monitor Rheumatoid arthritis Continue hydroxychloroquine History of melanoma Port-A-Cath in place Placed approximately 3 years ago to left chest wall for Opdivo treatment Continues to remain in place, nursing care History of PSVT Continue metoprolol and diltiazem DVT ppx:SQ LOvenox BID Disposition Plan to discharge home tmrw FULL CODE Admission and Anticipated Discharge Date Admission Date: August 09, 2022 Subjective Patient was seen in follow-up shortness of breath due to COVID 19. Step 2 obtained today - no suppl. O2 needed Sitting up in bed in no acute distress Reports feeling better Continues to have cough Reports that her has covid as well but he will be able to come pick her up tomorrow Denies any chest pain, palpitation, dizziness or shortness of breath Review of Systems Review of Systems: All systems reviewed & are unremarkable except as noted in Subjective Physical Exam Physical Exam: General- No acute distress Head- atraumatic Eyes- PERRL, EOMI, ENT- oropharynx clear Neck- supple, no JVD Lungs- +diminished BS Heart- regular rhythm; no murmur Abdomen- normal bowel sounds, soft, nontender Extremities- no calf tenderness Neuro- alert, oriented x 3; PERRL, EOMI; no facial palsy; no dysarthria Skin- warm & dry Results & Data Results & Data ([facility]) Vital Signs (Past 12 Hours) Vital Signs Temp Pulse Pulse Pulse Pulse Pulse Resp 08/12/22 08:05 36.9 C 72 16 08/12/22 07:37 86 08/12/22 07:41 90 18 08/12/22 07:36 105 H 94 H 90 08/12/22 03:23 36.9 C 80 18 08/12/22 03:35 67 18 08/11/22 23:12 36.8 C 76 20 08/11/22 22:00 68 08/11/22 22:45 64 18 08/11/22 21:58 Resp Resp Resp BP Pulse Ox Pulse Ox Pulse Ox 08/12/22 08:05 127/81 93 08/12/22 07:37 08/12/22 07:41 93 08/12/22 07:36 22 20 18 91 92 08/12/22 03:23 113/75 94 08/12/22 03:35 92 08/11/22 23:12 126/74 95 08/11/22 22:00 08/11/22 22:45 95 08/11/22 21:58 Pulse Ox O2 Del Method O2 Flow Rate 08/12/22 08:05 Room Air 08/12/22 07:37 08/12/22 07:41 Room Air 08/12/22 07:36 92 08/12/22 03:23 Nasal Cannula 2 08/12/22 03:35 Nasal Cannula 2 08/11/22 23:12 Nasal Cannula 2 08/11/22 22:00 08/11/22 22:45 Nasal Cannula 2 08/11/22 21:58 Nasal Cannula 2 Laboratory Results 08/12/22 Range/Units 06:12 Sodium 140 (136-145) mmol/L Potassium 3.9 (3.5-5.1) mmol/L Chloride 104 (98-107) mmol/L Carbon Dioxide 27 (21-32) mmol/L Anion Gap 9 (3-11) BUN 19 (6-23) mg/dl Creatinine 0.80 (0.6-1.2) mg/dl Est Cr Clr Drug Dosing 67.3 ml/min Est GFR ( Amer) 84.2 ml/min Est GFR (Non-Af Amer) 72.6 ml/min BUN/Creatinine Ratio 23.8 H (10-20) Glucose 87 (70-99(Fasting)) mg/dl Calcium 9.9 (8.5-10.1) mg/dl Total Bilirubin 0.3 (0.2-1.0) mg/dl AST 18 (13-39) U/L ALT 17 (7-52) U/L Alkaline Phosphatase 45 (34-104) U/L Total Protein 6.4 (6.0-8.3) gm/dl Albumin 3.9 (3.4-5.0) gm/dl Globulin 2.5 (2.5-4.0) gm/dl Albumin/Globulin Ratio 1.6 (0.9-2) Medications Administered Current Inpatient Medications Acetaminophen (Acetaminophen 325 Mg Tab) 650 mg PO Q4H PRN PRN Reason: Pain or Fever Stop: 09/08/22 20:02 Last Admin: 08/10/22 05:54 Dose: 650 mg Al Hydrox/Mg Hydrox/Simethicone (Aluminum/Magnesium Susp 30 Ml Udc) 15 ml PO Q4H PRN PRN Reason: Dyspepsia Stop: 09/08/22 20:02 Albuterol (Albut/Ipratrop 3mg/0.5mg Neb 3 Ml Vial) 3 ml NEB Q4R [facility]; Protocol Stop: 09/09/22 14:59 Last Admin: 08/12/22 07:41 Dose: 3 ml Azelastine HCl (Azelastine Hcl 0.1% Nasal 200 Sprays/27,400 Mcg Btl) 2 sprays NA DAILY [facility] Stop: 09/09/22 08:59 Last Admin: 08/12/22 08:35 Dose: 2 sprays Calcium/Vitamin D (Calcium 600mg + Vit D 400 Iu Tab) 1 tab PO BID [facility] Stop: 09/08/22 20:59 Last Admin: 08/12/22 08:30 Dose: 1 tab Diltiazem HCl (Diltiazem Hcl 180 Mg Capcr) 180 mg PO QAM [facility] Stop: 09/09/22 08:59 Last Admin: 08/12/22 08:30 Dose: 180 mg Enoxaparin Sodium (Enoxaparin Inj 40 Mg/0.4 Ml Syr) 40 mg SQ Q12H [facility] Stop: 09/08/22 20:59 Last Admin: 08/12/22 08:32 Dose: 40 mg Fluticasone Propionate (Fluticasone Propionate Na Spr 16 Gm Btl) 2 sprays NA DAILY [facility] Stop: 09/09/22 08:59 Last Admin: 08/12/22 08:34 Dose: 2 sprays Fluticasone/Vilanterol (Fluticasone/Vilanterol 200/25mcg 14 Puffs/Inhaler) 1 puffs INH DAILY [facility] Stop: 09/09/22 08:59 Last Admin: 08/12/22 08:34 Dose: 1 puffs Furosemide (Furosemide 20 Mg Tab) 20 mg PO DAILY [facility] Stop: 09/09/22 08:59 Last Admin: 08/12/22 08:30 Dose: 20 mg Heparin Sodium (Porcine) (Heparin 100 Unit/Ml 5ml Flush) 5 ml FLUSH PRN PRN PRN Reason: Flush Stop: 09/10/22 01:34 Hydroxychloroquine Sulfate (Hydroxychloroquine Sulfate 200 Mg Tab) 200 mg PO QAM [facility] Stop: 09/09/22 08:59 Last Admin: 08/12/22 08:31 Dose: 200 mg Remdesivir 100 mg/ Sodium (Chloride) 250 mls @ 250 mls/hr IV Q24H [facility] Stop: 08/13/22 20:59 Last Infusion: 08/11/22 21:08 Dose: Infused Dexamethasone 6 mg/ Syringe 1.5 mls @ 1 mls/min IV DAILY [facility] Stop: 08/20/22 08:59 Last Admin: 08/12/22 08:28 Dose: 1 mls/min Magnesium Hydroxide (Magnesium Hydroxide Susp 30 Ml Udc) 30 ml PO Q12H PRN PRN Reason: Constipation Stop: 09/08/22 20:02 Metoprolol Succinate (Metoprolol Succ 25mg Ext Rel Tab) 37.5 mg PO DAILY [facility] Stop: 09/08/22 20:14 Last Admin: 08/12/22 08:31 Dose: 37.5 mg Ondansetron HCl (Ondansetron Inj 2 Mg/Ml 2 Ml Vial) 4 mg IV Q6H PRN PRN Reason: Nausea Stop: 09/08/22 20:02 Pantoprazole Sodium (Pantoprazole 40 Mg Tab) 40 mg PO QAM [facility] Stop: 09/09/22 08:59 Last Admin: 08/12/22 08:30 Dose: 40 mg Polyethylene Glycol (Polyethylene (Miralax) 17 Gm Pack) 17 gm PO DAILY PRN PRN Reason: Constipation Stop: 09/08/22 20:02 Potassium Chloride (Potassium Chloride Crtab 20 Meq Tabcr) 20 meq PO DAILY [facility] Stop: 09/09/22 08:59 Last Admin: 08/12/22 08:35 Dose: 20 meq Roflumilast (Roflumilast 500 Mcg Tab) 500 mcg PO QAM [facility] Stop: 09/09/22 08:59 Last Admin: 08/12/22 08:30 Dose: 500 mcg Rosuvastatin Calcium (Rosuvastatin Calcium 10 Mg Tab) 10 mg PO [facility] Stop: 09/08/22 20:59 Last Admin: 08/11/22 21:09 Dose: 10 mg Umeclidinium Daniel (Umeclidinium Daniel 62.5mcg/Blister 7 Puffs/Inhaler) 1 puffs INH [facility] Stop: 09/09/22 08:59 Last Admin: 08/12/22 08:34 Dose: 1 puffs Vitamin D (Cholecalciferol 1,000 Units 25 Mcg Tab) 1,000 units PO [facility] Stop: 09/08/22 20:59 Last Admin: 08/11/22 21:09 Dose: 1,000 units (1) Pneumonia Laterality: left Lung location: unspecified part of lung Pneumonia type: due to unspecified organism Qualified Code(s): J18.9 - Pneumonia, unspecified organism
[2022-08-12] MEDS: REMDESIVIR 100 MG in SODIUM CHLORIDE 0.9% 230 ML IV SCH (19:51)
[2022-08-12] MEDS: ROSUVASTATIN CALCIUM 10 MG TAB PO SCH (19:54)
[2022-08-12] MEDS: CHOLECALCIFEROL 1,000 UNITS 25 MCG TAB PO SCH (19:55)
[2022-08-13] MEDS: ALBUT/IPRATROP 3MG/0.5MG NEB 3 ML VIAL NEB SCH ×3 (02:32→10:55)
[2022-08-13] MEDS: dexAMETHasone 6 MG in SYRINGE 0 ML IV SCH (08:53)
[2022-08-13] MEDS: FLUTICASONE/VILANTEROL 200/25MCG 14 PUFFS/INHALER INH SCH (08:53)
[2022-08-13] MEDS: UMECLIDINIUM BROMIDE 62.5MCG/BLISTER 7 PUFFS/INHALER INH SCH (08:53)
[2022-08-13] MEDS: ENOXAPARIN INJ 40 MG/0.4 ML SYR SQ SCH (08:54)
[2022-08-13] MEDS: HYDROXYCHLOROQUINE SULFATE 200 MG TAB PO SCH (08:54)
[2022-08-13] MEDS: ROFLUMILAST 500 MCG TAB PO SCH (08:54)
[2022-08-13] MEDS: FUROSEMIDE 20 MG TAB PO SCH (08:54)
[2022-08-13] MEDS: METOPROLOL SUCC 25MG EXT REL TAB PO SCH (08:54)
[2022-08-13] MEDS: dilTIAZem HCL 180 MG CAPCR PO SCH (08:54)
[2022-08-13] MEDS: PANTOprazole 40 MG TAB PO SCH (08:54)
[2022-08-13] MEDS: FLUTICASONE PROPIONATE NA SPR 16 GM BTL SCH (08:55)
[2022-08-13] MEDS: CALCIUM 600MG + VIT D 400 IU TAB PO SCH (08:55)
[2022-08-13] MEDS: AZELASTINE HCL 0.1% NASAL 200 SPRAYS/27,400 MCG BTL SCH (08:55)
[2022-08-13] MEDS: POTASSIUM CHLORIDE CRTAB 20 MEQ TABCR PO SCH (09:04)
--- NOTE | 2022-08-13 09:54 | Discharge Summary ---
Date of Service August 13, 2022 Admission HPI Per Admitting Provider This is a 76-year-old female who has significant past medical history of COPD/asthma, tobacco abuse, pulmonary nodules, chronic sinusitis, chronic hypoxic respiratory failure requiring nocturnal oxygen, PSVT, rheumatoid arthritis, senile osteoporosis, history of DCIS and history of uterine cancer, hx of melanoma s/p immunotherapy, current presence of a port a cath from previous infusion therapies who presents to ED secondary to shortness of breath times a few days. Of significance she has known history of COPD. She follows [facility] pulmonology as well as allergy and immunology. She continues to use tobacco products. She presents today due to increasing shortness of breath at rest and with exertion. Typically she only requires oxygen at night but has been using it over the past 24 hours without significant relief. She further complains of a productive cough of clear sputum. She denies documented fever, chills, sweats, lightheadedness, dizziness, chest pain, hemoptysis, nausea, vomiting, abdominal pain, change in bowel or urinary habits. She has used her nebulizer with minimal relief. She further complains of headache, frontal, sinus congestion and postnasal drip. Her appetite is decreased and she did not take any of her morning meds. In ED patient was placed on 3 L of oxygen. She met SIRS criteria secondary to tachycardia, leukopenia and tachypnea. Her SARS-CoV-2 was positive. Chest x-ray concerning for possible left midlung opacity. Her CBC was consistent with WBC 3.94, H&H 12.6 and 39.6 and platelet count 195. She received IV Solu-Medrol and nebulizer treatment with moderate improvement. Admission Exam Per Admitting Provider Constitutional: WD/WN, vitals as above, NAD, sitting up in bed, pleasant, conversing easily Head: Normocephalic, Atraumatic Eyes: PERRL, conjunctivae normal, anicteric sclerae ENMT: external ear and nose normal, oropharynx normal +oxymask Neck: trachea midline, no thyromegaly normal visual inspection Respiratory: normal respiratory effort, lungs clear to auscultation, +scattered exp wheeze, no rales, rhonchi. Normal insp/exp effort, no accessory muscle use Cardiovascular: RRR, no murmur, no edema Vessels: no JVD or carotid bruit Chest: normal inspection of chest +LACW portacath Abdomen: normal bowel sounds, soft, nontender, no hepatosplenomegaly Musculoskeletal: no cyanosis or clubbing, extremities motor strength 5/5 Skin: no rashes, warm and dry normal turgor Neurologic: PERRL, EOMI, accommodation nl, no face palsy, no dysarthria CN's II-XI intact bilaterally and moves all extremities Psychiatric: A+Ox3, euthymic affect Lymphatic: no cervical or axillary lymphadenopathy : deferred Principal Diagnosis Acute hypoxic resp. failure COVID-19 pneumonia, COPD exacerbation Discharge Exam General- No acute distress Head- atraumatic Eyes- PERRL, EOMI, ENT- oropharynx clear Neck- supple, no JVD Lungs- +diminished breath sounds, no wheezing Heart- regular rhythm; no murmur Abdomen- normal bowel sounds, soft, nontender Extremities- no calf tenderness, moves extremities Neuro- alert, oriented x 3; PERRL, EOMI; no facial palsy; no dysarthria Skin- warm & dry Discharge Data Allergies Allergy/AdvReac Type Severity Reaction Status Date / Time Tetracyclines Allergy Severe Tongue Verified 08/09/22 14:45 swelling codeine Allergy Intermediate Hives Verified 08/09/22 14:45 nickel Allergy Intermediate Lip Verified 08/09/22 14:45 swelling (nickel mouthpiece with flute) bacitracin Allergy Mild Itching Verified 08/09/22 14:45 amoxicillin AdvReac Mild Diarrhea, Verified 08/09/22 14:45 vomiting clavulanic acid AdvReac Mild Nausea/Vomi Verified 08/09/22 14:45 [From Augmentin] ting Consultations 08/09/22 16:18 ED Decision to Admit Stat Hospital Course (1) Acute hypoxemic respiratory failure: (2) COPD exacerbation: (3) Pneumonia: (4) COVID-19 virus infection: (5) JOAN (obstructive sleep apnea): Plan Acute hypoxic respiratory failure 76 yo female who has significant past medical history of COPD/asthma, tobacco abuse, pulmonary nodules, chronic sinusitis, chronic hypoxic respiratory failure requiring nocturnal oxygen, PSVT, rheumatoid arthritis, senile osteoporosis, history of DCIS and history of uterine cancer, hx of melanoma s/p immunotherapy, current presence of a port a cath from previous infusion therapies who presents to ED secondary to shortness of breath for several days, found to have COVID 19. Patient met criteria for sepsis per current CMS guidelines in setting of leukopenia, tachycardia and tachypnea. Tested positive for Covid 19 CXR showed possible mild left midlung opacity. Repeat CXR as outpt recommended. Continued Dexamethasone and Remdesivir while inpt Was on ceftriaxone and azithromycin to cover for superimposed bacterial infection as well Doubt about bacterial pneumonia since procalcitonin normal x2 Discontinued abx since blood cx negative and procalcitonin normal Inflammatory marker for CRP peaked at 1.6, now trending down to 0.98, but ESR normal Continue incentive spirometry and flutter valve Continue Roflumilast, umeclidinium, Symbicort Continue monitor LFT while on remdesivir 2 step obtained - no need for suppl. O2 JOAN Continue CPAP @ HS Hypokalemia potassium 3.3 on admission replete and monitor Rheumatoid arthritis Continue hydroxychloroquine History of melanoma Port-A-Cath in place Placed approximately 3 years ago to left chest wall for Opdivo treatment Continues to remain in place, nursing care History of PSVT Continue metoprolol and diltiazem Total Time Total Time Spent Total Time Spent (In Minutes): 40 Discharge Plan Discharge Items Patient Disposition: Home - Self-Care Reason For Visit: LML PNA, ACUTE HYPOXIC RESP FAILURE, COPD EXAC, SA Discharge Diagnosis: Acute hypoxic resp. failure COVID-19 pneumonia, COPD exacerbation Activity: Per Instructions section Non-emergency contact: Primary Care Provider Call non-emergency contact if: you have any medication questions and your symptoms worsen Follow-up/Referrals: Navin Saravia MD [Primary Care Provider] - (Date & Time 08/17/2022 10:20 AM Provider Navin Saravia MD Department Family Practice [facility] ) Diet: Regular Addtl Attending Provider Instructions: Follow-up with your primary care doctor, the appointment was scheduled for you for August 17. Take prednisone, 20 mg for next 2 days, then take 10 mg for next 3 days. Discuss further with your primary care physician if you need any more steroid taper. 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 It is caused by a coronavirus called 2019 novel coronavirus (2019- nCoV). There are many types of coronavirus. Coronaviruses are a very common cause of bronchitis. They may sometimes cause lung infection(pneumonia). Symptoms can range from mild to severe respiratory illness. These viruses are also foundin some animals. COVID-19 was first found in people in [facility], in late 2019. In 2020, several cases of COVID-19 have been confirmed in the [place] Public health officials are working to find the source. How the virus spreads is not yet fully known. It may be spread through droplets of fluid that a person coughs or sneezes into the air. It may be spread if you touch a surface with virus on it, such as a handle or object, and then touch your mouth. What are the symptoms of COVID-19? Some people have no symptoms or mild symptoms. Symptoms may appear 2 to 14 days after contact with the virus. Symptoms can include: Fever Coughing Trouble breathing What are possible complications from COVID-19? In many cases, this virus can cause infection (pneumonia) in both lungs. In some cases, this can cause . How is COVID-19 diagnosed? Your healthcare provider will ask about your symptoms. He or she will also ask about your recent travel and contact with sick people. Testing for the virus is only done through the CDC. If yourhealthcare provider thinks you may have COVID- 19, he or she will work with your local health department and the CDC on testing. Follow all instructions from your healthcare provider. COVID-19 is diagnosed by: Nasal and throat swab. A cotton-tipped swab is wiped inside your nose or throat. This is done to check for viruses in your nasal mucus. Sputum culture. A small sample of mucus coughed from your lungs (sputum) is collected if you have a cough. It is checked for the virus. How is COVID-19 treated? There is currently no medicine to treat the virus. Treatment is done to help your body while it fights the virus. This is known as supportive care. Supportive care may include: Pain medicine. These include acetaminophen and ibuprofen. They are used to help ease pain and reduce fever. Bed rest. This helps your body fight the illness. For severe illness, you may need to stay in the hospital. Care during severe illness may include: IV (intravenous) fluids.These are given through a vein to help keep your body hydrated. Oxygen. Supplemental oxygen or ventilation with a breathing machine (ventilator) may be given. This is done to keep enough oxygen in your body. Are you at risk for COVID-19? If youve been to a place where people have been sick with this virus, you are at risk for infection. You are at risk if you: Recently traveled to an affected area Had contact with a sick person who recently traveled to this area Had contact with a person who was diagnosed with COVID-19 How can COVID-19 be prevented? There is no vaccine yet. The best prevention is to not have contact with the virus. The CDC advises that people should not travel to areas where there are COVID-19 outbreaks right now for any reason that is not urgent. To help prevent spreading the infection, wash your hands often, or use an alcohol-basedhand multiple coil winder. If you are in an area with COVID-19: Wash your hands often. Or use an alcohol-based hand multiple coil winder often. Only touch your eyes, nose, or mouth with clean hands. Dont have contact with people who are sick. Follow local instructions about being in public. For example, you may be told to not use public transport for a period of time. Stay away from markets that have live or animals. Wash your hands after touching any animals. Don't touch animals that may be sick. Dont share eating or drinking tools with sick people. Dont kiss someone who is sick. Clean surfaces often with disinfectant. If you were in an area with COVID-19 in the last 14 days: Call your healthcare provider. He or she can talk with local health staff to see what action may be needed. Follow all instructions from your provider. Take your temperature every morning and evening for at least 14 days. This is to check for fever. Keep a record of the readings. Keep watch for symptoms of the virus. Tell your provider right away if you have symptoms. If you were in an area with COVID-19 and have a fever or other symptoms: Dont panic. Keep in mind that other illnesses can cause similar symptoms. Stay away from work, school, and public places. Limit physical contact with family members. Don't kiss anyone or share eating or drinking utensils. Clean surfaces you touch with disinfectant. This is to help prevent the virus from spreading. Call your healthcare provider. Explain that you have been exposed to COVID-19 and have symptoms. Do this before going to any hospital. Wait for instructions. Keep in mind that healthcare staff may wear protective equipment such as masks, gowns, gloves, and eye protection. You may be put in a separate room. This is to prevent the possible virus from spreading. Tell the healthcare staff about recent travel. This includes local travel on public transport. Staff may need to find other people you have been in contact with. Follow all instructions the healthcare staff give you. If you have been diagnosed with COVID-19 Follow all instructions from your healthcare provider. Dont leave your home, except to get medical care. Call your healthcare providers office before going. They can prepare and give you instructions. This will help prevent the virus from spreading. Dont go to work, school, or public areas. Dont use public transport or taxis. Stay away from other people in your home. Have them wear face masks around you. Dont share household items or food. Wear a face mask if you can. This includes at home or in a medical facility. Cover your face with a tissue when you cough or sneeze. Throw the tissue away. Wash your hands. Wash your hands often. Caregivers should: Follow all instructions from healthcare staff. Wear a face mask and protective clothing as advised. Wash hands often. Keep track of the sick persons symptoms. Clean surfaces, fabrics, and laundry thoroughly. Keep other people away from the sick person. When to call your healthcare provider Call your healthcare provider: If youve recently traveled and have symptoms If you have been diagnosed with COVID-19 and your symptoms are worse To learn more To find out more about COVID-19, visit the CDC website at www.cdc.go v/coronavirus/2019-ncov/index.html. [employer]. [address] [place] [id number]. All rights reserved. This information is not intended as a substitute for professional medical care. Always follow your healthcare professional's instructions. This information has been adapted from [employer] Home Isolation COVID-19 Instructions The following information about Home Isolation is from the CDC Website: https://www.cdc.gov/coronavirus/2019-ncov/hcp/yjfuvaui-rfpintw-kzndtf.html Stay home except to get medical care People who are mildly ill with COVID-19 are able to isolate at home during their illness. You should restrict activities outside your home, except for getting medical care. Do not go to work, school, or public areas. Avoid using public transportation, ride-sharing, or taxis. Separate yourself from other people and animals in your home People: As much as possible, you should stay in a specific room and away from other people in your home. Also, you should use a separate bathroom, if available. Animals: You should restrict contact with pets and other animals while you are sick with COVID-19, just like you would around other people. Although there have not been reports of pets or other animals becoming sick with COVID-19, it is still recommended that people sick with COVID-19 limit contact with animals until more information is known about the virus. When possible, have another member of your household care for your animals while you are sick. If you are sick with COVID-19, avoid contact with your pet, including petting, snuggling, being kissed or licked, and sharing food. If you must care for your pet or be around animals while you are sick, wash your hands before and after you interact with pets and wear a face mask. Call ahead before visiting your doctor If you have a medical appointment, call the healthcare provider and tell them that you have or may have COVID-19. This will help the healthcare providers office take steps to keep other people from getting infected or exposed. Wear a face mask You should wear a face mask when you are around other people (e.g., sharing a room or vehicle) or pets and before you enter a healthcare providers office. If you are not able to wear a face mask (for example, because it causes trouble breathing), then people who live with you should not stay in the same room with you, or they should wear a face mask if they enter your room. Cover your coughs and sneezes Cover your mouth and nose with a tissue when you cough or sneeze. Throw used tissues in a lined trash can. Immediately wash your hands with soap and water for at least 20 seconds or, if soap and water are not available, clean your hands with an alcohol-based hand multiple coil winder that contains at least 60% alcohol. Clean your hands often Wash your hands often with soap and water for at least 20 seconds, especially after blowing your nose, coughing, or sneezing; going to the bathroom; and bef ore eating or preparing food. If soap and water are not readily available, use an alcohol-based hand multiple coil winder with at least 60% alcohol, covering all surfaces of your hands and rubbing them together until they feel dry. Soap and water are the best option if hands are visibly dirty. Avoid touching your eyes, nose, and mouth with unwashed hands. Avoid sharing personal household items You should not share dishes, drinking glasses, cups, eating utensils, towels, or bedding with other people or pets in your home. After using these items, they should be washed thoroughly with soap and water. Clean all high-touch surfaces everyday High touch surfaces include counters, tabletops, doorknobs, bathroom fixtures, toilets, phones, keyboards, tablets, and bedside tables. Also, clean any surfaces that may have blood, stool, or body fluids on them. Use a household cleaning spray or wipe, according to the label instructions. Labels contain instructions for safe and effective use of the cleaning product including precautions you should take when applying the product, such as wearing gloves and making sure you have good ventilation during use of the product. Monitor your symptoms Seek prompt medical attention if your illness is worsening (e.g., difficulty breathing).Beforeseeking care, call your healthcare provider and tell them that you have, or are being evaluated for, COVID-19. Put on a face mask before you enter the facility. These steps will help the healthcare providers office to keep other people in the office or waiting room from getting infected or exposed. Ask your healthcare provider to call the local or state health department. Persons who are placed under active monitoring or facilitated self- monitoring should follow instructions provided by their local health department or occupational health professionals, as appropriate. When working with your local health department check their available hours. If you have a medical emergency and need to call 911, notify the dispatch personnel that you have, or are being evaluated for COVID-19. If possible, put on a face mask before emergency medical services arrive. Discontinuing home isolation Patients with confirmed COVID-19 should remain under home isolation precautions until the risk of secondary transmission to others is thought to be low. The decision to discontinue home isolation precautions should be made on a [id number] basis, in consultation with healthcare providers and state and local health departments. Pending Studies at Discharge: Yes Studies:: Final blood cultures Stand-Alone Forms: My [facility], Smoking Cessation Medications and DC Order Prescriptions: New prednisone 10 mg tablet 10 mg PO DIRECTED Qty: 7 0RF Rx Instructions: take 2 tabs for 2 days then take 1 tab for 3 days Continued Daliresp 500 mcg tablet 500 mcg PO QAM Qty: 90 3RF fluticasone propionate [Flonase Allergy Relief] 50 mcg/actuation spray,suspension 2 spray intranasal DAILY Qty: 48 4RF Rx Instructions: ADMINISTER 2 SPRAYS INTO EACH NOSTRIL EVERY DAY ipratropium bromide 0.02 % solution 2.5 ml inhalation Q6H PRN (Reason: shortness of breath or wheezing) Qty: 300 3RF Rx Instructions: Mixed with Levalbuterol every 4 hours PRN cough, dyspnea and wheeze albuterol sulfate 0.63 mg/3 mL solution for nebulization 0.63 mg inhalation QID PRN (Reason: Wheezing) metoprolol succinate 25 mg tablet extended release 24 hr 37.5 mg PO DAILY Rx Instructions: 1.5 tablets PO daily; azelastine 137 mcg (0.1 %) aerosol,spray 2 spray intranasal DAILY Qty: 30 11RF Rx Instructions: INSTILL 2 SPRAYS INTO INTO EACH NOSTRIL EVERY DAY Symbicort 160-4.5 mcg/actuation HFA aerosol inhaler 2 puff INHALATION BID Qty: 10.2 1RF Incruse Ellipta 62.5 mcg/actuation blister with device 1 inh INHALATION QAM Qty: 1 5RF Prolia 60 mg/mL syringe 60 mg subcut DAILY Tezspire 210 mg/1.91 mL (110 mg/mL) syringe 210 mg subcut .COMPLEX Qty: 1.91 11RF Rx Instructions: 210 mg subcut EVERY 4 WEEKS APPROVED thru [employer] Part D GOOD 09/24/2021 for as long as she's covered albuterol sulfate [Ventolin HFA] 90 mcg/actuation HFA aerosol inhaler 2 puff inhalation Q4 PRN (Reason: Shortness Of Breath Or Wheezing) Qty: 1 11RF omeprazole 20 mg Capsule,Delayed Release(Dr/Ec) 20 mg PO QAM hydroxychloroquine [Plaquenil] 200 mg Tablet 200 mg PO QAM cholecalciferol (vitamin D3) [Vitamin D3] 1,000 unit Capsule 1,000 unit PO HS calcium carbonate-vitamin D3 600 mg-5 mcg (200 unit) Tablet 1 tab PO BID potassium chloride 10 mEq capsule, extended release 20 meq PO DAILY prednisone 5 mg tablet 5 mg PO DAILY Rx Instructions: TAKE 1 TABLET BY MOUTH EVERY DAY levalbuterol HCl 1.25 mg/3 mL solution for nebulization 1.25 mg inhalation UD Rx Instructions: USE 1 VIAL VIA NEBULIZER MIXED WITH IPRATROPIUM EVERY 6 HOURS NEEDED FOR COUGH, WHEEZE rosuvastatin 10 mg tablet 10 mg PO HS diltiazem HCl [Cardizem CD] 180 mg capsule,extended release 24hr 180 mg PO QAM furosemide 20 mg tablet 20 mg PO DAILY Qty: 30 2RF Discharge Orders: Discharge Order (Routine); Ordered 08/13/22 Ordered By: Hussein Minaya Admission Data Admit Date/Time: 08/09/22 16:25 Attending Provider: Hussein Minaya Admit Provider: Bob Virk Primary Care Provider: Navin Saravia Other Providers: Bob Virk
[2022-08-13 11:30] LABS: Alanine Aminotransferase 22 U/L (7-52); Aspartate Aminotransferase 19 U/L (13-39)
== END 2022-08-13 10:57 | disposition home or self-care (01) | DRG 177 ==
LOC: ED 13:59 → EDINP 16:25 → SUATTDRO 16:25 → 2W 20:02

== ENCOUNTER 2023-07-08 07:27 | Inpatient (IN) ==
[2023-07-08] MEDS ORDERED: ALBUTEROL 0.083% NEBU SOLN 3 ML VIAL NEB STA (07:55)
--- NOTE | 2023-07-08 08:09 | Emergency Department Note ---
Impression & Plan Acute hypoxic respiratory failure, Shortness of breath ED Provider Note NAME: JORDAN RUDOLPH AGE: 77 SEX: F : 1945 ARRIVES VIA: Walk-In INFORMANT: Patient ED PROVIDER(S): Solitario Che DO CHIEF COMPLAINT: shortness of breath and cough HPI: Patient is a 77-year-old female who presents to the ER with a past medical history of asthma, COPD, SVT, PAT for shortness of breath and a cough which started over the past 24 to 48 hours. She denies any chest pain or belly pain. No nausea, vomiting, or diarrhea. No dysuria, urgency, or frequency. She wears 2 L nasal cannula at night but has been wearing that persistently as she is significantly short of breath. No fevers. No swelling in her legs. No other exacerbating or remitting factors. Symptoms are much worse when she is up moving around. ADDITIONAL HISTORY OBTAINED: Per HPI Chronic Medical/Social Conditions Affecting Care: Per HPI PAST MEDICAL HISTORY:See Below PAST SURGICAL HISTORY:See Below FAMILY HISTORY:See Below SOCIAL HISTORY:See Below HOME MEDICATIONS:See Below ALLERGIES:See Below VITALS:See Below PHYSICAL EXAMINATION: GENERAL: Sitting up in bed, alert, well appearing, well nourished, no distress, non-toxic EYE EXAM: normal conjunctiva. PERRL and EOM's grossly intact. OROPHARYNX: no exudate, no erythema, lips, buccal mucosa, and tongue normal and mucous membranes are moist NECK: supple, no nuchal rigidity, no adenopathy, non-tender LUNGS: Clear to auscultation. Normal chest wall mechanics HEART: no murmurs, S1 normal and S2 normal ABDOMEN: abdomen soft, non-tender, normo-active bowel sounds, no masses, no rebound or guarding. UPPER EXTREMITIES: upper extremities are grossly normal. LOWER EXTREMITIES: No pitting edema. NEURO EXAM: Normal sensorium, cranial nerves II-XII grossly intact, normal speech, no gross weakness of arms, no gross weakness of legs. MEDICAL DECISION MAKING: Patient is a 77-year-old female who presents to the ER for above-stated complaint. IV was established blood work is obtained. She was found to be hypoxic and started on nasal cannula. Labs show no significant leukocytosis or anemia. BMP with mild hypokalemia at 3.1. LFTs and bilirubin unremarkable. Troponin negative. Lipase normal. Viral panel was positive for rhinovirus. Patient was given a neb treatment as well as steroids. Updated at bedside. Discussed with hospitalist admitted for further workup of her hypoxia likely secondary to rhinovirus. Consults/Care Managements Discussions: Per [facility] Triage Nursing notes reviewed. [Limited review of prior medical records performed] Vital Signs: reviewed and remarkable for no significant abnormalities Differential diagnosis: Differential diagnoses includes but is not limited to pneumonia, bronchitis, COPD/Asthma exacerbation, pneumothorax, pulmonary embolism, congestive heart failure, acute coronary syndrome ER treatment provided: See below Diagnostics interpreted by me include EKG and cardiac monitoring as listed below: -Cardiac Monitoring: An order was placed for continuous cardiac monitoring. The monitor shows a rate of 95 with sinus rhythm. -ECG: Sinus rhythm rate 85 Normal axis Right bundle branch block QTc 468 -Laboratory studies:Interpreted by me as stated above in MDM and shown below. Imaging studies: Xrays: As interpreted by me: Portable AP upright 1 view of the chest shows no focal infiltrate CTs show: none Procedures:none Critical Care: I have personally spent 33 minutes of critical care time in the direct management of this patient. This includes bedside care, interpretation of diagnostic studies, and testing, discussion with consultants, patient, and family members, and other required patient management activities. This 33 minutes is in excess of all separately billable procedures. Past Med/Surg History Medical History Sinus congestion Multiple pulmonary nodules determined by computed tomography of lung Dry mouth Insomnia Melanoma S/p excision Anxiety Lung nodule Obstructive sleep apnea CPAP (+2L O2 HS) Diastolic heart failure Asthma-COPD overlap syndrome Nocturnal oxygen desaturation 2L O2 HS History of breast cancer Right (2012) s/p lumpectomy + radiation History of uterine cancer GREGORIO BSO + chemo (2012) Hiatal hernia PAT (paroxysmal atrial tachycardia) GERD (gastroesophageal reflux disease) Rheumatoid arthritis Surgical History History of vascular access device Left chest (port flush [facility] on 03/26/21) History of ERCP ERCP (02/02/20): MAC at [facility] Hx laparoscopic cholecystectomy History of melanoma excision 2018 History of sinus surgery 06/29/18 (MAC 3, 7.5 ETT, grade 2 view) History of Moh's micrographic surgery for skin cancer nose x2 History of breast biopsy History of total abdominal hysterectomy and bilateral salpingo-oophorectomy History of colonoscopy Colonoscopy (03/20/20): MAC at [facility] Status post right breast lumpectomy History of cataract surgery History of tonsillectomy Family History Father Leukemia Myocardial infarction Sister Breast cancer Mother Cancer brain Other Coronary heart disease No family history of adverse response to anesthesia No family history of bleeding disorder Social History Smoking Status: Never smoker Tobacco Type: Cigarettes Cigarettes Per Day: 1/2 Pack; Second Hand Exposure: No; Do You Dip or Chew Tobacco: No; Tobacco Cessation Education Requested by Patient: No Hx Alcohol Use: No Hx Substance Use: No Preferred Language: Bulgarian Communication Ability: Effective Visual Impairment: No Limitations Signal Circuit Designer Required: No Beliefs That Will Affect Care: None marital status: Current Living Situation: Alone current occupational status: employed 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 Other Information That Helps Us Care for You: No Feels Safe at Home: Yes Safety Concerns: Feels Safe At This Time Assistive Devices: Oxygen - Continuous Allergies Allergies Allergy/AdvReac Type Severity Reaction Status Date / Time Tetracyclines Allergy Severe Tongue Verified 06/29/23 14:23 swelling codeine Allergy Intermediate Hives Verified 06/29/23 14:23 nickel Allergy Intermediate Lip Verified 06/29/23 14:23 swelling (nickel mouthpiece with flute) bacitracin Allergy Mild Itching Verified 06/29/23 14:23 amoxicillin AdvReac Mild Diarrhea, Verified 06/29/23 14:23 vomiting clavulanic acid AdvReac Mild Nausea/Vomi Verified 06/29/23 14:23 [From Augmentin] ting Home Meds Home Medications Medication Instructions Recorded Confirmed cholecalciferol (vitamin D3) 25 1,000 unit PO HS 04/02/18 07/08/23 mcg (1,000 unit) capsule (Vitamin D3) hydroxychloroquine 200 mg tablet 200 mg PO QAM 04/02/18 07/08/23 (Plaquenil) omeprazole 20 mg capsule,delayed 20 mg PO QAM 04/02/18 07/08/23 release albuterol sulfate 0.63 mg/3 mL 0.63 mg inhalation QID PRN Wheezing 03/20/21 07/08/23 solution for nebulization calcium carbonate 600 mg-vitamin 1 tab PO BID 09/11/21 07/08/23 D3 5 mcg (200 unit) tablet denosumab 60 mg/mL subcutaneous 60 mg subcut Q6M 09/17/21 07/08/23 syringe (Prolia) prednisone 5 mg tablet 5 mg PO DAILY 08/09/22 07/08/23 rosuvastatin 10 mg tablet 10 mg PO QAM 08/09/22 07/08/23 fluticasone propionate 50 2 spray intranasal DAILY PRN 07/08/23 07/08/23 mcg/actuation nasal Allergy Symptoms spray,suspension (Flonase Allergy Relief) metoprolol succinate 25 mg 25 mg PO DAILY PRN heart palp 07/08/23 07/08/23 tablet,extended release 24 hr metoprolol succinate 50 mg 50 mg PO DAILY 07/08/23 07/08/23 tablet,extended release 24 hr spironolactone 25 mg tablet 25 mg PO QAM 07/08/23 07/08/23 Previous Rx's Medication Instructions Recorded furosemide 20 mg tablet 20 mg PO DAILY #30 tabs 04/24/21 tezepelumab-ekko 210 mg/1.91 mL 210 mg (1.91 mL) subcut .COMPLEX 09/25/21 (110 mg/mL) subcutaneous syringe #1.91 mL (Tezspire) Incruse Ellipta 62.5 mcg/actuation 1 inh inhalation QAM #30 ea 12/24/22 powder for inhalation (umeclidinium) Symbicort 160 mcg-4.5 2 puff inhalation BID #10.2 grams 12/24/22 mcg/actuation HFA aerosol inhaler (budesonide-formoterol) albuterol sulfate 90 mcg/actuation 2 puff inhalation Q4 PRN Shortness 12/24/22 aerosol inhaler (Ventolin HFA) Of Breath Or Wheezing #1 inhaler ipratropium bromide 0.02 % 2.5 ml inhalation Q6H PRN 12/24/22 solution for inhalation shortness of breath or wheezing #300 mL levalbuterol HCl 1.25 mg/3 mL 1.25 mg (3 mL) inhalation .COMPLEX 12/28/22 solution for nebulization shortness of breath or wheezing #90 mL azelastine 137 mcg (0.1 %) nasal See Rx Instructions .Route 07/06/23 spray aerosol .COMPLEX #90 mL Results & Data (ED) Vital Signs Vital Signs - 24 hr 07/08/23 07:32 07/08/23 08:12 07/08/23 08:13 Temperature 36.6 C Temperature Source Temporal Artery Scan Pulse Rate 94 H 88 88 Pulse Rate [Left Finger] Respiratory Rate 20 22 Respiratory Effort / Characteristics Non-Labored Spontaneous Respiratory Depth Normal Blood Pressure 126/64 Blood Pressure [Left Arm] Blood Pressure Mean 84 Blood Pressure Mean [Left Arm] Blood Pressure Position [Left Arm] Pulse Oximetry 94 85 L Oxygen Delivery Method Nasal Cannula Room Air Oxygen Flow Rate 2 Sepsis Recent Fever Within 48 Hours No Sepsis New/Unexplained Change in Mental Status No Sepsis Action Taken by Nursing No Action Required 07/08/23 08:38 Temperature Temperature Source Pulse Rate Pulse Rate [Left Finger] 86 Respiratory Rate 20 Respiratory Effort / Characteristics Respiratory Depth Blood Pressure Blood Pressure [Left Arm] 111/68 Blood Pressure Mean Blood Pressure Mean [Left Arm] 82 Blood Pressure Position [Left Arm] Sitting Pulse Oximetry 98 Oxygen Delivery Method Nasal Cannula Oxygen Flow Rate 3 Sepsis Recent Fever Within 48 Hours Sepsis New/Unexplained Change in Mental Status Sepsis Action Taken by Nursing Laboratory Data 07/08/23 07:53 07/08/23 07:53 Lab Results 07/08/23 07/08/23 Range/Units 07:53 08:18 WBC 7.86 (4.8-10.8) K/ul RBC 4.45 (4.20-5.40) M/uL Hgb 13.1 (12.0-16.0) g/dl Hct 39.4 (37.0-47.0) % MCV 88.5 (80.0-100.0) fL MCH 29.4 (25.0-34.0) pg MCHC 33.2 (32.0-36.0) g/dL RDW Std Deviation 47.2 H (36.4-46.3) fL RDW Coeff of Arleen 14.8 H (11.5-14.5) % Plt Count 212 (130-400) K/uL MPV 10.7 (9.4-12.4) fL Immature Gran % (Auto) 0.5 % Neut % (Auto) 85.4 % Lymph % (Auto) 5.3 % [place] % (Auto) 7.6 % Eos % (Auto) 1.1 % Baso % (Auto) 0.1 % Neut # (Auto) 6.70 H (1.40-6.50) K/uL Lymph # (Auto) 0.42 L (1.20-3.40) K/uL [place] # (Auto) 0.60 H (0.11-0.59) K/uL Eos # (Auto) 0.09 (0.00-0.50) K/uL Baso # (Auto) 0.01 (0.00-0.20) K/uL Immature Gran # (Auto) 0.04 (0.01-0.20) K/uL Sodium 142 (136-145) mmol/L Potassium 3.1 L (3.5-5.1) mmol/L Chloride 110 H (98-107) mmol/L Carbon Dioxide 25 (21-32) mmol/L Anion Gap 7 (3-11) BUN 17 (6-23) mg/dl Creatinine 0.64 (0.6-1.2) mg/dl Est Cr Clr Drug Dosing 85.5 ml/min Est GFR ( Amer) 101.2 ml/min Est GFR (Non-Af Amer) 87.3 ml/min BUN/Creatinine Ratio 26.6 H (10-20) Glucose 87 (70-99(Fasting)) mg/dl Calcium 8.1 L (8.6-10.3) mg/dl Magnesium 1.6 L (1.7-2.4) mg/dl Total Bilirubin 0.6 (0.2-1.0) mg/dl AST 14 (13-39) U/L ALT 13 (7-52) U/L Alkaline Phosphatase 48 (34-104) U/L Troponin I High Sens 7.4 (0-14) pg/ml Total Protein 6.0 (6.0-8.3) gm/dl Albumin 3.6 (3.4-5.0) gm/dl Globulin 2.4 L (2.5-4.0) gm/dl Albumin/Globulin Ratio 1.5 (0.9-2) Lipase 61 (11-82) U/L Adenovirus (PCR) Not Detected (NotDetected) B. pertussis DNA (PCR) Not Detected (NotDetected) B.parapertussis DNA PCR Not Detected (NotDetected) C. pneumoniae DNA (PCR) Not Detected (NotDetected) Coronavirus OC43 (PCR) Not Detected (NotDetected) Coronavirus HKU1 (PCR) Not Detected (NotDetected) Coronavirus 229E (PCR) Not Detected (NotDetected) SARS-CoV-2 (PCR) Not Detected (NotDetected) Coronavirus NL63 (PCR) Not Detected (NotDetected) Human Metapneumovir PCR Not Detected (NotDetected) Influenza Type A (PCR) Not Detected (NotDetected) Influenza Type B (PCR) Not Detected (NotDetected) M. pneumoniae (PCR) Not Detected (NotDetected) Parainfluenza 1 (PCR) Not Detected (NotDetected) Parainfluenza 2 (PCR) Not Detected (NotDetected) Parainfluenza 3 (PCR) Not Detected (NotDetected) Parainfluenza 4 (PCR) Not Detected (NotDetected) RSV (PCR) Not Detected (NotDetected) Entero/Rhino (PCR) DETECTED A* (NotDetected) Administered Medications Albuterol (Albut/Ipratrop 3mg/0.5mg Neb 3 Ml Vial) 3 ml NEB QIDR ELVER; Protocol Stop: 08/07/23 10:59 Last Admin: 07/08/23 10:02 Dose: Not Given Documented By: DULCE MARIA Discontinued Medications Albuterol (Albuterol 0.083% Nebu Soln 3 Ml Vial) 5 mg NEB NOW STA; Protocol Stop: 07/08/23 07:56 Last Admin: 07/08/23 08:06 Dose: 5 mg Documented By: DULCE MARIA Albuterol (Albut/Ipratrop 3mg/0.5mg Neb 3 Ml Vial) Confirm Administered Dose 3 ml .ROUTE .STK-MED ONE Stop: 07/08/23 09:50 Last Admin: 07/08/23 09:51 Dose: 3 ml Documented By: DULCE MARIA Magnesium Sulfate/Dextrose (Magnesium Sulfate / D5w) 1 gm in 100 mls @ 50 mls/hr IV ONE ONE Stop: 07/08/23 11:41 Last Infusion: 07/08/23 10:24 Dose: Infused Documented By: DULCE MARIA Admin: 07/08/23 09:50 Dose: 50 mls/hr Documented By: DULCE MARIA Methylprednisolone (Methylprednisolone 40 Mg/Ml Vial) 40 mg IV NOW STA Stop: 07/08/23 07:56 Last Admin: 07/08/23 08:07 Dose: 40 mg Documented By: DULCE MARIA Potassium Chloride (Potassium Chloride Crtab 20 Meq Tabcr) 40 meq PO NOW STA Stop: 07/08/23 09:07 Last Admin: 07/08/23 09:32 Dose: 40 meq Documented By: DULCE MARIA Imaging Data Radiologist's Impression: Chest X-Ray 07/08/23 07:38 SINGLE VIEW CHEST CLINICAL HISTORY: Atypical chest pain FINDINGS: An AP, portable, upright chest radiograph is compared to study dated 08/09/2022 and correlated with chest CT dated 09/11/2021. A left internal jugular central venous infusion port is unchanged in position. The cardiomediastinal silhouette is top normal for projection noting atherosclerotic calcification of the thoracic aorta. The pulmonary vasculature is nondistended congested. Emphysema and chronic interstitial thickening is similar to previous. There is mild bibasilar scarring/atelectasis. The lungs and pleural spaces are otherwise clear. No pneumothorax is seen. The skeletal structures are osteopenic. The bony thorax is grossly intact. IMPRESSION: Emphysematous change with no acute cardiopulmonary abnormality. ACT 112: Negative or not required by law. Electronically signed by: Jordan Pro M.D. 07/08/2023 8:21 AM Discharge Plan Visit Data Chief Complaint: Respiratory Problems Stated Complaint: HARD TO BREATHE ED Provider: Solitario Che Discharge Problem: Acute hypoxic respiratory failure, Shortness of breath Patient Disposition: Admitted As Inpatient Discharge Instructions Interventions: ED Discharge Assessment Last Done: 07/08/23 11:19
--- NOTE | 2023-07-08 08:22 | XRay Report ---
SINGLE VIEW CHEST CLINICAL HISTORY: Atypical chest pain FINDINGS: An AP, portable, upright chest radiograph is compared to study dated 08/09/2022 and correlat ed with chest CT dated 09/11/2021. A left internal jugular central venous infusion port is unchanged in position. The cardiomediastinal silhouette is top normal for projection noting atherosclerotic calci fication of the thoracic aorta. The pulmonary vasculature is nondistended congested. Emphysema and ch ronic interstitial thickening is similar to previous. There is mild bibasilar scarring/atelectasis. T he lungs and pleural spaces are otherwise clear. No pneumothorax is seen. The skeletal structures are osteopenic. The bony thorax is grossly intact. IMPRESSION: Emphysematous change with no acute cardiopulmonary abnormality. ACT 112: Negative or not required by law. Electronically signed by: Jordan Pro M.D. 07/08/2023 8:21 AM
[2023-07-08 08:27] LABS: Basophils # (auto) 0.01 K/uL (0.00-0.20); Basophils % (auto) 0.1 %; Eosinophils # (auto) 0.09 K/uL (0.00-0.50); Eosinophils % (auto) 1.1 %; Hematocrit (blood only) 39.4 % (37.0-47.0); Hemoglobin 13.1 g/dl (12.0-16.0); Immature Granulocytes # (auto) 0.04 K/uL (0.01-0.20); Immature Granulocytes % (auto) 0.5 %; Lymphocytes # (auto) 0.42 K/uL (1.20-3.40); Lymphocytes % (auto) 5.3 %; Mean Corpuscular Hemoglobin 29.4 pg (25.0-34.0); Mean Corpuscular Hgb Conc 33.2 g/dL (32.0-36.0); Mean Corpuscular Volume 88.5 fL (80.0-100.0); Mean Platelet Volume 10.7 fL (9.4-12.4); Monocytes % (auto) 7.6 %; Neutrophils % (auto) 85.4 %; Platelet Count 212 K/uL (130-400); RDW Coefficient of Variation 14.8 % (11.5-14.5); RDW Standard Deviation 47.2 fL (36.4-46.3); Red Blood Count 4.45 M/uL (4.20-5.40); White Blood Count 7.86 K/ul (4.8-10.8)
[2023-07-08 08:29] LABS: Albumin Globulin Ratio 1.5 (0.9-2); Albumin Level 3.6 gm/dl (3.4-5.0); BUN Creatinine Ratio 26.6 (10-20); Bilirubin,Total 0.6 mg/dl (0.2-1.0); Calcium 8.1 mg/dl (8.6-10.3); Creatinine Clr Calc Pharmacy 85.5 ml/min; Est GFR (African American) 101.2 ml/min; Est GFR (Non-African American) 87.3 ml/min; Globulin 2.4 gm/dl (2.5-4.0); Potassium 3.1 mmol/L (3.5-5.1)
[2023-07-08 08:34] LABS: Troponin I High Sensitivity 7.4 pg/ml (0-14)
--- NOTE | 2023-07-08 09:05 | History & Physical Report ---
Date of Service July 08, 2023 Assessment & Plan (1) COPD exacerbation: Plan: This is a 77 y/o female with COPD/asthma, tobacco abuse, pulmonary nodules, chronic sinusitis, chronic hypoxic respiratory failure requiring nocturnal oxygen (2L with CPAP), PSVT, rheumatoid arthritis, senile osteoporosis, history of DCIS and history of uterine cancer, and hx of melanoma s/p immunotherapy who presents to ED with worsening respiratory symptoms. Typically, she uses 2L of O2 at night with CPAP but does not require O2 during the day. Upon presentation to the ED today, she was noted to be hypoxic at 85% on RA - she has improved to the mid-90s with 2-3L of O2. Work-up in the ED was positive for entero/rhinovirus. She was also noted to have hypokalemia and hypomagnesemia. - Admit to PCU due to acute on chronic hypoxic respiratory failure and electrolyte abnormalities - Replete potassium and magnesium - recheck in the AM - DuoNebs scheduled QID and Q2 hrs prn - IV Solu-Medrol 40 mg Q8 hrs - note that pt is on chronic prednisone 5 mg daily at baseline (RA) - Hold antibiotics for now since testing positive for viral etiology, pt afebrile, no leukocytosis - Continue supplemental O2 for now - will wean during the day as tolerated. Continue 2L at HS with CPAP, which pt uses at baseline - Incentive spirometry, flutter valve (2) Acute and chronic respiratory failure with hypoxia: (3) Hypokalemia: (4) Hypomagnesemia: (5) JOAN (obstructive sleep apnea): (6) Rheumatoid arthritis: (7) GERD (gastroesophageal reflux disease): (8) PAT (paroxysmal atrial tachycardia): Plan Continue other home medications as appropriate. Pt seen and reviewed with collaborating physician, Dr. Lopez. Plan of care discussed and as outlined above. Code Status: Full code DVT Prophylaxis: Gauri Navarro PA-C History of Present Illness Chief Complaint: Respiratory symptoms Primary Care Provider: Navin Saravia MD This is a 77 y/o female with COPD/asthma, tobacco abuse, pulmonary nodules, chronic sinusitis, chronic hypoxic respiratory failure requiring nocturnal oxygen (2L with CPAP), PSVT, rheumatoid arthritis, senile osteoporosis, history of DCIS and history of uterine cancer, and hx of melanoma s/p immunotherapy who presents to ED with worsening respiratory symptoms. Pt notes that she has been fatigued for the past month but otherwise has felt at baseline. About two days ago, she started with URI symptoms - head congestion, sneezing, runny nose, cough that is intermittently productive of yellow mucus. Then developed increased shortness of breath and wheezing. Denies chest tightness or pain but states that "my lungs feel tight on the sides" so she has been using rescue inhaler and nebs - typically mixes levalbuterol and ipratropium nebs. Last used around 5 am at home. Denies fevers but does feel cold. No nausea or vomitng but appetite is decreased. Notes diarrhea yesterday. No known sick contacts but was traveling for the holidays. Pt is on chronic prednisone 5 mg daily - has not increased for current symptoms. Allergies Allergy/AdvReac Type Severity Reaction Status Date / Time Tetracyclines Allergy Severe Tongue Verified 06/29/23 14:23 swelling codeine Allergy Intermediate Hives Verified 06/29/23 14:23 nickel Allergy Intermediate Lip Verified 06/29/23 14:23 swelling (nickel mouthpiece with flute) bacitracin Allergy Mild Itching Verified 06/29/23 14:23 amoxicillin AdvReac Mild Diarrhea, Verified 06/29/23 14:23 vomiting clavulanic acid AdvReac Mild Nausea/Vomi Verified 06/29/23 14:23 [From Augmentin] ting Home Medications Medication Instructions Recorded Confirmed Type cholecalciferol (vitamin D3) 25 1,000 unit PO HS 04/02/18 07/08/23 History mcg (1,000 unit) capsule (Vitamin D3) hydroxychloroquine 200 mg tablet 200 mg PO QAM 04/02/18 07/08/23 History (Plaquenil) omeprazole 20 mg capsule,delayed 20 mg PO QAM 04/02/18 07/08/23 History release albuterol sulfate 0.63 mg/3 mL 0.63 mg inhalation QID PRN Wheezing 03/20/21 07/08/23 History solution for nebulization furosemide 20 mg tablet 20 mg PO DAILY #30 tabs 04/24/21 07/08/23 Rx calcium carbonate 600 mg-vitamin 1 tab PO BID 09/11/21 07/08/23 History D3 5 mcg (200 unit) tablet denosumab 60 mg/mL subcutaneous 60 mg subcut Q6M 09/17/21 07/08/23 History syringe (Prolia) tezepelumab-ekko 210 mg/1.91 mL 210 mg (1.91 mL) subcut .COMPLEX 09/25/21 07/08/23 Rx (110 mg/mL) subcutaneous syringe #1.91 mL (Tezspire) prednisone 5 mg tablet 5 mg PO DAILY 08/09/22 07/08/23 History rosuvastatin 10 mg tablet 10 mg PO QAM 08/09/22 07/08/23 History Incruse Ellipta 62.5 mcg/actuation 1 inh inhalation QAM #30 ea 12/24/22 07/08/23 Rx powder for inhalation (umeclidinium) Symbicort 160 mcg-4.5 2 puff inhalation BID #10.2 grams 12/24/22 07/08/23 Rx mcg/actuation HFA aerosol inhaler (budesonide-formoterol) albuterol sulfate 90 mcg/actuation 2 puff inhalation Q4 PRN Shortness 12/24/22 07/08/23 Rx aerosol inhaler (Ventolin HFA) Of Breath Or Wheezing #1 inhaler ipratropium bromide 0.02 % 2.5 ml inhalation Q6H PRN 12/24/22 07/08/23 Rx solution for inhalation shortness of breath or wheezing #300 mL levalbuterol HCl 1.25 mg/3 mL 1.25 mg (3 mL) inhalation .COMPLEX 12/28/22 07/08/23 Rx solution for nebulization shortness of breath or wheezing #90 mL azelastine 137 mcg (0.1 %) nasal See Rx Instructions .Route 07/06/23 07/08/23 Rx spray aerosol .COMPLEX #90 mL fluticasone propionate 50 2 spray intranasal DAILY PRN 07/08/23 07/08/23 History mcg/actuation nasal Allergy Symptoms spray,suspension (Flonase Allergy Relief) metoprolol succinate 25 mg 25 mg PO DAILY PRN heart palp 07/08/23 07/08/23 History tablet,extended release 24 hr metoprolol succinate 50 mg 50 mg PO DAILY 07/08/23 07/08/23 History tablet,extended release 24 hr spironolactone 25 mg tablet 25 mg PO QAM 07/08/23 07/08/23 History Past Med/Surg History Medical History Sinus congestion Multiple pulmonary nodules determined by computed tomography of lung Dry mouth Insomnia Melanoma S/p excision Anxiety Lung nodule Obstructive sleep apnea CPAP (+2L O2 HS) Diastolic heart failure Asthma-COPD overlap syndrome Nocturnal oxygen desaturation 2L O2 HS History of breast cancer Right (2012) s/p lumpectomy + radiation History of uterine cancer GREGORIO BSO + chemo (2012) Hiatal hernia PAT (paroxysmal atrial tachycardia) GERD (gastroesophageal reflux disease) Rheumatoid arthritis Surgical History History of vascular access device Left chest (port flush [facility] on 03/26/21) History of ERCP ERCP (02/02/20): MAC at [facility] Hx laparoscopic cholecystectomy History of melanoma excision 2019 History of sinus surgery 06/29/18 (MAC 3, 7.5 ETT, grade 2 view) History of Moh's micrographic surgery for skin cancer nose x2 History of breast biopsy History of total abdominal hysterectomy and bilateral salpingo-oophorectomy History of colonoscopy Colonoscopy (03/20/20): MAC at [facility] Status post right breast lumpectomy History of cataract surgery History of tonsillectomy Family History Father Leukemia Myocardial infarction Sister Breast cancer Mother Cancer brain Other Coronary heart disease No family history of adverse response to anesthesia No family history of bleeding disorder Social History Smoking Status: Never smoker Tobacco Type: Cigarettes Cigarettes Per Day: 1/2 Pack; Second Hand Exposure: No; Do You Dip or Chew Tobacco: No; Tobacco Cessation Education Requested by Patient: No Hx Alcohol Use: No Hx Substance Use: No Preferred Language: Tanzanian Communication Ability: Effective Visual Impairment: No 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 Vertical Required: No Beliefs That Will Affect Care: None marital status: Current Living Situation: Alone current occupational status: employed 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 Other Information That Helps Us Care for You: No Feels Safe at Home: Yes Safety Concerns: Feels Safe At This Time Assistive Devices: Oxygen - Continuous Review of Systems Review of Systems: All systems reviewed & are unremarkable except as noted in HPI & below Constitutional: + chills, + fatigue and + anorexia; no f ever Eyes: no diplopia Ear, Nose, Mouth, Throat: + nasal congestion and + nasal discharge Respiratory: + cough, + chest congestion and + wheezi ng; no hemoptysis Cardiovascular: + edema (intermittent - unchanged from b aseline); no chest pain and no palpitations Gastrointestinal: + diarrhea/loose stools; no abdominal pa in, no nausea and no vomiting Genitourinary: no dysuria and no hematuria Integumentary: no rash and no yellowing of the skin Physical Exam Physical Exam: General: awake, alert, NAD HEENT: no scleral icterus, moist mucus membranes Neck: trachea midline Heart: RRR Lungs: mildly diminished BS with prolonged expiratory phase, no rhonchi or rales Abdomen: soft, NT, +BS Extremities: no pedal edema, posterior tibial pulses 2+ and equal Skin: warm, dry, no jaundice Neurologic: Ox3, moving all extremities, no dysarthria, no confusion Results & Data Results & Data Vital Signs (Past 12 Hours) Vital Signs Temp Pulse Pulse Resp BP BP Pulse Ox 07/08/23 08:38 86 20 111/68 98 07/08/23 08:13 88 07/08/23 08:12 88 22 85 L 07/08/23 07:32 36.6 C 94 H 20 126/64 94 O2 Del Method O2 Flow Rate 07/08/23 08:38 Nasal Cannula 3 07/08/23 08:13 07/08/23 08:12 Room Air 07/08/23 07:32 Nasal Cannula 2 Laboratory Results Laboratory Results - last 24 hr 07/08/23 07/08/23 07:53 08:18 WBC 7.86 RBC 4.45 Hgb 13.1 Hct 39.4 MCV 88.5 MCH 29.4 MCHC 33.2 RDW Std Deviation 47.2 H RDW Coeff of Arleen 14.8 H Plt Count 212 MPV 10.7 Immature Gran % (Auto) 0.5 Neut % (Auto) 85.4 Lymph % (Auto) 5.3 Lane % (Auto) 7.6 Eos % (Auto) 1.1 Baso % (Auto) 0.1 Neut # (Auto) 6.70 H Lymph # (Auto) 0.[address] # (Auto) 0.60 H Eos # (Auto) 0.09 Baso # (Auto) 0.01 Immature Gran # (Auto) 0.04 Sodium 142 Potassium 3.1 L Chloride 110 H Carbon Dioxide 25 Anion Gap 7 BUN 17 Creatinine 0.64 Est Cr Clr Drug Dosing 85.5 Est GFR ( Amer) 101.2 Est GFR (Non-Af Amer) 87.3 BUN/Creatinine Ratio 26.6 H Glucose 87 Calcium 8.1 L Total Bilirubin 0.6 AST 14 ALT 13 Alkaline Phosphatase 48 Troponin I High Sens 7.4 Total Protein 6.0 Albumin 3.6 Globulin 2.4 L Albumin/Globulin Ratio 1.5 Lipase 61 Adenovirus (PCR) Pending B. pertussis DNA (PCR) Pending B.parapertussis DNA PCR Pending C. pneumoniae DNA (PCR) Pending Coronavirus OC43 (PCR) Pending Coronavirus HKU1 (PCR) Pending Coronavirus 229E (PCR) Pending SARS-CoV-2 (PCR) Pending Coronavirus NL63 (PCR) Pending Human Metapneumovir PCR Pending Influenza Type B (PCR) Pending M. pneumoniae (PCR) Pending Parainfluenza 1 (PCR) Pending Parainfluenza 2 (PCR) Pending Parainfluenza 3 (PCR) Pending Parainfluenza 4 (PCR) Pending RSV (PCR) Pending Entero/Rhino (PCR) Pending Diagnostic Findings Chest X-Ray 07/08/23 07:38 SINGLE VIEW CHEST CLINICAL HISTORY: Atypical chest pain FINDINGS: An AP, portable, upright chest radiograph is compared to study dated 08/09/2022 and correlated with chest CT dated 09/11/2021. A left internal jugular central venous infusion port is unchanged in position. The cardiomediastinal silhouette is top normal for projection noting atherosclerotic calcification of the thoracic aorta. The pulmonary vasculature is nondistended congested. Emphysema and chronic interstitial thickening is similar to previous. There is mild bibasilar scarring/atelectasis. The lungs and pleural spaces are otherwise clear. No pneumothorax is seen. The skeletal structures are osteopenic. The bony thorax is grossly intact. IMPRESSION: Emphysematous change with no acute cardiopulmonary abnormality. ACT 112: Negative or not required by law. Electronically signed by: Jordan Pro M.D. 07/08/2023 8:21 AM Medications Administered Discontinued Medications Albuterol (Albuterol 0.083% Nebu Soln 3 Ml Vial) 5 mg NEB NOW STA; Protocol Stop: 07/08/23 07:56 Last Admin: 07/08/23 08:06 Dose: 5 mg Documented By: DULCE MARIA Methylprednisolone (Methylprednisolone 40 Mg/Ml Vial) 40 mg IV NOW STA Stop: 07/08/23 07:56 Last Admin: 07/08/23 08:07 Dose: 40 mg Documented By: DULCE MARIA Supervising Physician Co-Signing Physician Notes Attending addendum: The patient was seen and examined in emergency room She has been complaining of cough, increasing shortness of breath for the last 2 days She uses 2 L of oxygen at night as a baseline and now she is requiring 3 L to maintain saturation Noted to have rhinovirus positive in the hospital and does not have any pneumonia Has been feeling a little better since admission On examination Lying in bed with minimal shortness of breath at rest Hemodynamically stable with pulse around 100 Chest-decreased breath sound bilaterally with occasional wheezing Heart-S1-S2 regular Abdomen-mildly distended, soft, nontender with normal bowel sound Extremities-negative for any edema Her admission labs, EKG and imaging studies reviewed History of asthma/COPD and now complicated by rhinovirus infection Started on nebulized bronchodilator Symptomatic cough medications and also will be given Solu-Medrol She needs tapered steroid for any exacerbation Agree with assessment and plan as outlined above by ELIZABETH Coffey Dr (6) Rheumatoid arthritis Rheumatoid arthritis location: unspecified site Rheumatoid factor presence: unspecified presence Qualified Code(s): M06.9 - Rheumatoid arthritis, unspecified (7) GERD (gastroesophageal reflux disease) Esophagitis presence: without esophagitis Qualified Code(s): K21.9 - Gastro- esophageal reflux disease without esophagitis
[2023-07-08] MEDS ORDERED: POTASSIUM CHLORIDE CRTAB 20 MEQ TABCR PO STA (09:06)
[2023-07-08 09:33] LABS: Adenovirus PCR Not Detected (NotDetected); Bordetella parapertussis PCR Not Detected (NotDetected); Bordetella pertussis PCR Not Detected (NotDetected); Chlamydia pneumoniae PCR Not Detected (NotDetected); Coronavirus 229E PCR Not Detected (NotDetected); Coronavirus CoV-2 (COVID19)PCR Not Detected (NotDetected); Coronavirus HKU1 PCR Not Detected (NotDetected); Coronavirus NL63 PCR Not Detected (NotDetected); Coronavirus OC43PCR Not Detected (NotDetected); Human Metapneumovirus PCR Not Detected (NotDetected); Influenza A PCR Not Detected (NotDetected); Influenza B PCR Not Detected (NotDetected); Mycoplasma pneumoniae PCR Not Detected (NotDetected); Parainfluenza Virus 1 PCR Not Detected (NotDetected); Parainfluenza Virus 2 PCR Not Detected (NotDetected); Parainfluenza Virus 3 PCR Not Detected (NotDetected); Parainfluenza Virus 4 PCR Not Detected (NotDetected); Respiratory Syncytial VirusPCR Not Detected (NotDetected)
[2023-07-08 09:36] LABS: Magnesium 1.6 mg/dl (1.7-2.4)
[2023-07-08] MEDS ORDERED: MAGNESIUM SULFATE / D5W 1 GM/100 ML BAG IV ONE (09:42)
[2023-07-08 09:47] LABS: Rhinovirus/Enterovirus PCR DETECTED (NotDetected)
[2023-07-08] MEDS ORDERED: ALBUT/IPRATROP 3MG/0.5MG NEB 3 ML VIAL ONE (09:49)
[2023-07-08] MEDS: ALBUT/IPRATROP 3MG/0.5MG NEB 3 ML VIAL NEB SCH ×3 (10:02→19:14)
--- NOTE | 2023-07-08 11:12 | Electrocardiogram Report ---
Test Reason : Blood Pressure : / mmHG Vent. Rate : 085 BPM Atrial Rate : 085 BPM P-R Int : 154 ms QRS Dur : 112 ms QT Int : 394 ms P-R-T Axes : 105 -18 028 degrees QTc Int : 468 ms Normal sinus rhythm Low voltage QRS Incomplete right bundle branch block Nonspecific T wave abnormality Abnormal ECG When compared with ECG of 09-AUG-2022 14:19, No significant change was found Confirmed by Jarrett Barros ([id number]) on 07/08/2023 11:12:19 AM Referred By: Navin Saravia Confirmed By:Aaron Barros
[2023-07-08] MEDS ORDERED: FLUTICASONE PROPIONATE NA SPR 16 GM BTL PRN (15:42)
[2023-07-08] MEDS: METOPROLOL SUCC 50MG EXT REL TAB PO SCH (17:19)
[2023-07-08] MEDS: AZELASTINE HCL 0.1% NASAL 200 SPRAYS/27,400 MCG BTL SCH (17:19)
[2023-07-08] MEDS: methylPREDNISolone 40 MG in SYRINGE 0 ML IV SCH (17:20)
[2023-07-08] MEDS: CALCIUM 600MG + VIT D 400 IU TAB PO SCH (21:06)
[2023-07-08] MEDS: CHOLECALCIFEROL 1,000 UNITS 25 MCG TAB PO SCH (21:06)
[2023-07-08] MEDS: ACETAMINOPHEN 325 MG TAB PO PRN (21:06)
[2023-07-09] MEDS: methylPREDNISolone 40 MG in SYRINGE 0 ML IV SCH ×3 (00:06→16:42)
[2023-07-09] MEDS: ALBUT/IPRATROP 3MG/0.5MG NEB 3 ML VIAL NEB SCH ×6 (00:22→23:13)
[2023-07-09 04:14] LABS: Hematocrit (blood only) 41.1 % (37.0-47.0); Hemoglobin 13.4 g/dl (12.0-16.0); Mean Corpuscular Hemoglobin 29.5 pg (25.0-34.0); Mean Corpuscular Hgb Conc 32.6 g/dL (32.0-36.0); Mean Corpuscular Volume 90.3 fL (80.0-100.0); Mean Platelet Volume 10.2 fL (9.4-12.4); Platelet Count 243 K/uL (130-400); RDW Coefficient of Variation 14.6 % (11.5-14.5); RDW Standard Deviation 48.2 fL (36.4-46.3); Red Blood Count 4.55 M/uL (4.20-5.40)
[2023-07-09 04:30] LABS: Basophils # (auto) 0.02 K/uL (0.00-0.20); Basophils % (auto) 0.2 %; Eosinophils # (auto) 0.01 K/uL (0.00-0.50); Eosinophils % (auto) 0.1 %; Immature Granulocytes # (auto) 0.08 K/uL (0.01-0.20); Immature Granulocytes % (auto) 0.6 %; Lymphocytes # (auto) 0.44 K/uL (1.20-3.40); Lymphocytes % (auto) 3.4 %; Monocytes # (auto) 0.14 K/uL (0.11-0.59); Monocytes % (auto) 1.1 %; Neutrophils # (auto) 12.31 K/uL (1.40-6.50); Neutrophils % (auto) 94.6 %
[2023-07-09 04:40] LABS: BUN Creatinine Ratio 23.9 (10-20); Calcium 9.8 mg/dl (8.6-10.3); Creatinine Clr Calc Pharmacy 62.2 ml/min; Est GFR (African American) 74.5 ml/min; Est GFR (Non-African American) 64.3 ml/min; Magnesium 2.2 mg/dl (1.7-2.4); Potassium 4.4 mmol/L (3.5-5.1)
[2023-07-09] MEDS: AZELASTINE HCL 0.1% NASAL 200 SPRAYS/27,400 MCG BTL SCH (09:12)
[2023-07-09] MEDS: FLUTICASONE/VILANTEROL 200/25MCG 14 PUFFS/INHALER INH SCH (09:13)
[2023-07-09] MEDS: METOPROLOL SUCC 50MG EXT REL TAB PO SCH (09:15)
[2023-07-09] MEDS: SPIRONOLACTONE 25 MG TAB PO SCH (09:16)
[2023-07-09] MEDS: PANTOprazole 40 MG TAB PO SCH (09:16)
[2023-07-09] MEDS: ROSUVASTATIN CALCIUM 10 MG TAB PO SCH (09:16)
[2023-07-09] MEDS: HYDROXYCHLOROQUINE SULFATE 200 MG TAB PO SCH (09:16)
[2023-07-09] MEDS: FUROSEMIDE 20 MG TAB PO SCH (09:17)
[2023-07-09] MEDS: CALCIUM 600MG + VIT D 400 IU TAB PO SCH ×2 (09:18→21:12)
[2023-07-09] MEDS: ENOXAPARIN INJ 40 MG/0.4 ML SYR SQ SCH (09:26)
[2023-07-09] MEDS: UMECLIDINIUM BROMIDE 62.5MCG/BLISTER 7 PUFFS/INHALER INH SCH (09:42)
[2023-07-09] MEDS: ACETAMINOPHEN 325 MG TAB PO PRN ×2 (09:42→22:27)
--- NOTE | 2023-07-09 17:15 | Hospitalist Progress Note ---
Date of Service July 09, 2023 Assessment & Plan (1) COPD exacerbation: Plan: Patient is a 77 yr female with COPD/asthma, tobacco abuse, pulmonary nodules, chronic sinusitis, chronic hypoxic respiratory failure requiring nocturnal oxygen (2L with CPAP), PSVT, rheumatoid arthritis, senile osteoporosis, history of DCIS and history of uterine cancer, and hx of melanoma s/p immunotherapy who presents to ED with worsening respiratory symptoms. Typically, she uses 2L of O2 at night with CPAP but does not require O2 during the day. Upon presentation to the ED today, she was noted to be hypoxic at 85% on RA - she has improved to the mid-90s with 2-3L of O2. Work-up in the ED was positive for entero/rhinovirus. She was also noted to have hypokalemia and hypomagnesemia. Acute on chronic respiratory failure with hypoxia Acute COPD exacerbation Likely due to rhinovirus infection --CXR:Emphysematous change with no acute cardiopulmonary abnormality. -- BioFire positive for rhinovirus -- Continue Solu-Medrol, nebs Continue home inhalers Pulmonary hygiene with flutter, incentive spirometry Antitussives as needed Wean supplemental oxygen to keep saturations 88 to 92% given history of COPD Will likely tapering steroids as able Leukocytosis likely secondary to steroids (2) Acute and chronic respiratory failure with hypoxia: Plan: Management as above (3) Hypokalemia: Plan: Monitor and replace electrolytes as needed (4) Hypomagnesemia: Plan: Monitor and replace electrolytes as needed (5) JOAN (obstructive sleep apnea): Plan: Chronic oxygen dependency--on 2 L at bedtime Continue CPAP at bedtime (6) Rheumatoid arthritis: Plan: Continue home medications On chronic prednisone (7) GERD (gastroesophageal reflux disease): Plan: Continue PPI (8) PAT (paroxysmal atrial tachycardia): Plan: Continue metoprolol Plan DVT Px: Lovenox SQ Code Status: Full code Admission and Anticipated Discharge Date Admission Date: July 08, 2023 Subjective Patient is seen and examined at bedside Less dyspnea today Still has persistent cough Denies any chest pain, dizziness, nausea, vomiting, abdominal pain No other complaints Saturating low 90s on room air Review of Systems Review of Systems: All systems reviewed & are unremarkable except as noted in Subjective Physical Exam Physical Exam: Physical Exam: Vitals signs as noted above General Appearance:Obese, no apparent distress Head: normocephalic, Atraumatic Eyes: normal inspection, EOMI Neck: supple, Trachea midline Respiratory/Chest: Decreased breath sounds, CTA, No accessory muscle use Cardiovascular: S1, S2, No murmur Abdomen/GI:Soft, Non tender, Bowel sounds present Extremities/Musculoskeletal:normal inspection, Trace pedal edema Neurologic/Psych:AAOX3, grossly no focal neurological deficits Skin: normal color, warm Results & Data Results & Data Vital Signs (Past 12 Hours) Vital Signs Temp Pulse Pulse Resp BP Pulse Ox Pulse Ox 07/09/23 15:13 85 20 119/65 91 07/09/23 14:57 77 16 94 07/09/23 11:25 92 07/09/23 10:59 73 16 95 07/09/23 08:02 37.0 C 82 19 117/76 98 07/09/23 07:01 79 07/09/23 05:45 79 18 96 07/09/23 05:35 86 26 H 124/72 95 O2 Del Method O2 Del Method O2 Flow Rate O2 Flow Rate 07/09/23 15:13 Room Air 07/09/23 14:57 Room Air 07/09/23 11:25 Nasal Cannula 2 07/09/23 10:59 Nasal Cannula 3 07/09/23 08:02 Nasal Cannula 2 07/09/23 07:01 07/09/23 05:45 Nasal Cannula 3 07/09/23 05:35 Nasal Cannula 2 Laboratory Results Short CBC 07/09/23 Range/Units 03:38 WBC 13.00 H (4.8-10.8) K/ul Hgb 13.4 (12.0-16.0) g/dl Hct 41.1 (37.0-47.0) % Plt Count 243 (130-400) K/uL BMP 07/09/23 03:38 Sodium 138 Potassium 4.4 D Chloride 105 Carbon Dioxide 27 BUN 21 Creatinine 0.88 Glucose 149 H Calcium 9.8 (6) Rheumatoid arthritis Rheumatoid arthritis location: unspecified site Rheumatoid factor presence: unspecified presence Qualified Code(s): M06.9 - Rheumatoid arthritis, unspecified (7) GERD (gastroesophageal reflux disease) Esophagitis presence: without esophagitis Qualified Code(s): K21.9 - Gastro- esophageal reflux disease without esophagitis
[2023-07-09] MEDS: CHOLECALCIFEROL 1,000 UNITS 25 MCG TAB PO SCH (21:13)
[2023-07-10 04:52] LABS: Hematocrit (blood only) 42.7 % (37.0-47.0); Hemoglobin 13.6 g/dl (12.0-16.0); Mean Corpuscular Hgb Conc 31.9 g/dL (32.0-36.0); Mean Platelet Volume 11.1 fL (9.4-12.4); Platelet Count 257 K/uL (130-400); RDW Coefficient of Variation 14.9 % (11.5-14.5); RDW Standard Deviation 48.9 fL (36.4-46.3); Red Blood Count 4.69 M/uL (4.20-5.40); White Blood Count 20.89 K/ul (4.8-10.8)
[2023-07-10 05:05] LABS: BUN Creatinine Ratio 30.7 (10-20); Calcium 9.9 mg/dl (8.6-10.3); Creatinine Clr Calc Pharmacy 62.2 ml/min; Est GFR (African American) 74.5 ml/min; Est GFR (Non-African American) 64.3 ml/min; Magnesium 2.2 mg/dl (1.7-2.4); Potassium 4.4 mmol/L (3.5-5.1)
[2023-07-10 05:48] LABS: Basophils # (auto) 0.05 K/uL (0.00-0.20); Basophils % (auto) 0.2 %; Immature Granulocytes # (auto) 0.17 K/uL (0.01-0.20); Immature Granulocytes % (auto) 0.8 %; Lymphocytes # (auto) 0.63 K/uL (1.20-3.40); Monocytes # (auto) 0.74 K/uL (0.11-0.59); Monocytes % (auto) 3.5 %; Neutrophils % (auto) 92.5 %
[2023-07-10 07:01] LABS: Estimated Average Glucose 126 mg/dl
[2023-07-10] MEDS: ALBUT/IPRATROP 3MG/0.5MG NEB 3 ML VIAL NEB SCH ×4 (07:18→18:06)
[2023-07-10] MEDS: AZELASTINE HCL 0.1% NASAL 200 SPRAYS/27,400 MCG BTL SCH (08:18)
[2023-07-10] MEDS: FLUTICASONE/VILANTEROL 200/25MCG 14 PUFFS/INHALER INH SCH (08:19)
[2023-07-10] MEDS: ACETAMINOPHEN 325 MG TAB PO PRN ×2 (08:19→22:32)
[2023-07-10] MEDS: UMECLIDINIUM BROMIDE 62.5MCG/BLISTER 7 PUFFS/INHALER INH SCH (08:19)
[2023-07-10] MEDS: PANTOprazole 40 MG TAB PO SCH (08:21)
[2023-07-10] MEDS: ROSUVASTATIN CALCIUM 10 MG TAB PO SCH (08:21)
[2023-07-10] MEDS: HYDROXYCHLOROQUINE SULFATE 200 MG TAB PO SCH (08:21)
[2023-07-10] MEDS: METOPROLOL SUCC 50MG EXT REL TAB PO SCH (08:22)
[2023-07-10] MEDS: CALCIUM 600MG + VIT D 400 IU TAB PO SCH ×2 (08:22→22:29)
[2023-07-10] MEDS: SPIRONOLACTONE 25 MG TAB PO SCH (08:22)
[2023-07-10] MEDS: FUROSEMIDE 20 MG TAB PO SCH (08:23)
[2023-07-10] MEDS: ENOXAPARIN INJ 40 MG/0.4 ML SYR SQ SCH (08:25)
[2023-07-10] MEDS ORDERED: methylPREDNISolone 40 MG in SYRINGE 0 ML IV SCH (09:00)
--- NOTE | 2023-07-10 20:39 | Hospitalist Progress Note ---
Date of Service July 10, 2023 Assessment & Plan (1) COPD exacerbation: Plan: Patient is a 77 yr female with COPD/asthma, tobacco abuse, pulmonary nodules, chronic sinusitis, chronic hypoxic respiratory failure requiring nocturnal oxygen (2L with CPAP), PSVT, rheumatoid arthritis, senile osteoporosis, history of DCIS and history of uterine cancer, and hx of melanoma s/p immunotherapy who presents to ED with worsening respiratory symptoms. Typically, she uses 2L of O2 at night with CPAP but does not require O2 during the day. Upon presentation to the ED today, she was noted to be hypoxic at 85% on RA - she has improved to the mid-90s with 2-3L of O2. Work-up in the ED was positive for entero/rhinovirus. She was also noted to have hypokalemia and hypomagnesemia. Acute on chronic respiratory failure with hypoxia Acute COPD exacerbation Likely due to rhinovirus infection --CXR:Emphysematous change with no acute cardiopulmonary abnormality. -- BioFire positive for rhinovirus -- Continue Solu-Medrol, nebs Continue home inhalers Pulmonary hygiene with flutter, incentive spirometry Antitussives as needed Wean supplemental oxygen to keep saturations 88 to 92% given history of COPD Leukocytosis likely secondary to steroids Clinically improved Taper IV Solu-Medrol to prednisone tomorrow Continue current management (2) Acute and chronic respiratory failure with hypoxia: Plan: Management as above (3) Hypokalemia: Plan: Monitor and replace electrolytes as needed (4) Hypomagnesemia: Plan: Monitor and replace electrolytes as needed (5) JOAN (obstructive sleep apnea): Plan: Chronic oxygen dependency--on 2 L at bedtime Continue CPAP at bedtime (6) Rheumatoid arthritis: Plan: Continue home medications On chronic prednisone (7) GERD (gastroesophageal reflux disease): Plan: Continue PPI (8) PAT (paroxysmal atrial tachycardia): Plan: Continue metoprolol Plan DVT Px: Lovenox SQ Code Status: Full code Admission and Anticipated Discharge Date Admission Date: July 08, 2023 Subjective Patient is seen and examined at bedside Subjectively feels much better today Denies dyspnea at rest Still has some dyspnea on exertion less cough Denies any chest pain, dizziness, nausea, vomiting, abdominal pain Review of Systems Review of Systems: All systems reviewed & are unremarkable except as noted in Subjective Physical Exam Physical Exam: Physical Exam: Vitals signs as noted above General Appearance:Obese, no apparent distress Head: normocephalic, Atraumatic Eyes: normal inspection, EOMI Neck: supple, Trachea midline Respiratory/Chest: Decreased breath sounds, CTA, No accessory muscle use Cardiovascular: S1, S2, No murmur Abdomen/GI:Soft, Non tender, Bowel sounds present Extremities/Musculoskeletal:normal inspection, Trace pedal edema Neurologic/Psych:AAOX3, grossly no focal neurological deficits Skin: normal color, warm Results & Data Results & Data Vital Signs (Past 12 Hours) Vital Signs Pulse Pulse Pulse Resp BP Pulse Ox Pulse Ox 07/10/23 18:06 70 19 91 07/10/23 17:45 82 07/10/23 17:00 90 07/10/23 16:01 87 L 07/10/23 15:00 90 07/10/23 14:28 70 18 88 L 07/10/23 14:00 124/76 89 L 07/10/23 13:00 89 L 07/10/23 11:00 18 116/67 89 L 07/10/23 11:00 97 07/10/23 10:59 95 H 20 96 07/10/23 09:00 116/67 07/10/23 09:00 94 O2 Del Method O2 Del Method O2 Flow Rate O2 Flow Rate 07/10/23 18:06 Nasal Cannula 2 07/10/23 17:45 07/10/23 17:00 07/10/23 16:01 07/10/23 15:00 07/10/23 14:28 Room Air 07/10/23 14:00 2 07/10/23 13:00 Nasal Cannula 2 07/10/23 11:00 Nasal Cannula 2 07/10/23 11:00 Nasal Cannula 3 07/10/23 10:59 Nasal Cannula 3 07/10/23 09:00 07/10/23 09:00 Laboratory Results Short CBC 07/10/23 Range/Units 03:59 WBC 20.89 H (4.8-10.8) K/ul Hgb 13.6 (12.0-16.0) g/dl Hct 42.7 (37.0-47.0) % Plt Count 257 (130-400) K/uL BMP 07/10/23 03:59 Sodium 140 Potassium 4.4 Chloride 105 Carbon Dioxide 27 BUN 27 H Creatinine 0.88 Glucose 129 H Calcium 9.9 (6) Rheumatoid arthritis Rheumatoid arthritis location: unspecified site Rheumatoid factor presence: unspecified presence Qualified Code(s): M06.9 - Rheumatoid arthritis, unspecified (7) GERD (gastroesophageal reflux disease) Esophagitis presence: without esophagitis Qualified Code(s): K21.9 - Gastro- esophageal reflux disease without esophagitis
[2023-07-10] MEDS: CHOLECALCIFEROL 1,000 UNITS 25 MCG TAB PO SCH (22:29)
[2023-07-11] MEDS: ALBUT/IPRATROP 3MG/0.5MG NEB 3 ML VIAL NEB SCH ×4 (03:09→15:01)
[2023-07-11] MEDS: NICOTINE 14 MG/24 HR PATCH TD SCH ×2 (03:33→10:37)
[2023-07-11 04:13] LABS: Basophils # (auto) 0.01 K/uL (0.00-0.20); Basophils % (auto) 0.1 %; Eosinophils # (auto) 0.01 K/uL (0.00-0.50); Eosinophils % (auto) 0.1 %; Hematocrit (blood only) 42.7 % (37.0-47.0); Hemoglobin 13.5 g/dl (12.0-16.0); Immature Granulocytes # (auto) 0.09 K/uL (0.01-0.20); Immature Granulocytes % (auto) 0.6 %; Lymphocytes # (auto) 0.94 K/uL (1.20-3.40); Lymphocytes % (auto) 6.6 %; Mean Corpuscular Hemoglobin 28.7 pg (25.0-34.0); Mean Corpuscular Hgb Conc 31.6 g/dL (32.0-36.0); Mean Corpuscular Volume 90.9 fL (80.0-100.0); Mean Platelet Volume 10.4 fL (9.4-12.4); Monocytes # (auto) 1.04 K/uL (0.11-0.59); Monocytes % (auto) 7.3 %; Neutrophils # (auto) 12.19 K/uL (1.40-6.50); Neutrophils % (auto) 85.3 %; Platelet Count 267 K/uL (130-400); RDW Standard Deviation 50.2 fL (36.4-46.3); White Blood Count 14.28 K/ul (4.8-10.8)
[2023-07-11 04:22] LABS: BUN Creatinine Ratio 33.3 (10-20); Calcium 9.9 mg/dl (8.6-10.3); Creatinine Clr Calc Pharmacy 53.7 ml/min; Est GFR (African American) 62.3 ml/min; Est GFR (Non-African American) 53.8 ml/min; Magnesium 2.2 mg/dl (1.7-2.4); Potassium 4.4 mmol/L (3.5-5.1)
[2023-07-11] MEDS: ENOXAPARIN INJ 40 MG/0.4 ML SYR SQ SCH (08:21)
[2023-07-11] MEDS: CALCIUM 600MG + VIT D 400 IU TAB PO SCH (08:22)
[2023-07-11] MEDS: HYDROXYCHLOROQUINE SULFATE 200 MG TAB PO SCH (08:22)
[2023-07-11] MEDS: SPIRONOLACTONE 25 MG TAB PO SCH (08:22)
[2023-07-11] MEDS: PANTOprazole 40 MG TAB PO SCH (08:22)
[2023-07-11] MEDS: ROSUVASTATIN CALCIUM 10 MG TAB PO SCH (08:22)
[2023-07-11] MEDS: METOPROLOL SUCC 50MG EXT REL TAB PO SCH (08:24)
[2023-07-11] MEDS: UMECLIDINIUM BROMIDE 62.5MCG/BLISTER 7 PUFFS/INHALER INH SCH (08:27)
[2023-07-11] MEDS: FLUTICASONE/VILANTEROL 200/25MCG 14 PUFFS/INHALER INH SCH (08:27)
[2023-07-11] MEDS: FUROSEMIDE 20 MG TAB PO SCH (08:29)
[2023-07-11] MEDS: AZELASTINE HCL 0.1% NASAL 200 SPRAYS/27,400 MCG BTL SCH (08:30)
[2023-07-11] MEDS ORDERED: predniSONE 20 MG TAB PO SCH (09:00)
[2023-07-11] MEDS ORDERED: predniSONE 10 MG TABLET PO SCH (09:00)
[2023-07-11] MEDS ORDERED: cefUROXime axetil 250 MG TABLET PO SCH (12:30)
--- NOTE | 2023-07-11 13:55 | Hospitalist Progress Note ---
Date of Service July 11, 2023 Assessment & Plan (1) COPD exacerbation: Plan: Patient is a 77 yr female with COPD/asthma, tobacco abuse, pulmonary nodules, chronic sinusitis, chronic hypoxic respiratory failure requiring nocturnal oxygen (2L with CPAP), PSVT, rheumatoid arthritis, senile osteoporosis, history of DCIS and history of uterine cancer, and hx of melanoma s/p immunotherapy who presents to ED with worsening respiratory symptoms. Typically, she uses 2L of O2 at night with CPAP but does not require O2 during the day. Upon presentation to the ED today, she was noted to be hypoxic at 85% on RA - she has improved to the mid-90s with 2-3L of O2. Work-up in the ED was positive for entero/rhinovirus. She was also noted to have hypokalemia and hypomagnesemia. Acute on chronic respiratory failure with hypoxia Acute COPD exacerbation Likely due to rhinovirus infection --CXR:Emphysematous change with no acute cardiopulmonary abnormality. -- BioFire positive for rhinovirus -- Continue Solu-Medrol, nebs Continue home inhalers Pulmonary hygiene with flutter, incentive spirometry Antitussives as needed Wean supplemental oxygen to keep saturations 88 to 92% given history of COPD Leukocytosis likely secondary to steroids Clinically improved IV Solu-Medrol transition to prednisone 2 step: Needs 2 L with activity Plan to be discharged home today (2) Acute and chronic respiratory failure with hypoxia: Plan: Management as above (3) Hypokalemia: Plan: Monitor and replace electrolytes as needed (4) Hypomagnesemia: Plan: Monitor and replace electrolytes as needed (5) JOAN (obstructive sleep apnea): Plan: Chronic oxygen dependency--on 2 L at bedtime Continue CPAP at bedtime (6) Rheumatoid arthritis: Plan: Continue home medications On chronic prednisone (7) GERD (gastroesophageal reflux disease): Plan: Continue PPI (8) PAT (paroxysmal atrial tachycardia): Plan: Continue metoprolol Plan DVT Px: Lovenox SQ Code Status: Full code Disposition Home Admission and Anticipated Discharge Date Admission Date: July 08, 2023 Subjective Patient is seen and examined at bedside States having some cough with yellowish discoloration No other complaints Dyspnea resolved Denies any chest pain, dizziness, nausea, vomiting, abdominal pain Had 2 step Review of Systems Review of Systems: All systems reviewed & are unremarkable except as noted in Subjective Physical Exam Physical Exam: Physical Exam: Vitals signs as noted above General Appearance:Obese, no apparent distress Head: normocephalic, Atraumatic Eyes: normal inspection, EOMI Neck: supple, Trachea midline Respiratory/Chest: Decreased breath sounds, CTA, No accessory muscle use Cardiovascular: S1, S2, No murmur Abdomen/GI:Soft, Non tender, Bowel sounds present Extremities/Musculoskeletal:normal inspection, Trace pedal edema Neurologic/Psych:AAOX3, grossly no focal neurological deficits Skin: normal color, warm Results & Data Results & Data Vital Signs (Past 12 Hours) Vital Signs Temp Pulse Pulse Pulse Pulse Pulse Resp 07/11/23 13:16 36.7 C 68 16 07/11/23 13:16 07/11/23 13:02 116 H 114 H 94 H 07/11/23 11:18 76 17 07/11/23 08:47 07/11/23 08:00 70 20 07/11/23 07:24 75 07/11/23 05:37 73 18 07/11/23 05:00 67 21 07/11/23 04:00 82 23 07/11/23 03:48 100 H 20 07/11/23 03:48 07/11/23 03:09 18 07/11/23 02:33 66 21 07/11/23 02:00 59 L 20 Resp Resp Resp BP BP Pulse Ox Pulse Ox 07/11/23 13:16 129/85 92 07/11/23 13:16 07/11/23 13:02 20 20 18 91 07/11/23 11:18 90 07/11/23 08:47 07/11/23 08:00 125/70 90 07/11/23 07:24 07/11/23 05:37 93 07/11/23 05:00 93 07/11/23 04:00 96 07/11/23 03:48 93 07/11/23 03:48 106/68 07/11/23 03:09 96 07/11/23 02:33 95 07/11/23 02:00 96 Pulse Ox Pulse Ox Pulse Ox O2 Del Method O2 Del Method O2 Flow Rate O2 Flow Rate 07/11/23 13:16 Nasal Cannula 07/11/23 13:16 92 Nasal Cannula 07/11/23 13:02 86 L 90 2 07/11/23 11:18 Room Air 07/11/23 08:47 Room Air, Nasal Cannula 2 07/11/23 08:00 Room Air 07/11/23 07:24 07/11/23 05:37 Room Air 07/11/23 05:00 07/11/23 04:00 07/11/23 03:48 07/11/23 03:48 07/11/23 03:09 CPAP 2 07/11/23 02:33 3 07/11/23 02:00 CPAP O2 Flow Rate 07/11/23 13:16 07/11/23 13:16 2 07/11/23 13:02 07/11/23 11:18 07/11/23 08:47 07/11/23 08:00 07/11/23 07:24 07/11/23 05:37 07/11/23 05:00 07/11/23 04:00 07/11/23 03:48 07/11/23 03:48 07/11/23 03:09 07/11/23 02:33 07/11/23 02:00 Laboratory Results Short CBC 07/11/23 Range/Units 03:49 WBC 14.28 H (4.8-10.8) K/ul Hgb 13.5 (12.0-16.0) g/dl Hct 42.7 (37.0-47.0) % Plt Count 267 (130-400) K/uL BMP 07/11/23 03:49 Sodium 139 Potassium 4.4 Chloride 102 Carbon Dioxide 31 BUN 34 H Creatinine 1.02 Glucose 88 Calcium 9.9 (6) Rheumatoid arthritis Rheumatoid arthritis location: unspecified site Rheumatoid factor presence: unspecified presence Qualified Code(s): M06.9 - Rheumatoid arthritis, unspecified (7) GERD (gastroesophageal reflux disease) Esophagitis presence: without esophagitis Qualified Code(s): K21.9 - Gastro- esophageal reflux disease without esophagitis
--- NOTE | 2023-07-11 14:06 | Discharge Summary ---
Date of Service July 11, 2023 Admission HPI Per Admitting Provider This is a 77 y/o female with COPD/asthma, tobacco abuse, pulmonary nodules, chronic sinusitis, chronic hypoxic respiratory failure requiring nocturnal oxygen (2L with CPAP), PSVT, rheumatoid arthritis, senile osteoporosis, history of DCIS and history of uterine cancer, and hx of melanoma s/p immunotherapy who presents to ED with worsening respiratory symptoms. Pt notes that she has been fatigued for the past month but otherwise has felt at baseline. About two days ago, she started with URI symptoms - head congestion, sneezing, runny nose, cough that is intermittently productive of yellow mucus. Then developed increased shortness of breath and wheezing. Denies chest tightness or pain but states that "my lungs feel tight on the sides" so she has been using rescue inhaler and nebs - typically mixes levalbuterol and ipratropium nebs. Last used around 5 am at home. Denies fevers but does feel cold. No nausea or vomitng but appetite is decreased. Notes diarrhea yesterday. No known sick contacts but was traveling for the holidays. Pt is on chronic prednisone 5 mg daily - has not increased for current symptoms. Admission Exam Per Admitting Provider Physical Exam: Vitals signs as noted above General Appearance:Obese, no apparent distress Head: normocephalic, Atraumatic Eyes: normal inspection, EOMI Neck: supple, Trachea midline Respiratory/Chest: Decreased breath sounds, CTA, No accessory muscle use Cardiovascular: S1, S2, No murmur Abdomen/GI:Soft, Non tender, Bowel sounds present Extremities/Musculoskeletal:normal inspection, Trace pedal edema Neurologic/Psych:AAOX3, grossly no focal neurological deficits Skin: normal color, warm Principal Diagnosis Acute on chronic respiratory failure with hypoxia Acute COPD exacerbation Rhinovirus infection Discharge Data Allergies Allergy/AdvReac Type Severity Reaction Status Date / Time Tetracyclines Allergy Severe Tongue Verified 06/29/23 14:23 swelling codeine Allergy Intermediate Hives Verified 06/29/23 14:23 nickel Allergy Intermediate Lip Verified 06/29/23 14:23 swelling (nickel mouthpiece with flute) bacitracin Allergy Mild Itching Verified 06/29/23 14:23 amoxicillin AdvReac Mild Diarrhea, Verified 06/29/23 14:23 vomiting clavulanic acid AdvReac Mild Nausea/Vomi Verified 06/29/23 14:23 [From Augmentin] ting Consultations 07/08/23 08:46 ED Decision to Admit Stat Procedures Performed Laboratory Results WBC 14.28 K/ul (4.8-10.8) H 07/11/23 03:49 RBC 4.70 M/uL (4.20-5.40) 07/11/23 03:49 Hgb 13.5 g/dl (12.0-16.0) 07/11/23 03:49 Hct 42.7 % (37.0-47.0) 07/11/23 03:49 MCV 90.9 fL (80.0-100.0) 07/11/23 03:49 MCH 28.7 pg (25.0-34.0) 07/11/23 03:49 MCHC 31.6 g/dL (32.0-36.0) L 07/11/23 03:49 RDW Std Deviation 50.2 fL (36.4-46.3) H 07/11/23 03:49 RDW Coeff of Arleen 15.0 % (11.5-14.5) H 07/11/23 03:49 Plt Count 267 K/uL (130-400) 07/11/23 03:49 MPV 10.4 fL (9.4-12.4) 07/11/23 03:49 Immature Gran % (Auto) 0.6 % 07/11/23 03:49 Neut % (Auto) 85.3 % 07/11/23 03:49 Lymph % (Auto) 6.6 % 07/11/23 03:49 Robeson % (Auto) 7.3 % 07/11/23 03:49 Eos % (Auto) 0.1 % 07/11/23 03:49 Baso % (Auto) 0.1 % 07/11/23 03:49 Neut # (Auto) 12.19 K/uL (1.40-6.50) H 07/11/23 03:49 Lymph # (Auto) 0.94 K/uL (1.20-3.40) L 07/11/23 03:49 Robeson # (Auto) 1.04 K/uL (0.11-0.59) H 07/11/23 03:49 Eos # (Auto) 0.01 K/uL (0.00-0.50) 07/11/23 03:49 Baso # (Auto) 0.01 K/uL (0.00-0.20) 07/11/23 03:49 Immature Gran # (Auto) 0.09 K/uL (0.01-0.20) 07/11/23 03:49 Sodium 139 mmol/L (136-145) 07/11/23 03:49 Potassium 4.4 mmol/L (3.5-5.1) 07/11/23 03:49 Chloride 102 mmol/L (98-107) 07/11/23 03:49 Carbon Dioxide 31 mmol/L (21-32) 07/11/23 03:49 Anion Gap 6 (3-11) 07/11/23 03:49 BUN 34 mg/dl (6-23) H 07/11/23 03:49 Creatinine 1.02 mg/dl (0.6-1.2) 07/11/23 03:49 Est Cr Clr Drug Dosing 53.7 ml/min 07/11/23 03:49 Est GFR ( Amer) 62.3 ml/min 07/11/23 03:49 Est GFR (Non-Af Amer) 53.8 ml/min 07/11/23 03:49 BUN/Creatinine Ratio 33.3 (10-20) H 07/11/23 03:49 Glucose 88 mg/dl (70-99(Fasting)) 07/11/23 03:49 Estimat Average Glucose 126 mg/dl 07/10/23 03:59 Hemoglobin A1c 6.0 % (4.5-5.6) H 07/10/23 03:59 Calcium 9.9 mg/dl (8.6-10.3) 07/11/23 03:49 Magnesium 2.2 mg/dl (1.7-2.4) 07/11/23 03:49 Total Bilirubin 0.6 mg/dl (0.2-1.0) 07/08/23 07:53 AST 14 U/L (13-39) 07/08/23 07:53 ALT 13 U/L (7-52) 07/08/23 07:53 Alkaline Phosphatase 48 U/L (34-104) 07/08/23 07:53 Troponin I High Sens 7.4 pg/ml (0-14) 07/08/23 07:53 Total Protein 6.0 gm/dl (6.0-8.3) 07/08/23 07:53 Albumin 3.6 gm/dl (3.4-5.0) 07/08/23 07:53 Globulin 2.4 gm/dl (2.5-4.0) L 07/08/23 07:53 Albumin/Globulin Ratio 1.5 (0.9-2) 07/08/23 07:53 Lipase 61 U/L (11-82) 07/08/23 07:53 Adenovirus (PCR) Not Detected (NotDetected) 07/08/23 08:18 B. pertussis DNA (PCR) Not Detected (NotDetected) 07/08/23 08:18 B.parapertussis DNA PCR Not Detected (NotDetected) 07/08/23 08:18 C. pneumoniae DNA (PCR) Not Detected (NotDetected) 07/08/23 08:18 Coronavirus OC43 (PCR) Not Detected (NotDetected) 07/08/23 08:18 Coronavirus HKU1 (PCR) Not Detected (NotDetected) 07/08/23 08:18 Coronavirus 229E (PCR) Not Detected (NotDetected) 07/08/23 08:18 SARS-CoV-2 (PCR) Not Detected (NotDetected) 07/08/23 08:18 Coronavirus NL63 (PCR) Not Detected (NotDetected) 07/08/23 08:18 Human Metapneumovir PCR Not Detected (NotDetected) 07/08/23 08:18 Influenza Type A (PCR) Not Detected (NotDetected) 07/08/23 08:18 Influenza Type B (PCR) Not Detected (NotDetected) 07/08/23 08:18 M. pneumoniae (PCR) Not Detected (NotDetected) 07/08/23 08:18 Parainfluenza 1 (PCR) Not Detected (NotDetected) 07/08/23 08:18 Parainfluenza 2 (PCR) Not Detected (NotDetected) 07/08/23 08:18 Parainfluenza 3 (PCR) Not Detected (NotDetected) 07/08/23 08:18 Parainfluenza 4 (PCR) Not Detected (NotDetected) 07/08/23 08:18 RSV (PCR) Not Detected (NotDetected) 07/08/23 08:18 Entero/Rhino (PCR) DETECTED (NotDetected) A* 07/08/23 08:18 Impressions Chest X-Ray 07/08/23 07:38 SINGLE VIEW CHEST CLINICAL HISTORY: Atypical chest pain FINDINGS: An AP, portable, upright chest radiograph is compared to study dated 08/09/2022 and correlated with chest CT dated 09/11/2021. A left internal jugular central venous infusion port is unchanged in position. The cardiomediastinal silhouette is top normal for projection noting atherosclerotic calcification of the thoracic aorta. The pulmonary vasculature is nondistended congested. Emphysema and chronic interstitial thickening is similar to previous. There is mild bibasilar scarring/atelectasis. The lungs and pleural spaces are otherwise clear. No pneumothorax is seen. The skeletal structures are osteopenic. The bony thorax is grossly intact. IMPRESSION: Emphysematous change with no acute cardiopulmonary abnormality. ACT 112: Negative or not required by law. Electronically signed by: Jordan Pro M.D. 07/08/2023 8:21 AM Hospital Course (1) COPD exacerbation: Patient is a 77 yr female with COPD/asthma, tobacco abuse, pulmonary nodules, chronic sinusitis, chronic hypoxic respiratory failure requiring nocturnal oxygen (2L with CPAP), PSVT, rheumatoid arthritis, senile osteoporosis, history of DCIS and history of uterine cancer, and hx of melanoma s/p immunotherapy who presents to ED with worsening respiratory symptoms. Typically, she uses 2L of O2 at night with CPAP but does not require O2 during the day. Upon presentation to the ED today, she was noted to be hypoxic at 85% on RA - she has improved to the mid-90s with 2-3L of O2. Work-up in the ED was positive for entero/rhinovirus. She was also noted to have hypokalemia and hypomagnesemia. Acute on chronic respiratory failure with hypoxia Acute COPD exacerbation Likely due to rhinovirus infection --CXR:Emphysematous change with no acute cardiopulmonary abnormality. -- BioFire positive for rhinovirus -- Continue Solu-Medrol, nebs Continue home inhalers Pulmonary hygiene with flutter, incentive spirometry Antitussives as needed Wean supplemental oxygen to keep saturations 88 to 92% given history of COPD Leukocytosis likely secondary to steroids Clinically improved IV Solu-Medrol transition to prednisone 2 step: Needs 2 L with activity Plan to be discharged home today (2) Acute and chronic respiratory failure with hypoxia: Management as above (3) Hypokalemia: Monitor and replace electrolytes as needed (4) Hypomagnesemia: Monitor and replace electrolytes as needed (5) JOAN (obstructive sleep apnea): Chronic oxygen dependency--on 2 L at bedtime Continue CPAP at bedtime (6) Rheumatoid arthritis: Continue home medications On chronic prednisone (7) GERD (gastroesophageal reflux disease): Continue PPI (8) PAT (paroxysmal atrial tachycardia): Continue metoprolol Plan DVT Px: Lovenox SQ Code Status: Full code Disposition Home Total Time Total Time Spent Total Time Spent (In Minutes): 55 minutes Discharge Plan Discharge Items Patient Disposition: Home - Home Health Services Reason For Visit: COPD EXACERBATION, HYPOXIA Discharge Diagnosis: Acute on chronic respiratory failure with hypoxia Acute COPD exacerbation Rhinovirus infection Activity: Per Instructions section Exercise/Sports: Wait until after follow-up appointment Non-emergency contact: Primary Care Provider Call non-emergency contact if: you have any medication questions, your symptoms worsen, your pain is concerning for you and you have a fever Follow-up/Referrals: Navin Saravia MD [Primary Care Provider] - Diet: Heart Healthy Addtl Attending Provider Instructions: Follow-up with your primary care physician Dr. Saravia in 1 week --- Complete the antibiotic course cefuroxime and prednisone taper course as prescribed. Prednisone taper course Start taking prednisone 30 mg daily for 2 days, then take 20 mg daily for 2 days, then take 10 mg daily for 2 days, then continue your home dose 5 mg daily -- Use supplemental oxygen via nasal cannula 2 L with activity and at bedtime as advised. Seek immediate medical attention if your symptoms reoccur or worsen Please take all medications as instructed on discharge list below. Please call if you have any questions or problems. You can reach a [facility] hospitalist on duty at [facility] 24 hours a day by calling [phone] Pending Studies at Discharge: No Stand-Alone Forms: My [facility] Scali, Smoking Cessation Medications and DC Order Prescriptions: New cefuroxime axetil 250 mg Tablet 250 mg PO BID@0700,1900 Qty: 9 0RF prednisone 10 mg tablet 10 mg PO DIRECTED Qty: 12 0RF Rx Instructions: Start taking prednisone 30 mg daily for 2 days, then take 20 mg daily for 2 days, then take 10 mg daily for 2 days, then continue your home dose 5 mg daily Continued levalbuterol HCl 1.25 mg/3 mL solution for nebulization 1.25 mg inhalation .COMPLEX Qty: 90 6RF Rx Instructions: USE 1 VIAL VIA NEBULIZER MIXED WITH IPRATROPIUM EVERY 4-6 HOURS NEEDED FOR COUGH, WHEEZE azelastine 137 mcg (0.1 %) aerosol,spray See Rx Instructions .ROUTE .COMPLEX Qty: 90 3RF Dose Instruction: INSTILL 2 SPRAYS INTO INTO EACH NOSTRIL EVERY DAY Rx Instructions: INSTILL 2 SPRAYS INTO INTO EACH NOSTRIL EVERY DAY albuterol sulfate 0.63 mg/3 mL solution for nebulization 0.63 mg inhalation QID PRN (Reason: Wheezing) Prolia 60 mg/mL syringe 60 mg subcut Q6M Rx Instructions: every 6 months Tezspire 210 mg/1.91 mL (110 mg/mL) syringe 210 mg subcut .COMPLEX Qty: 1.91 11RF Rx Instructions: 210 mg subcut EVERY 4 WEEKS APPROVED thru [employer] 09/24/2021 for as long as she's covered Symbicort 160-4.5 mcg/actuation HFA aerosol inhaler 2 puff INHALATION BID Qty: 10.2 11RF ipratropium bromide 0.02 % solution 2.5 ml inhalation Q6H PRN (Reason: shortness of breath or wheezing) Qty: 300 6RF Rx Instructions: Mixed with Levalbuterol every 4 hours PRN cough, dyspnea and wheeze Incruse Ellipta 62.5 mcg/actuation blister with device 1 inh INHALATION QAM Qty: 30 11RF albuterol sulfate [Ventolin HFA] 90 mcg/actuation HFA aerosol inhaler 2 puff inhalation Q4 PRN (Reason: Shortness Of Breath Or Wheezing) Qty: 1 11RF omeprazole 20 mg Capsule,Delayed Release(Dr/Ec) 20 mg PO QAM hydroxychloroquine [Plaquenil] 200 mg Tablet 200 mg PO QAM cholecalciferol (vitamin D3) [Vitamin D3] 1,000 unit Capsule 1,000 unit PO HS calcium carbonate-vitamin D3 600 mg-5 mcg (200 unit) Tablet 1 tab PO BID rosuvastatin 10 mg tablet 10 mg PO QAM metoprolol succinate 50 mg tablet extended release 24 hr 50 mg PO DAILY spironolactone 25 mg tablet 25 mg PO QAM metoprolol succinate 25 mg tablet extended release 24 hr 25 mg PO DAILY PRN (Reason: heart palp) Rx Instructions: Patient stated she takes Metoprolol ER 50mg daily and will take Metoprolol 25mg ER if she is having heart palpitations fluticasone propionate [Flonase Allergy Relief] 50 mcg/actuation spray,suspension 2 spray intranasal DAILY PRN (Reason: Allergy Symptoms) Rx Instructions: ADMINISTER 2 SPRAYS INTO EACH NOSTRIL EVERY DAY furosemide 20 mg tablet 20 mg PO DAILY Qty: 30 2RF Held prednisone 5 mg tablet 5 mg PO DAILY Hold Instructions: Restart taking after completion of prednisone taper course as advised. Rx Instructions: TAKE 1 TABLET BY MOUTH EVERY DAY Discharge Orders: Discharge Order (Routine); Ordered 07/11/23 Ordered By: Camacho Kraft/Other Patient Handouts: Prediabetes, 5 Steps for Eating Healthier Admission Data Admit Date/Time: 07/08/23 09:40 Attending Provider: Camacho Finnegan Admit Provider: Jamar Lopez Primary Care Provider: Navin Saravia Other Providers: Jamar Lopez
== END 2023-07-11 17:11 | disposition home or self-care (01) | DRG 190 ==
LOC: ED 07:27 → EDINP 09:40 → SUATTDRO 09:40 → EDINP 07-11 11:19